=== PATIENT | female | born 1935 | race Caucasian/White ===

== ENCOUNTER → 2023-11-06 06:59 | Outpatient (REF) | payer MEDICARE, SELFPAY ==
[2023-11-06] MEDS: LEXISCAN 0.400000000000000022 MG IV (09:55)
[2023-11-06] MEDS: FLUSH (NSS) 1 FLUSH IV (09:56)
== END ==
LOC: RCS 06:59
PROVIDERS: ATTENDING PHYSICIAN Nuclear Medicine Nuclear Cardiology; FAMILY PHYSICIAN Family Medicine
DX: R07.9 Chest pain, unspecified (principal); R06.09 Other forms of dyspnea; I10 Essential (primary) hypertension; I51.7 Cardiomegaly
CPT/HCPCS: 78452; 93017; A9500; J2785

== ENCOUNTER → 2023-11-13 14:52 | Outpatient (REF) | payer MEDICARE, SELFPAY | LOC: RCS 14:52 | PROVIDERS: ATTENDING PHYSICIAN Nuclear Medicine Nuclear Cardiology; FAMILY PHYSICIAN Family Medicine | DX: R07.9 Chest pain, unspecified (principal); R06.09 Other forms of dyspnea; I10 Essential (primary) hypertension; I51.7 Cardiomegaly | CPT/HCPCS: 93306 ==

== ENCOUNTER → 2023-12-22 16:01 | Outpatient (REF) | payer MEDICARE, SELFPAY | LOC: RAD 16:01 | PROVIDERS: ATTENDING PHYSICIAN Family Medicine | DX: R31.9 Hematuria, unspecified (principal) | CPT/HCPCS: 76770 ==

== ENCOUNTER → 2024-01-03 15:57 | Outpatient (REF) | payer MEDICARE, SELFPAY | LOC: RAD 15:57 | PROVIDERS: ATTENDING PHYSICIAN Obstetrics & Gynecology; FAMILY PHYSICIAN Family Medicine | DX: N13.30 Unspecified hydronephrosis (principal) | CPT/HCPCS: 74176 ==

== ENCOUNTER → 2024-01-09 13:47 | Outpatient (REF) | payer MEDICARE, SELFPAY ==
[2024-01-09 14:57] LABS: Blood Urea Nitrogen 20 mg/dl (7-17); Calcium 10.2 mg/dl (8.4-10.2); Carbon Dioxide 26 mmol/L (22-30); Chloride 101 mmol/L (98-107); Glucose 111 mg/dl (70-99); Potassium 4.4 mmol/L (3.5-5.1); Sodium 137 mmol/L (135-145); eGFR > 60.00
== END ==
LOC: REG 13:47
PROVIDERS: ATTENDING PHYSICIAN Obstetrics & Gynecology; FAMILY PHYSICIAN Family Medicine
DX: N13.2 Hydronephrosis with renal and ureteral calculous obstruction (principal)
CPT/HCPCS: 36415; 80048

== ENCOUNTER → 2024-01-10 11:04 | Outpatient (REF) | payer MEDICARE, SELFPAY | LOC: RAD 11:04 | PROVIDERS: ATTENDING PHYSICIAN Obstetrics & Gynecology; FAMILY PHYSICIAN Family Medicine | DX: N13.2 Hydronephrosis with renal and ureteral calculous obstruction (principal) | CPT/HCPCS: 74178; Q9967 ==

== ENCOUNTER 2024-01-13 23:08 | Emergency (ER) | payer MEDICARE, SELFPAY ==
[2024-01-13 23:10] VITALS: BP 133/84
[2024-01-13 23:35] VITALS: BMI 26.3
--- NOTE | 2024-01-13 23:36 | EDRN ---
Pt says she has a kidney problem with an appt on for cystoscopy. Pt says she is in a lot of pain currently and has noted her urine has been dark 'the color of tea'. Son says pt called him and complained of pain and nausea which prompted him
to bring pt to ED. He was with pt on for surgery consult - pt had a CT with contrast on Monday. Son says a blockage on CT and cystoscopy hoping to be curative. Son says tonight is first time pt complained of nausea. Pt was told not
to take any ibuprofen 5 days prior to surgery. Pt adds she was very uncomfortable last night urinating multiple times and having discomfort with urination. Pt did not take any pain medications. Pt says nausea started last night, went away during
the day today and returned again tonight. No vomiting, fever/chills, cp, sob. Pt has pressure in her abdomen and pain in vaginal area. Normal appetite.
[2024-01-13 23:53] LABS: Urine Albumin Trace (Neg - Trace); Urine Bilirubin Negative (Negative); Urine Character Very Cloudy (Clear); Urine Color Yellow; Urine Glucose Negative (Negative); Urine Ketone Negative (Negative); Urine Leukocyte Trace (Negative); Urine Nitrite Negative (Negative); Urine Occult Blood 4+ (Negative); Urine Urobilinogen Negative (Neg - 1+)
--- NOTE | 2024-01-13 23:54 | ED.GENMED ---
History of Present Illness
<ANNAMARIA Puckett - Last Filed: 01/14/24 05:43>
General
Chief Complaint: Urinary Symptoms
Source: patient and family (pt's son)
Exam Limitations: none
Time Seen by Provider: 01/13/24 23:46
Nursing documentation reviewed up to this point in time: agreed with
History of Present Illness
History of Present Illness:
88 year old female presents for evaluation of UTI symptoms. Pt reports that she has a history of urological sx as well as stress incontinence, and is scheduled for a L ureteroscopy on 01/30/24. Her son reports that this procedure is due to a blockage
of the pt's L ureter. She currently endorses suprapubic pain with radiation to her left lower back, as well as dysuria, increased frequency of urination, and urgency. She notes that her sx have worsened over the last 24 hours, and tend to be worse
at night. She also endorses intermittent periods of nausea, but denies vomiting. She has not taken any medications for her sx. Pt denies fever, foul smelling discharge, chills, fatigue, flank pain, and rash.
Past History
<ANNAMARIA Puckett - Last Filed: 01/14/24 05:43>
Past History
ED Past Medical History: HTN, Psychiatric (Anxiety) and Other (GERD, frequent UTIs, history of dysphagia)
ED Past Surgical History: Gynecological and Orthopedic
Social History
Tobacco: Non-smoker
Alcohol: Occasional
Family History
Family History: Other (Diabetes, coronary disease, stroke, glaucoma)
Review of Systems
<ANNAMARIA Puckett - Last Filed: 01/14/24 05:43>
Review of Systems
Allergies reviewed?: Yes
Constitutional: Reports no symptoms
EENT: Reports no symptoms
Respiratory: Reports no symptoms
Cardiac: Reports no symptoms
: Reports dysuria, frequency and incontinence
Musculoskeletal: Reports back pain
Skin: Reports no symptoms
Neurological: Reports no symptoms
Endocrine: Reports no symptoms
Hematologic/Lymphatic: Reports no symptoms
Psychiatric: Reports no symptoms
Phy Exam
<ANNAMARIA Puckett - Last Filed: 01/14/24 05:43>
General Physical Exam
General Presentation: well appearing
General age: appears stated age
General Skin: warm
General Habitus: elderly
General Mental: alert
General Hydration: appears well hydrated
Cardiovascular Exam
Cardiovascular Exam: regular rate/rhythm and no murmur
Pulmonary Exam
Pulmonary Exam: lungs clear and no respiratory distress
Gastrointestinal Exam
Gastrointestinal Exam: normal bowel sounds, no cva tenderness and tender (suprapubic )
Palpation: left lower quadrant: Minimal tenderness and right lower quadrant: Minimal tenderness
Genitourinary Exam Female
Exam Female: no bleeding and no vaginal discharge
Neurological Exam
Neurological Exam: alert and oriented x3
Musculoskeletal Exam
Musculoskeletal Exam: back pain (Left lower back pain )
Skin Exam
Skin Exam: normal color and warm/dry
Course
<ANNAMARIA Puckett - Last Filed: 01/14/24 05:43>
Orders/Labs/Results
Orders:
Orders
01/13/24 23:43
Urinalysis Reflex To Culture Urgent
Date Specimen was Collected: 01/13/24
Time Specimen was Collected: 23:35
Urine Microscopic Reflex Cult Urgent
Urine Culture Urgent
VON Source: U
Specimen Description:
Date Specimen was Collected: 01/13/24
Time Specimen was Collected: 23:35
01/14/24 00:55
Acetaminophen [Tylenol] 1,000 mg PO NOW STA
Doxycycline [Vibramycin] 100 mg PO NOW STA
01/14/24 01:02
Acetaminophen [Tylenol] 500 mg .ROUTE .STK-MED ONE
Abnormal Lab Results
01/13/24
23:43
Ur Occult Blood Reflex 4+ A
(Negative)
Leukocyte Esterase Rfl Trace A
(Negative)
Urine RBC 90-100 A /HPF
(0-2)
Urine WBC (Reflex) 11-15 A /HPF
(0-5)
Urine Bacteria (Reflex) Many A
(Negative)
Vital Signs
Initial and Last Documented VS:
Initial Vital Signs
Temp Pulse Resp BP Pulse Ox
98.4 F 78 24 133/84 96
01/13/24 23:10 01/13/24 23:10 01/13/24 23:10 01/13/24 23:10 01/13/24 23:10
Last Documented Vital Signs
Temp Pulse Resp BP Pulse Ox
98.4 F 86 16 185/83 97
01/13/24 23:10 01/14/24 01:14 01/14/24 01:14 01/14/24 01:18 01/14/24 01:14
<Annabella Queen, DO - Last Filed: 01/14/24 01:03>
Orders/Labs/Results
Orders:
Orders
01/13/24 23:43
Urinalysis Reflex To Culture Urgent
Date Specimen was Collected: 01/13/24
Time Specimen was Collected: 23:35
Urine Microscopic Reflex Cult Urgent
Urine Culture Urgent
VON Source: U
Specimen Description:
Date Specimen was Collected: 01/13/24
Time Specimen was Collected: 23:35
01/14/24 00:55
Acetaminophen [Tylenol] 1,000 mg PO NOW STA
Doxycycline [Vibramycin] 100 mg PO NOW STA
01/14/24 01:02
Acetaminophen [Tylenol] 500 mg .ROUTE .STK-MED ONE
Abnormal Lab Results
01/13/24
23:43
Ur Occult Blood Reflex 4+ A
(Negative)
Leukocyte Esterase Rfl Trace A
(Negative)
Urine RBC 90-100 A /HPF
(0-2)
Urine WBC (Reflex) 11-15 A /HPF
(0-5)
Urine Bacteria (Reflex) Many A
(Negative)
Vital Signs
Initial and Last Documented VS:
Initial Vital Signs
Temp Pulse Resp BP Pulse Ox
98.4 F 78 24 133/84 96
01/13/24 23:10 01/13/24 23:10 01/13/24 23:10 01/13/24 23:10 01/13/24 23:10
Last Documented Vital Signs
Temp Pulse Resp BP Pulse Ox
98.4 F 86 16 185/83 97
01/13/24 23:10 01/14/24 01:14 01/14/24 01:14 01/14/24 01:18 01/14/24 01:14
<ANNAMARIA Puckett - Last Filed: 01/14/24 05:43>
MDM/Problems Addressed
Differential Diagnosis Includes:
cystitis, pyelonephritis
MDM/Problems Addressed:
Urinalysis Reflex To Culture
Urine Culture
Acetaminophen [Tylenol] 1,000 mg PO
Doxycycline [Vibramycin] 100 mg PO
Acetaminophen [Tylenol] 500 mg
<ANNAMARIA Puckett - Last Filed: 01/14/24 05:43>
*Critical Care Note
Total Time (30-74mins, 75-104mins- exclusive of procedures): Not Applicable
ED Attending Note
<ANNAMARIA Puckett - Last Filed: 01/14/24 05:43>
-
Portions of this chart may have been created with voice recognition software.� Occasional wrong word or��sound alike� substitutions may have occurred due to the inherent limitations of voice recognition software.
<Annabella Queen, DO - Last Filed: 01/14/24 01:03>
ED Attending Note
Patient seen and examined by attending physician: Yes
ED Attending Note:
This is an 88-year-old woman who has history of occasional UTIs last occurring at least 4 to 6 months ago. More recently she has had more persistent suprapubic discomfort, intermittent dysuria as well as left back pain/flank pain and has been
following with urology and underwent an outpatient CT abdomen pelvis which showed some hydronephrosis on the left. She is scheduled for left ureteroscopy and stent placement January [address] Rosario.
Urinalysis January 10 showed moderate microscopic hematuria but no evidence of UTI. Normal BMP January 08.
She continues with dysuria, urinary frequency, urinary urgency and occasional urinary incontinence that is worse over the past day or 2. She denies fever nor chills, no diarrhea or constipation.
She has had some intermittent left flank pain but currently comfortable.
She had been taking ibuprofen intermittently for pain but has discontinued this in preparation for her ureteroscopy procedure in over 2 weeks time.
Son is at bedside and does note that she was allowed to continue ibuprofen and recommended discontinuing this just 5 days prior to procedure.
GENERAL: 88-year-old woman appears her stated age, bright and alert, pleasant, appears in no acute distress.
EYE: anicteric
NECK: Supple, nontender, no meningismus, no significant adenopathy.
ENT: oral mucosa is moist. No rhinorrhea.
CARDIAC: Regular rate and rhythm. no murmur.
LUNGS: Clear breath sounds bilaterally, no acute respiratory distress, no wheezes/rales/rhonchi
ABDOMEN: Soft, nondistended, without focal tenderness, no r/g, no cvat. normoactive BS.
NEUROLOGICAL: Alert and oriented x3, no focal neuro deficits. Gait is blanca and steady.
SKIN: Warm and dry, normal color, skin intact. No rash.
MUSCULOSKELETAL: No C/C/E. peripheral pulses are full and equal b/l. No palpable tenderness.
PSYCH: Normal and appropriate interaction.
Patient presents with UTI symptoms, worsening over the past few days with history of somewhat chronic suprapubic discomfort, intermittent dysuria.
Overall appears comfortable, afebrile, no appreciable abdominal tenderness nor CVA tenderness on exam.
Urinalysis consistent with UTI showing many bacteria, 11-15 WBCs, 90-100 RBCs.
It is reassuring that she is afebrile and currently has no flank pain. Nothing to suggest pyelonephritis.
Will treat with a course of doxycycline. Will give Tylenol for discomfort.
Discussed importance of remaining well-hydrated on a daily basis.
Prompt follow-up with urology for recheck.
Urine culture is pending.
Return precautions discussed.
Discharge Plan
Departure
Patient Disposition: Home (Routine Discharge)
Date of Disposition: 01/14/24
Time of Disposition: 01:01
Patient with high blood pressure during this ER visit?: No
Condition: Good
Discharge Problem:
Acute cystitis
Instructions: Urinary tract infections in adults
Prescriptions:
New
doxycycline monohydrate 100 mg capsule
100 mg PO BID Qty: 14 1RF
No Action
valsartan-hydrochlorothiazide [Diovan HCT] 1 EACH tablet
1 ea PO DAILY
simvastatin 40 MG tablet
40 mg PO QPM
sertraline 25 MG tablet
25 mg PO DAILY
Referrals:
Valentín Burgos MD [Family Provider] - Call in 1-3 days for appt
Collins Rosario Jr., MD [Active] -
Interventions
Interventions:
*Risk Screen - Suicide Last Done: 01/13/24 23:10
*General Assessment Last Done: 01/13/24 23:35
*Neglect/Abuse Screening Last Done: 01/13/24 23:10
ED- Fall Risk Assessment Last Done: 01/13/24 23:44
*ED COVID-19 Vaccine History Last Done: 01/13/24 23:25
*Nursing Disposition Last Done: 01/14/24 01:21
[place]-Fhrygk-Vpzsxfpcbd Assessment Last Done: 01/13/24 23:50
ED-Female Genitourinary Assessment Last Done: 01/13/24 23:50
Discharge Date and Time
Discharge Date/Time: 01/14/24 01:21
Print Language: TURKMEN
[2024-01-14 00:01] LABS: Urine Red Blood Cell 90-100 /HPF (0-2)
[2024-01-14 00:02] LABS: Urine Bacteria Many (Negative)
[2024-01-14] MEDS: VIBRAMYCIN 100 MG PO (01:03)
[2024-01-14] MEDS: TYLENOL 1000 MG PO (01:03)
[2024-01-14 01:14] VITALS: BP 191/80
[2024-01-14 01:18] VITALS: BP 185/83
== END 2024-01-14 01:21 | disposition home or self-care (01) ==
LOC: EMR 23:08
PROVIDERS: Emergency Medicine; EMERGENCY PHYSICIAN Emergency Medicine; FAMILY PHYSICIAN Family Medicine
DX: N30.00 Acute cystitis without hematuria (principal); I10 Essential (primary) hypertension; F41.9 Anxiety disorder, unspecified; K21.9 Gastro-esophageal reflux disease without esophagitis; R13.10 Dysphagia, unspecified; Z82.3 Family history of stroke; Z82.49 Family history of ischemic heart disease and other diseases of the circulatory system; Z83.3 Family history of diabetes mellitus; Z87.440 Personal history of urinary (tract) infections
CPT/HCPCS: 99282; 81003; 81015; 87086

== ENCOUNTER 2024-01-27 22:39 | Emergency (ER) | payer MEDICARE, SELFPAY ==
[2024-01-27 22:43] VITALS: BP 169/85
--- NOTE | 2024-01-27 23:24 | ED.GENMED ---
History of Present Illness
General
Chief Complaint: Urinary Symptoms
Source: patient, records, family and previous radiology exam
Exam Limitations: none
Time Seen by Provider: 01/27/24 23:05
Nursing documentation reviewed up to this point in time: agreed with
History of Present Illness
History of Present Illness:
Patient very pleasant 88-year-old female patient of Dr. Schmidt presents with left flank pain hematuria, fairly severe pain blood pressure went up bleeding a fair amount like a menstrual cycle
She has had similar complaints not quite a severe previously seen by urology had a CT and a CT urogram has a stricture and obstruction with no stone scheduled for procedure this week from Dr. Rosario
Stent possible other procedure, daughter states concerned that this could be malignancy although it is not clear patient is had no fevers, has been on some antibiotics recently
Past History
Past History
ED Past Medical History: HTN, Psychiatric (Anxiety) and Other (GERD, frequent UTIs, history of dysphagia)
ED Past Surgical History: Gynecological and Orthopedic
Social History
Tobacco: Non-smoker
Alcohol: Occasional
Family History
Family History: Other (Diabetes, coronary disease, stroke, glaucoma)
Review of Systems
Review of Systems
All Other Systems: Not applicable
Constitutional: Denies fever or fatigue
EENT: Reports no symptoms
Respiratory: Reports no symptoms
Cardiac: Reports no symptoms
ABD/GI: Reports abdominal pain
: Reports flank pain, difficulty voiding and bleeding
Musculoskeletal: Reports no symptoms
Skin: Reports no symptoms
Neurological: Reports no symptoms
Phy Exam
Physical Exam
Physical Exam:
Physical Exam
General: Pleasant elderly female nontoxic
Neck: No jaundice
Heart: s1/s2 regular rate and rhythm, no murmur. equal radial pulses.
Lungs: no acute respiratory distress. clear bilaterally
Abdomen: Mild left lower abdominal left flank tenderness
Neuro: alert and oriented. no focal neurological deficits
Skin: no rash
Psychiatric: well kept. interactive and cooperative
Extremities: no edema.
Course
Orders/Labs/Results
Orders:
Orders
01/27/24 23:20
Electrocardiogram (*1) Stat
Reason for Study: Other
Other Reason for Exam: r/o kidney stone
EKG- Treatment ONCE
IV Insert/Care/Rem.- Treatment PRN
Morphine Sulfate 2 mg IV NOW STA
01/27/24 23:22
Bladder Scan- Treatment ONCE
01/27/24 23:49
Complete Blood Count/With Diff Urgent
Comprehensive Metabolic Panel Urgent
Lipase Urgent
01/27/24 23:58
Urinalysis Reflex To Culture Urgent
Date Specimen was Collected: 01/27/24
Time Specimen was Collected: 23:50
Urine Microscopic Reflex Cult Urgent
Urine Culture Urgent
VON Source: U
Specimen Description:
Date Specimen was Collected: 01/27/24
Time Specimen was Collected: 23:50
01/28/24 00:54
Oxycodone/Acetaminophen [Percocet 5/325] 1 tablet PO NOW STA
Abnormal Lab Results
01/27/24 01/27/24
23:49 23:58
RBC 3.82 L 10^6/uL
(4.20-5.40)
Hgb 11.8 L g/dL
(12.0-16.0)
Hct 33.9 L %
(37.0-47.0)
Absolute Monos (auto) 1.0 H 10^3/uL
(0.1-0.6)
Lymphocytes % 19.0 L %
(20.5-51.1)
Monocytes % 12.4 H %
(1.7-9.3)
BUN 31 H mg/dl
(7-17)
Glucose 108 H mg/dl
(70-99)
Ur Occult Blood Reflex 4+ A
(Negative)
Leukocyte Esterase Rfl Trace A
(Negative)
Urine RBC >100 A /HPF
(0-2)
Urine Bacteria (Reflex) Many A
(Negative)
Urine Albumin (Reflex) 2+ A
(Neg - Trace)
01/27/24 23:49
01/27/24 23:49
Vital Signs
Initial and Last Documented VS:
Initial Vital Signs
Temp Pulse Resp BP Pulse Ox
98 F 77 20 169/85 95
01/27/24 22:43 01/27/24 22:43 01/27/24 22:43 01/27/24 22:43 01/27/24 22:43
Last Documented Vital Signs
Temp Pulse Resp BP Pulse Ox
98 F 71 20 176/76 96
01/27/24 22:43 01/28/24 00:40 01/28/24 00:00 01/28/24 00:00 01/28/24 00:45
MDM/Problems Addressed
Differential Diagnosis Includes:
UTI malignancy less likely stone based on prior workup
MDM/Problems Addressed:
Flank pain hematuria
Chronic conditions affecting care:
Hypertensive chronic obstructive urinary tract
Acute Exacerbation and/or Progression of Chronic Illness:
Hypertension chronic obstruction
*EKG
Interpreted by ED Provider?: Yes
Interpretation: abnormal
Comparison EKG: no comparison EKG present
Heart Rate: 78
Rate: normal
Rhythm: sinus
Ischemia: non-specific ST changes
*Heavy Equipment Operator Apprentice Interpretation
Rate: normal
Interpretation: normal
Heart Rate: 70
Rhythm: sinus
*Critical Care Note
Total Time (30-74mins, 75-104mins- exclusive of procedures): Not Applicable
Data Reviewed
Review of Other/Old Records Reveals: Labs, Records and Radiology Studies
Source: records
Update Note
Update Note:
Prior imaging noted, looks like she has chronic obstruction and differential was reviewed in the CT report she is scheduled for cystoscopy and stent from Dr. Rosario on Monday now with hematuria pain regular comfortable check bladder scan, UA
Update labs are noted urinalysis pending patient feeling better after dose of morphine
Update urine noted
Afebrile no nausea vomiting we will hold on antibiotics pending culture if she was recently on antibiotics
Long conversation with patient and her daughter shared decision making I did offer them admission for monitoring of her symptoms patient is very adamant that she would like to go home she has a bit that she is anxious about her upcoming surgery,
request short courses manage anxiety meds have been prescribed Long conversation about not taking anxiety meds with no chronic pain meds, also not mixing alcohol they will come back to the ER if any worsening symptoms, I will update patient's
urologist
ED Attending Note
-
Portions of this chart may have been created with voice recognition software.� Occasional wrong word or��sound alike� substitutions may have occurred due to the inherent limitations of voice recognition software.
Discharge Plan
Departure
Patient Disposition: Home (Routine Discharge)
Date of Disposition: 01/28/24
Time of Disposition: 00:55
Patient with high blood pressure during this ER visit?: Yes
Condition: Good
Discharge Problem:
Hematuria
Instructions: Blood in the Urine (Hematuria), Adult (DC)
Prescriptions:
New
oxycodone-acetaminophen [Percocet] 5-325 mg tablet
1 tab PO Q6HPRN PRN (Reason: pain) Qty: 10 0RF
alprazolam [Xanax] 0.5 mg tablet
0.5 mg PO Q8HPRN PRN (Reason: anxiety) Qty: 11 0RF
No Action
sertraline 25 MG tablet
25 mg PO DAILY
losartan 100 mg Tablet
100 mg PO DAILY
acetaminophen 500 mg Capsule
500 mg PO BID
melatonin 1 mg Tablet
1 mg PO HS PRN (Reason: insomnia)
Referrals:
Valentín Burgos MD [Family Provider] -
Activity Restrictions/Additional Instructions:
Tylenol as needed for pain, Percocet as needed for severe pain--- do not take more than 8 Tylenol or Percocet in any 24-hour period as they both contain acetaminophen
You can use Xanax every 8 hours as needed for anxiety--- do not mix Xanax with alcohol and/or Percocet as it can have sedating effects
Return to the ER for worsening symptoms or any concerns, the ER will call you if your urine culture grows out any bacteria you need an antibiotic
Interventions
Interventions:
*Risk Screen - Suicide Last Done: 01/27/24 22:43
*General Assessment Last Done: 01/27/24 22:43
*Neglect/Abuse Screening Last Done: 01/27/24 22:43
ED- Fall Risk Assessment Last Done: 01/28/24 00:20
ED-Female Genitourinary Assessment Last Done: 01/28/24 00:20
Discharge Date and Time
Print Language: [place]
[2024-01-27] MEDS: MORPHINE SULFATE 2 MG IV (23:58)
[2024-01-28] VITALS: BP 176/76
[2024-01-28 00:01] LABS: % Basophils 0.3 % (0-2); % Eosinophils 2.3 % (0-6); % Immature Granulocytes 0.3 % (0-0.5); % Monocytes 12.4 % (1.7-9.3); % Neutrophils 65.7 % (42.2-75.2); Absolute Eosinophils 0.2 10^3/uL (0-0.7); Absolute Lymphocytes 1.5 10^3/uL (1.2-3.4); Absolute Neutrophils 5.1 10^3/uL (1.4-6.5); Hematocrit 33.9 % (37.0-47.0); Hemoglobin 11.8 g/dL (12.0-16.0); Mean Corp Hgb Conc. 34.8 g/dL (33.0-37.0); Mean Corpuscular Hgb 30.9 pg (27.0-31.0); Mean Corpuscular Volume 88.7 fL (81.0-99.0); Mean Platelet Volume 9.8 fL (7.4-10.4); Nucleated Red Blood Cells % 0 %; Platelet Count 281 10^3/uL (130-400); Red Blood Cell Count 3.82 10^6/uL (4.20-5.40); Red Cell Dist. Width 13.1 % (11.5-14.5); White Blood Cell Count 7.8 10^3/uL (4.8-10.8)
[2024-01-28 00:09] LABS: ALT (SGPT) 20 U/L (0-35); AST (SGOT) 26 U/L (14-36); Albumin 4.4 g/dl (3.5-5.0); Alkaline Phosphatase 44 U/L (38-126); Blood Urea Nitrogen 31 mg/dl (7-17); Calcium 9.3 mg/dl (8.4-10.2); Carbon Dioxide 28 mmol/L (22-30); Chloride 101 mmol/L (98-107); Glucose 108 mg/dl (70-99); Lipase 176 U/L (23-300); Potassium 3.8 mmol/L (3.5-5.1); Sodium 135 mmol/L (135-145); Total Bilirubin 0.3 mg/dl (0.2-1.3); eGFR > 60.00
[2024-01-28 00:18] LABS: Urine Albumin 2+ (Neg - Trace); Urine Bilirubin Negative (Negative); Urine Character Slightly Cloudy (Clear); Urine Color Yellow; Urine Glucose Negative (Negative); Urine Ketone Negative (Negative); Urine Leukocyte Trace (Negative); Urine Nitrite Negative (Negative); Urine Occult Blood 4+ (Negative); Urine Specific Gravity 1.025 (<1.030); Urine Urobilinogen Negative (Neg - 1+)
[2024-01-28 00:31] LABS: Urine Amorphous Seen; Urine Red Blood Cell >100 /HPF (0-2); Urine Squamous Cell >30 /LPF (Few)
[2024-01-28 00:32] LABS: Urine Bacteria Many (Negative)
[2024-01-28 01:00] VITALS: BP 165/73
[2024-01-28] MEDS: PERCOCET 5/325 1 TABLET PO (01:05)
== END 2024-01-28 01:24 | disposition home or self-care (01) ==
LOC: EMR 22:39
PROVIDERS: EMERGENCY PHYSICIAN Emergency Medicine; FAMILY PHYSICIAN Family Medicine
DX: R31.9 Hematuria, unspecified (principal); I10 Essential (primary) hypertension; F41.9 Anxiety disorder, unspecified; K21.9 Gastro-esophageal reflux disease without esophagitis; Z82.3 Family history of stroke; Z82.49 Family history of ischemic heart disease and other diseases of the circulatory system; Z83.3 Family history of diabetes mellitus; Z87.440 Personal history of urinary (tract) infections
CPT/HCPCS: 99283; 96374; 80053; 81003; 81015; 83690; 85025; 87086; 93005

== ENCOUNTER 2024-01-30 06:10 | Day surgery (SDC) | payer MEDICARE, SELFPAY ==
--- NOTE | 2024-01-25 13:05 | PTCARENOTE ---
Trisha in office made aware of UA with many bacteria, wbc's 11-15.
[2024-01-30] VITALS (12 sets, daily range): BP systolic 136–162; BP diastolic 70–125; BMI 25.3
[2024-01-30] MEDS: NORMOSOL-R 1000 IV (06:41)
[2024-01-30 07:06] LABS: Hematocrit 33.9 % (37.0-47.0); Hemoglobin 11.8 g/dL (12.0-16.0); Mean Corp Hgb Conc. 34.8 g/dL (33.0-37.0); Mean Corpuscular Hgb 31.6 pg (27.0-31.0); Mean Corpuscular Volume 90.9 fL (81.0-99.0); Mean Platelet Volume 10.1 fL (7.4-10.4); Platelet Count 264 10^3/uL (130-400); Red Blood Cell Count 3.73 10^6/uL (4.20-5.40); White Blood Cell Count 5.5 10^3/uL (4.8-10.8)
[2024-01-30 07:14] LABS: INR 0.98
[2024-01-30 07:15] LABS: APTT 28.3 Sec (23.4-35.0)
[2024-01-30] MEDS: DETROL LA 4 MG PO (10:00)
[2024-01-30] MEDS: TYLENOL 650 MG PO (11:16)
== END 2024-01-30 14:30 | disposition home or self-care (01) ==
LOC: SDS 06:10
PROVIDERS: ATTENDING PHYSICIAN Specialist
DX: D09.0 Carcinoma in situ of bladder (principal); N28.89 Other specified disorders of kidney and ureter; D49.4 Neoplasm of unspecified behavior of bladder; D41.22 Neoplasm of uncertain behavior of left ureter; N13.30 Unspecified hydronephrosis
CPT/HCPCS: 52354; 52332; 52235; 88305; 74018; 76000; 85027; 85610; 85730; 87086; 88112; 88341; 88342; C1758; C1894; C2617

== ENCOUNTER 2024-03-07 06:18 | Day surgery (SDC) | payer MEDICARE, SELFPAY ==
[2024-03-07] VITALS (7 sets, daily range): BP systolic 133–167; BP diastolic 60–82; BMI 25.9
[2024-03-07] MEDS: CYSVIEW KIT 100 MG INTRAVES (08:29)
[2024-03-07] MEDS: NORMOSOL-R/PLASMALYTE-A 1000 IV (08:29)
== END 2024-03-07 12:15 | disposition home or self-care (01) ==
LOC: SDS 06:18
PROVIDERS: ATTENDING PHYSICIAN Specialist
DX: N30.90 Cystitis, unspecified without hematuria (principal)
CPT/HCPCS: 52234; C9738; 88307; 74018; 76000; C2617

== ENCOUNTER 2024-03-14 19:57 | Inpatient (IN) | payer MEDICARE, SELFPAY ==
[2024-03-14] VITALS (9 sets, daily range): BP systolic 93–191; BP diastolic 59–125; BMI 26.0
[2024-03-14 15:21] LABS: % Basophils 0.2 % (0-2); % Eosinophils 1.1 % (0-6); % Lymphocytes 8.2 % (20.5-51.1); % Monocytes 12.8 % (1.7-9.3); % Neutrophils 76.7 % (42.2-75.2); Absolute Eosinophils 0.2 10^3/uL (0-0.7); Absolute Immature Granulocytes 0.2 10^3/uL (0-0.05); Absolute Lymphocytes 1.3 10^3/uL (1.2-3.4); Absolute Neutrophils 12.1 10^3/uL (1.4-6.5); Hematocrit 30.5 % (37.0-47.0); Hemoglobin 10.8 g/dL (12.0-16.0); Mean Corp Hgb Conc. 35.4 g/dL (33.0-37.0); Mean Corpuscular Hgb 31.3 pg (27.0-31.0); Mean Corpuscular Volume 88.4 fL (81.0-99.0); Mean Platelet Volume 9.4 fL (7.4-10.4); Nucleated Red Blood Cells % 0 %; Platelet Count 375 10^3/uL (130-400); Red Blood Cell Count 3.45 10^6/uL (4.20-5.40); Red Cell Dist. Width 12.2 % (11.5-14.5); White Blood Cell Count 15.7 10^3/uL (4.8-10.8)
--- NOTE | 2024-03-14 15:27 | ED.GENMED ---
History of Present Illness
General
Chief Complaint: Generalized Pain
Source: patient and family
Exam Limitations: none
Time Seen by Provider: 03/14/24 13:56
Nursing documentation reviewed up to this point in time: agreed with
History of Present Illness
History of Present Illness:
Patient is an 88-year-old female with past medical history of recent diagnosis of bladder cancer( on 03/07 had cystoscopy diagnostic left ureteroscopy with stent exchange transurethral resection of bladder tumor) , hypertension hyperlipidemia
presents to the ER for evaluation. Daughter reports patient fell Monday night 4 nights ago). Daughter believes she actually passed out. Patient reports she felt lightheaded dizzy like she was going to pass out and tried to open the door and then
had a syncopal episode. Reports patient has a black eye from this. She is not on blood thinners. She does have mild headache now.
Daughter reports patient is a chronic right upper abdominal/rib pain for years this is not new but she is concerned about this since there is no diagnosis. Daughter also reports the patient did have a fever 2 nights ago and had a mild cough.
Past History
Past History
ED Past Medical History: HTN, Psychiatric (Anxiety) and Other (GERD, frequent UTIs, history of dysphagia)
ED Past Surgical History: Gynecological and Orthopedic
Social History
Tobacco: Non-smoker
Alcohol: Occasional
Family History
Family History: Other (Diabetes, coronary disease, stroke, glaucoma)
Review of Systems
Review of Systems
Allergies reviewed?: Yes
Other source history: family
All Other Systems: ROS reviewed and negative except as documented in HPI and ROS
Constitutional: Reports no symptoms; Denies fever, fatigue or chills
Respiratory: Reports other (pain in right rib area (chronic ) )
Cardiac: Reports syncope
ABD/GI: Reports no symptoms
: Reports no symptoms
Musculoskeletal: Reports no symptoms
Skin: Reports no symptoms
Neurological: Reports no symptoms
Hematologic/Lymphatic: Reports no symptoms
Psychiatric: Reports no symptoms
Phy Exam
General Physical Exam
General Presentation: well appearing
General age: appears stated age
General Skin: warm and dry
General Habitus: elderly
General Mental: alert
General Hydration: appears well hydrated
Cardiovascular Exam
Cardiovascular Exam: regular rate/rhythm, no murmur and normal peripheral pulses
Pulmonary Exam
Pulmonary Exam: lungs clear and no respiratory distress
Neurological Exam
Neurological Exam: alert and oriented x3
[employer] Coma Scale
Eye Opening: Spontaneous
Verbal Response: Oriented
Motor Response: Obeys Commands
GCS Total Score: 15
Musculoskeletal Exam
Musculoskeletal Exam: other (+ Ecchymosis to left face)
Skin Exam
Skin Exam: normal color and warm/dry
Psychiatric Exam
Psychiatric Exam: normal mood/affect
Course
Orders/Labs/Results
Orders:
Orders
03/14/24
ECG [Electrocardiogram (*1)] Urgent
Reason for Study: Chest Pain
03/14/24 14:51
CT Chest Pe Study Urgent
Comment:
Reason For Exam: syncope right chest/rib pain /sob
03/14/24 Dinner
IDDSI 6 - Soft & Bite Sized
At Your Request: Limited Participation
Fluid Restriction: 1200 mL/day (40 oz)
03/14/24 15:12
COVID-19 Antigen Urgent
Source: Nasal Swab
Complete Blood Count/With Diff Urgent
Comprehensive Metabolic Panel Urgent
Troponin I Urgent
03/14/24 15:29
CT Head W/o Iv Contrast Urgent
Comment:
Reason For Exam: trauma/syncope
03/14/24 16:38
Osmolality, Random Urine Urgent
Date Specimen was Collected: 03/14/24
Time Specimen was Collected: 16:31
Comment: ADD ON
UA Reflex to Culture [Urinalysis Reflex To Culture] Urgent
Date Specimen was Collected: 03/14/24
Time Specimen was Collected: 16:31
Urine Microscopic Reflex Cult Urgent
Urine Sodium Urgent
Date Specimen was Collected: 03/14/24
Time Specimen was Collected: 16:31
Comment: ADD ON
Urine Culture Urgent
VON Source: U
Specimen Description:
Date Specimen was Collected: 03/14/24
Time Specimen was Collected: 16:31
03/14/24 17:39
CefTRIAXone [Rocephin] 1,000 mg IV NOW STA
03/14/24 17:49
Acetaminophen [Tylenol] 650 mg .ROUTE .STK-MED ONE
03/14/24 17:51
Acetaminophen [Tylenol] 650 mg PO NOW STA
03/14/24 17:52
Lactic Acid Urgent
Blood Culture Urgent
VON Source: Blood/Venous
Specimen Description:
03/14/24 18:13
Add On- LAB Urgent
Tests Added?: urine sodium, urine osmolality
03/14/24 18:42
Pantoprazole [Protonix IV] 40 mg IV NOW STA
03/14/24 18:[address] Non Medication Order As Directed
Physician Order: please text cross cover provider when urine studies back. If urine sodium is low then please
start NS @ 60cc/hr
Above order entered?: Yes
03/14/24 18:45
Admit/Transfer Patient As Directed
Co-Sign Provider:
Level of Care: Inpatient admission
Assign to:: Medical/Surgical
Physician / Group: Chantale Tinajero
Diagnosis: Hyponatremia, UTI
Reason for Hospitalization: Hyponatremia, UTI
Expected length of stay greater than two midnights?: Yes
ELOS- Estimated Length of Stay in days: 3
I certify the patient meets the requirements for IP care: Yes
PRN Pain Medication Management As Directed
May give lesser potent ordered pain med per pt: Yes
preference::
Protocol:: Medication orders for pain may be administered in a
manner that supports deferring to patient preference
when the pt is:
- Requesting an ordered lesser potent pain medication.
Least to most potent pain medications are defined
as: acetaminophen < NSAID < tramadol < opioids
(morphine, oxycodone, hydromorphone).
- Requesting a lesser dose of the same medication IF
ORDERED.
- Requesting a less intrusive route of administration
if both routes are prescribed by the provider (PO <
IV).
03/14/24 18:46
Code Status As Directed
Resuscitation Status: Full Code
03/14/24 18:47
0.9% Sodium Chloride [Nss (Preservative Free)] 10 ml IV NOW STA
03/14/24 20:48
Acetaminophen [Tylenol] 650 mg PO Q4HPRN PRN
Bisacodyl [Dulcolax] 10 mg RECTAL P23PHOL PRN
Docusate W/Senna [Senokot-S] 1 tablet PO BIDPRN PRN
Ondansetron Injectable [Zofran] 4 mg IV Q6HPRN PRN
Polyethylene Glycol Powder [Miralax] 17 grams PO DAILYPRN PRN
vibegron [Gemtesa] See Dose Instructions PO QPM
03/14/24 20:48
Activity As Directed
Activity Level: As Tolerated
Pneumatic Compression Sleeves As Directed
Type: Knee high
Vital Signs As Directed
Frequency: Per unit guidelines
Weight As Directed
Frequency: Daily
OT Consult [Ot Eval And Treat] Routine
Physical Therapy Consult [Pt Eval And Treat] Routine
Activity Level: As Tolerated
Speech Therapy Eval & Treat Routine
DX Deep Vein Thrombosis Video Routine
03/14/24 21:00
Alprazolam [Xanax] 0.25 mg PO DAILYPRN PRN
03/14/24 21:08
Melatonin 1.5 mg PO HSPRN PRN
03/14/24 21:15
Atorvastatin [Lipitor] 10 mg PO QPM
03/15/24 01:05
Sodium Routine
03/15/24 04:44
Basic Metabolic Panel IN AM
Complete Blood Count/No Diff IN AM
Magnesium IN AM
03/15/24 08:00
Losartan [Cozaar] 100 mg PO DAILY
Pantoprazole [Protonix IV] 40 mg IV DAILY
Sertraline HCl [Zoloft] 25 mg PO DAILY
03/15/24 18:00
CefTRIAXone [Rocephin] 1,000 mg IV Q24H
Abnormal Lab Results
03/14/24 03/14/24
15:12 16:38
WBC 15.7 H 10^3/uL
(4.8-10.8)
RBC 3.45 L 10^6/uL
(4.20-5.40)
Hgb 10.8 L g/dL
(12.0-16.0)
Hct 30.5 L %
(37.0-47.0)
MCH 31.3 H pg
(27.0-31.0)
Abs Immat Gran (auto) 0.2 H 10^3/uL
(0-0.05)
Absolute Neuts (auto) 12.1 H 10^3/uL
(1.4-6.5)
Absolute Monos (auto) 2.0 H 10^3/uL
(0.1-0.6)
Immature Gran % 1.0 H %
(0-0.5)
Neutrophils % 76.7 H %
(42.2-75.2)
Lymphocytes % 8.2 L %
(20.5-51.1)
Monocytes % 12.8 H %
(1.7-9.3)
Sodium 125 L mmol/L
(135-145)
Chloride 92 L mmol/L
(98-107)
Carbon Dioxide 20 L mmol/L
(22-30)
BUN 18 H mg/dl
(7-17)
Glucose 113 H mg/dl
(70-99)
Urine Ketones Trace A
(Negative)
Ur Occult Blood Reflex 4+ A
(Negative)
Leukocyte Esterase Rfl 2+ A
(Negative)
Urine RBC 30-40 A /HPF
(0-2)
Urine WBC (Reflex) 11-15 A /HPF
(0-5)
Urine Bacteria (Reflex) Many A
(Negative)
Urine Sodium 29 L mmol/L
(30-90)
Urine Albumin (Reflex) 1+ A
(Neg - Trace)
03/14/24 15:12
03/14/24 15:12
Vital Signs
Initial and Last Documented VS:
Initial Vital Signs
Temp Pulse Resp BP Pulse Ox
97.5 F 91 16 107/75 98
03/14/24 13:48 03/14/24 13:48 03/14/24 13:48 03/14/24 13:48 03/14/24 13:48
Last Documented Vital Signs
Temp Pulse Resp BP Pulse Ox
98.2 F 88 18 127/68 96
03/15/24 07:10 03/15/24 08:41 03/15/24 07:10 03/15/24 08:41 03/15/24 07:10
MDM/Problems Addressed
Differential Diagnosis Includes:
Not limited to syncope, head injury intracranial hemorrhage, infection, dehydration arrhythmia
MDM/Problems Addressed:
As documented patient is a 8-year-old female who presents to the ER for evaluation. Patient had a syncopal episode on Monday and fell landing on her left face. She is not on blood thinners. She recently has a diagnosis of bladder cancer and had
bladder tumor resection stent on March [address] Rosario.
Patient has per family has had intermittent fevers. Patient is afebrile here white count however elevated at 15.7 urine shows 30�40 RBCs and an 11�15 white blood cells many bacteria we will treat for infection especially with recent procedure.
Patient is negative COVID. Sodium low at 125
Family also described the patient has had upper pain to rib area for years with no diagnosis with recent syncope and pain along with new dx of bladder cancer. CAT scan chest ordered.
Patient will require admission for hyponatremia will treat for UTI awaiting CAT scan results
*Radiology
Radiology exam reviewed: radiology read reviewed
*Pulse Oximetry
Patient hypoxic: no
*EKG
Interpreted by ED Provider?: Yes
Interpretation: abnormal
Heart Rate: 94
Rate: normal
Rhythm: sinus and PVC's
*Critical Care Note
Total Time (30-74mins, 75-104mins- exclusive of procedures): Not Applicable
ED Attending Note
-
Portions of this chart may have been created with voice recognition software.� Occasional wrong word or��sound alike� substitutions may have occurred due to the inherent limitations of voice recognition software.
Discharge Plan
Departure
Patient Disposition: Admit
Date of Disposition: 03/14/24
Time of Disposition: 18:22
Admit to: Med/Surg
Admit to doctor: hospitalist
Presentation/result/management discussed w/ accepting MD/DO: Hospitalist
Patient with high blood pressure during this ER visit?: Yes
Condition: Fair
Covid-19: Negative COVID-19
Discharge Problem:
Syncope, Acute hyponatremia, Acute UTI
Interventions
Interventions:
*Risk Screen - Suicide Last Done: 03/14/24 21:08
*General Assessment Last Done: 03/14/24 15:15
*Neglect/Abuse Screening Last Done: 03/14/24 15:15
ED- Fall Risk Assessment Last Done: 03/14/24 20:49
*ED COVID-19 Vaccine History Last Done: 03/14/24 21:08
*Nursing Disposition Last Done: 03/14/24 20:49
Discharge Date and Time
Discharge Date/Time: 03/14/24 20:49
[2024-03-14 15:36] LABS: ALT (SGPT) 29 U/L (0-35); AST (SGOT) 36 U/L (14-36); Albumin 3.5 g/dl (3.5-5.0); Alkaline Phosphatase 76 U/L (38-126); Blood Urea Nitrogen 18 mg/dl (7-17); Calcium 8.9 mg/dl (8.4-10.2); Carbon Dioxide 20 mmol/L (22-30); Chloride 92 mmol/L (98-107); Glucose 113 mg/dl (70-99); Potassium 4.8 mmol/L (3.5-5.1); Sodium 125 mmol/L (135-145); Total Bilirubin 0.6 mg/dl (0.2-1.3); Total Protein 6.4 g/dl (6.3-8.2); eGFR > 60.00
[2024-03-14 15:39] LABS: COVID-19 Antigen Negative (Negative)
[2024-03-14 15:46] LABS: Troponin I < 0.012 ng/ml
[2024-03-14 16:44] LABS: Urine Albumin 1+ (Neg - Trace); Urine Bilirubin Negative (Negative); Urine Character Slightly Cloudy (Clear); Urine Glucose Negative (Negative); Urine Ketone Trace (Negative); Urine Leukocyte 2+ (Negative); Urine Nitrite Negative (Negative); Urine Occult Blood 4+ (Negative); Urine Urobilinogen Negative (Neg - 1+); Urine pH 6.5 (5.0-9.0)
[2024-03-14 17:01] LABS: Urine Mucus Moderate; Urine Red Blood Cell 30-40 /HPF (0-2)
[2024-03-14 17:02] LABS: Urine Bacteria Many (Negative)
[2024-03-14] MEDS: TYLENOL 650 MG PO ×2 (17:51→22:18)
[2024-03-14] MEDS: ROCEPHIN 1000 MG IV (17:52)
--- NOTE | 2024-03-14 18:08 | HPS.HSE ---
Family Physician
-
Family Physician: Valentín Burgos
Chief Complaint
-
passed out several days ago
History of Present Illness
. Heather Gallardo is a 88 yo woman with hx bladder cancer (s/p cystoscopy, diagnostic left ureteroscopy with stent exchange, transurethral resection bladder tumor on 03/07), HTN, HLD presents to the ER after syncopal episode 4 days ago, fever over
past two nights.
History obtained from patient and daughter at bedside. She was on the porch 4 days ago and felt overheated then lightheaded and passed out. She landed face forward, daughter came as life alert called her and helped her up. She had diffuse pains
afterwards and has been taking tylenol. Two nights ago she had a fever to over 102 and last night to 99. She has chronic epigastric abdominal pain worse with palpation and bending over to put on socks, not worse with exertion. Pain worsened post
fall. She denies dysuria or lower abdominal pain.
No shortness of breath. + nausea, no vomiting. Chronic diarrhea. No rash.
She states since surgery she has had difficulty eating solid foods because it hurts to open her jaw. She has been drinking water and staying hydrated.
She has been taking Bactrim post-op for UTI prophylaxis.
Medical History
Past Medical History
Past Medical History: Reports Other (bladder cancer (s/p cystoscopy, diagnostic left ureteroscopy with stent exchange, transurethral resection bladder tumor on 03/07))
Past Surgical History: Reports Other (see above)
Social History
Tobacco: Non-smoker
Alcohol: Occasional
Family History
Family History: Not pertinent
Allergies / Home Medications
Allergies reflects when Allergies were last updated in [facility].
Home Medications with original date entered in [facility]
Allergy/Medication List:
Allergies
Allergy/AdvReac Type Severity Reaction Status Date / Time
erythromycin base Allergy INTOLERANCE Verified 03/14/24 13:50
Home Medications
sertraline 25 mg tablet 25 mg PO DAILY 02/02/12
acetaminophen 500 mg capsule 500 mg PO Q6H 01/25/24
losartan 100 mg tablet 100 mg PO DAILY 01/25/24
melatonin 1 mg tablet 1 mg PO HSPRN PRN insomnia 01/25/24
methenam 118 mg-m.blue 10 mg-s.phos 40.8 mg-p.salic 36 mg-hyos capsule (Uribel) 1 tab PO BID 01/30/24
simvastatin 20 mg tablet 20 mg PO QPM 01/30/24
vibegron 75 mg tablet (Gemtesa) 75 mg PO QPM 03/04/24
alprazolam 0.5 mg tablet (Xanax) 0.25 mg PO DAILYPRN PRN anxiety 03/14/24
sulfamethoxazole 400 mg-trimethoprim 80 mg tablet (Bactrim) 1 tab PO QPM 03/14/24
Review of Systems
-
History Source: Patient
A 12 point ROS was completed and negative except as noted: Yes
Physical Exam
Vital Signs
Vital Signs
Temp Pulse Resp BP Pulse Ox
97.5 F 84 22 155/72 97
03/14/24 13:48 03/14/24 16:15 03/14/24 16:15 03/14/24 16:01 03/14/24 16:15
Physical Exam
General: No Apparent Distress
HEENT: PERRLA and Other (bruising around left eye and eyelid; non pain on eyemovement, EOMI)
Respiratory: Clear; No Wheezes
Cardiac: S1/S2 and Regular Rhythm
GI: Soft and Non Tender
Musculoskeletal: No Edema
Skin: Warm and Dry; No Rash
Neuro: Awake, Alert and Oriented
Psych: Anxious
Laboratory Results
-
03/14/24 15:12
03/14/24 15:12
Laboratory Results
Total Bilirubin 0.6 mg/dl (0.2-1.3) 03/14/24 15:12
AST 36 U/L (14-36) 03/14/24 15:12
ALT 29 U/L (0-35) 03/14/24 15:12
Alkaline Phosphatase 76 U/L (38-126) 03/14/24 15:12
Troponin I < 0.012 ng/ml 03/14/24 15:12
Data Reviewed
-
Diagnostic Radiology: Report Reviewed by me
Lab Data: Labs Reviewed by me
Impression/Plan
-
. Heather Gallardo is a 88 yo woman with hx bladder cancer (s/p cystoscopy, diagnostic left ureteroscopy with stent exchange, transurethral resection bladder tumor on 03/07), HTN, HLD presents to the ER after syncopal episode 4 days ago. Patient had
prodrome lightheadedness and dizziness. Fall resulted in a black eye.
Triage VS: T 97.4, P 91, RR 16, BP 107/75, SpO2 98%
LABS: WBC 15.7, Hg 10.8, PLT 375, Na 125, K+ 4.8, Cl 92, CO2 20, BUN 18, Cr 0.6, Glucose 113, Trop < 0.012, liver enzymes WNL
UA with 11-[address]
IMPRESSION:
No acute intracranial abnormality noted. Specifically no acute intracranial hemorrhage or extra-axial collection. No skull fracture. Stable chronic findings.
CTA
IMPRESSION:
No evidence of pulmonary embolism.
No acute cardiopulmonary process. No chest wall mass. No rib fracture.
MAR: tylenol, IV Ceftriaxone
Hyponatremia
-may be 2/2 low solute diet with free water versus SIADH versus hypovolemia. Suspect 2/2 low solute diet given history
-will start with fluid restriction
-hold Bactrim (can cause hyponatremia)
-urine studies ordered. Overnight provider to be texted when results. If urine sodium low then would start gentle fluids and monitor
-trend sodium q 6 hours overnight
Syncope
-4 days ago while outside, patient with prodrome of dizziness and no confusion following
-Troponin negative
-TTE 11/13/23 with EF 60-6%%, no significant valvular disease
Chronic Epigastric pain
-sounds MSK related as worse with certain movements and worse post fall
-will trial protonix, other differential includes gastritis
-PT/OT
UTI
Leukocytosis
-fevers reported at home and elevated WBC here --> sepsis 2/2 UTI
-F/U blood culture
-stop Bactrim
-continue IV Ceftriaxone
-F/U final urine culture
bladder cancer (s/p cystoscopy, diagnostic left ureteroscopy with stent exchange, transurethral resection bladder tumor on 03/07)
-will update Dr. Rosario on admission tomorrow
DVT PPx SCD
FULL CODE - long conversation had with patient and daughter in ER
Time spent on patient care 76 minutes
[2024-03-14 18:17] LABS: Lactic Acid 0.9 mmol/L (0.7-2.0)
[2024-03-14 19:00] LABS: Osmolality Urine 543 mOsm/kg (300-900)
[2024-03-14 19:06] LABS: Urine Sodium 29 mmol/L (30-90)
[2024-03-14] MEDS: PROTONIX IV 40 MG IV (19:07)
[2024-03-14] MEDS: NSS (PRESERVATIVE FREE) 10 ML IV (19:07)
--- NOTE | 2024-03-14 21:33 | W.PN.UPDATE ---
Update Note
Progress Note Update
sodium level is 29 will start the patient on gentle IVF NSS and will monitor Na level
[2024-03-14] MEDS: LIPITOR 10 MG PO (22:18)
[2024-03-14] MEDS: ZOFRAN 4 MG IV (22:19)
--- NOTE | 2024-03-14 22:53 | PTCARENOTE ---
Patient arrived from the ED via stretcher at approximately 2029. Patient ambulated from stretcher to bed x2 assist with rolling walker. VSS as documented. Assessment as documented. Patient oriented to room. Bed in lowest position. Bed alarm in place
for patient safety. Call whitehead within reach.
[2024-03-14] MEDS: NON-FORMULARY ITEM 75 MG PO (22:56)
[2024-03-14] MEDS: DESENEX/MITRAZOL/ZEASORB 1 APPLIC TOPICAL (23:41)
[2024-03-15] VITALS (7 sets, daily range): BP systolic 112–143; BP diastolic 50–68; PULSE 95; O2SAT 99; BMI 26.0
[2024-03-15 01:30] LABS: Sodium 125 mmol/L (135-145)
[2024-03-15] MEDS: TYLENOL 650 MG PO ×4 (03:47→21:47)
[2024-03-15 06:38] LABS: Hemoglobin 9.9 g/dL (12.0-16.0); Mean Corp Hgb Conc. 35.4 g/dL (33.0-37.0); Mean Corpuscular Hgb 30.5 pg (27.0-31.0); Mean Corpuscular Volume 86.2 fL (81.0-99.0); Mean Platelet Volume 9.8 fL (7.4-10.4); Platelet Count 389 10^3/uL (130-400); Red Blood Cell Count 3.25 10^6/uL (4.20-5.40); White Blood Cell Count 16.3 10^3/uL (4.8-10.8)
[2024-03-15 07:01] LABS: Blood Urea Nitrogen 15 mg/dl (7-17); Calcium 8.4 mg/dl (8.4-10.2); Carbon Dioxide 19 mmol/L (22-30); Chloride 91 mmol/L (98-107); Estimated Creatinine Clearance 57 ml/min; Glucose 107 mg/dl (70-99); Magnesium 1.8 mg/dl (1.6-2.3); Potassium 4.6 mmol/L (3.5-5.1); Sodium 123 mmol/L (135-145); eGFR > 60.00
[2024-03-15] MEDS: DESENEX/MITRAZOL/ZEASORB 1 APPLIC TOPICAL ×2 (08:41→20:05)
[2024-03-15] MEDS: PROTONIX IV 40 MG IV (08:41)
[2024-03-15] MEDS: COZAAR 100 MG PO (08:41)
[2024-03-15] MEDS: NSS (PRESERVATIVE FREE) 10 ML IV (08:41)
--- NOTE | 2024-03-15 09:14 | W.PN.HOSP.TC ---
Today's Communication/Plan
-
hypertonic saline
IV Zosyn
transfer to telemetry
Assessment / Plan
Assessment / Plan
. Heather Gallardo is a 88 yo woman with hx bladder cancer (s/p cystoscopy, diagnostic left ureteroscopy with stent exchange, transurethral resection bladder tumor on 03/07), HTN, HLD presents to the ER after syncopal episode 4 days ago. Patient had
prodrome lightheadedness and dizziness. Fall resulted in a black eye.
HEAD CT
IMPRESSION:
No acute intracranial abnormality noted. Specifically no acute intracranial hemorrhage or extra-axial collection. No skull fracture. Stable chronic findings.
CTA
IMPRESSION:
No evidence of pulmonary embolism.
No acute cardiopulmonary process. No chest wall mass. No rib fracture.
MAR: tylenol, IV Ceftriaxone
Hyponatremia
-may be 2/2 low solute diet with free water versus SIADH versus hypovolemia. 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
-hold Bactrim (can cause hyponatremia)
-Na drop to 123 this AM - discussed case briefly with renal and will order hypertonic saline
-trend sodium
-hold ELECTRONICS ASSEMBLER SSRI
Syncope
-4 days ago while outside, patient with prodrome of dizziness and no confusion following
-Troponin negative
-TTE 11/13/23 with EF 60-6%%, no significant valvular disease
-PT/OT
Chronic Epigastric pain
-sounds MSK related as worse with certain movements and worse post fall
-will trial protonix, other differential includes gastritis
UTI
Leukocytosis
-fevers reported at home and elevated WBC here --> sepsis 2/2 UTI
-F/U blood culture
-stop Bactrim
-elevated WBC this AM; given recent procedure will broaden antibiotics to IV Zosyn
bladder cancer (s/p cystoscopy, diagnostic left ureteroscopy with stent exchange, transurethral resection bladder tumor on 03/07)
-Dr. Bernal updated on admission
DVT PPx SCD
FULL CODE - long conversation had with patient and daughter in ER
Time spent on patient care 51 minutes
Anticipated Discharge: 24 - 48 hours
Subjective/Interval History
-
Date of Service: March 15, 2024
states she is feeling better this morning and denies shortness of breath
Objective Data
-
Labs:
Laboratory Results
03/15/24 03/15/24 03/15/24
01:05 04:44 12:00
WBC 16.3 H
Hgb 9.9 L
Hct 28.0 L
Plt Count 389
Sodium 125 L 123 L Pending
Potassium 4.6
Chloride 91 L
Carbon Dioxide 19 L
BUN 15
Creatinine 0.6
Glucose 107 H
Calcium 8.4
03/15/24
18:00
WBC
Hgb
Hct
Plt Count
Sodium Pending
Potassium
Chloride
Carbon Dioxide
BUN
Creatinine
Glucose
Calcium
Vital Signs:
Vital Signs
Temp Pulse Resp BP Pulse Ox
98.2 F 88 18 127/68 96
03/15/24 07:10 03/15/24 08:41 03/15/24 07:10 03/15/24 08:41 03/15/24 07:10
I&O
03/14/24 03/15/24 03/16/24
06:59 06:59 06:59
Intake Total 480 / 480
Balance 480 / 480
Review of Systems
-
History Source: Patient
All other systems: Reviewed and negative
Physical Exam
-
General: No Apparent Distress
HEENT: Other (bruising left eye; EOMI)
Respiratory: Clear to Auscultation; Negative Wheezes
Cardiac: Regular Rhythm and S1/S2
GI: Soft and Nontender
Musculoskeletal: No Edema
Skin: Warm and Dry; Negative Rash
Neuro: AO x 3
Psych: Calm
Data Reviewed
-
Diagnostic Radiology: Report Reviewed by me
Labs: Labs Reviewed by me
--- NOTE | 2024-03-15 09:25 | PTOTSP ---
Speech Language Pathology
Pt seen for clinical bedside swallow evaluation. Pt reported hx of food sticking in mid-chest with need to regurgitate at times. Suspect this complaint is esophageal in nature. She reported she saw Dr. Julien for EGD in the past. She reported
there were no findings. 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 She no longer follows with GI, but pt/family very concerned about esophageal issues. Discussed OP GI follow up.
P.O. trials of regular solids and thin liquids provided. Pt with difficulty opening mouth more than approximately 1 inch, but had no difficulty with mastication, bolus formation, or A-P transit. No oral residue noted with regular solids. No overt
signs of aspiration. Pt does not have a true oropharyngeal dysphagia. She is limited by decreased mouth opening. This has been since surgery, so suspect it is TMJ irritation from position for intubation. If this does not resolve over time, pt
can follow up with MD.
Recommend:
(1) Continue IDDSI Level 6 (soft/bite-sized) for comfort and ease of physically getting food into oral cavity with thin liquids
(2) General aspiration and reflux precautions
(3) Meds as tolerated
(4) FLIGHT DECK OFFICER to continue to follow, likely briefly
[2024-03-15] MEDS: MIRALAX 17 GRAMS PO (09:47)
[2024-03-15] MEDS: ZOSYN 50 IV ×3 (09:48→21:47)
--- NOTE | 2024-03-15 10:10 | CM ---
Addendum entered by Dana Bueno 03/15/24 10:29:
PCP: Valentín Burgos
Pharmacy, [facility]
Original Note:
Patient seen at bedside along with daughter Carmen.
Dx: hypnatremia, UTI
PMH: Bladder ca s/p 03/07 s/p bladder procedure, HTN, HDL
PLOF: Independent with walker
Patient lives in a 2 story home with 3 steps to enter and flight of steps to second floor.
Patient's son lives next door.
DME: Stair glide, cane, walker, grab bars, shower bench, has a life alert and hand rails in the home
Denies any food/housing/utilities/transportation insecurities.
Patient & daughter stated that she was going to outpatient PT with [facility] on [address] - last visit approx 2 wks. ago
Daughter also expressed interest in private pay patient relations manager to assist with preparing meals, etc.
CM gave daughter phone numbers of [facility], [facility], [employer], [employer].
Await PT/OT evals. for recommendations
PLAN: Discharge when medically stable, await therapy evaluations.
[2024-03-15] MEDS: SODIUM CHLORIDE 3% 250 IV (10:40)
[2024-03-15 13:16] LABS: Sodium 126 mmol/L (135-145)
[2024-03-15] MEDS: LIPITOR 10 MG PO (16:44)
[2024-03-15] MEDS: NON-FORMULARY ITEM 75 MG PO (16:45)
[2024-03-15 18:10] LABS: Sodium 130 mmol/L (135-145)
[2024-03-16] VITALS (7 sets, daily range): BP systolic 102–141; BP diastolic 42–66; BMI 25.9
[2024-03-16 00:45] LABS: Sodium 128 mmol/L (135-145)
[2024-03-16] MEDS: TYLENOL 650 MG PO ×4 (03:52→19:27)
[2024-03-16] MEDS: ZOSYN 50 IV ×2 (03:52→08:58)
[2024-03-16 07:21] LABS: Mean Corp Hgb Conc. 34.6 g/dL (33.0-37.0); Mean Corpuscular Hgb 29.7 pg (27.0-31.0); Mean Corpuscular Volume 85.8 fL (81.0-99.0); Mean Platelet Volume 9.3 fL (7.4-10.4); Platelet Count 374 10^3/uL (130-400); Red Blood Cell Count 3.03 10^6/uL (4.20-5.40); Red Cell Dist. Width 12.3 % (11.5-14.5); White Blood Cell Count 18.5 10^3/uL (4.8-10.8)
[2024-03-16 07:49] LABS: Blood Urea Nitrogen 16 mg/dl (7-17); Calcium 8.1 mg/dl (8.4-10.2); Carbon Dioxide 19 mmol/L (22-30); Chloride 97 mmol/L (98-107); Estimated Creatinine Clearance 49 ml/min; Glucose 118 mg/dl (70-99); Magnesium 1.9 mg/dl (1.6-2.3); Potassium 4.1 mmol/L (3.5-5.1); Sodium 129 mmol/L (135-145); eGFR > 60.00
[2024-03-16] MEDS: PROTONIX IV 40 MG IV ×2 (08:58→21:18)
[2024-03-16] MEDS: NSS (PRESERVATIVE FREE) 10 ML IV ×2 (08:58→21:18)
[2024-03-16] MEDS: COZAAR 100 MG PO (08:58)
[2024-03-16] MEDS: FLUSH (NSS) 2 FLUSH IV ×2 (09:00→14:59)
[2024-03-16] MEDS: DESENEX/MITRAZOL/ZEASORB 1 APPLIC TOPICAL ×2 (09:02→21:22)
--- NOTE | 2024-03-16 09:53 | W.PN.HOSP.TC ---
Today's Communication/Plan
-
CT A/P with and without contrast
obtain CXR
will likely give lasix post CT
Assessment / Plan
Assessment / Plan
Ms. Heather Gallardo is a 88 yo woman with hx bladder cancer (s/p cystoscopy, diagnostic left ureteroscopy with stent exchange, transurethral resection bladder tumor on 03/07), HTN, HLD presents to the ER after syncopal episode 4 days ago. Patient had
prodrome lightheadedness and dizziness. Fall resulted in a black eye.
HEAD CT
IMPRESSION:
No acute intracranial abnormality noted. Specifically no acute intracranial hemorrhage or extra-axial collection. No skull fracture. Stable chronic findings.
CTA
IMPRESSION:
No evidence of pulmonary embolism.
No acute cardiopulmonary process. No chest wall mass. No rib fracture.
MAR: tylenol, IV Ceftriaxone
Hyponatremia
-may be 2/2 low solute diet with free water versus SIADH. 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
-hold Bactrim (can cause hyponatremia)
-Na drop with fluid restriction s/p 3%
-patient appears more volume overloaded on exam today
-will likely give small dose lasix post CT (will hold off until post contrast)
-hold CLINICAL DATA COORDINATOR SSRI for now
Syncope
-4 days ago while outside, patient with prodrome of dizziness and no confusion following
-Troponin negative
-TTE 11/13/23 with EF 60-6%%, no significant valvular disease
-PT/OT
-no significant events on telemetry
Chronic Epigastric pain
-sounds MSK related as worse with certain movements and worse post fall
-will trial protonix, other differential includes gastritis
-CT (as below)
UTI
Leukocytosis
-fevers reported at home and elevated WBC here --> sepsis 2/2 UTI
-F/U blood culture
-stop Bactrim
-WBC rising despite IV Zosyn, culture growing enterococcus awaiting sensitivities
-with rising WBC and recent procedure, will obtain CT A/P
bladder cancer (s/p cystoscopy, diagnostic left ureteroscopy with stent exchange, transurethral resection bladder tumor on 03/07)
-Dr. Bernal updated on admission
-CT as above
DVT PPx SCD
FULL CODE - long conversation had with patient and daughter in ER
Time spent on patient care 51 minutes
Anticipated Discharge: 24 - 48 hours
Subjective/Interval History
-
Date of Service: March 16, 2024
she feels a little short of breath today
trying to urinate
Objective Data
-
Labs:
Laboratory Results
03/16/24 03/16/24
00:20 05:57
WBC 18.5 H
Hgb 9.0 L
Hct 26.0 L
Plt Count 374
Sodium 128 L 129 L
Potassium 4.1
Chloride 97 L
Carbon Dioxide 19 L
BUN 16
Creatinine 0.7
Glucose 118 H
Calcium 8.1 L
Vital Signs:
Vital Signs
Temp Pulse Resp BP Pulse Ox
97.2 F 81 18 124/54 96
03/16/24 07:03 03/16/24 07:03 03/16/24 07:03 03/16/24 07:03 03/16/24 07:03
I&O
03/15/24 03/16/24 03/17/24
06:59 06:59 06:59
Intake Total 480 / 480 1020 / 1020
Balance 480 / 480 1020 / 1020
Review of Systems
-
History Source: Patient
All other systems: Reviewed and negative
Physical Exam
-
General: No Apparent Distress
HEENT: Other (bruising left eye; EOMI)
Respiratory: Rales
Cardiac: Regular Rhythm, S1/S2 and JVD
GI: Soft and Nontender
Musculoskeletal: No Edema
Skin: Warm and Dry; Negative Rash
Neuro: AO x 3
Psych: Calm
Data Reviewed
-
Diagnostic Radiology: Report Reviewed by me
Labs: Labs Reviewed by me
[2024-03-16] MEDS: OMNIPAQUE 50 ML PO (10:58)
[2024-03-16 10:59] LABS: Osmolality Urine 628 mOsm/kg (300-900)
[2024-03-16 11:37] LABS: Urine Sodium 42 mmol/L (30-90)
[2024-03-16 12:11] LABS: NT-proBNP 305 pg/ml
[2024-03-16] MEDS: LASIX 20 MG IV (14:26)
[2024-03-16] MEDS: AMPICILLIN 52 MG IV ×2 (14:57→21:18)
[2024-03-16] MEDS: DUONEB 3 ML INH (15:47)
[2024-03-16] MEDS: NON-FORMULARY ITEM 75 MG PO (16:43)
[2024-03-16] MEDS: LIPITOR 10 MG PO (16:43)
[2024-03-16] MEDS: ZOFRAN 4 MG IV (19:27)
[2024-03-16 20:24] LABS: COVID-19 Antigen Negative (Negative)
[2024-03-16] MEDS: MELATONIN 1.5 MG PO ×2 (21:18)
[2024-03-16] MEDS: VISBIOME 2 CAP PO (22:39)
--- NOTE | 2024-03-16 23:01 | W.PN.UPDATE ---
Update Note
Progress Note Update
Reported by the nursing staff that patient had one episode of fever, nausea and vomiting x1. Patient reported dry cough but is chronic.
BP 113/52, hr 87, R 16, SPO2 98% on RA
On exam, patient is pleasant alert and oriented conversant with no apparent distress. Now patient is afebrile after Tylenol.
-Abdomen is soft, non tender, non distended, and + bowel sounds. Patient complained of episodes of loose stool.
-Will check stool for C-diff and probiotic started.
-Covid repeated and influenza------> Neg result.
-Will repeat blood culture as recommended by the attending physician.
Daughter at bedside and updated.
[2024-03-17] MEDS: AMPICILLIN 52 MG IV ×4 (02:39→20:53)
[2024-03-17 03:08] VITALS: BP 138/75
[2024-03-17 04:03] VITALS: BMI 26.1
[2024-03-17] MEDS: TYLENOL 650 MG PO ×5 (04:03→23:13)
[2024-03-17 06:38] LABS: % Basophils 0.2 % (0-2); % Eosinophils 1.7 % (0-6); % Immature Granulocytes 1.4 % (0-0.5); % Lymphocytes 3.3 % (20.5-51.1); % Neutrophils 84.4 % (42.2-75.2); Absolute Eosinophils 0.4 10^3/uL (0-0.7); Absolute Immature Granulocytes 0.3 10^3/uL (0-0.05); Absolute Lymphocytes 0.7 10^3/uL (1.2-3.4); Absolute Neutrophils 18.3 10^3/uL (1.4-6.5); Hematocrit 25.1 % (37.0-47.0); Hemoglobin 8.9 g/dL (12.0-16.0); Mean Corp Hgb Conc. 35.5 g/dL (33.0-37.0); Mean Corpuscular Hgb 30.7 pg (27.0-31.0); Mean Corpuscular Volume 86.6 fL (81.0-99.0); Mean Platelet Volume 9.7 fL (7.4-10.4); Nucleated Red Blood Cells % 0 %; Platelet Count 391 10^3/uL (130-400); White Blood Cell Count 21.7 10^3/uL (4.8-10.8)
[2024-03-17 07:00] LABS: Blood Urea Nitrogen 15 mg/dl (7-17); Calcium 8.3 mg/dl (8.4-10.2); Carbon Dioxide 20 mmol/L (22-30); Chloride 96 mmol/L (98-107); Estimated Creatinine Clearance 57 ml/min; Glucose 120 mg/dl (70-99); Magnesium 1.8 mg/dl (1.6-2.3); Potassium 3.9 mmol/L (3.5-5.1); Sodium 128 mmol/L (135-145); eGFR > 60.00
[2024-03-17 07:15] VITALS: BP 107/44
--- NOTE | 2024-03-17 08:04 | W.PN.HOSP.TC ---
Addendum entered and electronically signed by Chantale Tinajero MD 03/17/24 11:45:
per discussion with renal, will give one dose of samsca
Original Note:
Today's Communication/Plan
-
IV Ampicillin
fluid restriction, will consider Tolvaptan after discussion with renal
ID consult
Left message for daughter - will [place] back to room later to update
Assessment / Plan
Assessment / Plan
Ms. Heather Gallardo is a 88 yo woman with hx bladder cancer (s/p cystoscopy, diagnostic left ureteroscopy with stent exchange, transurethral resection bladder tumor on 03/07), HTN, HLD presents to the ER after syncopal episode 4 days ago. Patient had
prodrome lightheadedness and dizziness. Fall resulted in a black eye.
HEAD CT
IMPRESSION:
No acute intracranial abnormality noted. Specifically no acute intracranial hemorrhage or extra-axial collection. No skull fracture. Stable chronic findings.
CTA
IMPRESSION:
No evidence of pulmonary embolism.
No acute cardiopulmonary process. No chest wall mass. No rib fracture.
MAR: tylenol, IV Ceftriaxone
ABDOMEN/PELVIS CT
IMPRESSION: Left ureteral stent is present. On postcontrast delayed images, there is excretion of contrast into the left-sided calyces without significant dilation. Findings would suggest that there is no significant left ureteral obstruction with
the left ureteral stent present.
Thickening of the bladder wall, which could be postsurgical, but could also be from infection.
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
Subtle nodular external contour of the liver, suggestive of cirrhosis.
Subtle low-density region within the medial segment of the left lobe of the liver, not definitely present on previous examinations. When clinically feasible, further evaluation is advised with MRI of the abdomen without and with contrast, utilizing
Eovist contrast agent.
Sepsis 2/2 UTI
Leukocytosis
-fevers reported at home. She was given Ceftriaxone on admission then transitioned to IV Zosyn morning of 03/15. Urine culture growing enterococcus - transitioned to IV Ampicillin on 03/16
-despite appropriate coverage of UTI x 48 hours, she spiked a fever to 102.7 last night and has rising WBC
-awaiting C. Diff
-obtained CT A/P on 03/16 which shows stent in place, no hydro
-s/p CXR on 03/16 no acute disease
-will consult ID
Hyponatremia
-may be 2/2 low solute diet with free water versus SIADH. 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
-hold Bactrim (can cause hyponatremia)
-Na dropped with fluid restriction now s/p 3% on 03/15 with increased to 129-130. She appeared more volume overloaded on 03/16 s/p lasix 20mg IV x 1
-03/17: Na is 128; I do not want to push more lasix especially with fevers and less obvious JVP on exam today.
-continue fluid restriction
-will discuss with renal Tolvaptan (repeat urine studies confirm SIADH)
-hold SCOUTS SSRI for now
Syncope
-4 days ago while outside, patient with prodrome of dizziness and no confusion following
-Troponin negative
-TTE 11/13/23 with EF 60-6%%, no significant valvular disease
-PT/OT
-no significant events on telemetry
Chronic Epigastric pain
-sounds MSK related as worse with certain movements and worse post fall
-will trial protonix, other differential includes gastritis
-CT (as below)
Abnormal Liver CT imaging
-CT suggest cirrhosis (not e/o labs and no history) as well as subtle low-density region in medial segment left lobe of liver
-->will need dedicated MRI abdomen with and without contrast post discharge
bladder cancer (s/p cystoscopy, diagnostic left ureteroscopy with stent exchange, transurethral resection bladder tumor on 03/07)
-follows with Dr. Rosario
-Dr. Ruenes updated on admission
-CT results as above
DVT PPx SCD
FULL CODE - long conversation had with patient and daughter in ER
Time spent on patient care 51 minutes
Anticipated Discharge: > 48 hours
Subjective/Interval History
-
Date of Service: March 17, 2024
patient resting, easily woken up, denies pain
feeling tired this morning
Objective Data
-
Labs:
Laboratory Results
03/17/24
06:09
WBC 21.7 H
Hgb 8.9 L
Hct 25.1 L
Plt Count 391
PT 15.0 H
INR 1.20
Sodium 128 L
Potassium 3.9
Chloride 96 L
Carbon Dioxide 20 L
BUN 15
Creatinine 0.6
Glucose 120 H
Calcium 8.3 L
Vital Signs:
Vital Signs
Temp Pulse Resp BP Pulse Ox
99.1 F 82 20 107/44 94
03/17/24 07:15 03/17/24 07:15 03/17/24 07:15 03/17/24 07:15 03/17/24 07:15
I&O
03/16/24 03/17/24 03/18/24
06:59 06:59 06:59
Intake Total 1020 / 1020 1360 / 1360
Output Total 550 / 550
Balance 1020 / 1020 810 / 810
Review of Systems
-
History Source: Patient
All other systems: Reviewed and negative
Physical Exam
-
General: No Apparent Distress
HEENT: PERRLA
Respiratory: Clear to Auscultation and Wheezes (end expiratory - more referred upper airway noises )
Cardiac: Regular Rhythm and S1/S2
GI: Soft and Nontender
Musculoskeletal: No Edema
Neuro: Awake, Alert and Oriented
Psych: Calm
Data Reviewed
-
Diagnostic Radiology: Report Reviewed by me
Labs: Labs Reviewed by me
[2024-03-17 08:42] LABS: Iron 21 ug/dl (37-170)
[2024-03-17 08:52] LABS: Percent Saturation 12 % (20-50); Total Iron Binding Capacity 172 ug/dl (265-497)
[2024-03-17] MEDS: NSS (PRESERVATIVE FREE) 10 ML IV ×2 (09:03→20:53)
[2024-03-17] MEDS: VISBIOME 1 CAP PO (09:03)
[2024-03-17] MEDS: PROTONIX IV 40 MG IV ×2 (09:03→20:54)
[2024-03-17] MEDS: COZAAR 100 MG PO (09:04)
[2024-03-17] MEDS: DESENEX/MITRAZOL/ZEASORB 1 APPLIC TOPICAL ×2 (09:04→23:14)
[2024-03-17 11:34] VITALS: BP 117/48
--- NOTE | 2024-03-17 11:42 | CON.ID ---
Consultation
-
Date/Time Consultation Requested: 03/17/2024 0728
Date/Time Consultation Performed: 03/17/2024 1135
Requesting Provider: Dr. Tinajero
Performing Provider: Dr. Brower
Reason for Consultation: Leukocytosis
Chief Complaint / Past History
History of Present Illness
Heather Gallardo is an 88-year-old female with a recent diagnosis of bladder cancer who underwent a TURBT on 03/08/2024 being evaluated at the request of Dr. Tinajero in regards to leukocytosis. History is obtained from chart review, along with patient
interview.
The patient presented to [facility] [address] 03/14 following a fall reportedly several nights before hand. Additionally, the patient reported outpatient fevers to 102 degrees. Workup in the emergency room revealed a leukocytosis, and the patient was
placed on empiric Zosyn. Urine cultures at admission revealed the presence of E. faecalis, and yesterday the patient was transitioned to ampicillin. White count has trended up over the past several days, and Infectious Diseases is asked to comment
upon further antibiotic management and workup of noted leukocytosis.
At present, the patient admits to some generalized bodyaches and feels generally weak. Overall, she denies any pain. She denies any dysuria or hematuria. She noted some diarrhea yesterday, but it has not been ongoing.
Past History
Additional Past Medical History:
Bladder cancer
HTN
Anxiety
GERD
Hx dysphagia
Past Surgical History: Gynecological and Orthopedic
Additional Past Surgical History:
Cystoscopy / Ureteral stent placement / TURBT (03/08/2024)
x 4
Tonsillectomy
Left knee replacement
Allergy History:
erythromycin base Allergy (Verified 03/14/24 13:50)
INTOLERANCE
Medications Reviewed: Yes
Current Antibiotics:
Ampicillin 500 mg IV every 6 hours
Zosyn (03/15-03/16)
Social History
Tobacco: Non-Smoker
Alcohol: Occasional
Drug: None
Living: With Family
Employment: Retired
Family History
Family History: Not Pertinent
Review of Systems
Vital Signs
Temp Pulse Resp BP Pulse Ox
97.8 F 85 16 117/48 98
03/17/24 11:34 03/17/24 11:34 03/17/24 11:34 03/17/24 11:34 03/17/24 11:34
Physical Exam
Physical Exam
Constitutional: No Acute Distress, Comfortable, Chronically Ill and Non-toxic
Eyes: No Conjunctival Hemorrhage and Sclera Anicteric
Oral: No Thrush and No Ulcers
Cardiovascular: Regular Rate and S1/S2; Negative S3/S4
Pulmonary: Clear; Negative Wheezes, Rales or Rhonchi
Gastrointestinal: Soft, Non Tender, Non Distended and Normal Bowel Sounds
Genito-Urinary: Negative Castañeda or CVA Tenderness
Extremities: Negative Edema, Cyanosis or Erythema
Skin: Warm, Dry and Other (Ecchymosis noted around left eye.); Negative Rash or Jaundice
Neurological: Awake, Alert and Oriented
Psychological: Calm
.
Lab / Diagnostic Study Results
03/17/24 06:09
03/17/24 06:09
Abs Immat Gran (auto) 0.3 10^3/uL (0-0.05) H 03/17/24 06:09
Absolute Neuts (auto) 18.3 10^3/uL (1.4-6.5) H 03/17/24 06:09
Absolute Lymphs (auto) 0.7 10^3/uL (1.2-3.4) L 03/17/24 06:09
Absolute Monos (auto) 2.0 10^3/uL (0.1-0.6) H 03/17/24 06:09
Absolute Basos (auto) 0.0 10^3/uL (0-0.2) 03/17/24 06:09
Immature Gran % 1.4 % (0-0.5) H 03/17/24 06:09
Neutrophils % 84.4 % (42.2-75.2) H 03/17/24 06:09
Lymphocytes % 3.3 % (20.5-51.1) L 03/17/24 06:09
Monocytes % 9.0 % (1.7-9.3) 03/17/24 06:09
Eosinophils % 1.7 % (0-6) 03/17/24 06:09
Basophils % 0.2 % (0-2) 03/17/24 06:09
PT 15.0 Sec (11.4-14.6) H 03/17/24 06:09
INR 1.20 03/17/24 06:09
Lactic Acid 0.9 mmol/L (0.7-2.0) 03/14/24 17:52
Microbiology Results
Micro:
03/16/24 23:21 Blood Culture - Pending
Blood/Venous
03/16/24 20:04 Influenza Types A & B (GRICELDA) - Final
Nasal Swab Negative for Influenza A & B, NAAT
Negative results must be combined with clinical observations
and patient history.
Nucleic Acid Amplification test (NAAT)performed on the
[employer] platform.
03/14/24 17:52 Blood Culture - Preliminary
Blood/Venous No Growth in 48 hours- Final report to follow
03/14/24 16:38 Urine Culture - Final
Urine Enterococcus faecalis
Imaging:
03/16/2024 CT abdomen/pelvis without contrast: Left ureteral stent is present. On postcontrast delayed images, there is excretion of contrast into the left-sided calyces without significant dilation. Findings would suggest that there is no
significant left ureteral obstruction with the left ureteral stent present. Thickening of the bladder wall, which could be postsurgical, but could also be from infection. Large minimally complex cystic mass arising from the left kidney, compatible
with benign Bosniak class II cystic mass. Subtle nodular external contour of the liver, suggestive of cirrhosis. Subtle low-density region within the medial segment of the left lobe of the liver, not definitely present on previous examinations.
When clinically feasible, further evaluation is advised with MRI of the abdomen without and with contrast, utilizing Eovist contrast agent.
Assessment / Plan
Leukocytosis; rising
Bacteriuria (without pyuria/symptomatology)
Bladder cancer (urothelial carcinoma in situ)
HTN
Anxiety
GERD
Hx dysphagia
Recommendations:
Continue with ampicillin for the present.
C. difficile testing is ordered if patient should develop diarrhea.
Monitor white count and temperature curve.
Follow-up pending blood culture.
Further recommendations as additional data is returned.
Care Review
Plan reviewed with: Physician (Hospitalist)
[2024-03-17] MEDS: LOVENOX 40 MG SC (13:00)
[2024-03-17] MEDS: SAMSCA 7.5 MG PO (13:01)
[2024-03-17] MEDS: DUONEB 3 ML INH (13:18)
[2024-03-17] MEDS: FLUSH (NSS) 2 FLUSH IV (14:31)
[2024-03-17 15:15] VITALS: BP 125/71
[2024-03-17] MEDS: LIPITOR 10 MG PO (17:12)
[2024-03-17] MEDS: NON-FORMULARY ITEM PO (17:13)
[2024-03-17 20:06] VITALS: BP 122/41
[2024-03-17] MEDS: MELATONIN 1.5 MG PO (21:22)
[2024-03-17] MEDS: ZOFRAN 4 MG IV (23:51)
[2024-03-17 23:54] VITALS: BP 162/73
[2024-03-17] MEDS: XANAX 0.25 MG PO (23:57)
[2024-03-17] MEDS: CHLORASEPTIC/SORE THROAT SPRAY 1 SPRAY PO (23:58)
[2024-03-18] VITALS (8 sets, daily range): BP systolic 113–157; BP diastolic 44–90; BMI 26.8
[2024-03-18] MEDS: AMPICILLIN 52 MG IV ×3 (02:45→13:30)
[2024-03-18] MEDS: TYLENOL 650 MG PO ×4 (04:40→20:19)
[2024-03-18] MEDS: PROTONIX IV 40 MG IV ×2 (07:41→20:19)
[2024-03-18] MEDS: NSS (PRESERVATIVE FREE) 10 ML IV ×2 (07:42→20:19)
[2024-03-18] MEDS: COZAAR 100 MG PO (07:42)
[2024-03-18] MEDS: DESENEX/MITRAZOL/ZEASORB 1 APPLIC TOPICAL ×2 (07:46→20:23)
[2024-03-18 09:38] LABS: % Basophils 0.2 % (0-2); % Eosinophils 2.5 % (0-6); % Immature Granulocytes 1.9 % (0-0.5); % Lymphocytes 3.7 % (20.5-51.1); % Neutrophils 82.7 % (42.2-75.2); Absolute Basophils 0.1 10^3/uL (0-0.2); Absolute Eosinophils 0.6 10^3/uL (0-0.7); Absolute Immature Granulocytes 0.5 10^3/uL (0-0.05); Absolute Lymphocytes 0.9 10^3/uL (1.2-3.4); Absolute Monocytes 2.1 10^3/uL (0.1-0.6); Absolute Neutrophils 19.6 10^3/uL (1.4-6.5); Hematocrit 26.8 % (37.0-47.0); Hemoglobin 9.3 g/dL (12.0-16.0); Mean Corp Hgb Conc. 34.7 g/dL (33.0-37.0); Mean Corpuscular Hgb 30.9 pg (27.0-31.0); Mean Platelet Volume 9.9 fL (7.4-10.4); Nucleated Red Blood Cells % 0 %; Platelet Count 419 10^3/uL (130-400); Red Blood Cell Count 3.01 10^6/uL (4.20-5.40); Red Cell Dist. Width 12.6 % (11.5-14.5); White Blood Cell Count 23.8 10^3/uL (4.8-10.8)
[2024-03-18 10:00] LABS: Blood Urea Nitrogen 16 mg/dl (7-17); Calcium 8.3 mg/dl (8.4-10.2); Carbon Dioxide 19 mmol/L (22-30); Chloride 97 mmol/L (98-107); Estimated Creatinine Clearance 58 ml/min; Glucose 107 mg/dl (70-99); Potassium 4.2 mmol/L (3.5-5.1); Sodium 131 mmol/L (135-145); eGFR > 60.00
--- NOTE | 2024-03-18 12:12 | W.PN.HOSP.TC ---
Today's Communication/Plan
-
Monitor vital signs
see plan
Follow fever curve
continue antibiotics
Continue with PPI
PT/OT
Discussed with daughter at bedside
Assessment / Plan
Assessment / Plan
. Heather Gallardo is a 88 yo woman with hx bladder cancer (s/p cystoscopy, diagnostic left ureteroscopy with stent exchange, transurethral resection bladder tumor on 03/07), HTN, HLD presents to the ER after syncopal episode 4 days ago. Patient had
prodrome lightheadedness and dizziness. Fall resulted in a black eye.
HEAD CT
IMPRESSION:
No acute intracranial abnormality noted. Specifically no acute intracranial hemorrhage or extra-axial collection. No skull fracture. Stable chronic findings.
CTA
IMPRESSION:
No evidence of pulmonary embolism.
No acute cardiopulmonary process. No chest wall mass. No rib fracture.
MAR: tylenol, IV Ceftriaxone
ABDOMEN/PELVIS CT
IMPRESSION: Left ureteral stent is present. On postcontrast delayed images, there is excretion of contrast into the left-sided calyces without significant dilation. Findings would suggest that there is no significant left ureteral obstruction with
the left ureteral stent present.
Thickening of the bladder wall, which could be postsurgical, but could also be from infection.
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
Subtle nodular external contour of the liver, suggestive of cirrhosis.
Subtle low-density region within the medial segment of the left lobe of the liver, not definitely present on previous examinations. When clinically feasible, further evaluation is advised with MRI of the abdomen without and with contrast, utilizing
Eovist contrast agent.
Sepsis 2/2 UTI
Leukocytosis
-fevers reported at home. She was given Ceftriaxone on admission then transitioned to IV Zosyn morning of 03/15. Urine culture growing enterococcus - transitioned to IV Ampicillin on 03/16
-despite appropriate coverage of UTI x 48 hours, she spiked a fever to 102.7 last night and has rising WBC
-awaiting C. Diff
-obtained CT A/P on 03/16 which shows stent in place, no hydro
-s/p CXR on 03/16 no acute disease
-ID following
Follow fever curve
Hyponatremia
-may be 2/2 low solute diet with free water versus SIADH. 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
-hold Bactrim (can cause hyponatremia)
-Na dropped with fluid restriction now s/p 3% on 03/15 with increased to 129-130. She appeared more volume overloaded on 03/16 s/p lasix 20mg IV x 1
-s/p samsca 03/17; Na now 131; continue to monitor
-continue fluid restriction
repeat urine studies confirm SIADH
-hold HEALTH CARE ANALYST SSRI for now
Syncope
-4 days ago while outside, patient with prodrome of dizziness and no confusion following
-Troponin negative
-TTE 11/13/23 with EF 60-6%%, no significant valvular disease
-PT/OT
-no significant events on telemetry
Chronic Epigastric pain
-sounds MSK related as worse with certain movements and worse post fall
-will trial protonix, other differential includes gastritis
-CT (as below)
Patient has history of gastric ulcer. Recommended patient follow-up with gastroenterology outpatient.
Abnormal Liver CT imaging
-CT suggest cirrhosis (not e/o labs and no history) as well as subtle low-density region in medial segment left lobe of liver
-->will need dedicated MRI abdomen with and without contrast post discharge
bladder cancer (s/p cystoscopy, diagnostic left ureteroscopy with stent exchange, transurethral resection bladder tumor on 03/07)
-follows with Dr. Rosario
-Dr. Bernal updated on admission
-CT results as above
DVT PPx SCD
FULL CODE - long conversation had with patient and daughter in ER
General: No Apparent Distress
HEENT: PERRLA
Respiratory: Clear to Auscultation and mild Wheezes
Cardiac: Regular Rhythm and S1/S2
GI: Soft and Nontender
Musculoskeletal: No Edema
Neuro: Awake, Alert and Oriented
Psych: Calm
I spent a total of 52 minutes with the patient or on the floor. More than 50% of this time involved counseling and coordination of care.
Anticipated Discharge: 24 - 48 hours
Subjective/Interval History
-
Date of Service: March 18, 2024
denies nausea
Objective Data
-
Labs:
Laboratory Results
03/18/24
07:15
WBC 23.8 H
Hgb 9.3 L
Hct 26.8 L
Plt Count 419 H
Sodium 131 L
Potassium 4.2
Chloride 97 L
Carbon Dioxide 19 L
BUN 16
Creatinine 0.6
Glucose 107 H
Calcium 8.3 L
Vital Signs:
Vital Signs
Temp Pulse Resp BP Pulse Ox
98.6 F 84 18 119/56 96
03/18/24 07:10 03/18/24 07:10 03/18/24 07:10 03/18/24 07:10 03/18/24 10:55
I&O
03/17/24 03/18/24 03/19/24
06:59 06:59 06:59
Intake Total 1360 / 1360 810 / 810
Output Total 550 / 550
Balance 810 / 810 810 / 810
--- NOTE | 2024-03-18 13:51 | CM ---
Met with patient and daughter Carmen.
Spoke with PT today - recommending SNF
Discussed options of SNF's with patient & daughter.
Referrals sent to [facility].
PLANl: Discharge when stable to SNF, pending bed availability.
--- NOTE | 2024-03-18 14:47 | W.PN.ID1 ---
Date of Service
Date of Service: March 18, 2024
Today's Communication
Transition to daptomycin.
Assessment / Plan
Leukocytosis; rising
Bacteriuria (without pyuria/symptomatology)
Bladder cancer (urothelial carcinoma in situ)
HTN
Anxiety
GERD
Hx dysphagia
Recommendations:
Etiology of leukocytosis and fever not immediately evident. Detailed physical exam is unrevealing. Question as to whether drug fever may be playing a part.
C. difficile testing is negative.
Discontinue further ampicillin, and transition to daptomycin 500 mg IV every 24 hours
Monitor white count and temperature curve.
Daughter updated at the bedside.
����������������������������������������������������������
Chief Complaint
-: Fever, Leukocytosis and UTI
Subjective / Review of Systems
Patient seen and examined. Overall feels well. Describes some general body aches, but denies significant dysuria. Notes that stool is 'mushy', but not liquid
Vital Signs / Physical Exam
Vital Signs
Vital Signs
Temp Pulse Resp BP Pulse Ox
97.6 F 90 18 121/60 97
03/18/24 11:00 03/18/24 11:00 03/18/24 11:00 03/18/24 11:00 03/18/24 11:00
Physical Exam
Constitutional: No Acute Distress, Comfortable, Chronically Ill and Non-toxic
Eyes: Sclera Anicteric and Other (Periorbital ecchymosis on the left.)
Cardiovascular: S1/S2; Negative S3/S4
Pulmonary: Non Labored
Gastrointestinal: Soft, Non Tender and Non Distended
Genito-Urinary: Negative CVA Tenderness
Neurological: Awake and Alert
Psychological: Calm
Objective Data
Lab Data
Lab Results
03/18/24 07:15
03/18/24 07:15
PT 15.0 Sec (11.4-14.6) H 03/17/24 06:09
INR 1.20 03/17/24 06:09
Estimated Creat Clear 58 ml/min 03/18/24 07:15
Lactic Acid 0.9 mmol/L (0.7-2.0) 03/14/24 17:52
Total Bilirubin 0.6 mg/dl (0.2-1.3) 03/14/24 15:12
AST 36 U/L (14-36) 03/14/24 15:12
ALT 29 U/L (0-35) 03/14/24 15:12
Alkaline Phosphatase 76 U/L (38-126) 03/14/24 15:12
Most recent labs reviewed.
Micro Results:
03/18/24 12:10 C. difficile [facility] Antigen & Toxins - Final
Feces/Stool Negative for toxigenic C.difficile
03/16/24 23:21 Blood Culture - Preliminary
Blood/Venous No Growth in 24 hours- Final report to follow
03/14/24 17:52 Blood Culture - Preliminary
Blood/Venous No Growth in 72 hours- Final report to follow
03/16/24 20:04 Influenza Types A & B (GRICELDA) - Final
Nasal Swab Negative for Influenza A & B, NAAT
Negative results must be combined with clinical observations
and patient history.
Nucleic Acid Amplification test (NAAT)performed on the
[employer] platform.
03/14/24 16:38 Urine Culture - Final
Urine Enterococcus faecalis
Imaging:
03/16/2024 CT abdomen/pelvis without contrast: Left ureteral stent is present. On postcontrast delayed images, there is excretion of contrast into the left-sided calyces without significant dilation. Findings would suggest that there is no
significant left ureteral obstruction with the left ureteral stent present. Thickening of the bladder wall, which could be postsurgical, but could also be from infection. Large minimally complex cystic mass arising from the left kidney, compatible
with benign Bosniak class II cystic mass. Subtle nodular external contour of the liver, suggestive of cirrhosis. Subtle low-density region within the medial segment of the left lobe of the liver, not definitely present on previous examinations.
When clinically feasible, further evaluation is advised with MRI of the abdomen without and with contrast, utilizing Eovist contrast agent.
[2024-03-18] MEDS: CUBICIN 10 MG IV (15:53)
[2024-03-18] MEDS: LIPITOR 10 MG PO (17:07)
[2024-03-18] MEDS: LOVENOX 40 MG SC (17:08)
[2024-03-18] MEDS: NON-FORMULARY ITEM PO (17:08)
--- NOTE | 2024-03-18 18:18 | PTCARENOTE ---
Pts family approached this RN with concerns with their mom's care here stating that they felt they did not understand the plan. Pt and family made aware of reasons for current plan of care with vital signs, PT/OT, IV ABX. Pt 's family still
unsatisfied with results and asked this RN to reach out to MD. MD made aware of family's concerns, no new orders at this time.
[2024-03-18] MEDS: DUONEB 3 ML INH (19:18)
[2024-03-18] MEDS: ZOFRAN 4 MG IV (20:20)
[2024-03-18] MEDS: MELATONIN 1.5 MG PO (21:04)
--- NOTE | 2024-03-19 01:17 | PTCARENOTE ---
Patient's temp @ 2100 was 103 orally; patient appeared flushed; at this time, patient had multiple blankets on including an electric blanket; blankets removed except for 1 sheet and 1 blanket; patient had received Tylenol @ 2019 for pain; see vital
sign documentation for temp trend.
[2024-03-19 03:18] VITALS: BP 131/69
[2024-03-19 07:10] VITALS: BP 155/74
[2024-03-19 08:02] LABS: Blood Urea Nitrogen 15 mg/dl (7-17); Calcium 8.6 mg/dl (8.4-10.2); Carbon Dioxide 20 mmol/L (22-30); Chloride 94 mmol/L (98-107); Estimated Creatinine Clearance 50 ml/min; Glucose 148 mg/dl (70-99); Potassium 4.6 mmol/L (3.5-5.1); Sodium 131 mmol/L (135-145); eGFR > 60.00
[2024-03-19 08:06] LABS: % Basophils 0.2 % (0-2); % Eosinophils 2.2 % (0-6); % Immature Granulocytes 2.6 % (0-0.5); % Monocytes 7.4 % (1.7-9.3); % Neutrophils 82.6 % (42.2-75.2); Absolute Basophils 0.1 10^3/uL (0-0.2); Absolute Eosinophils 0.6 10^3/uL (0-0.7); Absolute Immature Granulocytes 0.7 10^3/uL (0-0.05); Absolute Lymphocytes 1.3 10^3/uL (1.2-3.4); Absolute Monocytes 1.9 10^3/uL (0.1-0.6); Absolute Neutrophils 21.6 10^3/uL (1.4-6.5); Hematocrit 26.4 % (37.0-47.0); Mean Corp Hgb Conc. 34.1 g/dL (33.0-37.0); Mean Corpuscular Hgb 29.9 pg (27.0-31.0); Mean Corpuscular Volume 87.7 fL (81.0-99.0); Mean Platelet Volume 9.9 fL (7.4-10.4); Nucleated Red Blood Cells % 0 %; Platelet Count 538 10^3/uL (130-400); Red Blood Cell Count 3.01 10^6/uL (4.20-5.40); Red Cell Dist. Width 12.8 % (11.5-14.5); White Blood Cell Count 26.1 10^3/uL (4.8-10.8)
[2024-03-19] MEDS: COZAAR 100 MG PO (08:59)
[2024-03-19] MEDS: TYLENOL 650 MG PO ×2 (09:00→17:52)
[2024-03-19] MEDS: PROTONIX IV 40 MG IV ×2 (09:01→20:24)
[2024-03-19] MEDS: NSS (PRESERVATIVE FREE) 10 ML IV ×2 (09:01→20:24)
[2024-03-19] MEDS: DESENEX/MITRAZOL/ZEASORB 1 APPLIC TOPICAL ×2 (09:06→20:25)
[2024-03-19 10:23] LABS: COVID-19 Antigen Negative (Negative)
--- NOTE | 2024-03-19 10:33 | CM ---
CM met with patient and daughter Carmen
Patient with fever
Discussed that [facility] accepted patient, pending bed availability
--- NOTE | 2024-03-19 10:35 | CM ---
Met with patient and daughter Carmen
Dr. Eng present with patient.
Fever 100.6, WBC 26.1
Discussed with patient & daughter that [facility] accepted patient, pending bed availability.
PLAN: Discharge when medically stable to SNF, pending bed availability.
--- NOTE | 2024-03-19 10:43 | CM ---
Covid negative today
--- NOTE | 2024-03-19 11:14 | W.PN.HOSP.TC ---
Today's Communication/Plan
-
Monitor vital signs
see plan
Continue to have fever along with worsening leukocytosis
CT mandible
Continue antibiotics per infectious disease
Follow fever curve
Check venous Doppler
Assessment / Plan
Assessment / Plan
. Heather Gallardo is a 88 yo woman with hx bladder cancer (s/p cystoscopy, diagnostic left ureteroscopy with stent exchange, transurethral resection bladder tumor on 03/07), HTN, HLD presents to the ER after syncopal episode 4 days ago. Patient had
prodrome lightheadedness and dizziness. Fall resulted in a black eye.
HEAD CT
IMPRESSION:
No acute intracranial abnormality noted. Specifically no acute intracranial hemorrhage or extra-axial collection. No skull fracture. Stable chronic findings.
CTA
IMPRESSION:
No evidence of pulmonary embolism.
No acute cardiopulmonary process. No chest wall mass. No rib fracture.
ABDOMEN/PELVIS CT
IMPRESSION: Left ureteral stent is present. On postcontrast delayed images, there is excretion of contrast into the left-sided calyces without significant dilation. Findings would suggest that there is no significant left ureteral obstruction with
the left ureteral stent present.
Thickening of the bladder wall, which could be postsurgical, but could also be from infection.
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
Subtle nodular external contour of the liver, suggestive of cirrhosis.
Subtle low-density region within the medial segment of the left lobe of the liver, not definitely present on previous examinations. When clinically feasible, further evaluation is advised with MRI of the abdomen without and with contrast, utilizing
Eovist contrast agent.
Sepsis 2/2 UTI
Leukocytosis
-fevers reported at home. She was given Ceftriaxone on admission then transitioned to IV Zosyn morning of 03/15. Urine culture growing enterococcus - transitioned to IV Ampicillin on 03/16. now changed to daptomycin 03/18
-despite appropriate coverage of UTI; spiking fever and has rising WBC; ID following. Could also have concern for drug fever
- C. Diff neg
-obtained CT A/P on 03/16 which shows stent in place, no hydro
-s/p CXR on 03/16 no acute disease
-ID following
COVID neg
she does have jaw pain so checking CT
Follow fever curve
Hyponatremia
-may be 2/2 low solute diet with free water versus SIADH. 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
-hold Bactrim (can cause hyponatremia)
-Na dropped with fluid restriction now s/p 3% on 03/15 with increased to 129-130. She appeared more volume overloaded on 03/16 s/p lasix 20mg IV x 1
-s/p samsca 03/17; Na now 131; continue to monitor
-continue fluid restriction
repeat urine studies confirm SIADH
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
Syncope
-4 days ago while outside, patient with prodrome of dizziness and no confusion following
-Troponin negative
-TTE 11/13/23 with EF 60-6%%, no significant valvular disease
-PT/OT
-no significant events on telemetry
Chronic Epigastric pain
-sounds MSK related as worse with certain movements and worse post fall
-will trial protonix, other differential includes gastritis
-CT (as below)
Patient has history of gastric ulcer. Recommended patient follow-up with gastroenterology outpatient.
Abnormal Liver CT imaging
-CT suggest cirrhosis (not e/o labs and no history) as well as subtle low-density region in medial segment left lobe of liver
-->will need dedicated MRI abdomen with and without contrast post discharge
bladder cancer (s/p cystoscopy, diagnostic left ureteroscopy with stent exchange, transurethral resection bladder tumor on 03/07)
-follows with Dr. Rosario
-Dr. Bernal updated on admission
-CT results as above
b/l LE pain
check venous doppler given fevers
DVT PPx lovenox
FULL CODE - long conversation had with patient and daughter in ER
General: No Apparent Distress
HEENT: PERRLA
Respiratory: Clear to Auscultation and mild Wheezes
Cardiac: Regular Rhythm and S1/S2
GI: Soft and Nontender
Musculoskeletal: No Edema
Neuro: Awake, Alert and Oriented
Psych: Calm
I spent a total of 53 minutes with the patient or on the floor. More than 50% of this time involved counseling and coordination of care.
Anticipated Discharge: > 48 hours
Subjective/Interval History
-
Date of Service: March 19, 2024
HAS SOME JAW PAIN
Objective Data
-
Labs:
Laboratory Results
03/19/24
05:43
WBC 26.1 H
Hgb 9.0 L
Hct 26.4 L
Plt Count 538 H D
Sodium 131 L
Potassium 4.6
Chloride 94 L
Carbon Dioxide 20 L
BUN 15
Creatinine 0.7
Glucose 148 H
Calcium 8.6
Vital Signs:
Vital Signs
Temp Pulse Resp BP Pulse Ox
100.6 F H 111 16 155/74 95
03/19/24 07:10 03/19/24 08:59 03/19/24 07:10 03/19/24 08:59 03/19/24 07:10
I&O
03/18/24 03/19/24 03/20/24
06:59 06:59 06:59
Intake Total 810 / 810 220 / 220
Balance 810 / 810 220 / 220
--- NOTE | 2024-03-19 12:43 | W.PN.ID1 ---
Date of Service
Date of Service: March 19, 2024
Today's Communication
Continue antibiotics. See below�
Assessment / Plan
Leukocytosis
- continues to rise
Bacteriuria (without pyuria/symptomatology)
Bladder cancer (urothelial carcinoma in situ)
HTN
Anxiety
GERD
Hx dysphagia
Recommendations:
Etiology of leukocytosis and fever remains cryptic. Detailed physical exam is unrevealing. Question as to whether drug fever may be playing a part.
C. difficile testing is negative.
Ampicillin discontinued yesterday, and patient transitioned to daptomycin in the coverage of prior recovered Enterococcus.
Monitor white count and temperature curve.
If white count continues to rise, and temperatures persist, will broaden antibiotic coverage to meropenem.
Agree with ongoing workup, including CT of the mandible and duplex ultrasound of the lower extremities.
Daughter updated at the bedside.
����������������������������������������������������������
Chief Complaint
-: Fever, Leukocytosis and UTI
Subjective / Review of Systems
Patient seen and examined. Overall feels well. Denies specific complaints. No cough or congestion. No abdominal pain. No diarrhea. No appreciable dysuria.
Vital Signs / Physical Exam
Vital Signs
Vital Signs
Temp Pulse Resp BP Pulse Ox
100.6 F H 111 16 155/74 95
03/19/24 07:10 03/19/24 08:59 03/19/24 07:10 03/19/24 08:59 03/19/24 08:00
Physical Exam
Constitutional: No Acute Distress, Comfortable, Chronically Ill and Non-toxic
Eyes: Sclera Anicteric and Other (Periorbital ecchymosis on the left.)
Cardiovascular: S1/S2; Negative S3/S4
Pulmonary: Non Labored
Gastrointestinal: Soft, Non Tender and Non Distended
Genito-Urinary: Negative CVA Tenderness
Neurological: Awake and Alert
Psychological: Calm
Objective Data
Lab Data
Lab Results
03/19/24 05:43
03/19/24 05:43
PT 15.0 Sec (11.4-14.6) H 03/17/24 06:09
INR 1.20 03/17/24 06:09
Estimated Creat Clear 50 ml/min 03/19/24 05:43
Lactic Acid 0.9 mmol/L (0.7-2.0) 03/14/24 17:52
Total Bilirubin 0.6 mg/dl (0.2-1.3) 03/14/24 15:12
AST 36 U/L (14-36) 03/14/24 15:12
ALT 29 U/L (0-35) 03/14/24 15:12
Alkaline Phosphatase 76 U/L (38-126) 03/14/24 15:12
Most recent labs reviewed.
Micro Results:
03/16/24 23:21 Blood Culture - Preliminary
Blood/Venous No Growth in 48 hours- Final report to follow
03/14/24 17:52 Blood Culture - Preliminary
Blood/Venous No Growth in 4 days- Final report to follow
03/14/24 16:38 Urine Culture - Final
Urine Enterococcus faecalis
03/18/24 12:10 C. difficile GDH Antigen & Toxins - Final
Feces/Stool Negative for toxigenic C.difficile
03/16/24 20:04 Influenza Types A & B (GRICELDA) - Final
Nasal Swab Negative for Influenza A & B, NAAT
Negative results must be combined with clinical observations
and patient history.
Nucleic Acid Amplification test (NAAT)performed on the
[employer] platform.
Imaging:
03/16/2024 CT abdomen/pelvis without contrast: Left ureteral stent is present. On postcontrast delayed images, there is excretion of contrast into the left-sided calyces without significant dilation. Findings would suggest that there is no
significant left ureteral obstruction with the left ureteral stent present. Thickening of the bladder wall, which could be postsurgical, but could also be from infection. Large minimally complex cystic mass arising from the left kidney, compatible
with benign Bosniak class II cystic mass. Subtle nodular external contour of the liver, suggestive of cirrhosis. Subtle low-density region within the medial segment of the left lobe of the liver, not definitely present on previous examinations.
When clinically feasible, further evaluation is advised with MRI of the abdomen without and with contrast, utilizing Eovist contrast agent.
[2024-03-19 14:08] VITALS: BP 118/49
[2024-03-19 15:10] VITALS: BP 107/48
[2024-03-19] MEDS: CUBICIN 10 MG IV (16:05)
[2024-03-19] MEDS: LIPITOR 10 MG PO (17:40)
[2024-03-19] MEDS: LOVENOX 40 MG SC (17:40)
[2024-03-19] MEDS: NON-FORMULARY ITEM 75 MG PO (17:45)
[2024-03-19] MEDS: DUONEB 3 ML INH (18:07)
[2024-03-19 19:40] VITALS: BP 101/61
[2024-03-19 23:05] VITALS: BP 138/74
[2024-03-19] MEDS: MELATONIN 1.5 MG PO (23:59)
[2024-03-20] VITALS (7 sets, daily range): BP systolic 118–138; BP diastolic 47–75; BMI 26.8
[2024-03-20] MEDS: TYLENOL 650 MG PO ×3 (05:39→20:50)
[2024-03-20 05:50] LABS: % Basophils 0.3 % (0-2); % Eosinophils 1.3 % (0-6); % Immature Granulocytes 3.3 % (0-0.5); % Monocytes 8.2 % (1.7-9.3); % Neutrophils 82.9 % (42.2-75.2); Absolute Basophils 0.1 10^3/uL (0-0.2); Absolute Eosinophils 0.3 10^3/uL (0-0.7); Absolute Immature Granulocytes 0.8 10^3/uL (0-0.05); Absolute Lymphocytes 0.9 10^3/uL (1.2-3.4); Absolute Monocytes 1.9 10^3/uL (0.1-0.6); Absolute Neutrophils 19.1 10^3/uL (1.4-6.5); Hematocrit 24.2 % (37.0-47.0); Hemoglobin 8.5 g/dL (12.0-16.0); Mean Corp Hgb Conc. 35.1 g/dL (33.0-37.0); Mean Corpuscular Hgb 29.9 pg (27.0-31.0); Mean Corpuscular Volume 85.2 fL (81.0-99.0); Nucleated Red Blood Cells % 0.1 %; Platelet Count 554 10^3/uL (130-400); Red Blood Cell Count 2.84 10^6/uL (4.20-5.40); Red Cell Dist. Width 12.6 % (11.5-14.5)
[2024-03-20 06:15] LABS: Blood Urea Nitrogen 16 mg/dl (7-17); Calcium 8.2 mg/dl (8.4-10.2); Carbon Dioxide 21 mmol/L (22-30); Chloride 95 mmol/L (98-107); Estimated Creatinine Clearance 50 ml/min; Glucose 150 mg/dl (70-99); Potassium 4.7 mmol/L (3.5-5.1); Sodium 127 mmol/L (135-145); eGFR > 60.00
[2024-03-20] MEDS: COZAAR 100 MG PO (09:48)
[2024-03-20] MEDS: NSS (PRESERVATIVE FREE) 10 ML IV ×2 (09:49→20:51)
[2024-03-20] MEDS: PROTONIX IV 40 MG IV ×2 (09:49→20:51)
[2024-03-20] MEDS: DESENEX/MITRAZOL/ZEASORB 1 APPLIC TOPICAL ×2 (09:53→20:50)
[2024-03-20] MEDS: OMNIPAQUE 50 ML PO (10:34)
--- NOTE | 2024-03-20 10:34 | CM ---
Patient seen at bedside with daughter Carmen.
T: 97.3 this am, Hgb 8.5, Na 127
US of b/e performed and negative.
CT scan performed mild degenerative change of the temporomandibular joints bilaterally
PT recommends SNF
Carmen states will tour [facility]-referrals in for [place], [facility] & [facility].
PLAN: SNF
[2024-03-20] MEDS: SAMSCA 15 MG PO (11:16)
--- NOTE | 2024-03-20 11:36 | W.PN.HOSP.TC ---
Today's Communication/Plan
-
Monitor vital signs see plan
Follow fever curve
Continue antibiotics
CT abdomen per urology
PT/OT
Discussed with daughter at bedside
Nephrology evaluation
Assessment / Plan
Assessment / Plan
. Heather Gallardo is a 88 yo woman with hx bladder cancer (s/p cystoscopy, diagnostic left ureteroscopy with stent exchange, transurethral resection bladder tumor on 03/07), HTN, HLD presents to the ER after syncopal episode 4 days ago. Patient had
prodrome lightheadedness and dizziness. Fall resulted in a black eye.
HEAD CT
IMPRESSION:
No acute intracranial abnormality noted. Specifically no acute intracranial hemorrhage or extra-axial collection. No skull fracture. Stable chronic findings.
CTA
IMPRESSION:
No evidence of pulmonary embolism.
No acute cardiopulmonary process. No chest wall mass. No rib fracture.
ABDOMEN/PELVIS CT
IMPRESSION: Left ureteral stent is present. On postcontrast delayed images, there is excretion of contrast into the left-sided calyces without significant dilation. Findings would suggest that there is no significant left ureteral obstruction with
the left ureteral stent present.
Thickening of the bladder wall, which could be postsurgical, but could also be from infection.
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
Subtle nodular external contour of the liver, suggestive of cirrhosis.
Subtle low-density region within the medial segment of the left lobe of the liver, not definitely present on previous examinations. When clinically feasible, further evaluation is advised with MRI of the abdomen without and with contrast, utilizing
Eovist contrast agent.
Sepsis 2/2 UTI
Leukocytosis
-fevers reported at home. She was given Ceftriaxone on admission then transitioned to IV Zosyn morning of 03/15. Urine culture growing enterococcus - transitioned to IV Ampicillin on 03/16. now changed to daptomycin 03/18
-despite appropriate coverage of UTI; spiking fever and has rising WBC; ID following. Could also have concern for drug fever
- C. Diff neg
-obtained CT A/P on 03/16 which shows stent in place, no hydro
-s/p CXR on 03/16 no acute disease
-ID following
COVID neg
she does have jaw painCT; does not appear to have any acute abnormality and changes in mandible likely secondary to recent fall. No fracture
Follow fever curve; repeat CT ordered by urology
Hyponatremia
-may be 2/2 low solute diet with free water versus SIADH. 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
-hold Bactrim (can cause hyponatremia)
-Na dropped with fluid restriction now s/p 3% on 03/15 with increased to 129-130. She appeared more volume overloaded on 03/16 s/p lasix 20mg IV x 1
-s/p samsca 03/17; Na now 127; continue to monitor. Consult nephrology
-continue fluid restriction
repeat urine studies confirm SIADH
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
Syncope
-4 days ago while outside, patient with prodrome of dizziness and no confusion following
-Troponin negative
-TTE 11/13/23 with EF 60-6%%, no significant valvular disease
-PT/OT
-no significant events on telemetry
Chronic Epigastric pain
-sounds MSK related as worse with certain movements and worse post fall
-will trial protonix, other differential includes gastritis
Now pain appears to be improving
-CT (as below)
Patient has history of gastric ulcer. Recommended patient follow-up with gastroenterology outpatient.
Abnormal Liver CT imaging
-CT suggest cirrhosis (not e/o labs and no history) as well as subtle low-density region in medial segment left lobe of liver
-->will need dedicated MRI abdomen with and without contrast post discharge
bladder cancer (s/p cystoscopy, diagnostic left ureteroscopy with stent exchange, transurethral resection bladder tumor on 03/07)
-follows with Dr. Rosario
-Dr. Bernal updated on admission
-CT results as above
b/l LE pain
Appears likely secondary to arthritis, venous Doppler negative
DVT PPx lovenox
FULL CODE - long conversation had with patient and daughter in ER
General: No Apparent Distress
HEENT: PERRLA
Respiratory: Clear to Auscultation and mild Wheezes
Cardiac: Regular Rhythm and S1/S2
GI: Soft and Nontender
Musculoskeletal: No Edema
Neuro: Awake, Alert and Oriented
Psych: Calm
I spent a total of 51 minutes with the patient or on the floor. More than 50% of this time involved counseling and coordination of care.
Anticipated Discharge: > 48 hours
Subjective/Interval History
-
Date of Service: March 20, 2024
denies pain
Objective Data
-
Labs:
Laboratory Results
03/20/24
04:57
WBC 23.0 H
Hgb 8.5 L
Hct 24.2 L
Plt Count 554 H
Sodium 127 L
Potassium 4.7
Chloride 95 L
Carbon Dioxide 21 L
BUN 16
Creatinine 0.7
Glucose 150 H
Calcium 8.2 L
Vital Signs:
Vital Signs
Temp Pulse Resp BP Pulse Ox
97.5 F 82 18 118/61 94
03/20/24 11:10 03/20/24 11:10 03/20/24 11:10 03/20/24 11:10 03/20/24 11:10
I&O
03/19/24 03/20/24 03/21/24
06:59 06:59 06:59
Intake Total 220 / 220 1200 / 1200
Balance 220 / 220 1200 / 1200
--- NOTE | 2024-03-20 12:47 | W.CON.NEPH ---
Consultation
-
Date/Time Consultation Requested: 03/20/24 9a
Date/Time Consultation Performed: 03/20/24 10a
Requesting Provider: Dr. Eng
Performing Provider: Dr Chatman
Reason for Consultation: Hyponatremia
Medical History
-
Chief Complaint: fall
History of Present Illness:
This is an 88-year-old female with bladder cancer who underwent recent TURBT on March 08, 2024. She also has hypertension on a monotherapy regimen as well as hyperlipidemia controlled with statin therapy. She developed a fall and came to the
emergency room. She was noted to have fevers as well as leukocytosis. Initial evaluation revealed E faecalis in the urine and she was started on antibiotics. Despite this her white count has remained persistently high. She was also noted to have
hyponatremia with a admission sodium of 125 which has failed to improve over time.
Past Medical History
Bladder cancer, hypertension, anxiety, GERD, cystoscopy, ureteral stent, TURBT, section, tonsillectomy, left knee replacement, hyperlipidemia
Social History
Tobacco: Non-Smoker
Alcohol: Occasional
Family History
Family History: Not Pertinent
Allergies / Home Medications
Allergy/AdvReac Type Severity Reaction Status Date / Time
erythromycin base Allergy INTOLERANCE Verified 03/14/24 13:50
�Medication �Instructions �Recorded �Confirmed �Type
sertraline 25 mg tablet 25 mg PO DAILY Mental 02/02/12 03/14/24 History
Health/Anxiety
acetaminophen 500 mg capsule 500 mg PO Q6H Pain 01/25/24 03/14/24 History
losartan 100 mg tablet 100 mg PO DAILY Blood Pressure 01/25/24 03/14/24 History
melatonin 1 mg tablet 1 mg PO HSPRN PRN insomnia 01/25/24 03/14/24 History
methenam 118 mg-m.blue 10 1 tab PO BID Supplement 01/30/24 03/14/24 History
mg-s.phos 40.8 mg-p.salic 36
mg-hyos capsule (Uribel)
simvastatin 20 mg tablet 20 mg PO QPM High Cholesterol 01/30/24 03/14/24 History
vibegron 75 mg tablet (Gemtesa) 75 mg PO QPM OVERACTIVE BLADDER 03/04/24 03/14/24 History
alprazolam 0.5 mg tablet (Xanax) 0.25 mg PO DAILYPRN PRN anxiety 03/14/24 03/14/24 History
sulfamethoxazole 400 1 tab PO QPM Infection 03/14/24 03/14/24 History
mg-trimethoprim 80 mg tablet
(Bactrim)
Review of Systems
-
No chest pain, no shortness of breath. No issues with urine output. Appetite is fair. Nausea, no vomiting, pain in the left periorbital area as well as jaw
All other systems: Negative unless noted
Physical Exam
Vital Signs
Vital Signs
Temp Pulse Resp BP Pulse Ox
97.5 F 82 18 118/61 94
03/20/24 11:10 03/20/24 11:10 03/20/24 11:10 03/20/24 11:10 03/20/24 11:10
Lab Results
WBC 23.0 10^3/uL (4.8-10.8) H 03/20/24 04:57
RBC 2.84 10^6/uL (4.20-5.40) L 03/20/24 04:57
Hgb 8.5 g/dL (12.0-16.0) L 03/20/24 04:57
Hct 24.2 % (37.0-47.0) L 03/20/24 04:57
Plt Count 554 10^3/uL (130-400) H 03/20/24 04:57
Sodium 127 mmol/L (135-145) L 03/20/24 04:57
Potassium 4.7 mmol/L (3.5-5.1) 03/20/24 04:57
Chloride 95 mmol/L (98-107) L 03/20/24 04:57
Carbon Dioxide 21 mmol/L (22-30) L 03/20/24 04:57
BUN 16 mg/dl (7-17) 03/20/24 04:57
Creatinine 0.7 mg/dL (0.6-1.0) 03/20/24 04:57
eGFR > 60.00 03/20/24 04:57
Glucose 150 mg/dl (70-99) H 03/20/24 04:57
Calcium 8.2 mg/dl (8.4-10.2) L 03/20/24 04:57
Fmc-E-Njohbzpijwn Pept 305 pg/ml 03/16/24 05:57
Albumin 3.5 g/dl (3.5-5.0) 03/14/24 15:12
Laboratory Tests
01/27/24 03/16/24
23:49 10:16
Sodium 135
Urine Osmolality 628
Urine Sodium 42
Physical Exam
Patient is awake alert oriented and in no distress. Mood and affect were pleasant, insight and judgment were good. Pupils are equal round and reactive to light, extraocular movements are intact, sclera were anicteric. Hearing was normal, ears and
nose are intact. Oropharynx was clear. Neck was supple with trachea midline and no thyromegaly. Heart was regular rate and rhythm without rubs. Lower extremities without edema. Lungs were clear to auscultation bilaterally and with normal
excursion. Abdomen was soft, nontender, with normal active bowel sounds, and no hepatosplenomegaly. Skin was without rash and with normal turgor.
Data Reviewed
-
CT Scan: Report Reviewed by me (CT of the abdomen and pelvis with and without contrast on March 16, 2024 shows nodular liver, symmetric kidneys, left ureteral stent)
Medical Tests (Nuc Med, Echo etc): Image Personally Visualized and interpreted (EKG on March 14, 2024 by my reading shows normal sinus rhythm PVCs left axis deviation)
Labs: Labs Reviewed by me
Old Records: Reviewed
Assessment/Plan
-
Assessment
Hyponatremia
Bladder cancer
Fall
Hypertension
Hyperlipidemia
Leukocytosis
Plan
Samsca 15 mg will be given today
Fluid restriction 48 ounces or less daily
Follow BMP
Hyponatremia and excess ADH state is likely potentiated by nausea, pain
Antibiotics will continue per infectious disease
--- NOTE | 2024-03-20 12:56 | W.PN.ID1 ---
Date of Service
Date of Service: March 20, 2024
Today's Communication
Continue antibiotics. Await CT of the abdomen.
Assessment / Plan
Leukocytosis
- continues to rise
Bacteriuria (without pyuria/symptomatology)
Bladder cancer (urothelial carcinoma in situ)
HTN
Anxiety
GERD
Hx dysphagia
Recommendations:
Etiology of leukocytosis and fever remains cryptic. Detailed physical exam continues to remain unrevealing. Question as to whether drug fever may be playing a part, although patient has been off beta-lactam's now for 48 hours
C. difficile testing is negative.
Ampicillin discontinued yesterday, and patient transitioned to daptomycin in the coverage of prior recovered Enterococcus.
Monitor white count and temperature curve.
CT of the mandible and lower extremity duplex ultrasound unrevealing.
Patient is for repeat CT of the abdomen today.
Depending on findings, may transition to meropenem.
Daughter updated at the bedside.
����������������������������������������������������������
Chief Complaint
-: Fever, Leukocytosis and UTI
Subjective / Review of Systems
Patient seen and examined. Chart reviewed. Overall patient continues to feel well. She denies any pain. Fevers noted overnight. Denies any dysuria. Denies any flank or back pain.
Vital Signs / Physical Exam
Vital Signs
Vital Signs
Temp Pulse Resp BP Pulse Ox
97.5 F 82 18 118/61 94
03/20/24 11:10 03/20/24 11:10 03/20/24 11:10 03/20/24 11:10 03/20/24 11:10
Physical Exam
Constitutional: No Acute Distress, Comfortable, Chronically Ill and Non-toxic
Eyes: Sclera Anicteric and Other (Periorbital ecchymosis on the left. Ecchymosis fading.)
Cardiovascular: Regular Rate and S1/S2; Negative S3/S4 or Murmur
Pulmonary: Non Labored
Gastrointestinal: Soft, Non Tender and Non Distended
Genito-Urinary: Negative CVA Tenderness
Neurological: Awake and Alert
Psychological: Calm
Objective Data
Lab Data
Lab Results
03/20/24 04:57
03/20/24 04:57
PT 15.0 Sec (11.4-14.6) H 03/17/24 06:09
INR 1.20 03/17/24 06:09
Estimated Creat Clear 50 ml/min 03/20/24 04:57
Lactic Acid 0.9 mmol/L (0.7-2.0) 03/14/24 17:52
Total Bilirubin 0.6 mg/dl (0.2-1.3) 03/14/24 15:12
AST 36 U/L (14-36) 03/14/24 15:12
ALT 29 U/L (0-35) 03/14/24 15:12
Alkaline Phosphatase 76 U/L (38-126) 03/14/24 15:12
Most recent labs reviewed.
Micro Results:
03/16/24 23:21 Blood Culture - Preliminary
Blood/Venous No Growth in 72 hours- Final report to follow
03/14/24 17:52 Blood Culture - Final
Blood/Venous No Growth - Final Report
03/14/24 16:38 Urine Culture - Final
Urine Enterococcus faecalis
03/18/24 12:10 C. difficile GDH Antigen & Toxins - Final
Feces/Stool Negative for toxigenic C.difficile
03/16/24 20:04 Influenza Types A & B (GRICELDA) - Final
Nasal Swab Negative for Influenza A & B, NAAT
Negative results must be combined with clinical observations
and patient history.
Nucleic Acid Amplification test (NAAT)performed on the
[employer] platform.
Imaging:
03/19/2024 Duplex ultrasound, lower extremities: No evidence of DVT
03/19/[address]: No evidence of lucency within the mandible and no findings to suggest peritonsillar abscess.
03/16/2024 CT abdomen/pelvis without contrast: Left ureteral stent is present. On postcontrast delayed images, there is excretion of contrast into the left-sided calyces without significant dilation. Findings would suggest that there is no
significant left ureteral obstruction with the left ureteral stent present. Thickening of the bladder wall, which could be postsurgical, but could also be from infection. Large minimally complex cystic mass arising from the left kidney, compatible
with benign Bosniak class II cystic mass. Subtle nodular external contour of the liver, suggestive of cirrhosis. Subtle low-density region within the medial segment of the left lobe of the liver, not definitely present on previous examinations.
When clinically feasible, further evaluation is advised with MRI of the abdomen without and with contrast, utilizing Eovist contrast agent.
--- NOTE | 2024-03-20 13:22 | PN.CDI ---
CDI
- -
CDI:
Physician Documentation Request
Admit Date: 03/14/24 19:57
Dear Doctor Velasquez
Patient is admitted with sepsis secondary to UTI. Progress notes patient had cystoscopy, diagnostic left ureteroscopy with stent exchange, transurethral resection bladder tumor on 03/07
Please clarify if a relationship exist between these conditions:
Yes, UTI/sepsis is related to/associated with/due to recent urological procedure (cystoscopy, diagnostic left ureteroscopy with stent exchange, transurethral resection bladder tumor)
No, UTI/sepsis is not related to/associated with/due to recent urological procedure (cystoscopy, diagnostic left ureteroscopy with stent exchange, transurethral resection bladder tumor)
Unable to determine
Use of terms such as suspected, likely, concern for, or probable (associated with a specific diagnosis that is being evaluated, monitored, or treated as if it exists) are acceptable and can be coded in the inpatient setting, when documented at the
time of discharge.
Thank you,
Tianna Valentine RN, BSN
CDI Specialist
tiger text
Please use your independent medical judgment in providing your response.
[2024-03-20] MEDS: STERILE WATER FOR INJECTION 10 ML IV ×2 (15:28→22:06)
[2024-03-20] MEDS: MERREM 500 MG IV ×2 (15:29→22:06)
[2024-03-20] MEDS: LOVENOX 40 MG SC (17:53)
[2024-03-20] MEDS: LIPITOR 10 MG PO (17:54)
[2024-03-20] MEDS: NON-FORMULARY ITEM 75 MG PO (17:57)
[2024-03-20] MEDS: MELATONIN 1.5 MG PO (20:51)
[2024-03-20] MEDS: DUONEB 3 ML INH (21:09)
[2024-03-21 03:05] VITALS: BP 134/57
[2024-03-21] MEDS: TYLENOL 650 MG PO ×4 (03:05→20:15)
[2024-03-21] MEDS: MERREM 500 MG IV ×4 (04:03→22:10)
[2024-03-21] MEDS: STERILE WATER FOR INJECTION 10 ML IV ×4 (04:03→22:10)
[2024-03-21 05:43] VITALS: BMI 26.4
[2024-03-21 06:25] LABS: % Basophils 0.2 % (0-2); % Immature Granulocytes 3.9 % (0-0.5); % Lymphocytes 3.9 % (20.5-51.1); Absolute Basophils 0.1 10^3/uL (0-0.2); Absolute Eosinophils 0.7 10^3/uL (0-0.7); Absolute Immature Granulocytes 0.9 10^3/uL (0-0.05); Absolute Lymphocytes 0.9 10^3/uL (1.2-3.4); Absolute Monocytes 1.6 10^3/uL (0.1-0.6); Absolute Neutrophils 18.8 10^3/uL (1.4-6.5); Hemoglobin 8.6 g/dL (12.0-16.0); Mean Corp Hgb Conc. 35.8 g/dL (33.0-37.0); Mean Corpuscular Hgb 31.4 pg (27.0-31.0); Mean Corpuscular Volume 87.6 fL (81.0-99.0); Mean Platelet Volume 10.2 fL (7.4-10.4); Nucleated Red Blood Cells % 0 %; Platelet Count 513 10^3/uL (130-400); Red Blood Cell Count 2.74 10^6/uL (4.20-5.40); Red Cell Dist. Width 12.7 % (11.5-14.5); White Blood Cell Count 22.9 10^3/uL (4.8-10.8)
[2024-03-21 06:50] LABS: Blood Urea Nitrogen 15 mg/dl (7-17); Calcium 8.2 mg/dl (8.4-10.2); Carbon Dioxide 21 mmol/L (22-30); Chloride 96 mmol/L (98-107); Estimated Creatinine Clearance 57 ml/min; Glucose 115 mg/dl (70-99); Potassium 4.5 mmol/L (3.5-5.1); Sodium 130 mmol/L (135-145); eGFR > 60.00
[2024-03-21 07:05] VITALS: BP 127/63
--- NOTE | 2024-03-21 08:17 | W.PN.URO.CBU ---
Today's Communication / Plan
-
continue antibx and hart
Assessment / Plan
-
hx of bladder ca with obstruction of left UO- s/p resection and stent
enterococcal UTI
persistent fevers and leukocytosis- source unclear
from gu standpoint- left stent is new and functional
no evid of abscess/pyelo/etc
will leave hart for now- recheck ucx
encouraging that fever cureve has improved- follow abc- antibx per ID
Diagnosis
-
Date of Service: March 21, 2024
-
Patient Diagnosis:
bladder cancer
fever
UTI
Subjective
-
pt with hx of TURBT including left UO with stent
path CIS
repeat cysto/bx demonstrated no residual ca- stent exchanged
plan was for outpt stent removal- then initiation of BCG
admitted with fall/fever/leukocystosis
ucx + for enterococcus- blood cx's and ct negative
had persistent fevers and elevated wbc
repeat ct yesterday no evid of gu pathology/fever source
bladder somewhat distended- hart placed- repeat ucx submitted
pt sleeping this am
urine clear
wbc stable- no fevers last 24hrs
Objective
-
Vital Signs
Temp Pulse Resp BP Pulse Ox
97.6 F 93 18 127/63 97
03/21/24 07:05 03/21/24 07:05 03/21/24 07:05 03/21/24 07:05 03/21/24 07:05
Intake and Output
03/20/24 03/21/24 03/22/24
06:59 06:59 06:59
Intake Total 1200 / 1200 1440 / 1440
Output Total 1300 / 1300
Balance 1200 / 1200 140 / 140
Intake:
Oral fluids 1200 / 1200 1440 / 1440
Output:
Urine, Hart 1300 / 1300
Other:
Number of approximated MODERATE 2
amounts of urine
How many times incontinent 1
SMALL amount urine
How many times incontinent 2
SATURATED amount urine
Number of unmeasured liquid
stools
Rectum 1
Laboratory Results
03/21/24 04:45
03/21/24 04:45
Physical Exam
-
General - no acute distress
Abdomen - soft, non-tender
Genitalia - hart
[2024-03-21] MEDS: COZAAR 100 MG PO (09:27)
[2024-03-21] MEDS: PROTONIX IV 40 MG IV ×2 (09:29→20:14)
[2024-03-21] MEDS: NSS (PRESERVATIVE FREE) 10 ML IV ×2 (09:30→20:14)
[2024-03-21] MEDS: DESENEX/MITRAZOL/ZEASORB 1 APPLIC TOPICAL ×2 (09:31→20:13)
--- NOTE | 2024-03-21 10:13 | CHAP ---
Heather Machado received [facility] on 03/20/24 from [facility].
--- NOTE | 2024-03-21 11:06 | W.PN.NEPH.PH ---
Today's Communication / Plan
-
samsca
Assessment/Plan
-
Assessment
Hyponatremia
Bladder cancer
Fall
Hypertension
Hyperlipidemia
Leukocytosis
Plan
Samsca 15 mg will be given today again
Fluid restriction 40 ounces or less daily
Follow BMP
Hyponatremia and excess ADH state is likely potentiated by nausea, pain
continue antibiotics
-
-
Date of Service: March 21, 2024
CC / HPI / ROS
-
Chief Complaint:
hyponatremia
History of Present Illness:
Na up to 130 with samsca
BP stable
Hgb stable low 8.[address] stent Left in place for obstructive uropathy
on abx for Enterococcus UTI
Review of Systems:
no CP/SOB
minimal nausea
diffuse joint pains
Labs
-
Labs:
WBC 22.9 10^3/uL (4.8-10.8) H 03/21/24 04:45
RBC 2.74 10^6/uL (4.20-5.40) L 03/21/24 04:45
Hgb 8.6 g/dL (12.0-16.0) L 03/21/24 04:45
Hct 24.0 % (37.0-47.0) L 03/21/24 04:45
Plt Count 513 10^3/uL (130-400) H 03/21/24 04:45
Sodium 130 mmol/L (135-145) L 03/21/24 04:45
Potassium 4.5 mmol/L (3.5-5.1) 03/21/24 04:45
Chloride 96 mmol/L (98-107) L 03/21/24 04:45
Carbon Dioxide 21 mmol/L (22-30) L 03/21/24 04:45
BUN 15 mg/dl (7-17) 03/21/24 04:45
Creatinine 0.6 mg/dL (0.6-1.0) 03/21/24 04:45
eGFR > 60.00 03/21/24 04:45
Glucose 115 mg/dl (70-99) H 03/21/24 04:45
Calcium 8.2 mg/dl (8.4-10.2) L 03/21/24 04:45
Ijd-R-Fdltmbsigzr Pept 305 pg/ml 03/16/24 05:57
Albumin 3.5 g/dl (3.5-5.0) 03/14/24 15:12
Physical Exam
-
Vital Signs:
Vital Signs
Temp Pulse Resp BP Pulse Ox
97.6 F 93 18 127/63 93
03/21/24 07:05 03/21/24 09:27 03/21/24 07:05 03/21/24 09:27 03/21/24 08:00
Cardiovascular:: Regular rate and rhythm
Respiratory:: Bilateral: Coarse
Lung Excursion:: Normal
Abdomen:: Nontender and Soft
Bowel Sounds:: Normal
Extremity Edema:: None: Bilateral:
--- NOTE | 2024-03-21 11:37 | W.PN.ID1 ---
Date of Service
Date of Service: March 21, 2024
Today's Communication
Continue meropenem for today.
Assessment / Plan
Leukocytosis
-Stable today.
Thrombocytosis
Bacteriuria (without pyuria/symptomatology)
Bladder cancer (urothelial carcinoma in situ)
HTN
Anxiety
GERD
Hx dysphagia
Recommendations:
Etiology of leukocytosis and fever remains cryptic. Detailed physical exam continues to remain unrevealing.
C. difficile testing is negative.
CT of the mandible and lower extremity duplex ultrasound unrevealing.
Repeat CT of the abdomen unrevealing.
Ampicillin d/c'ed, transitioned to daptomycin, which has also been d/c'ed, and now on meropenam.
Will continue to monitor white count and temperature curve.
Daughters updated at the bedside.
����������������������������������������������������������
Chief Complaint
-: Fever, Leukocytosis and UTI
Subjective / Review of Systems
Patient seen and examined. Denies specific complaints at present. Temperatures seem to have improved overnight, with no fevers noted.
Vital Signs / Physical Exam
Vital Signs
Vital Signs
Temp Pulse Resp BP Pulse Ox
97.6 F 93 18 127/63 93
03/21/24 07:05 03/21/24 09:27 03/21/24 07:05 03/21/24 09:27 03/21/24 08:00
Physical Exam
Constitutional: No Acute Distress, Comfortable and Non-toxic
Eyes: No Conjunctival Hemorrhage and Sclera Anicteric
Cardiovascular: Regular Rate and S1/S2; Negative S3/S4 or Murmur
Pulmonary: Non Labored
Gastrointestinal: Soft, Non Tender and Non Distended
Genito-Urinary: Castañeda and Clear Urine; Negative CVA Tenderness
Neurological: Awake and Alert
Psychological: Calm
Objective Data
Lab Data
Lab Results
03/21/24 04:45
03/21/24 04:45
PT 15.0 Sec (11.4-14.6) H 03/17/24 06:09
INR 1.20 03/17/24 06:09
Estimated Creat Clear 57 ml/min 03/21/24 04:45
Lactic Acid 0.9 mmol/L (0.7-2.0) 03/14/24 17:52
Total Bilirubin 0.6 mg/dl (0.2-1.3) 03/14/24 15:12
AST 36 U/L (14-36) 03/14/24 15:12
ALT 29 U/L (0-35) 03/14/24 15:12
Alkaline Phosphatase 76 U/L (38-126) 03/14/24 15:12
Most recent labs reviewed.
Micro Results:
03/16/24 23:21 Blood Culture - Preliminary
Blood/Venous No Growth in 4 days- Final report to follow
03/20/24 18:02 Urine Culture - Pending
Urine
03/14/24 17:52 Blood Culture - Final
Blood/Venous No Growth - Final Report
03/14/24 16:38 Urine Culture - Final
Urine Enterococcus faecalis
03/18/24 12:10 C. difficile GDH Antigen & Toxins - Final
Feces/Stool Negative for toxigenic C.difficile
03/16/24 20:04 Influenza Types A & B (GRICELDA) - Final
Nasal Swab Negative for Influenza A & B, NAAT
Negative results must be combined with clinical observations
and patient history.
Nucleic Acid Amplification test (NAAT)performed on the
[employer] platform.
Imaging:
03/19/2024 Duplex ultrasound, lower extremities: No evidence of DVT
03/19/[address]: No evidence of lucency within the mandible and no findings to suggest peritonsillar abscess.
03/16/2024 CT abdomen/pelvis without contrast: Left ureteral stent is present. On postcontrast delayed images, there is excretion of contrast into the left-sided calyces without significant dilation. Findings would suggest that there is no
significant left ureteral obstruction with the left ureteral stent present. Thickening of the bladder wall, which could be postsurgical, but could also be from infection. Large minimally complex cystic mass arising from the left kidney, compatible
with benign Bosniak class II cystic mass. Subtle nodular external contour of the liver, suggestive of cirrhosis. Subtle low-density region within the medial segment of the left lobe of the liver, not definitely present on previous examinations.
When clinically feasible, further evaluation is advised with MRI of the abdomen without and with contrast, utilizing Eovist contrast agent.
Care Review
Plan reviewed with: Physician (Hospitalist)
--- NOTE | 2024-03-21 11:39 | CM ---
Patient seen at bedside with keisha Morales & James.
Cont with IV, afebrile this am
They will be going today to tour [facility].
Private room preferred.
Updated clinicals sent in care port.
PLAN: Discharge when medically stable to SNF, pending bed availability.
--- NOTE | 2024-03-21 11:41 | W.PN.HOSP.TC ---
Today's Communication/Plan
-
Monitor vital signs see plan
Follow fever curve
Monitor leukocytosis
Continue with antibiotics
Continue hart catheter
pt/ot
Samsca
Monitor sodium
Discussed with family at bedside
Assessment / Plan
Assessment / Plan
. Heather Gallardo is a 88 yo woman with hx bladder cancer (s/p cystoscopy, diagnostic left ureteroscopy with stent exchange, transurethral resection bladder tumor on 03/07), HTN, HLD presents to the ER after syncopal episode 4 days ago. Patient had
prodrome lightheadedness and dizziness. Fall resulted in a black eye.
HEAD CT
IMPRESSION:
No acute intracranial abnormality noted. Specifically no acute intracranial hemorrhage or extra-axial collection. No skull fracture. Stable chronic findings.
CTA
IMPRESSION:
No evidence of pulmonary embolism.
No acute cardiopulmonary process. No chest wall mass. No rib fracture.
ABDOMEN/PELVIS CT
IMPRESSION: Left ureteral stent is present. On postcontrast delayed images, there is excretion of contrast into the left-sided calyces without significant dilation. Findings would suggest that there is no significant left ureteral obstruction with
the left ureteral stent present.
Thickening of the bladder wall, which could be postsurgical, but could also be from infection.
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
Subtle nodular external contour of the liver, suggestive of cirrhosis.
Subtle low-density region within the medial segment of the left lobe of the liver, not definitely present on previous examinations. When clinically feasible, further evaluation is advised with MRI of the abdomen without and with contrast, utilizing
Eovist contrast agent.
Sepsis 2/2 UTI
Cannot determine if associated with recent urological procedure
Leukocytosis
-fevers reported at home. She was given Ceftriaxone on admission then transitioned to IV Zosyn morning of 03/15. Urine culture growing enterococcus - transitioned to IV Ampicillin on 03/16. Then was on daptomycin, now on meropenem
-despite appropriate coverage of UTI; spiking fever and has rising WBC; ID following. Could also have concern for drug fever
- C. Diff neg
-obtained CT A/P on 03/16 which shows stent in place, no hydro
-s/p CXR on 03/16 no acute disease
-ID following
COVID neg
she does have jaw pain CT; does not appear to have any acute abnormality and changes in mandible likely secondary to recent fall. No fracture
Follow fever curve; repeat CT ordered by urology 03/20 without acute abnormality that would explain her fevers. Urology wanted to decompress her bladder with a Hart catheter which we will continue
Hyponatremia
-may be 2/2 low solute diet with free water versus SIADH. 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
-hold Bactrim (can cause hyponatremia)
-Na dropped with fluid restriction; s/p samsca
nephrology following
-continue fluid restriction
repeat urine studies confirm SIADH
-hold [employer] SSRI for now
Syncope
-4 days ago while outside, patient with prodrome of dizziness and no confusion following
-Troponin negative
-TTE 11/13/23 with EF 60-6%%, no significant valvular disease
-PT/OT
-no significant events on telemetry
Chronic Epigastric pain
-sounds MSK related as worse with certain movements and worse post fall
-will trial protonix, other differential includes gastritis
Now pain appears to be improving
-CT (as below)
Patient has history of gastric ulcer. Recommended patient follow-up with gastroenterology outpatient.
Abnormal Liver CT imaging
-CT suggest cirrhosis (not e/o labs and no history) as well as subtle low-density region in medial segment left lobe of liver
-->will need dedicated MRI abdomen with and without contrast post discharge
bladder cancer (s/p cystoscopy, diagnostic left ureteroscopy with stent exchange, transurethral resection bladder tumor on 03/07)
-follows with Dr. Rosario
-Dr. Bernal updated on admission
-CT results as above
b/l LE pain
Appears likely secondary to arthritis, venous Doppler negative
DVT PPx lovenox
FULL CODE - long conversation had with patient and daughter in ER
General: No Apparent Distress
HEENT: PERRLA
Respiratory: Clear to Auscultation and mild Wheezes
Cardiac: Regular Rhythm and S1/S2
GI: Soft and Nontender
Musculoskeletal: No Edema
Neuro: Awake, Alert and Oriented
Psych: Calm
I spent a total of 52 minutes with the patient or on the floor. More than 50% of this time involved counseling and coordination of care.
Anticipated Discharge: 24 - 48 hours
Subjective/Interval History
-
Date of Service: March 21, 2024
denies pain
Objective Data
-
Labs:
Laboratory Results
03/21/24
04:45
WBC 22.9 H
Hgb 8.6 L
Hct 24.0 L
Plt Count 513 H
Sodium 130 L
Potassium 4.5
Chloride 96 L
Carbon Dioxide 21 L
BUN 15
Creatinine 0.6
Glucose 115 H
Calcium 8.2 L
Vital Signs:
Vital Signs
Temp Pulse Resp BP Pulse Ox
97.6 F 93 18 127/63 93
03/21/24 07:05 03/21/24 09:27 03/21/24 07:05 03/21/24 09:27 03/21/24 08:00
I&O
03/20/24 03/21/24 03/22/24
06:59 06:59 06:59
Intake Total 1200 / 1200 1440 / 1440
Output Total 1300 / 1300
Balance 1200 / 1200 140 / 140
[2024-03-21] MEDS: SAMSCA 15 MG PO (11:56)
[2024-03-21 15:04] VITALS: BP 118/55
[2024-03-21 16:20] VITALS: BP 117/52; PULSE 89; O2SAT 97
[2024-03-21] MEDS: LIPITOR 10 MG PO (17:48)
[2024-03-21] MEDS: LOVENOX 40 MG SC (17:48)
[2024-03-21] MEDS: NON-FORMULARY ITEM 75 MG PO (17:51)
[2024-03-21] MEDS: MELATONIN 1.5 MG PO (20:17)
[2024-03-21 23:30] VITALS: BP 110/52
[2024-03-22] MEDS: STERILE WATER FOR INJECTION 10 ML IV ×4 (04:16→21:10)
[2024-03-22] MEDS: MERREM 500 MG IV ×4 (04:16→21:11)
[2024-03-22 06:00] VITALS: BMI 26.0
[2024-03-22] MEDS: TYLENOL 650 MG PO ×3 (06:34→21:15)
[2024-03-22 06:57] LABS: Hematocrit 23.9 % (37.0-47.0); Hemoglobin 8.4 g/dL (12.0-16.0); Mean Corp Hgb Conc. 35.1 g/dL (33.0-37.0); Mean Corpuscular Hgb 31.2 pg (27.0-31.0); Mean Corpuscular Volume 88.8 fL (81.0-99.0); Mean Platelet Volume 10.5 fL (7.4-10.4); Platelet Count 595 10^3/uL (130-400); Red Blood Cell Count 2.69 10^6/uL (4.20-5.40); Red Cell Dist. Width 12.9 % (11.5-14.5); White Blood Cell Count 26.5 10^3/uL (4.8-10.8)
[2024-03-22 07:10] VITALS: BP 106/76
[2024-03-22 07:10] LABS: Blood Urea Nitrogen 27 mg/dl (7-17); Calcium 8.1 mg/dl (8.4-10.2); Carbon Dioxide 22 mmol/L (22-30); Chloride 94 mmol/L (98-107); Estimated Creatinine Clearance 34 ml/min; Glucose 108 mg/dl (70-99); Potassium 4.4 mmol/L (3.5-5.1); Sodium 130 mmol/L (135-145); eGFR 54.87
[2024-03-22] MEDS: COZAAR 100 MG PO (08:20)
[2024-03-22] MEDS: DESENEX/MITRAZOL/ZEASORB 1 APPLIC TOPICAL ×2 (08:21→20:55)
[2024-03-22] MEDS: PROTONIX IV IV (08:21)
[2024-03-22] MEDS: NSS (PRESERVATIVE FREE) IV (08:21)
[2024-03-22 08:23] LABS: % Basophils 0.3 % (0-2); % Immature Granulocytes 4.6 % (0-0.5); % Lymphocytes 4.8 % (20.5-51.1); % Monocytes 6.5 % (1.7-9.3); % Neutrophils 78.8 % (42.2-75.2); Absolute Basophils 0.1 10^3/uL (0-0.2); Absolute Eosinophils 1.3 10^3/uL (0-0.7); Absolute Immature Granulocytes 1.2 10^3/uL (0-0.05); Absolute Lymphocytes 1.3 10^3/uL (1.2-3.4); Absolute Monocytes 1.7 10^3/uL (0.1-0.6); Absolute Neutrophils 20.9 10^3/uL (1.4-6.5); Nucleated Red Blood Cells % 0 %
--- NOTE | 2024-03-22 10:26 | W.PN.NEPH.PH ---
Addendum entered and electronically signed by Gia Longo MD 03/22/24 10:32:
maintain off SSRI
noted starting IVF-sodium night worsen -will need repeat labs later today
Original Note:
Today's Communication / Plan
-
follow labs , prn samsca
Assessment/Plan
-
Assessment
Hyponatremia
Bladder cancer
Fall
Hypertension
Hyperlipidemia
Leukocytosis
Plan:
Hyponatremia-stable sodium s/p Samsca x2
cont Fluid restriction 40 ounces or less daily
encourage solute intake
Hyponatremia and excess ADH state is likely potentiated by nausea, pain
continue antibiotics
d/w pt and daughter at bedside
-
-
Date of Service: March 22, 2024
CC / HPI / ROS
-
Chief Complaint:
hyponatremia
History of Present Illness:
Na unchanged 130 with samsca
BP stable
Hgb stable low 8.[address] stent Left in place for obstructive uropathy
on abx for Enterococcus UTI
Review of Systems:
no CP/SOB
pain fair control
no n/v
Labs
-
Labs:
WBC 26.5 10^3/uL (4.8-10.8) H 03/22/24 04:50
RBC 2.69 10^6/uL (4.20-5.40) L 03/22/24 04:50
Hgb 8.4 g/dL (12.0-16.0) L 03/22/24 04:50
Hct 23.9 % (37.0-47.0) L 03/22/24 04:50
Plt Count 595 10^3/uL (130-400) H 03/22/24 04:50
Sodium 130 mmol/L (135-145) L 03/22/24 04:50
Potassium 4.4 mmol/L (3.5-5.1) 03/22/24 04:50
Chloride 94 mmol/L (98-107) L 03/22/24 04:50
Carbon Dioxide 22 mmol/L (22-30) 03/22/24 04:50
BUN 27 mg/dl (7-17) H 03/22/24 04:50
Creatinine 1.0 mg/dL (0.6-1.0) 03/22/24 04:50
eGFR 54.87 03/22/24 04:50
Glucose 108 mg/dl (70-99) H 03/22/24 04:50
Calcium 8.1 mg/dl (8.4-10.2) L 03/22/24 04:50
Iwi-S-Ztcyykhmqsv Pept 305 pg/ml 03/16/24 05:57
Albumin 3.5 g/dl (3.5-5.0) 03/14/24 15:12
Physical Exam
-
Vital Signs:
Vital Signs
Temp Pulse Resp BP Pulse Ox
98.5 F 87 16 106/86 97
03/22/24 07:10 03/22/24 08:20 03/22/24 07:10 03/22/24 08:20 03/22/24 07:10
Cardiovascular:: Regular rate and rhythm
Respiratory:: Bilateral: CTA
Lung Excursion:: Normal
Abdomen:: Nontender and Soft
Extremity Edema:: None: Bilateral:
Hart Catheter: Yes
--- NOTE | 2024-03-22 10:35 | W.PN.URO.CBU ---
Today's Communication / Plan
-
continue antibx
recheck blood cx's
cyst aspiration for cx today
Assessment / Plan
-
hx of bladder ca with obstruction of left UO- s/p resection and stent
enterococcal UTI
persistent fevers and leukocytosis- source unclear
from gu standpoint- left stent is new and functional
no evid of abscess/pyelo/etc- f/u ucx is negative
have discussed with ID and pt/daughter
with negative ucx and ct- do not see any acute need for stent change
? if renal cyst could be harboring bacteria- unlikely but possible
there is no other clear source
plan is for cyst aspiration with IR- discussed and consulted
ID to repeat blood cx's and continue antibx
Diagnosis
-
Date of Service: March 22, 2024
-
Post Op Day:
Patient Diagnosis:
bladder cancer
fever
UTI
Subjective
-
pt looks well- but wbc up again and although no fevers recorded- did have soaking sweat last night
f/u uc is negative
Objective
-
Vital Signs
Temp Pulse Resp BP Pulse Ox
98.5 F 87 16 106/86 97
03/22/24 07:10 03/22/24 08:20 03/22/24 07:10 03/22/24 08:20 03/22/24 07:10
Intake and Output
03/21/24 03/22/24 03/23/24
06:59 06:59 06:59
Intake Total 1440 / 1440 240 / 240
Output Total 1300 / 1300 675 / 675
Balance 140 / 140 -435 / -435
Intake:
Oral fluids 1440 / 1440 240 / 240
Output:
Urine, Hart 1300 / 1300 675 / 675
Laboratory Results
03/22/24 04:50
Review of Systems
-
Constitutional: Fatigue and Night Sweats
Respiratory: No Symptoms
Cardiac: No Symptoms
Abdomen/GI: No Symptoms
: Other (hart- clear urine)
Physical Exam
-
General - well developed, well nourished, no acute distress
Abdomen - soft, non-tender
Genitalia - normal- hart in place- no drainage/discharge or tenderness
Rectal - no alpa-rectal abscess
Skin - warm & dry with no rash
Neuro - AOx3, no motor deficits
Extremities - no clubbing, no cyanosis, no edema
[2024-03-22] MEDS: PROTONIX 40 MG PO ×2 (10:48→20:55)
[2024-03-22] MEDS: NSS 1000 IV (10:51)
[2024-03-22 11:14] LABS: Erythrocyte Sed Rate 108 mm/hour (0-20)
--- NOTE | 2024-03-22 11:17 | CM ---
Addendum entered by Dana Bueno 03/22/24 11:29:
IMM explained & signed. In chart
Original Note:
Patient seen at bedside.
Patient & family would like [facility] SNF (private room if possible) - updated on referral.
Patient for cyst aspiration cx today, continue abx, recheck cx
PLAN: Discharge when medically stable to SNF, [facility] pending bed availability.
[2024-03-22 11:43] LABS: Urine Albumin Trace (Neg - Trace); Urine Bilirubin Negative (Negative); Urine Character Clear (Clear); Urine Color Straw; Urine Glucose Negative (Negative); Urine Ketone Negative (Negative); Urine Leukocyte 1+ (Negative); Urine Nitrite Negative (Negative); Urine Occult Blood 3+ (Negative); Urine Specific Gravity 1.005 (<1.030); Urine Urobilinogen Negative (Neg - 1+); Urine pH 6.5 (5.0-9.0)
--- NOTE | 2024-03-22 11:50 | W.PN.HOSP.TC ---
Today's Communication/Plan
-
Monitor vital signs
see plan
Check new blood culture
ESR elevated
Continue with meropenem
Fever appears to be slowing down however persistent leukocytosis. If persistent then will get hematology evaluation
Monitor sodium
IR for cyst aspiration
Daughter updated at bedside
Assessment / Plan
Assessment / Plan
. Heather Gallardo is a 88 yo woman with hx bladder cancer (s/p cystoscopy, diagnostic left ureteroscopy with stent exchange, transurethral resection bladder tumor on 03/07), HTN, HLD presents to the ER after syncopal episode 4 days ago. Patient had
prodrome lightheadedness and dizziness. Fall resulted in a black eye.
HEAD CT
IMPRESSION:
No acute intracranial abnormality noted. Specifically no acute intracranial hemorrhage or extra-axial collection. No skull fracture. Stable chronic findings.
CTA
IMPRESSION:
No evidence of pulmonary embolism.
No acute cardiopulmonary process. No chest wall mass. No rib fracture.
ABDOMEN/PELVIS CT
IMPRESSION: Left ureteral stent is present. On postcontrast delayed images, there is excretion of contrast into the left-sided calyces without significant dilation. Findings would suggest that there is no significant left ureteral obstruction with
the left ureteral stent present.
Thickening of the bladder wall, which could be postsurgical, but could also be from infection.
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
Subtle nodular external contour of the liver, suggestive of cirrhosis.
Subtle low-density region within the medial segment of the left lobe of the liver, not definitely present on previous examinations. When clinically feasible, further evaluation is advised with MRI of the abdomen without and with contrast, utilizing
Eovist contrast agent.
Sepsis 2/2 UTI
Cannot determine if associated with recent urological procedure
Leukocytosis
-fevers reported at home. She was given Ceftriaxone on admission then transitioned to IV Zosyn morning of 03/15. Urine culture growing enterococcus - transitioned to IV Ampicillin on 03/16. Then was on daptomycin, now on meropenem
-despite appropriate coverage of UTI; has rising WBC; ID following. Initially had fever as well which is now improving
- C. Diff neg
-obtained CT A/P on 03/16 which shows stent in place, no hydro
-s/p CXR on 03/16 no acute disease
-ID following
COVID neg
she does have jaw pain; CT does not appear to have any acute abnormality and changes in mandible likely secondary to recent fall. No fracture. now jaw pain is improving
Follow fever curve; repeat CT ordered by urology 03/20 without acute abnormality that would explain her fevers. Urology wanted to decompress her bladder with a Castañeda catheter which we will continue. Questionable renal cyst which urology asked IR
for aspiration. Repeat blood culture.
ESR elevated
Fevers appear to slow down however still has leukocytosis. If this does not improve then will likely get hematology evaluation.
Hyponatremia
-may be 2/2 low solute diet with free water versus SIADH. 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
-hold Bactrim (can cause hyponatremia)
-Na dropped with fluid restriction; s/p samsca
nephrology following
-continue fluid restriction
repeat urine studies confirm SIADH
-hold [employer] SSRI for now
Syncope
-4 days ago while outside, patient with prodrome of dizziness and no confusion following
-Troponin negative
-TTE 11/13/23 with EF 60-6%%, no significant valvular disease
-PT/OT
-no significant events on telemetry
Chronic Epigastric pain
-sounds MSK related as worse with certain movements and worse post fall
-trial protonix, other differential includes gastritis
Now pain appears to be improving
-CT (as below)
Patient has history of gastric ulcer. Recommended patient follow-up with gastroenterology outpatient.
Abnormal Liver CT imaging
-CT suggest cirrhosis (not e/o labs and no history) as well as subtle low-density region in medial segment left lobe of liver
-->will need dedicated MRI abdomen with and without contrast post discharge
Persistent and reproducible soft tissue attenuation at the inferior margin of the cecum. Given the persistent, reproducible appearance, this is more suspicious for asymmetric wall thickening rather than underfilling of the lumen. Advise further
evaluation with colonoscopy.
bladder cancer (s/p cystoscopy, diagnostic left ureteroscopy with stent exchange, transurethral resection bladder tumor on 03/07)
-follows with Dr. Rosario
-Dr. Bernal updated on admission
-CT results as above
b/l LE pain
improving
Appears likely secondary to arthritis, venous Doppler negative
DVT PPx lovenox
FULL CODE - long conversation had with patient and daughter in ER
General: No Apparent Distress
HEENT: PERRLA
Respiratory: Clear to Auscultation
Cardiac: Regular Rhythm and S1/S2
GI: Soft and Nontender
Musculoskeletal: No Edema
Neuro: Awake, Alert and Oriented
Psych: Calm
I spent a total of 51 minutes with the patient or on the floor. More than 50% of this time involved counseling and coordination of care.
Anticipated Discharge: > 48 hours
Subjective/Interval History
-
Date of Service: March 22, 2024
had night sweats overnight
Objective Data
-
Labs:
Laboratory Results
03/22/24 03/22/24
04:50 17:00
WBC 26.5 H
Hgb 8.4 L
Hct 23.9 L
Plt Count 595 H
Sodium 130 L Pending
Potassium 4.4
Chloride 94 L
Carbon Dioxide 22
BUN 27 H
Creatinine 1.0
Glucose 108 H
Calcium 8.1 L
Vital Signs:
Vital Signs
Temp Pulse Resp BP Pulse Ox
98.5 F 87 16 106/86 97
09/13/24 07:10 03/22/24 08:20 03/22/24 07:10 03/22/24 08:20 03/22/24 07:10
I&O
03/21/24 03/22/24 03/23/24
06:59 06:59 06:59
Intake Total 1440 / 1440 240 / 240
Output Total 1300 / 1300 675 / 675
Balance 140 / 140 -435 / -435
[2024-03-22 12:04] LABS: Urine Bacteria Few (Negative); Urine Squamous Cell 0-2 /LPF (Few)
[2024-03-22 14:25] VITALS: BP 151/55; BP_SYST 120
--- NOTE | 2024-03-22 14:47 | W.PN.ID1 ---
Date of Service
Date of Service: March 22, 2024
Today's Communication
repeat CXR 2 view; note history of dysphagia seen with swallow evaluation, diet has been modified
covid ag neg x2; minimal influenza transmission at this time
send second blood culture - note single blood culture with about 70% sensitivity for bacteremia, two sets with about 90%
03/22 UA minimal pyuria, 03/20 urine culture no growth. 9/ urine culture 50K e faecalis (sensitive to vanc and dapto
CT abd: no visible obstruction of stent
recheck LFTs
spoke with Dr Zhou - cyst fluid appeared simple - will be sent for culture, follow up cyst aspiration report
no DVT on US
check babesia smear though presentation not classic
Etiology of leukocytosis and fever remains cryptic; tumor fever a possibility. Agree that detailed physical exam continues to remain unrevealing.
c/w meropenem - follow clinically
Will continue to monitor white count and temperature curve.
chart reviewed, patient not in the room on 3 visits to the room
non-billable note
Assessment / Plan
Leukocytosis - persistent
Thrombocytosis
Bacteriuria (without pyuria/symptomatology)
Bladder cancer (urothelial carcinoma in situ)
HTN
Anxiety
GERD
Hx dysphagia
Recommendations:
repeat CXR 2 view; note history of dysphagia seen with swallow evaluation, diet has been modified
covid ag neg x2; minimal influenza transmission at this time
send second blood culture - note single blood culture with about 70% sensitivity for bacteremia, two sets with about 90%
03/22 UA minimal pyuria, 03/20 urine culture no growth. 9/5 urine culture 50K e faecalis (sensitive to vanc and dapto
CT abd: no visible obstruction of stent
recheck LFTs
spoke with Dr Zhou - cyst fluid appeared simple - will be sent for culture, follow up cyst aspiration report
no DVT on US
check babesia smear though presentation not classic
Etiology of leukocytosis and fever remains cryptic; tumor fever a possibility. Agree that detailed physical exam continues to remain unrevealing.
c/w meropenem - follow clinically
Will continue to monitor white count and temperature curve.
chart reviewed, patient not in the room on 3 visits to the room
non-billable note
����������������������������������������������������������
Chief Complaint
-: Fever, Leukocytosis and UTI
Subjective / Review of Systems
overall fever curve improved, tmax 100.7 this afternoon
bp stable
increased leukocytosis, L shift improved, eos present borderline eosinophilia first day today
loose BMs, no liquid stool
chart reviewed, patient not in the room on 3 visits to the room
non-billable note
Vital Signs / Physical Exam
Vital Signs
Vital Signs
Temp Pulse Resp BP Pulse Ox
100.7 F H 120 30 151/55 90
03/22/24 14:25 03/22/24 14:25 03/22/24 14:25 03/22/24 14:25 03/22/24 14:25
Objective Data
Lab Data
Lab Results
03/22/24 04:50
ESR 108 mm/hour (0-20) H 03/22/24 09:33
PT 15.0 Sec (11.4-14.6) H 03/17/24 06:09
INR 1.20 03/17/24 06:09
Estimated Creat Clear 34 ml/min 03/22/24 04:50
Lactic Acid 0.9 mmol/L (0.7-2.0) 03/14/24 17:52
Total Bilirubin 0.6 mg/dl (0.2-1.3) 03/14/24 15:12
AST 36 U/L (14-36) 03/14/24 15:12
ALT 29 U/L (0-35) 03/14/24 15:12
Alkaline Phosphatase 76 U/L (38-126) 03/14/24 15:12
C-Reactive Protein 267.00 mg/L (0.0-10.00) H 03/22/24 09:33
Most recent labs reviewed.
covid ag negative 03/16 and 03/19
ct a/p 03/20 no obstruction of stent, diverticulosis without diverticulitis
03/19 US of LE no dvt
Micro Results:
03/22/24 14:01 Blood Culture - Pending
Blood/Venous
03/22/24 11:30 Urine Culture - Pending
Urine
03/20/24 18:02 Urine Culture - Final
Urine NO GROWTH
03/16/24 23:21 Blood Culture - Final
Blood/Venous No Growth - Final Report
03/14/24 17:52 Blood Culture - Final
Blood/Venous No Growth - Final Report
03/14/24 16:38 Urine Culture - Final
Urine Enterococcus faecalis
03/18/24 12:10 C. difficile GDH Antigen & Toxins - Final
Feces/Stool Negative for toxigenic C.difficile
03/16/24 20:04 Influenza Types A & B (GRICELDA) - Final
Nasal Swab Negative for Influenza A & B, NAAT
Negative results must be combined with clinical observations
and patient history.
Nucleic Acid Amplification test (NAAT)performed on the
[employer] platform.
Imaging:
03/19/2024 Duplex ultrasound, lower extremities: No evidence of DVT
03/19/[address]: No evidence of lucency within the mandible and no findings to suggest peritonsillar abscess.
03/16/2024 CT abdomen/pelvis without contrast: Left ureteral stent is present. On postcontrast delayed images, there is excretion of contrast into the left-sided calyces without significant dilation. Findings would suggest that there is no
significant left ureteral obstruction with the left ureteral stent present. Thickening of the bladder wall, which could be postsurgical, but could also be from infection. Large minimally complex cystic mass arising from the left kidney, compatible
with benign Bosniak class II cystic mass. Subtle nodular external contour of the liver, suggestive of cirrhosis. Subtle low-density region within the medial segment of the left lobe of the liver, not definitely present on previous examinations.
When clinically feasible, further evaluation is advised with MRI of the abdomen without and with contrast, utilizing Eovist contrast agent.
[2024-03-22 15:15] VITALS: BP 133/65; BP_SYST 121
[2024-03-22 15:31] VITALS: BP 136/69
--- NOTE | 2024-03-22 15:45 | PTCARENOTE ---
Pt with temperature of 100.7 axillary for afternoon vitals. PRN tylenol provided in IRAD for procedure, temperature brought down to 97.9 orally.
--- NOTE | 2024-03-22 16:03 | PTCARENOTE ---
Received pt back from IR, VSS, left sided GEETA drain in place draining clear fluid, pt resting comfortably with family at bedside at this time.
[2024-03-22 16:05] VITALS: BP 133/58
[2024-03-22] MEDS: LIPITOR 10 MG PO (17:24)
[2024-03-22] MEDS: NON-FORMULARY ITEM 75 MG PO (17:45)
[2024-03-22 20:46] LABS: Sodium 130 mmol/L (135-145)
[2024-03-22 23:55] VITALS: BP 122/59
[2024-03-23] VITALS (13 sets, daily range): BP systolic 94–147; BP diastolic 46–81; BMI 26.2
[2024-03-23] MEDS: NSS 1000 IV (00:30)
[2024-03-23] MEDS: STERILE WATER FOR INJECTION 10 ML IV ×4 (04:19→21:42)
[2024-03-23] MEDS: MERREM 500 MG IV ×4 (04:19→21:42)
[2024-03-23 07:31] LABS: Hematocrit 24.3 % (37.0-47.0); Hemoglobin 8.3 g/dL (12.0-16.0); Mean Corp Hgb Conc. 34.2 g/dL (33.0-37.0); Mean Corpuscular Hgb 29.6 pg (27.0-31.0); Mean Corpuscular Volume 86.8 fL (81.0-99.0); Mean Platelet Volume 10.3 fL (7.4-10.4); Platelet Count 671 10^3/uL (130-400); White Blood Cell Count 26.1 10^3/uL (4.8-10.8)
[2024-03-23 07:42] LABS: ALT (SGPT) 69 U/L (0-35); AST (SGOT) 69 U/L (14-36); Albumin 2.6 g/dl (3.5-5.0); Alkaline Phosphatase 335 U/L (38-126); Blood Urea Nitrogen 17 mg/dl (7-17); Calcium 8.2 mg/dl (8.4-10.2); Carbon Dioxide 22 mmol/L (22-30); Chloride 100 mmol/L (98-107); Direct Bilirubin 0.3 mg/dl (0.0-0.4); Estimated Creatinine Clearance 57 ml/min; Glucose 127 mg/dl (70-99); Potassium 4.7 mmol/L (3.5-5.1); Sodium 134 mmol/L (135-145); Total Bilirubin 0.6 mg/dl (0.2-1.3); Total Protein 5.5 g/dl (6.3-8.2); eGFR > 60.00
[2024-03-23 08:23] LABS: % Basophils 0.3 % (0-2); % Eosinophils 1.7 % (0-6); % Immature Granulocytes 4.9 % (0-0.5); % Lymphocytes 3.1 % (20.5-51.1); % Monocytes 7.1 % (1.7-9.3); % Neutrophils 82.9 % (42.2-75.2); Absolute Basophils 0.1 10^3/uL (0-0.2); Absolute Eosinophils 0.5 10^3/uL (0-0.7); Absolute Immature Granulocytes 1.3 10^3/uL (0-0.05); Absolute Lymphocytes 0.8 10^3/uL (1.2-3.4); Absolute Monocytes 1.9 10^3/uL (0.1-0.6); Absolute Neutrophils 21.6 10^3/uL (1.4-6.5); Nucleated Red Blood Cells % 0 %
--- NOTE | 2024-03-23 08:35 | W.PN.URO.CBU ---
Today's Communication / Plan
-
stent excahnged
await cx's
Assessment / Plan
-
hx of bladder ca with obstruction of left UO- s/p resection and stent
enterococcal UTI
persistent fevers and leukocytosis- source unclear
pt now has had f/u negative ucx/negative cyst aspiration/left ureteral stent exchange- without evid of infx today
at this juncture- no evid of ongoing gu infx
paraneoplastic syndrome is a possibility- but from bladder ca perspective- i see no tumor burden that would account for this
continue antibx- await final cx-s- if ucx and drain cx are negative- would remove both hart and flank drain
hold lovenox until flank drain removed (i suspect tomorrow or monday)
also awaiting heme input
will update family
Diagnosis
-
Date of Service: March 23, 2024
-
P
Patient Diagnosis:
bladder cancer
fever
UTI
s/p left renal cyst drainage 03/22
s/p left ureteral stent exchange 03/23
Subjective
-
pt seen in preop holding- no specific complaints
1 low grade temp yesterday
had left renal cyst aspirated- clear fluid- gram stain neg with no wbc's- minimal output
stent exchanged today- there was no residual tumor in bladder- no evid of stent encrustation or infx
Objective
-
Vital Signs
Temp Pulse Resp BP Pulse Ox
98.3 F 107 28 147/71 93
03/23/24 07:00 03/23/24 07:00 03/23/24 07:00 03/23/24 07:00 03/23/24 07:00
Intake and Output
03/22/24 03/23/24 03/24/24
06:59 06:59 06:59
Intake Total 240 / 240 1650 / 1650
Output Total 675 / 675 1758 / 1758
Balance -435 / -435 -108 / -108
Intake:
Oral fluids 240 / 240 760 / 760
IV fluids (Total) 870 / 870
NSS 0.9% 50 / 50
IV piggybacks
Output:
Drain Output (Total)
Left Back Placed in IR
Urine, Hart 675 / 675 1750 / 1750
Laboratory Results
03/23/24 06:39
03/23/24 06:39
Review of Systems
-
Constitutional: Fatigue and Night Sweats
Respiratory: No Symptoms
Cardiac: No Symptoms
Abdomen/GI: No Symptoms
Physical Exam
-
General - no acute distress
Abdomen - soft, non-tender, left flank amy in place
Genitalia - normal- exam performed in OR- no mass- discharge- etc
Rectal - normal- performed in OR- no evid of mass or abscess
Skin - warm & dry with no rash
Neuro - AOx3, no motor deficits
Extremities - no clubbing, no cyanosis, no edema
--- NOTE | 2024-03-23 11:11 | W.PN.ID1 ---
Date of Service
Date of Service: March 23, 2024
Today's Communication
follow LFTs
continue meropenem
follow fever curve
Assessment / Plan
Leukocytosis - persistent
Thrombocytosis - increasing
Bladder cancer (urothelial carcinoma in situ)
Also:
HTN
Anxiety
GERD
Hx dysphagia
Recommendations:
Increasing alk phos and mild transaminitis; gallbladder was unremarkable on CT scan
- trend lfts, if further progression may consider HIDA
repeat CXR 2 view 03/22: clear lungs
covid ag neg x2; minimal influenza transmission at this time
03/22 body fluid (cyst) : no growth to date, gram stain negative
03/22 blood cultures x2 in progress
03/22 UA minimal pyuria, 03/20 urine culture no growth. 03/14 urine culture 50K e faecalis (sensitive to vanc and dapto, completed a course of rx without improvement in fevers)
CT abd: no visible obstruction of stent and none seen today in the OR
no DVT on US
check babesia smear though presentation not classic
Tumor fever a possibility
c/w meropenem - follow clinically
Will continue to monitor white count and temperature curve.
����������������������������������������������������������
Chief Complaint
-: Fever, Leukocytosis and UTI
Subjective / Review of Systems
febrile to 101.8 temporal
bp stable
had IR aspiration yesterday
Vital Signs / Physical Exam
Vital Signs
Vital Signs
Temp Pulse Resp BP Pulse Ox
97.9 F 87 16 120/59 93
03/23/24 10:00 03/23/24 10:00 03/23/24 10:00 03/23/24 10:03/23/24 10:00
Physical Exam
Constitutional: No Acute Distress
Head: Other (bruise under the L eye - present several weeks per patient)
Cardiovascular: Regular Rate and S1/S2; Negative Murmur or Rub
Pulmonary: Clear and Symmetric; Negative Wheezes or Rales
Gastrointestinal: Soft, Non Tender, Non Distended and Normal Bowel Sounds
Skin: Warm and Dry; Negative Rash or Jaundice
Neurological: Awake
Lines: PIV
Objective Data
Lab Data
Lab Results
03/23/24 06:39
03/23/24 06:39
ESR 108 mm/hour (0-20) H 03/22/24 09:33
PT 15.0 Sec (11.4-14.6) H 03/17/24 06:09
INR 1.20 03/17/24 06:09
Estimated Creat Clear 57 ml/min 03/23/24 06:39
Lactic Acid 0.9 mmol/L (0.7-2.0) 03/14/24 17:52
Total Bilirubin 0.6 mg/dl (0.2-1.3) 03/23/24 06:39
AST 69 U/L (14-36) H 03/23/24 06:39
ALT 69 U/L (0-35) H 03/23/24 06:39
Alkaline Phosphatase 335 U/L (38-126) H 03/23/24 06:39
C-Reactive Protein 267.00 mg/L (0.0-10.00) H 03/22/24 09:33
Most recent labs reviewed.
Micro Results:
03/22/24 11:30 Urine Culture - Final
Urine NO GROWTH
03/22/24 20:21 Blood Culture - Pending
Blood/Venous
03/22/24 15:01 Body Fluid Culture - Pending
Cyst Gram Stain - Preliminary
03/22/24 14:01 Blood Culture - Pending
Blood/Venous
03/20/24 18:02 Urine Culture - Final
Urine NO GROWTH
03/16/24 23:21 Blood Culture - Final
Blood/Venous No Growth - Final Report
03/14/24 17:52 Blood Culture - Final
Blood/Venous No Growth - Final Report
03/14/24 16:38 Urine Culture - Final
Urine Enterococcus faecalis
03/18/24 12:10 C. difficile GDH Antigen & Toxins - Final
Feces/Stool Negative for toxigenic C.difficile
03/16/24 20:04 Influenza Types A & B (GRICELDA) - Final
Nasal Swab Negative for Influenza A & B, NAAT
Negative results must be combined with clinical observations
and patient history.
Nucleic Acid Amplification test (NAAT)performed on the
[employer] platform.
Imaging:
03/19/2024 Duplex ultrasound, lower extremities: No evidence of DVT
03/19/[address]: No evidence of lucency within the mandible and no findings to suggest peritonsillar abscess.
03/16/2024 CT abdomen/pelvis without contrast: Left ureteral stent is present. On postcontrast delayed images, there is excretion of contrast into the left-sided calyces without significant dilation. Findings would suggest that there is no
significant left ureteral obstruction with the left ureteral stent present. Thickening of the bladder wall, which could be postsurgical, but could also be from infection. Large minimally complex cystic mass arising from the left kidney, compatible
with benign Bosniak class II cystic mass. Subtle nodular external contour of the liver, suggestive of cirrhosis. Subtle low-density region within the medial segment of the left lobe of the liver, not definitely present on previous examinations.
When clinically feasible, further evaluation is advised with MRI of the abdomen without and with contrast, utilizing Eovist contrast agent.
Care Review
Plan reviewed with: Physician (Dr Eng - [facility])
--- NOTE | 2024-03-23 11:37 | W.PN.HOSP.TC ---
Today's Communication/Plan
-
Monitor vital signs see plan
Monitor LFTs, no abdominal pain on exam
Follow fever curve
Continue antibiotics
Follow culture
Discussed with daughter at bedside
Assessment / Plan
Assessment / Plan
Ms. Heather Gallardo is a 88 yo woman with hx bladder cancer (s/p cystoscopy, diagnostic left ureteroscopy with stent exchange, transurethral resection bladder tumor on 03/07), HTN, HLD presents to the ER after syncopal episode 4 days ago. Patient had
prodrome lightheadedness and dizziness. Fall resulted in a black eye.
HEAD CT
IMPRESSION:
No acute intracranial abnormality noted. Specifically no acute intracranial hemorrhage or extra-axial collection. No skull fracture. Stable chronic findings.
CTA
IMPRESSION:
No evidence of pulmonary embolism.
No acute cardiopulmonary process. No chest wall mass. No rib fracture.
ABDOMEN/PELVIS CT
IMPRESSION: Left ureteral stent is present. On postcontrast delayed images, there is excretion of contrast into the left-sided calyces without significant dilation. Findings would suggest that there is no significant left ureteral obstruction with
the left ureteral stent present.
Thickening of the bladder wall, which could be postsurgical, but could also be from infection.
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
Subtle nodular external contour of the liver, suggestive of cirrhosis.
Subtle low-density region within the medial segment of the left lobe of the liver, not definitely present on previous examinations. When clinically feasible, further evaluation is advised with MRI of the abdomen without and with contrast, utilizing
Eovist contrast agent.
Sepsis 2/2 UTI
Cannot determine if associated with recent urological procedure
Leukocytosis
-fevers reported at home. She was given Ceftriaxone on admission then transitioned to IV Zosyn morning of 03/15. Urine culture growing enterococcus - transitioned to IV Ampicillin on 03/16. Then was on daptomycin, now on meropenem
-despite appropriate coverage of UTI; has rising WBC; ID following. Initially had fever as well which is now improving
- C. Diff neg
-obtained CT A/P on 03/16 which shows stent in place, no hydro
-s/p CXR on 03/16 no acute disease
-ID following
COVID neg
she does have jaw pain; CT does not appear to have any acute abnormality and changes in mandible likely secondary to recent fall. No fracture. now jaw pain is improving
Follow fever curve; repeat CT ordered by urology 03/20 without acute abnormality that would explain her fevers. Urology wanted to decompress her bladder with a Castañeda catheter which we will continue. Questionable renal cyst which urology asked IR
for aspiration. s/p IR aspiration 03/22; bcx pending
ESR elevated
Fevers appear to slow down however still has leukocytosis. Hematology evaluation requested
Elevated LFTs
Continue to monitor, normal bili
If does not improve then will need HIDA scan
Hyponatremia
-may be 2/2 low solute diet with free water versus SIADH. 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
-hold Bactrim (can cause hyponatremia)
-Na dropped with fluid restriction; s/p samsca
nephrology following
-continue fluid restriction
repeat urine studies confirm SIADH
-hold [employer] SSRI for now
Syncope
-4 days ago while outside, patient with prodrome of dizziness and no confusion following
-Troponin negative
-TTE 11/13/23 with EF 60-6%%, no significant valvular disease
-PT/OT
-no significant events on telemetry
Chronic Epigastric pain
-sounds MSK related as worse with certain movements and worse post fall
-trial protonix, other differential includes gastritis
Now pain appears to be improving
-CT (as below)
Patient has history of gastric ulcer. Recommended patient follow-up with gastroenterology outpatient.
Abnormal Liver CT imaging
-CT suggest cirrhosis (not e/o labs and no history) as well as subtle low-density region in medial segment left lobe of liver
-->will need dedicated MRI abdomen with and without contrast post discharge
Persistent and reproducible soft tissue attenuation at the inferior margin of the cecum. Given the persistent, reproducible appearance, this is more suspicious for asymmetric wall thickening rather than underfilling of the lumen. Advise further
evaluation with colonoscopy.
bladder cancer (s/p cystoscopy, diagnostic left ureteroscopy with stent exchange, transurethral resection bladder tumor on 03/07)
-follows with Dr. Rosario
Status post stent exchange again 03/23. Urology does not think there is any ongoing infection. Urology holding Lovenox until flank drain is removed.
-Dr. Bernal updated on admission
-CT results as above
b/l LE pain
improving
Appears likely secondary to arthritis, venous Doppler negative
DVT PPx lovenox on hold per urology. cw SCD's
FULL CODE - long conversation had with patient and daughter in ER
General: No Apparent Distress
HEENT: PERRLA
Respiratory: Clear to Auscultation
Cardiac: Regular Rhythm and S1/S2
GI: Soft and Nontender
Musculoskeletal: No Edema
Neuro: Awake, Alert and Oriented
Psych: Calm
I spent a total of 52 minutes with the patient or on the floor. More than 50% of this time involved counseling and coordination of care.
Anticipated Discharge: 24 - 48 hours
Subjective/Interval History
-
Date of Service: March 23, 2024
denies pain
Objective Data
-
Labs:
Laboratory Results
03/23/24
06:39
WBC 26.1 H
Hgb 8.3 L
Hct 24.3 L
Plt Count 671 H
Sodium 134 L
Potassium 4.7
Chloride 100
Carbon Dioxide 22
BUN 17
Creatinine 0.6
Glucose 127 H
Calcium 8.2 L
Total Bilirubin 0.6
AST 69 H
ALT 69 H
Alkaline Phosphatase 335 H
Vital Signs:
Vital Signs
Temp Pulse Resp BP Pulse Ox
98.4 F 85 16 119/55 92
03/23/24 11:00 03/23/24 11:00 03/23/24 11:00 03/23/24 11:00 03/23/24 11:00
I&O
03/22/24 03/23/24 03/24/24
06:59 06:59 06:59
Intake Total 240 / 240 1650 / 1650 300 / 300
Output Total 675 / 675 1758 / 1758 100 / 100
Balance -435 / -435 -108 / -108 200 / 200
[2024-03-23] MEDS: COZAAR 100 MG PO (11:46)
[2024-03-23] MEDS: PROTONIX 40 MG PO ×2 (11:46→20:27)
[2024-03-23] MEDS: FLUSH (NSS) 2 FLUSH IV (11:48)
[2024-03-23] MEDS: DESENEX/MITRAZOL/ZEASORB 1 APPLIC TOPICAL ×2 (11:50→20:27)
--- NOTE | 2024-03-23 12:24 | W.PN.NEPH.PH ---
Today's Communication / Plan
-
wean off IVF as po intake is adequate
Assessment/Plan
-
Assessment
Hyponatremia
Bladder cancer
Fall
Hypertension
Hyperlipidemia
Leukocytosis
Plan:
Hyponatremia improving 134 on IVF
cont Fluid restriction 48 ounces daily
encourage solute intake
Hyponatremia and excess ADH state is likely potentiated by nausea, pain, off SSRI too
continue antibiotics per ID,s/p k cyst aspiration and stent exchange today
d/w pt
-
-
Date of Service: March 23, 2024
CC / HPI / ROS
-
Chief Complaint:
hyponatremia
History of Present Illness:
Na better at 134 with samsca
BP stable
Hgb stable low 8.[address] stent Left in place for obstructive uropathy
on abx for Enterococcus UTI
s/p adp of K cyst on 03/23-felt no infection and stent exchanged per
Review of Systems:
no CP/SOB
no pain
no n/v
Labs
-
Labs:
WBC 26.1 10^3/uL (4.8-10.8) H 03/23/24 06:39
RBC 2.80 10^6/uL (4.20-5.40) L 03/23/24 06:39
Hgb 8.3 g/dL (12.0-16.0) L 03/23/24 06:39
Hct 24.3 % (37.0-47.0) L 03/23/24 06:39
Plt Count 671 10^3/uL (130-400) H 03/23/24 06:39
Sodium 134 mmol/L (135-145) L 03/23/24 06:39
Potassium 4.7 mmol/L (3.5-5.1) 03/23/24 06:39
Chloride 100 mmol/L (98-107) 03/23/24 06:39
Carbon Dioxide 22 mmol/L (22-30) 03/23/24 06:39
BUN 17 mg/dl (7-17) 03/23/24 06:39
Creatinine 0.6 mg/dL (0.6-1.0) 03/23/24 06:39
eGFR > 60.00 03/23/24 06:39
Glucose 127 mg/dl (70-99) H 03/23/24 06:39
Calcium 8.2 mg/dl (8.4-10.2) L 03/23/24 06:39
Rkb-Q-Mojnlasrfad Pept 305 pg/ml 03/16/24 05:57
Albumin 2.6 g/dl (3.5-5.0) L 03/23/24 06:39
Physical Exam
-
Vital Signs:
Vital Signs
Temp Pulse Resp BP Pulse Ox
98.4 F 85 16 119/55 92
03/23/24 11:00 03/23/24 11:00 03/23/24 11:00 03/23/24 11:00 03/23/24 11:00
Cardiovascular:: Regular rate and rhythm
Respiratory:: Bilateral: CTA
Lung Excursion:: Normal
Abdomen:: Nontender and Soft
Extremity Edema:: None: Bilateral:
Hart Catheter: Yes
--- NOTE | 2024-03-23 12:58 | CON.ONC ---
Impression
Impression
Fever with expected neutrophilia/ monocytosis
Plan
Plan
no indication on CT imaging NCAP this month of HSM or intrabdominal adenopathy suggestive of malignancy--- if current cyst aspiration does not change fever pattern and all cultures are negative would send peripherl blood flow cytometry for
evaluation of CMML
Patient History
History of Present Illness
88yo WF with newly diagnosed admitted for syncope /fever with persistent fever foudn with neutrophilia/ monocytosis (latter present for several month antedating cancer diagnosis) w/ presistent fever ; imaging noted no obvious source for fever
though she underwent aspiration renal cyst 03/22; sh is ildly confused regarding her particular med hx though he only receall for blood transfusions includes 3 units pRBC for bleeding ulcer in her 30's but none associated with childbirth. There yamile
FH of blood dyscraisias
Past-Medical/Surgical History
HTN/GERD/anxiety/ C sections
Patient Medication
�Medication �Instructions �Recorded �Confirmed �Last Taken �Type
sertraline 25 mg tablet 25 mg PO DAILY Mental 02/02/12 03/14/24 03/07/24 07:30 History
Health/Anxiety
acetaminophen 500 mg capsule 500 mg PO Q6H Pain 01/25/24 03/14/24 03/06/24 19:30 History
losartan 100 mg tablet 100 mg PO DAILY Blood Pressure 01/25/24 03/14/24 03/06/24 08:00 History
melatonin 1 mg tablet 1 mg PO HSPRN PRN insomnia 01/25/24 03/14/24 Unknown History
methenam 118 mg-m.blue 10 1 tab PO BID Supplement 01/30/24 03/14/24 03/06/24 19:30 History
mg-s.phos 40.8 mg-p.salic 36
mg-hyos capsule (Uribel)
simvastatin 20 mg tablet 20 mg PO QPM High Cholesterol 01/30/24 03/14/24 03/05/24 History
vibegron 75 mg tablet (Gemtesa) 75 mg PO QPM OVERACTIVE BLADDER 03/04/24 03/14/24 03/06/24 19:30 History
alprazolam 0.5 mg tablet (Xanax) 0.25 mg PO DAILYPRN PRN anxiety 03/14/24 03/14/24 Unknown History
sulfamethoxazole 400 1 tab PO QPM Infection 03/14/24 03/14/24 Unknown History
mg-trimethoprim 80 mg tablet
(Bactrim)
Active Medications
Generic Name Dose Route Start Last Admin
Trade Name Freq PRN Reason Stop Dose Admin
Acetaminophen 650 mg 03/14/24 20:48 03/22/24 21:15
Acetaminophen 325 Mg Tablet PO 04/11/24 20:47 650 mg
Q4HPRN PRN Administration
mild pain/MCNAMARA/temp> 100.4F
Albuterol/Ipratropium 3 ml 03/16/24 14:33 03/20/24 21:09
Ipratropium 0.5/Albuterol 3 Mg (3 Ml Ampul) INH 3 ml
R Q4HPRN PRN Administration
wheezing
Protocol
Alprazolam 0.25 mg 03/14/24 21:00 03/17/24 23:57
Alprazolam 0.25 Mg Tablet PO 04/11/24 20:59 0.25 mg
DAILYPRN PRN Administration
anxiety
Atorvastatin Calcium 10 mg 03/14/24 21:15 03/22/24 17:24
Atorvastatin (Lipitor) 10 Mg Tablet PO 04/11/24 21:14 10 mg
QPM SHARLA Administration
Bisacodyl 10 mg 03/14/24 20:48
Bisacodyl 10 Mg Rectal Suppository RECTAL 04/11/24 20:47
[id number] PRN
constipation
Enoxaparin Sodium 40 mg 03/18/24 18:00 03/21/24 17:48
Enoxaparin Sodium 40 Mg/0.4 Ml Syringe SC 04/15/24 17:59 40 mg
QPM SHARLA Administration
Hydromorphone HCl 0.25 mg 03/23/24 07:42
Hydromorphone 0.25 Mg/0.5 Ml Syringe IV 03/24/24 07:42
PACU-Q5MPRN PRN
severe pain
Parenteral Electrolytes 1,000 mls @ 100 mls/hr 03/23/24 07:45
Normosol-R/Plasmalyte-A IV 03/24/24 07:42
PER PROTOCOL SHARLA
Losartan Potassium 100 mg 03/15/24 08:00 03/23/24 11:46
Losartan 100 Mg Tablet PO 04/12/24 07:59 100 mg
DAILY SHARLA Administration
Melatonin 1.5 mg 03/14/24 21:08 03/21/24 20:17
Melatonin 3 Mg Tablet PO 04/11/24 21:07 1.5 mg
HSPRN PRN Administration
insomnia
Meperidine HCl 12.5 mg 03/23/24 07:42
Meperidine 25 Mg/Ml Injection IV 03/24/24 07:42
PACU-Q5MPRN PRN
shivers
Meropenem 500 mg 03/20/24 16:00 03/23/24 11:46
Meropenem 500 Mg/10 Ml Vial IV 500 mg
Q6H SHARLA Administration
Miconazole Nitrate 0 applic 03/14/24 23:00 03/23/24 11:50
Miconazole Powder Bottle TOPICAL 04/11/24 22:59 1 applic
BID SHARLA Administration
Morphine Sulfate 1 mg 03/23/24 07:42
Morphine 2 Mg/Ml Syringe IV 03/24/24 07:42
PACU-Q5MPRN PRN
moderate pain
Vibegron [Gemtesa] 0 mg 03/14/24 20:48 03/22/24 17:45
75 Mg Tablet Po Qpm PO 04/11/24 20:47 75 mg
QPM SHARLA Administration
Ondansetron HCl 4 mg 03/14/24 20:48 03/18/24 20:20
Ondansetron 4 Mg/2 Ml Vial IV 04/11/24 20:47 4 mg
Q6HPRN PRN Administration
nausea and vomiting
Ondansetron HCl 4 mg 03/23/24 07:42
Ondansetron 4 Mg/2 Ml Vial IV 03/24/24 07:42
PACU-ONCEPRN PRN
nausea/vomiting
Pantoprazole Sodium 40 mg 03/22/24 08:20 03/23/24 11:46
Pantoprazole 40 Mg Delayed Release Tablet PO 04/19/24 08:19 40 mg
BID SHARLA Administration
Phenol 0 spray 03/16/24 23:31 03/17/24 23:58
Chloraseptic (1.4% Phenol) Throat [place] PO 04/13/24 23:30 1 spray
Q2HPRN PRN Administration
sorethroat
Polyethylene Glycol 17 grams 03/14/24 20:48 03/15/24 09:47
Polyethylene Glycol Powder 17 Grams Packet PO 04/11/24 20:47 17 grams
DAILYPRN PRN Administration
constipation
Prochlorperazine Edisylate 5 mg 03/23/24 07:42
Prochlorperazine 10 Mg/2 Ml Vial IV 03/24/24 07:42
PACU-ONCEPRN PRN
nausea/vomiting
Senna/Docusate Sodium 1 tablet 03/14/24 20:48
Docusate W/Senna (Ml-Colace) Tablet PO 04/11/24 20:47
BIDPRN PRN
constipation
Sodium Chloride 0 flush 03/14/24 21:00 03/23/24 11:48
Sodium Chloride 0.9% (Flush) Syringe IV 04/11/24 20:59 2 flush
PER PROTOCOL SHARLA Administration
Sterile Water 10 ml 03/20/24 16:00 03/23/24 11:46
Sterile Water For Injection 10 Ml Vial IV 04/17/24 15:59 10 ml
Q6H SHARLA Administration
Review of Systems
-
History Source: Patient
All Other Systems: Reviewed and Negative
Physical Exam
-
General: Well Developed
HEENT: Other (left periorbital ecchymosis)
Cardiology: Normal Sinus Rhythm
Pulmonary: Clear
GI: Soft and Normal Bowel Sounds
Musculoskeletal: No Clubbing, No Cyanosis and No Edema
Neurology: Non Focal
Skin: Warm
Psych: Calm
Labs
Lab Results
WBC 26.1 10^3/uL (4.8-10.8) H 03/23/24 06:39
RBC 2.80 10^6/uL (4.20-5.40) L 03/23/24 06:39
Hgb 8.3 g/dL (12.0-16.0) L 03/23/24 06:39
Hct 24.3 % (37.0-47.0) L 03/23/24 06:39
MCV 86.8 fL (81.0-99.0) 03/23/24 06:39
MCH 29.6 pg (27.0-31.0) 03/23/24 06:39
MCHC 34.2 g/dL (33.0-37.0) 03/23/24 06:39
RDW 13.0 % (11.5-14.5) 03/23/24 06:39
Plt Count 671 10^3/uL (130-400) H 03/23/24 06:39
MPV 10.3 fL (7.4-10.4) 03/23/24 06:39
Abs Immat Gran (auto) 1.3 10^3/uL (0-0.05) H 03/23/24 06:39
Absolute Neuts (auto) 21.6 10^3/uL (1.4-6.5) H 03/23/24 06:39
Absolute Lymphs (auto) 0.8 10^3/uL (1.2-3.4) L 03/23/24 06:39
Absolute Monos (auto) 1.9 10^3/uL (0.1-0.6) H 03/23/24 06:39
Absolute Eos (auto) 0.5 10^3/uL (0-0.7) 03/23/24 06:39
Absolute Basos (auto) 0.1 10^3/uL (0-0.2) 03/23/24 06:39
Immature Gran % 4.9 % (0-0.5) H 03/23/24 06:39
Neutrophils % 82.9 % (42.2-75.2) H 03/23/24 06:39
Lymphocytes % 3.1 % (20.5-51.1) L 03/23/24 06:39
Monocytes % 7.1 % (1.7-9.3) 03/23/24 06:39
Eosinophils % 1.7 % (0-6) 03/23/24 06:39
Basophils % 0.3 % (0-2) 03/23/24 06:39
Creatinine 0.6 mg/dL (0.6-1.0) 03/23/24 06:39
Vital Signs
Vital Signs
Temp Pulse Resp BP Pulse Ox
98.4 F 85 16 119/55 92
03/23/24 11:00 03/23/24 11:00 03/23/24 11:00 03/23/24 11:00 03/23/24 11:00
--- NOTE | 2024-03-23 16:55 | PTCARENOTE ---
2122 Just noted can pt have a new diet like regular? She wants to have a sandwich which is not on diet [id number]. The daughter was annoyed. Please reeval tomorrow.
[2024-03-23] MEDS: NON-FORMULARY ITEM PO (17:25)
[2024-03-23] MEDS: TYLENOL 650 MG PO (21:42)
[2024-03-24 03:06] VITALS: BP 122/64
[2024-03-24] MEDS: STERILE WATER FOR INJECTION 10 ML IV ×4 (04:03→22:02)
[2024-03-24] MEDS: MERREM 500 MG IV ×4 (04:04→22:02)
[2024-03-24 05:52] VITALS: BMI 26.6
[2024-03-24 07:32] VITALS: BP 128/58
[2024-03-24 07:42] LABS: Hematocrit 23.1 % (37.0-47.0); Mean Corp Hgb Conc. 34.6 g/dL (33.0-37.0); Mean Corpuscular Hgb 30.8 pg (27.0-31.0); Mean Corpuscular Volume 88.8 fL (81.0-99.0); Mean Platelet Volume 10.3 fL (7.4-10.4); Platelet Count 603 10^3/uL (130-400); Red Cell Dist. Width 12.8 % (11.5-14.5); White Blood Cell Count 25.4 10^3/uL (4.8-10.8)
[2024-03-24 07:59] LABS: ALT (SGPT) 68 U/L (0-35); AST (SGOT) 72 U/L (14-36); Albumin 2.5 g/dl (3.5-5.0); Alkaline Phosphatase 266 U/L (38-126); Blood Urea Nitrogen 24 mg/dl (7-17); Calcium 8.1 mg/dl (8.4-10.2); Carbon Dioxide 21 mmol/L (22-30); Chloride 100 mmol/L (98-107); Estimated Creatinine Clearance 58 ml/min; Glucose 133 mg/dl (70-99); Potassium 4.9 mmol/L (3.5-5.1); Sodium 135 mmol/L (135-145); Total Bilirubin 0.3 mg/dl (0.2-1.3); Total Protein 5.4 g/dl (6.3-8.2); eGFR > 60.00
[2024-03-24 08:46] LABS: % Basophils 0.2 % (0-2); % Immature Granulocytes 4.5 % (0-0.5); % Lymphocytes 4.1 % (20.5-51.1); % Monocytes 3.2 % (1.7-9.3); Absolute Basophils 0.1 10^3/uL (0-0.2); Absolute Immature Granulocytes 1.2 10^3/uL (0-0.05); Absolute Monocytes 0.8 10^3/uL (0.1-0.6); Absolute Neutrophils 22.4 10^3/uL (1.4-6.5); Nucleated Red Blood Cells % 0 %
[2024-03-24] MEDS: COZAAR 100 MG PO (09:31)
[2024-03-24] MEDS: PROTONIX 40 MG PO ×2 (09:31→19:22)
[2024-03-24] MEDS: FLUSH (NSS) 2 FLUSH IV ×2 (09:31→16:38)
--- NOTE | 2024-03-24 09:34 | W.PN.URO.CBU ---
Today's Communication / Plan
-
kep foly and drains but if remains stable will remove mon am
Assessment / Plan
-
hx of bladder ca with obstruction of left UO- s/p resection and stent
enterococcal UTI
persistent fevers and leukocytosis- source unclear
pt now has had f/u negative ucx/negative cyst aspiration/left ureteral stent exchange- without evid of infx today
at this juncture- no evid of ongoing gu infx
paraneoplastic syndrome is a possibility- but from bladder ca perspective- i see no tumor burden that would account for this
continue antibx- await final cx-s- if ucx and drain cx are negative- would remove both hart and flank drain
hold lovenox until flank drain removed (i suspect tomorrow or monday)
also awaiting heme input
will update family
Diagnosis
-
Date of Service: March 24, 2024
-
Patient Diagnosis:
Post Op Day:
P
Patient Diagnosis:
bladder cancer
fever
UTI
s/p left renal cyst drainage 03/22
s/p left ureteral stent exchange 03/23
Subjective
-
much improvd today afebrile overall feel well
Objective
-
Vital Signs
Temp Pulse Resp BP Pulse Ox
97.1 F 69 18 128/58 99
03/24/24 07:32 03/24/24 07:32 03/24/24 07:32 03/24/24 07:32 03/24/24 07:32
Intake and Output
03/23/24 03/24/24 03/25/24
06:59 06:59 06:59
Intake Total 1650 / 1650 1800 / 1800
Output Total 1758 / 1758 1060 / 1060
Balance -108 / -108 740 / 740
Intake:
Oral fluids 760 / 760 1300 / 1300
IV fluids (Total) 870 / 870 500 / 500
NSS 0.9% 50 / 50
Normosol 300 / 300
IV piggybacks
Output:
Drain Output (Total)
Left Back Placed in IR
Urine, Hart 1750 / 1750 1050 / 1050
Laboratory Results
03/24/24 06:14
03/24/24 06:14
Review of Systems
-
: Difficulty Voiding
Physical Exam
-
General - well developed, well nourished, no acute distress
Chest - clear bilaterally
Abdomen - soft, non-tender, positive bowel sounds, no CVAT, no incisional pain or distention
Genitalia - normal
Rectal - normal
Skin - warm & dry with no rash
Neuro - AOx3, no motor deficits
Extremities - no clubbing, no cyanosis, no edema
Incision - clean, dry
Dressing - clean, dry, intact
Care Review
Data Reviewed
Discussed with: Nursing and Family
[2024-03-24] MEDS: DESENEX/MITRAZOL/ZEASORB 1 APPLIC TOPICAL ×2 (09:39→19:24)
--- NOTE | 2024-03-24 10:54 | W.PN.ID1 ---
Date of Service
Date of Service: March 24, 2024
Today's Communication
c/w meropenem
Assessment / Plan
Leukocytosis - persistent
Thrombocytosis - increasing
Bladder cancer (urothelial carcinoma in situ)
Also:
HTN
Anxiety
GERD
Hx dysphagia
Recommendations:
Increasing alk phos and mild transaminitis; gallbladder was unremarkable on CT scan
- trend lfts, if further progression may consider HIDA
repeat CXR 2 view 03/22: clear lungs
covid ag neg x2; minimal influenza transmission at this time
03/22 body fluid (cyst) : no growth to date, gram stain negative
03/22 blood cultures x2 in progress
03/22 UA minimal pyuria, 03/20 urine culture no growth. 03/14 urine culture 50K e faecalis (sensitive to vanc and dapto, completed a course of rx without improvement in fevers)
CT abd: no visible obstruction of stent and none seen today in the OR
no DVT on US
check babesia smear though presentation not classic
Tumor fever a possibility
c/w meropenem - follow clinically
Will continue to monitor white count and temperature curve.
����������������������������������������������������������
Chief Complaint
-: Fever, Leukocytosis and UTI
Subjective / Review of Systems
afebrile almost 24 hours
bp stable
leukocytosis unchanged, L shift increased
cr stable, lfts increased
in good spirits, no complaints
Vital Signs / Physical Exam
Vital Signs
Vital Signs
Temp Pulse Resp BP Pulse Ox
97.1 F 69 18 128/58 99
03/24/24 07:32 03/24/24 07:32 03/24/24 07:32 03/24/24 07:32 03/24/24 07:32
Physical Exam
Constitutional: No Acute Distress
Cardiovascular: Regular Rate and S1/S2; Negative Murmur or Rub
Pulmonary: Clear and Symmetric; Negative Wheezes or Rales
Gastrointestinal: Soft, Non Tender, Non Distended and Normal Bowel Sounds
Skin: Warm and Dry; Negative Rash or Jaundice
Objective Data
Lab Data
Lab Results
03/24/24 06:14
03/24/24 06:14
ESR 108 mm/hour (0-20) H 03/22/24 09:33
PT 15.0 Sec (11.4-14.6) H 03/17/24 06:09
INR 1.20 03/17/24 06:09
Estimated Creat Clear 58 ml/min 03/24/24 06:14
Lactic Acid 0.9 mmol/L (0.7-2.0) 03/14/24 17:52
Total Bilirubin 0.3 mg/dl (0.2-1.3) 03/24/24 06:14
AST 72 U/L (14-36) H 03/24/24 06:14
ALT 68 U/L (0-35) H 03/24/24 06:14
Alkaline Phosphatase 266 U/L (38-126) H 03/24/24 06:14
C-Reactive Protein 267.00 mg/L (0.0-10.00) H 03/22/24 09:33
Most recent labs reviewed.
Micro Results:
03/22/24 15:01 Body Fluid Culture - Preliminary
Cyst No Growth After 48 Hours
Gram Stain - Preliminary
03/24/24 06:14 Blood Parasites Smear - Pending
Blood/Venous
03/22/24 20:21 Blood Culture - Preliminary
Blood/Venous No Growth in 24 hours- Final report to follow
03/22/24 14:01 Blood Culture - Preliminary
Blood/Venous No Growth in 24 hours- Final report to follow
03/22/24 11:30 Urine Culture - Final
Urine NO GROWTH
03/20/24 18:02 Urine Culture - Final
Urine NO GROWTH
03/16/24 23:21 Blood Culture - Final
Blood/Venous No Growth - Final Report
03/14/24 17:52 Blood Culture - Final
Blood/Venous No Growth - Final Report
03/14/24 16:38 Urine Culture - Final
Urine Enterococcus faecalis
03/18/24 12:10 C. difficile GDH Antigen & Toxins - Final
Feces/Stool Negative for toxigenic C.difficile
03/16/24 20:04 Influenza Types A & B (GRICELDA) - Final
Nasal Swab Negative for Influenza A & B, NAAT
Negative results must be combined with clinical observations
and patient history.
Nucleic Acid Amplification test (NAAT)performed on the
[employer] platform.
Imaging:
03/19/2024 Duplex ultrasound, lower extremities: No evidence of DVT
03/19/[address]: No evidence of lucency within the mandible and no findings to suggest peritonsillar abscess.
03/16/2024 CT abdomen/pelvis without contrast: Left ureteral stent is present. On postcontrast delayed images, there is excretion of contrast into the left-sided calyces without significant dilation. Findings would suggest that there is no
significant left ureteral obstruction with the left ureteral stent present. Thickening of the bladder wall, which could be postsurgical, but could also be from infection. Large minimally complex cystic mass arising from the left kidney, compatible
with benign Bosniak class II cystic mass. Subtle nodular external contour of the liver, suggestive of cirrhosis. Subtle low-density region within the medial segment of the left lobe of the liver, not definitely present on previous examinations.
When clinically feasible, further evaluation is advised with MRI of the abdomen without and with contrast, utilizing Eovist contrast agent.
[2024-03-24 11:05] VITALS: BP 135/68
--- NOTE | 2024-03-24 11:32 | W.PN.HOSP.TC ---
Today's Communication/Plan
-
Monitor vital signs see plan
Continue to monitor leukocytosis
Follow fever curve
Continue antibiotics
Monitor LFTs
Diet advanced to regular per speech recommendation
Daughter updated at bedside
Maintain Hart and flank drain per urology
PT/OT
Assessment / Plan
Assessment / Plan
. Heather Gallardo is a 88 yo woman with hx bladder cancer (s/p cystoscopy, diagnostic left ureteroscopy with stent exchange, transurethral resection bladder tumor on 03/07), HTN, HLD presents to the ER after syncopal episode 4 days ago. Patient had
prodrome lightheadedness and dizziness. Fall resulted in a black eye.
HEAD CT
IMPRESSION:
No acute intracranial abnormality noted. Specifically no acute intracranial hemorrhage or extra-axial collection. No skull fracture. Stable chronic findings.
CTA
IMPRESSION:
No evidence of pulmonary embolism.
No acute cardiopulmonary process. No chest wall mass. No rib fracture.
ABDOMEN/PELVIS CT
IMPRESSION: Left ureteral stent is present. On postcontrast delayed images, there is excretion of contrast into the left-sided calyces without significant dilation. Findings would suggest that there is no significant left ureteral obstruction with
the left ureteral stent present.
Thickening of the bladder wall, which could be postsurgical, but could also be from infection.
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
Subtle nodular external contour of the liver, suggestive of cirrhosis.
Subtle low-density region within the medial segment of the left lobe of the liver, not definitely present on previous examinations. When clinically feasible, further evaluation is advised with MRI of the abdomen without and with contrast, utilizing
Eovist contrast agent.
Sepsis 2/2 UTI
Cannot determine if associated with recent urological procedure
Leukocytosis
-fevers reported at home. She was given Ceftriaxone on admission then transitioned to IV Zosyn morning of 03/15. Urine culture growing enterococcus - transitioned to IV Ampicillin on 03/16. Then was on daptomycin, now on meropenem
-despite appropriate coverage of UTI; has rising WBC; ID following. Initially had fever as well which is now improving
- C. Diff neg
-obtained CT A/P on 03/16 which shows stent in place, no hydro
-s/p CXR on 03/16 no acute disease
-ID following
COVID neg
she does have jaw pain; CT does not appear to have any acute abnormality and changes in mandible likely secondary to recent fall. No fracture. now jaw pain is improving. Seen by speech again 03/24 and diet advanced to regular
Follow fever curve; repeat CT ordered by urology 03/20 without acute abnormality that would explain her fevers. Urology wanted to decompress her bladder with a Hart catheter which we will continue. Questionable renal cyst which urology asked IR
for aspiration. s/p IR aspiration 03/22; bcx pending
ESR elevated
Fevers appear to slow down however still has leukocytosis. Hematology following; eventual flow cytometry if doesnt improve
Elevated LFTs
Continue to monitor, normal bili
If does not improve then will need HIDA scan
Hyponatremia
-may be 2/2 low solute diet with free water versus SIADH. 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
-hold Bactrim (can cause hyponatremia)
-Na dropped with fluid restriction; s/p samsca multiple times
nephrology following
-continue fluid restriction
repeat urine studies confirm SIADH
-hold [employer] SSRI for now
Syncope
-4 days ago while outside, patient with prodrome of dizziness and no confusion following
-Troponin negative
-TTE 11/13/23 with EF 60-6%%, no significant valvular disease
-PT/OT
-no significant events on telemetry
Chronic Epigastric pain
-sounds MSK related as worse with certain movements and worse post fall
-trial protonix, other differential includes gastritis
Now pain appears to be improving
-CT (as below)
Patient has history of gastric ulcer. Recommended patient follow-up with gastroenterology outpatient.
Abnormal Liver CT imaging
-CT suggest cirrhosis (not e/o labs and no history) as well as subtle low-density region in medial segment left lobe of liver
-->will need dedicated MRI abdomen with and without contrast post discharge
Persistent and reproducible soft tissue attenuation at the inferior margin of the cecum. Given the persistent, reproducible appearance, this is more suspicious for asymmetric wall thickening rather than underfilling of the lumen. Advise further
evaluation with colonoscopy.
bladder cancer (s/p cystoscopy, diagnostic left ureteroscopy with stent exchange, transurethral resection bladder tumor on 03/07)
-follows with Dr. Rosario
Status post stent exchange again 03/23. Urology does not think there is any ongoing infection. Urology holding Lovenox until flank drain is removed.
maintain hart and flank drain per urology
urology following
-CT results as above
b/l LE pain
improving
Appears likely secondary to arthritis, venous Doppler negative
DVT PPx lovenox on hold per urology. cw SCD's
FULL CODE - long conversation had with patient and daughter in ER
General: No Apparent Distress
HEENT: PERRLA
Respiratory: Clear to Auscultation
Cardiac: Regular Rhythm and S1/S2
GI: Soft and Nontender
Musculoskeletal: No Edema
Neuro: Awake, Alert and Oriented
Psych: Calm
I spent a total of 51 minutes with the patient or on the floor. More than 50% of this time involved counseling and coordination of care.
Anticipated Discharge: 24 - 48 hours
Subjective/Interval History
-
Date of Service: March 24, 2024
denies pain
Objective Data
-
Labs:
Laboratory Results
03/24/24
06:14
WBC 25.4 H
Hgb 8.0 L
Hct 23.1 L
Plt Count 603 H
Sodium 135
Potassium 4.9
Chloride 100
Carbon Dioxide 21 L
BUN 24 H
Creatinine 0.6
Glucose 133 H
Calcium 8.1 L
Total Bilirubin 0.3
AST 72 H
ALT 68 H
Alkaline Phosphatase 266 H
Vital Signs:
Vital Signs
Temp Pulse Resp BP Pulse Ox
97.5 F 84 18 135/68 96
03/24/24 11:05 03/24/24 11:05 03/24/24 11:05 03/24/24 11:05 03/24/24 11:05
I&O
03/23/24 03/24/24 03/25/24
06:59 06:59 06:59
Intake Total 1650 / 1650 1800 / 1800
Output Total 1758 / 1758 1060 / 1060
Balance -108 / -108 740 / 740
--- NOTE | 2024-03-24 12:47 | W.PN.NEPH.PH ---
Today's Communication / Plan
-
follow labs
Assessment/Plan
-
Assessment
Hyponatremia
Bladder cancer
Fall
Hypertension
Hyperlipidemia
Leukocytosis
Plan:
Hyponatremia improving 135 off IVF
liberate Fluid restriction 48 ounces daily
encourage solute intake-improving
Hyponatremia and excess ADH state is likely potentiated by nausea, pain, off SSRI too
continue antibiotics per ID,s/p k cyst aspiration and stent exchange 03/23
d/w pt
-
-
Date of Service: March 24, 2024
CC / HPI / ROS
-
Chief Complaint:
hyponatremia
History of Present Illness:
Na better at 135
BP stable
Hgb stable low 8.
hart in place. stent Left in place for obstructive uropathy
on abx for Enterococcus UTI
s/p adp of K cyst on 03/23-felt no infection and stent exchanged per
leucocytosis slow to improve
Review of Systems:
no CP/SOB
no pain
no n/v
Labs
-
Labs:
WBC 25.4 10^3/uL (4.8-10.8) H 03/24/24 06:14
RBC 2.60 10^6/uL (4.20-5.40) L 03/24/24 06:14
Hgb 8.0 g/dL (12.0-16.0) L 03/24/24 06:14
Hct 23.1 % (37.0-47.0) L 03/24/24 06:14
Plt Count 603 10^3/uL (130-400) H 03/24/24 06:14
Sodium 135 mmol/L (135-145) 03/24/24 06:14
Potassium 4.9 mmol/L (3.5-5.1) 03/24/24 06:14
Chloride 100 mmol/L (98-107) 03/24/24 06:14
Carbon Dioxide 21 mmol/L (22-30) L 03/24/24 06:14
BUN 24 mg/dl (7-17) H 03/24/24 06:14
Creatinine 0.6 mg/dL (0.6-1.0) 03/24/24 06:14
eGFR > 60.00 03/24/24 06:14
Glucose 133 mg/dl (70-99) H 03/24/24 06:14
Calcium 8.1 mg/dl (8.4-10.2) L 03/24/24 06:14
Uyh-T-Agkvfmntmjr Pept 305 pg/ml 03/16/24 05:57
Albumin 2.5 g/dl (3.5-5.0) L 03/24/24 06:14
Physical Exam
-
Vital Signs:
Vital Signs
Temp Pulse Resp BP Pulse Ox
97.5 F 84 18 135/68 96
03/24/24 11:05 03/24/24 11:05 03/24/24 11:05 03/24/24 11:05 03/24/24 11:05
Cardiovascular:: Regular rate and rhythm
Respiratory:: Bilateral: CTA
Lung Excursion:: Normal
Abdomen:: Nontender and Soft
Extremity Edema:: None: Bilateral:
Hart Catheter: Yes
[2024-03-24] MEDS: NON-FORMULARY ITEM PO (14:24)
[2024-03-24 14:55] VITALS: BP 121/51
[2024-03-24 19:17] VITALS: BP 124/59
[2024-03-24 23:06] VITALS: BP 133/72
[2024-03-24] MEDS: TYLENOL 650 MG PO (23:54)
[2024-03-25] MEDS: MELATONIN 1.5 MG PO
[2024-03-25] MEDS: MERREM 500 MG IV ×4 (04:00→21:06)
[2024-03-25] MEDS: STERILE WATER FOR INJECTION 10 ML IV ×4 (04:00→21:06)
[2024-03-25 06:00] VITALS: BMI 26.7
[2024-03-25 06:59] LABS: % Basophils 0.3 % (0-2); % Eosinophils 0.3 % (0-6); % Immature Granulocytes 3.9 % (0-0.5); % Lymphocytes 7.2 % (20.5-51.1); % Monocytes 7.4 % (1.7-9.3); % Neutrophils 80.9 % (42.2-75.2); Absolute Basophils 0.1 10^3/uL (0-0.2); Absolute Eosinophils 0.1 10^3/uL (0-0.7); Absolute Immature Granulocytes 0.9 10^3/uL (0-0.05); Absolute Lymphocytes 1.6 10^3/uL (1.2-3.4); Absolute Monocytes 1.7 10^3/uL (0.1-0.6); Absolute Neutrophils 18.1 10^3/uL (1.4-6.5); Hematocrit 24.8 % (37.0-47.0); Hemoglobin 8.4 g/dL (12.0-16.0); Mean Corp Hgb Conc. 33.9 g/dL (33.0-37.0); Mean Corpuscular Hgb 30.4 pg (27.0-31.0); Mean Corpuscular Volume 89.9 fL (81.0-99.0); Mean Platelet Volume 10.3 fL (7.4-10.4); Nucleated Red Blood Cells % 0 %; Platelet Count 603 10^3/uL (130-400); Red Blood Cell Count 2.76 10^6/uL (4.20-5.40); Red Cell Dist. Width 13.1 % (11.5-14.5); White Blood Cell Count 22.4 10^3/uL (4.8-10.8)
[2024-03-25 07:10] VITALS: BP 164/85
[2024-03-25 07:30] LABS: ALT (SGPT) 100 U/L (0-35); AST (SGOT) 100 U/L (14-36); Albumin 2.6 g/dl (3.5-5.0); Alkaline Phosphatase 214 U/L (38-126); Blood Urea Nitrogen 26 mg/dl (7-17); Calcium 8.3 mg/dl (8.4-10.2); Carbon Dioxide 25 mmol/L (22-30); Chloride 101 mmol/L (98-107); Estimated Creatinine Clearance 58 ml/min; Glucose 97 mg/dl (70-99); Potassium 5.1 mmol/L (3.5-5.1); Sodium 136 mmol/L (135-145); Total Bilirubin 0.3 mg/dl (0.2-1.3); Total Protein 5.4 g/dl (6.3-8.2); eGFR > 60.00
[2024-03-25] MEDS: PROTONIX 40 MG PO ×2 (07:52→19:58)
[2024-03-25] MEDS: TYLENOL 650 MG PO (07:52)
[2024-03-25] MEDS: COZAAR 100 MG PO (07:52)
--- NOTE | 2024-03-25 08:27 | W.PN.HOSP.TC ---
Today's Communication/Plan
-
COnt merrem
LUQ US
labs in AM
LE elevtaion
Assessment / Plan
Assessment / Plan
88 yo woman with hx bladder cancer (s/p cystoscopy, diagnostic left ureteroscopy with stent exchange, transurethral resection bladder tumor on 03/07), HTN, HLD presents to the ER after syncopal episode 4 days before admission, fever, managed for UTI,
s/p L stent exchange on 03/23/24 and L complex cyst drain with persistent leukocytosis. Also developed worsening transaminitis
A/P:
#Sepsis on admission 2/2 UTI, complicated with L uretal stent
#Hx of bladder CA s/p TURBT
CT abd showed no significant ureteral obstruction
Stent exchanged by Urology on 03/23/24
COmplex L remal cyst drained on 03/22/24, pathology pending
Bcx NTD
Ucx - E.Faecalis
ID follows: s/p Ceftriaxone, Zosyn, daptomycin, now on Merrem
Castañeda for decompression
#Leukocytosis
#Thrombocytosis
Hematology consult: might need flow cytometry
COVID-19 neg
C.diff neg
ID follows
Parasite screen neg
US LE neg for DVT
CTA chest without signs of PE
#Transaminitis
#Alk.phos elevation
Acute
Hold statin, Acetaminophen
Check GGT, CPK, RUQ US
follow LFT
Cannot exclude DILI
ESR/CRP significantly elevated
#Anemia of chronic disease
follow CBC, transfuse as needed to keep Hgb>7
#b/l ankle swelling
proBNP 305
Echo with preserved EF and no change since September 2023
LE elevation
#Syncope
Patient described Hx of falls and her PCP was concerned for episodes of hypoglycemia. Patient felt cold sweat before her fall this time too, similar to the previous episodes, however patient is not diabetic and not on insulin or oral hypoglycemics
No arrhythmia
Most likely 2/2 fevers and acute disease causing malaise vs hyponatremia
#Hyponatremia on admission - now resolved
Nephro follows: 2/2 ADH
Hold SSRI
follow BMP
#Liver lesion
MRI liver as outpatient vs MRCP if worsening LFT
#GERD
PPI
DVT ppx on SCDs as per Urology
Full code
I have spent at least 57min reviewing chart, test results, communication with consultants and direct patient care
Anticipated Discharge: > 48 hours
Subjective/Interval History
-
Date of Service: March 25, 2024
Objective Data
-
Labs:
Laboratory Results
03/25/24
05:01
WBC 22.4 H
Hgb 8.4 L
Hct 24.8 L
Plt Count 603 H
Sodium 136
Potassium 5.1
Chloride 101
Carbon Dioxide 25
BUN 26 H
Creatinine 0.6
Glucose 97
Calcium 8.3 L
Total Bilirubin 0.3
AST 100 H
ALT 100 H
Alkaline Phosphatase 214 H
Vital Signs:
Vital Signs
Temp Pulse Resp BP Pulse Ox
98.1 F 71 19 133/72 98
03/24/24 23:06 03/24/24 23:06 03/24/24 23:06 03/24/24 23:06 03/24/24 23:06
I&O
03/24/24 03/25/24 03/26/24
06:59 06:59 06:59
Intake Total 1800 / 1800 1240 / 1240
Output Total 1060 / 1060 1650 / 1650
Balance 740 / 740 -410 / -410
Review of Systems
-
History Source: Patient
Constitutional: Reports Fatigue
Musculoskeletal: Reports Muscle Pain
Physical Exam
-
General: No Apparent Distress
HEENT: Normocephalic and Atraumatic
Respiratory: Clear to Auscultation
Cardiac: Regular Rhythm
GI: Soft, Nontender and Nondistended
Genito-urinary: No Costovertebral Tender
Musculoskeletal: No Clubbing, No Cyanosis, Edema, Right Lower Extrem and Edema, Left Lower Extrem
Skin: Warm
Neuro: Awake, Alert, Oriented and AO x 3
Psych: Calm
[2024-03-25 09:04] LABS: Creatine Phosphokinase 25 U/L (30-135); GGTP 219 U/L (12-43)
--- NOTE | 2024-03-25 09:43 | W.PN.ONC2 ---
Today's Communication / Plan
-
daily CBC with differential
upon discharge, continue CBC monitoring with PCP, refer to hematology if leukocytosis/thrombocytosis/anemia persists
Impression
Impression
Fever, last 03/23
bladder cancer in situ
bladder wall thickening non-specific -management per urology
Anemia. Iron studies c/w AOCD/inflammation. Elevated ESR/CRP also suggest component of inflammation. Check B12, folate, retic. Monitor for bleeding
Leukocytosis primarily neutrophils and monocytes -continue infectious w/u and if does not resolve then would consider CMML evaluation
thrombocytosis may be reactive, if persist then would pursue outpatient evaluation with MPN panel
nodular liver, elevated LFTs c/f cirrhosis-consider GI evaluation for OP MRI
left renal cyst s/p drainage 03/22
Plan
Plan
Fever -resolved. Abx per ID
Fall -PT/OT
s/p left ureteral stent replacement
bladder wall thickening non-specific -management per urology
Anemia. Iron studies c/w AOCD/inflammation. Elevated ESR/CRP also suggest component of inflammation. Check B12, folate, retic. Monitor for bleeding
Leukocytosis primarily neutrophils and monocytes -continue infectious w/u and if does not resolve then would consider CMML evaluation
thrombocytosis may be reactive, if persist then would pursue outpatient evaluation with MPN panel
nodular liver, elevated LFTs c/f cirrhosis-consider GI evaluation for OP MRI
left renal cyst s/p drainage 03/22
Subjective/Objective
Chief Complaint
constipation
Subjective
afebrile, no hypoxia or hypotension
Vital Signs:
Vital Signs
Temp Pulse Resp BP Pulse Ox
97.2 F 89 16 164/85 95
03/25/24 07:10 03/25/24 07:52 03/25/24 07:10 03/25/24 07:52 03/25/24 09:38
Lab Results:
Laboratory Data
WBC 22.4 10^3/uL (4.8-10.8) H 03/25/24 05:01
Hgb 8.4 g/dL (12.0-16.0) L 03/25/24 05:01
Plt Count 603 10^3/uL (130-400) H 03/25/24 05:01
PT 15.0 Sec (11.4-14.6) H 03/17/24 06:09
INR 1.20 03/17/24 06:09
eGFR > 60.00 03/25/24 05:01
Physical Exam
HEENT: Moist Mucous Membranes and Other (left eye ecchymosis); No Jaundice
Cardiology: S1 and S2
Pulmonary: Clear
GI: Soft and Other (Castañeda clear yellow urine)
Extremities: No Edema
Neuro: Non Focal
Review of Systems
Review of Systems
ROS notable for subjective, otherwise negative
[2024-03-25 09:51] LABS: Erythrocyte Sed Rate 93 mm/hour (0-20)
--- NOTE | 2024-03-25 10:06 | W.PN.NEPH.PH ---
Today's Communication / Plan
-
lasix
Assessment/Plan
-
Assessment
Hyponatremia
Bladder cancer
Fall
Hypertension
Hyperlipidemia
Leukocytosis
Plan:
maintain FR 48oz
add lasix
follow BMP
-
-
Date of Service: March 25, 2024
CC / HPI / ROS
-
Chief Complaint:
hyponatremia
History of Present Illness:
Na better at 136
BP stable
Hgb stable
hart in place. stent Left in place for obstructive uropathy
on abx for Enterococcus UTI
s/p adp of K cyst on 03/23-felt no infection and stent exchanged per
Review of Systems:
no CP/SOB
no pain
no n/v
reports edema
Labs
-
Labs:
WBC 22.4 10^3/uL (4.8-10.8) H 03/25/24 05:01
RBC 2.76 10^6/uL (4.20-5.40) L 03/25/24 05:01
Hgb 8.4 g/dL (12.0-16.0) L 03/25/24 05:01
Hct 24.8 % (37.0-47.0) L 03/25/24 05:01
Plt Count 603 10^3/uL (130-400) H 03/25/24 05:01
Sodium 136 mmol/L (135-145) 03/25/24 05:01
Potassium 5.1 mmol/L (3.5-5.1) 03/25/24 05:01
Chloride 101 mmol/L (98-107) 03/25/24 05:01
Carbon Dioxide 25 mmol/L (22-30) 03/25/24 05:01
BUN 26 mg/dl (7-17) H 03/25/24 05:01
Creatinine 0.6 mg/dL (0.6-1.0) 03/25/24 05:01
eGFR > 60.00 03/25/24 05:01
Glucose 97 mg/dl (70-99) 03/25/24 05:01
Calcium 8.3 mg/dl (8.4-10.2) L 03/25/24 05:01
Nyh-D-Ficxtepbckz Pept 305 pg/ml 03/16/24 05:57
Albumin 2.6 g/dl (3.5-5.0) L 03/25/24 05:01
Physical Exam
-
Vital Signs:
Vital Signs
Temp Pulse Resp BP Pulse Ox
97.2 F 89 16 164/85 95
03/25/24 07:10 03/25/24 07:52 03/25/24 07:10 03/25/24 07:52 03/25/24 09:38
Cardiovascular:: Regular rate and rhythm
Respiratory:: Bilateral: Coarse
Lung Excursion:: Normal
Abdomen:: Nontender and Soft
Bowel Sounds:: Normal
Extremity Edema:: +1: Bilateral:
--- NOTE | 2024-03-25 10:12 | W.PN.URO.CBU ---
Today's Communication / Plan
-
IR to remove cyst drain today
Assessment / Plan
-
hx of bladder ca with obstruction of left UO- s/p resection and stent
enterococcal UTI
persistent fevers and leukocytosis- source unclear
no recent fevers- wbc still elevated
all gu cx's negative and interventions including stent change and cyst aspiration have not resulted any sig change in wbc
bladder cancer burden i do not think is enough (in fact at this juncture no evid of any residual cancer) to account for a paraneoplastic syndrome-leukocystosis
plan to remove cyst drain today- hart tomorrow- then ok to restart lovenox if needed
will follow
Diagnosis
-
Date of Service: March 25, 2024
-
Patient Diagnosis:
bladder cancer
fever
UTI
s/p left renal cyst drainage 03/22
s/p left ureteral stent exchange 03/23
Subjective
-
pt without any specific complaints
afebrile
wbc still elevated despite cyst drainage (cx negative) and stent change
all other cx's negative
Objective
-
Vital Signs
Temp Pulse Resp BP Pulse Ox
97.2 F 89 16 164/85 95
03/25/24 07:10 03/25/24 07:52 03/25/24 07:10 03/25/24 07:52 03/25/24 09:38
Intake and Output
03/24/24 03/25/24 03/26/24
06:59 06:59 06:59
Intake Total 1800 / 1800 1240 / 1240
Output Total 1060 / 1060 1650 / 1650
Balance 740 / 740 -410 / -410
Intake:
Oral fluids 1300 / 1300 1240 / 1240
IV fluids (Total) 500 / 500
Normosol 300 / 300
Output:
Drain Output (Total)
Left Back Placed in IR
Urine, Hart 1050 / 1050 1650 / 1650
Laboratory Results
03/25/24 05:01
03/25/24 05:01
Review of Systems
-
Constitutional: Fatigue
Respiratory: No Symptoms
Cardiac: No Symptoms
Abdomen/GI: No Symptoms
Physical Exam
-
General - no acute distress
Abdomen - soft, non-tender, flank drain in place
[2024-03-25] MEDS: DESENEX/MITRAZOL/ZEASORB 1 APPLIC TOPICAL ×2 (10:45→20:05)
--- NOTE | 2024-03-25 11:08 | PN.IRAD.UPD ---
Update Note - IRAD
- -
PATIENT CAME DOWN TO DEPARTMENT FOR LEFT CYST DRAIN REMOVAL. CLEANED, PREPPED, AND SRAPED THE PATIENT, REMOVED DRAIN AND DRESSED WITH PRIMAPORE, NO COMPLAINTS AND SENT PATIENT BACK UPSTAIRS.
--- NOTE | 2024-03-25 11:40 | PTCARENOTE ---
Received pt back from IR post removal of left GEETA drain. VSS, pt ambulated from stretcher to bed with minimal assistance of one with a rolling walker, family updated by this RN via telephone, pt resting comfortably in bed at this time.
[2024-03-25 11:45] VITALS: BP 141/62
--- NOTE | 2024-03-25 11:59 | W.PN.ID1 ---
Date of Service
Date of Service: March 25, 2024
Today's Communication
Continue meropenem for today.
Assessment / Plan
Leukocytosis - persistent
Thrombocytosis
Bladder cancer (urothelial carcinoma in situ)
Also:
HTN
Anxiety
GERD
Hx dysphagia
Recommendations:
Increasing alk phos and mild transaminitis; gallbladder was unremarkable on CT scan
- trend lfts, if further progression may consider HIDA
repeat CXR 2 view 03/22: clear lungs
03/22 body fluid (cyst) : no growth to date, gram stain negative
03/22 blood cultures x2 : NGTD
03/22 UA minimal pyuria, 03/20 urine culture no growth. 03/14 urine culture 50K e faecalis (sensitive to vanc and dapto, completed a course of rx without improvement in fevers)
CT abd: no visible obstruction of stent and none seen today in the OR
no DVT on US
Blood parasite smear negative.
Tumor fever a possibility
Patient currently day #6 of meropenem, and day #11 of antibiotics in general.
Leukocytosis noted to be somewhat improved today.
Will likely only need an additional day or so of antibiotics.
Will continue to monitor white count and temperature curve.
����������������������������������������������������������
Chief Complaint
-: Fever, Leukocytosis and UTI
Subjective / Review of Systems
Patient seen and examined. Reports feeling well overall. Denies significant fevers or chills. Denies abdominal pain. Left-sided renal cyst drain removed earlier this a.m.
Vital Signs / Physical Exam
Vital Signs
Vital Signs
Temp Pulse Resp BP Pulse Ox
97.2 F 89 16 164/85 95
03/25/24 07:10 03/25/24 07:52 03/25/24 07:10 03/25/24 07:52 03/25/24 09:38
Physical Exam
Constitutional: No Acute Distress, Comfortable and Non-toxic
Eyes: No Conjunctival Hemorrhage and Sclera Anicteric
Cardiovascular: Regular Rate and S1/S2; Negative Murmur or Rub
Pulmonary: Clear and Symmetric; Negative Wheezes or Rales
Gastrointestinal: Soft, Non Tender, Non Distended and Normal Bowel Sounds
Genito-Urinary: Castañeda and Clear Urine
Skin: Warm and Dry; Negative Rash or Jaundice
Neurological: Awake and Alert
Objective Data
Lab Data
Lab Results
03/25/24 05:01
03/25/24 05:01
ESR 93 mm/hour (0-20) H 03/25/24 05:01
PT 15.0 Sec (11.4-14.6) H 03/17/24 06:09
INR 1.20 03/17/24 06:09
Estimated Creat Clear 58 ml/min 03/25/24 05:01
Lactic Acid 0.9 mmol/L (0.7-2.0) 03/14/24 17:52
Total Bilirubin 0.3 mg/dl (0.2-1.3) 03/25/24 05:01
GGT 219 U/L (12-43) H 03/25/24 05:01
AST 100 U/L (14-36) H 03/25/24 05:01
ALT 100 U/L (0-35) H 03/25/24 05:01
Alkaline Phosphatase 214 U/L (38-126) H 03/25/24 05:01
C-Reactive Protein 122.10 mg/L (0.0-10.00) H 03/25/24 05:01
Most recent labs reviewed.
Micro Results:
03/22/24 15:01 Body Fluid Culture - Final
Cyst No Growth After 72 Hours
Gram Stain - Final
03/22/24 20:21 Blood Culture - Preliminary
Blood/Venous No Growth in 48 hours- Final report to follow
03/24/24 06:14 Blood Parasites Smear - Final
Blood/Venous
03/22/24 14:01 Blood Culture - Preliminary
Blood/Venous No Growth in 48 hours- Final report to follow
03/22/24 11:30 Urine Culture - Final
Urine NO GROWTH
03/20/24 18:02 Urine Culture - Final
Urine NO GROWTH
03/16/24 23:21 Blood Culture - Final
Blood/Venous No Growth - Final Report
03/14/24 17:52 Blood Culture - Final
Blood/Venous No Growth - Final Report
03/14/24 16:38 Urine Culture - Final
Urine Enterococcus faecalis
03/18/24 12:10 C. difficile GDH Antigen & Toxins - Final
Feces/Stool Negative for toxigenic C.difficile
03/16/24 20:04 Influenza Types A & B (GRICELDA) - Final
Nasal Swab Negative for Influenza A & B, NAAT
Negative results must be combined with clinical observations
and patient history.
Nucleic Acid Amplification test (NAAT)performed on the
[employer] platform.
Imaging:
03/19/2024 Duplex ultrasound, lower extremities: No evidence of DVT
03/19/[address]: No evidence of lucency within the mandible and no findings to suggest peritonsillar abscess.
03/16/2024 CT abdomen/pelvis without contrast: Left ureteral stent is present. On postcontrast delayed images, there is excretion of contrast into the left-sided calyces without significant dilation. Findings would suggest that there is no
significant left ureteral obstruction with the left ureteral stent present. Thickening of the bladder wall, which could be postsurgical, but could also be from infection. Large minimally complex cystic mass arising from the left kidney, compatible
with benign Bosniak class II cystic mass. Subtle nodular external contour of the liver, suggestive of cirrhosis. Subtle low-density region within the medial segment of the left lobe of the liver, not definitely present on previous examinations.
When clinically feasible, further evaluation is advised with MRI of the abdomen without and with contrast, utilizing Eovist contrast agent.
[2024-03-25] MEDS: LASIX 20 MG PO (12:06)
--- NOTE | 2024-03-25 12:18 | CM ---
Patient seen at bedside.
Patient working with PT earlier today.
Spoke with liaison from [facility] to keep her updated.
PLAN: [facility], pending bed available.
[2024-03-25 13:22] LABS: Glycohemoglobin (HgbA1c) 6.3 % (4.0-5.6)
[2024-03-25 14:00] VITALS: BP 163/67
[2024-03-25] MEDS: NON-FORMULARY ITEM PO (15:34)
--- NOTE | 2024-03-25 17:21 | PTCARENOTE ---
Pts BP this afternoon was 163/67, made aware, no new orders at this time.
[2024-03-25 23:02] VITALS: BP 110/45
[2024-03-26] MEDS: MERREM 500 MG IV ×4 (03:20→21:18)
[2024-03-26] MEDS: STERILE WATER FOR INJECTION 10 ML IV ×4 (03:20→21:18)
[2024-03-26 07:01] LABS: ALT (SGPT) 72 U/L (0-35); AST (SGOT) 41 U/L (14-36); Albumin 2.5 g/dl (3.5-5.0); Alkaline Phosphatase 176 U/L (38-126); Blood Urea Nitrogen 20 mg/dl (7-17); Calcium 8.2 mg/dl (8.4-10.2); Carbon Dioxide 26 mmol/L (22-30); Chloride 97 mmol/L (98-107); Estimated Creatinine Clearance 58 ml/min; Glucose 117 mg/dl (70-99); Sodium 136 mmol/L (135-145); Total Bilirubin 0.5 mg/dl (0.2-1.3); Total Protein 5.4 g/dl (6.3-8.2); eGFR > 60.00
[2024-03-26 07:02] LABS: % Basophils 0.2 % (0-2); % Eosinophils 0.5 % (0-6); % Immature Granulocytes 4.3 % (0-0.5); % Lymphocytes 8.7 % (20.5-51.1); % Monocytes 10.3 % (1.7-9.3); Absolute Basophils 0.1 10^3/uL (0-0.2); Absolute Eosinophils 0.1 10^3/uL (0-0.7); Absolute Immature Granulocytes 0.9 10^3/uL (0-0.05); Absolute Lymphocytes 1.8 10^3/uL (1.2-3.4); Absolute Monocytes 2.1 10^3/uL (0.1-0.6); Absolute Neutrophils 15.2 10^3/uL (1.4-6.5); Hematocrit 24.5 % (37.0-47.0); Hemoglobin 8.2 g/dL (12.0-16.0); Mean Corp Hgb Conc. 33.5 g/dL (33.0-37.0); Mean Corpuscular Hgb 29.9 pg (27.0-31.0); Mean Corpuscular Volume 89.4 fL (81.0-99.0); Mean Platelet Volume 10.4 fL (7.4-10.4); Nucleated Red Blood Cells % 0 %; Platelet Count 686 10^3/uL (130-400); Red Blood Cell Count 2.74 10^6/uL (4.20-5.40); Red Cell Dist. Width 13.1 % (11.5-14.5)
[2024-03-26 07:05] VITALS: BP 138/58
[2024-03-26 07:10] LABS: Hepatitis B Surface Antigen Negative (Negative)
[2024-03-26 07:28] LABS: Hepatitis B Core Ab, Total Negative (Negative); Hepatitis B Surface Antibody Negative; Hepatitis C Antibody Negative (Negative)
[2024-03-26] MEDS: PROTONIX 40 MG PO ×2 (08:13→20:08)
[2024-03-26] MEDS: COZAAR 100 MG PO (08:13)
[2024-03-26] MEDS: LASIX 20 MG PO (08:14)
[2024-03-26] MEDS: DESENEX/MITRAZOL/ZEASORB 1 APPLIC TOPICAL ×2 (08:35→20:10)
[2024-03-26 08:45] LABS: COVID-19 Antigen Negative (Negative)
--- NOTE | 2024-03-26 09:37 | W.PN.NEPH.PH ---
Today's Communication / Plan
-
dc lasix
Assessment/Plan
-
Assessment
Hyponatremia
Bladder cancer
Fall
Hypertension
Hyperlipidemia
Leukocytosis
Plan:
maintain FR 48oz
dc lasix, use prn
follow BMP
dc planning
-
-
Date of Service: March 26, 2024
CC / HPI / ROS
-
Chief Complaint:
hyponatremia
History of Present Illness:
Na normal
BP stable
Hgb stable low 8.[address] stent Left in place for obstructive uropathy
on abx for Enterococcus UTI
s/p adp of K cyst on 03/23-felt no infection and stent exchanged per
Review of Systems:
no CP/SOB
no pain
no n/v
edema better
Labs
-
Labs:
WBC 20.0 10^3/uL (4.8-10.8) H 03/26/24 05:20
RBC 2.74 10^6/uL (4.20-5.40) L 03/26/24 05:20
Hgb 8.2 g/dL (12.0-16.0) L 03/26/24 05:20
Hct 24.5 % (37.0-47.0) L 03/26/24 05:20
Plt Count 686 10^3/uL (130-400) H 03/26/24 05:20
Sodium 136 mmol/L (135-145) 03/26/24 05:20
Potassium 5.0 mmol/L (3.5-5.1) 03/26/24 05:20
Chloride 97 mmol/L (98-107) L 03/26/24 05:20
Carbon Dioxide 26 mmol/L (22-30) 03/26/24 05:20
BUN 20 mg/dl (7-17) H 03/26/24 05:20
Creatinine 0.6 mg/dL (0.6-1.0) 03/26/24 05:20
eGFR > 60.00 03/26/24 05:20
Glucose 117 mg/dl (70-99) H 03/26/24 05:20
Calcium 8.2 mg/dl (8.4-10.2) L 03/26/24 05:20
Pue-F-Xpsfgdzgidk Pept 305 pg/ml 03/16/24 05:57
Albumin 2.5 g/dl (3.5-5.0) L 03/26/24 05:20
Physical Exam
-
Vital Signs:
Vital Signs
Temp Pulse Resp BP Pulse Ox
97.3 F 67 16 138/58 96
03/26/24 07:05 03/26/24 08:14 03/26/24 07:05 03/26/24 08:14 03/26/24 07:05
Cardiovascular:: Regular rate and rhythm
Respiratory:: Bilateral: CTA
Lung Excursion:: Normal
Abdomen:: Nontender and Soft
Bowel Sounds:: Normal
Extremity Edema:: None: Bilateral:
--- NOTE | 2024-03-26 10:37 | W.PN.URO.CBU ---
Today's Communication / Plan
-
hart out today
Assessment / Plan
-
hx of bladder ca with obstruction of left UO- s/p resection and stent
enterococcal UTI
persistent fevers and leukocytosis- source unclear
no recent fevers- wbc still elevated- downtrending a little
all gu cx's negative and interventions including stent change and cyst aspiration have not resulted any sig change in wbc
bladder cancer burden i do not think is enough (in fact at this juncture no evid of any residual cancer) to account for a paraneoplastic syndrome-leukocystosis
cyst drain out- hart out today
will follow- med eval ongoing
eventual plan is for ureteral stent removal in 10-14 days and if stable begin intra-vesicle med for bladder ca
Diagnosis
-
Date of Service: March 26, 2024
-
Patient Diagnosis:
bladder cancer
fever
UTI
s/p left renal cyst drainage 03/22
s/p left ureteral stent exchange 03/23
Subjective
-
pt c/o of weakness and being hot then cold
no documented fevers
wbc down somewhat- but still elevated at 20k
flank drain removed yesterday
all cx's negative
Objective
-
Vital Signs
Temp Pulse Resp BP Pulse Ox
97.3 F 67 16 138/58 96
03/26/24 07:05 03/26/24 08:14 03/26/24 07:05 03/26/24 08:14 03/26/24 07:05
Intake and Output
03/25/24 03/26/24 03/27/24
06:59 06:59 06:59
Intake Total 1240 / 1240 240 / 240
Output Total 1650 / 1650 3425 / 3425
Balance -410 / -410 -3185 / -3185
Intake:
Oral fluids 1240 / 1240 240 / 240
Output:
Urine, Hart 1650 / 1650 3425 / 3425
Laboratory Results
03/26/24 05:20
03/26/24 05:20
Review of Systems
-
Constitutional: Fatigue and Night Sweats
Respiratory: No Symptoms
Cardiac: No Symptoms
Abdomen/GI: No Symptoms
Physical Exam
-
General - no acute distress
Abdomen - soft, non-tender
Genitalia - hart in place
--- NOTE | 2024-03-26 11:35 | W.PN.HOSP.TC ---
Addendum entered and electronically signed by Fer Coffey MD 03/26/24 13:25:
No temporal tenderness, no headache and no vision disturbances such as diplopia or blurry vision. No suspicion for GCA/PMR. ESR improving
Original Note:
Today's Communication/Plan
-
Afebrile for >72h
TOV today
COnt Abx as per ID
Repeated COVID-19, influenza neg
Assessment / Plan
Assessment / Plan
88 yo woman with hx bladder cancer (s/p cystoscopy, diagnostic left ureteroscopy with stent exchange, transurethral resection bladder tumor on 03/07), HTN, HLD presents to the ER after syncopal episode 4 days before admission, fever, managed for UTI,
s/p L stent exchange on 03/23/24 and L complex cyst drain with persistent leukocytosis. Also developed transient transaminitis
A/P:
#Sepsis on admission 2/2 UTI, complicated with L uretal stent
#Hx of bladder CA s/p TURBT
CT abd showed no significant ureteral obstruction
Stent exchanged by Urology on 03/23/24
Complex L remal cyst drained on 03/22/24, drain removed on 03/25/24, neg culture
Bcx NTD
Ucx - E.Faecalis
ID follows: s/p Ceftriaxone, Zosyn, daptomycin, now on Merrem
Castañeda for decompression, removed on 03/26/24 - TOV
#Leukocytosis
#Thrombocytosis
Hematology consult: might need flow cytometry, apparently plan is for monitoring and if persistent for weeks - do additional w/u as outpatient
COVID-19 neg x2, influenza neg
C.diff neg
ID follows
Parasite screen neg
US LE neg for DVT
CTA chest without signs of PE
#Transaminitis
#Alk.phos elevation
#5mm gall blafdder polyp
Acute
Hold statin
follow LFT
Cannot exclude DILI
ESR/CRP elevated, but improving
Repeat US in 6month for polyp monitoring - son verbalized understanding of the instructions
#Anemia of chronic disease
follow CBC, transfuse as needed to keep Hgb>7
#b/l ankle swelling
proBNP 305
Echo with preserved EF and no change since September 2023
LE elevation
#Syncope
Patient described Hx of falls and her PCP was concerned for episodes of hypoglycemia. Patient felt cold sweat before her fall this time too, similar to the previous episodes, however patient is not diabetic and not on insulin or oral hypoglycemics
No arrhythmia
Most likely 2/2 fevers and acute disease causing malaise vs hyponatremia
#Hyponatremia on admission - now resolved
Nephro follows: 2/2 ADH
Hold SSRI
follow BMP
#Liver lesion
MRI liver as outpatient vs MRCP if worsening LFT
#GERD
PPI
DVT ppx on SCDs as per Urology
Full code
I have spent at least 57min reviewing chart, test results, communication with consultants and direct patient care
Anticipated Discharge: > 48 hours
Subjective/Interval History
-
Date of Service: March 26, 2024
Objective Data
-
Labs:
Laboratory Results
03/26/24
05:20
WBC 20.0 H
Hgb 8.2 L
Hct 24.5 L
Plt Count 686 H
Sodium 136
Potassium 5.0
Chloride 97 L
Carbon Dioxide 26
BUN 20 H
Creatinine 0.6
Glucose 117 H
Calcium 8.2 L
Total Bilirubin 0.5
AST 41 H
ALT 72 H
Alkaline Phosphatase 176 H
Vital Signs:
Vital Signs
Temp Pulse Resp BP Pulse Ox
97.3 F 67 16 138/58 96
03/26/24 07:05 03/26/24 08:14 03/26/24 07:05 03/26/24 08:14 03/26/24 07:05
I&O
03/25/24 03/26/24 03/27/24
06:59 06:59 06:59
Intake Total 1240 / 1240 240 / 240
Output Total 1650 / 1650 3425 / 3425 700 / 700
Balance -410 / -410 -3185 / -3185 -700 / -700
Review of Systems
-
History Source: Patient
All other systems: Reviewed and negative
Musculoskeletal: Reports Joint Pain
Physical Exam
-
General: No Apparent Distress
HEENT: Normocephalic
Cardiac: Regular Rhythm
GI: Soft, Nontender and Nondistended
Skin: Warm
Neuro: Awake, Alert, Oriented and AO x 3
Psych: Calm
[2024-03-26] MEDS: TYLENOL 650 MG PO ×2 (12:02→18:10)
--- NOTE | 2024-03-26 12:08 | CM ---
Patient seen at bedside.
Hgb 8.2, Platlets 686, Cont abx
[facility], pending bed availability
Left message for Kay at [facility] ?Thurs
PLAN: Discharge when medically stable, [facility] pending bed availability
--- NOTE | 2024-03-26 13:20 | W.PN.ID1 ---
Date of Service
Date of Service: March 26, 2024
Today's Communication
Complete course of Primaxin today then observe off antibiotics.
Assessment / Plan
Leukocytosis - persistent
Thrombocytosis
Bladder cancer (urothelial carcinoma in situ)
Also:
HTN
Anxiety
GERD
Hx dysphagia
Recommendations:
Increasing alk phos and mild transaminitis; gallbladder was unremarkable on CT scan
- trend lfts, if further progression may consider HIDA
repeat CXR 2 view 03/22: clear lungs
03/22 body fluid (cyst) : no growth to date, gram stain negative
03/22 blood cultures x2 : NGTD
03/22 UA minimal pyuria, 03/20 urine culture no growth. 03/14 urine culture 50K e faecalis (sensitive to vanc and dapto, completed a course of rx without improvement in fevers)
CT abd: no visible obstruction of stent and none seen today in the OR
no DVT on US
Blood parasite smear negative.
Tumor fever a possibility
Patient currently day #7 of meropenem, and day #12 of antibiotics in general.
Leukocytosis improved today.
Discontinue meropenem after last dose today, then observe off antibiotics.
Will continue to monitor white count and temperature curve.
����������������������������������������������������������
Chief Complaint
-: Fever, Leukocytosis and UTI
Subjective / Review of Systems
Patient seen and examined. Overall feels well. No fevers or chills. Castañeda has been removed.
Vital Signs / Physical Exam
Vital Signs
Vital Signs
Temp Pulse Resp BP Pulse Ox
97.3 F 67 16 138/58 96
03/26/24 07:05 03/26/24 08:14 03/26/24 07:05 03/26/24 08:14 03/26/24 07:05
Physical Exam
Constitutional: No Acute Distress and Comfortable
Eyes: No Conjunctival Hemorrhage and Sclera Anicteric
Cardiovascular: Regular Rate and S1/S2; Negative Murmur or Rub
Pulmonary: Clear and Symmetric; Negative Wheezes or Rales
Gastrointestinal: Soft, Non Tender, Non Distended and Normal Bowel Sounds
Skin: Warm and Dry; Negative Rash or Jaundice
Neurological: Awake and Alert
Objective Data
Lab Data
Lab Results
03/26/24 05:20
03/26/24 05:20
ESR 93 mm/hour (0-20) H 03/25/24 05:01
PT 15.0 Sec (11.4-14.6) H 03/17/24 06:09
INR 1.20 03/17/24 06:09
Estimated Creat Clear 58 ml/min 03/26/24 05:20
Lactic Acid 0.9 mmol/L (0.7-2.0) 03/14/24 17:52
Total Bilirubin 0.5 mg/dl (0.2-1.3) 03/26/24 05:20
GGT 219 U/L (12-43) H 03/25/24 05:01
AST 41 U/L (14-36) H 03/26/24 05:20
ALT 72 U/L (0-35) H 03/26/24 05:20
Alkaline Phosphatase 176 U/L (38-126) H 03/26/24 05:20
C-Reactive Protein 122.10 mg/L (0.0-10.00) H 03/25/24 05:01
Most recent labs reviewed.
Micro Results:
03/26/24 08:16 Influenza Types A & B (GRICELDA) - Final
Nasal Swab Negative for Influenza A & B, NAAT
Negative results must be combined with clinical observations
and patient history.
Nucleic Acid Amplification test (NAAT)performed on the
[employer] platform.
03/22/24 20:21 Blood Culture - Preliminary
Blood/Venous No Growth in 72 hours- Final report to follow
03/22/24 14:01 Blood Culture - Preliminary
Blood/Venous No Growth in 72 hours- Final report to follow
03/22/24 15:01 Body Fluid Culture - Final
Cyst No Growth After 72 Hours
Gram Stain - Final
03/24/24 06:14 Blood Parasites Smear - Final
Blood/Venous
03/22/24 11:30 Urine Culture - Final
Urine NO GROWTH
03/20/24 18:02 Urine Culture - Final
Urine NO GROWTH
03/16/24 23:21 Blood Culture - Final
Blood/Venous No Growth - Final Report
03/14/24 17:52 Blood Culture - Final
Blood/Venous No Growth - Final Report
03/14/24 16:38 Urine Culture - Final
Urine Enterococcus faecalis
03/18/24 12:10 C. difficile GDH Antigen & Toxins - Final
Feces/Stool Negative for toxigenic C.difficile
03/16/24 20:04 Influenza Types A & B (GRICELDA) - Final
Nasal Swab Negative for Influenza A & B, NAAT
Negative results must be combined with clinical observations
and patient history.
Nucleic Acid Amplification test (NAAT)performed on the
[employer] platform.
Imaging:
03/19/2024 Duplex ultrasound, lower extremities: No evidence of DVT
03/19/[address]: No evidence of lucency within the mandible and no findings to suggest peritonsillar abscess.
03/16/2024 CT abdomen/pelvis without contrast: Left ureteral stent is present. On postcontrast delayed images, there is excretion of contrast into the left-sided calyces without significant dilation. Findings would suggest that there is no
significant left ureteral obstruction with the left ureteral stent present. Thickening of the bladder wall, which could be postsurgical, but could also be from infection. Large minimally complex cystic mass arising from the left kidney, compatible
with benign Bosniak class II cystic mass. Subtle nodular external contour of the liver, suggestive of cirrhosis. Subtle low-density region within the medial segment of the left lobe of the liver, not definitely present on previous examinations.
When clinically feasible, further evaluation is advised with MRI of the abdomen without and with contrast, utilizing Eovist contrast agent.
[2024-03-26 15:10] VITALS: BP 111/44
[2024-03-26] MEDS: MIRALAX 17 GRAMS PO (18:10)
[2024-03-26] MEDS: NON-FORMULARY ITEM PO (18:11)
[2024-03-26] MEDS: MELATONIN 1.5 MG PO (21:17)
[2024-03-26 23:42] VITALS: BP 138/78
[2024-03-27] MEDS: TYLENOL 650 MG PO ×2 (03:14→16:38)
[2024-03-27] MEDS: STERILE WATER FOR INJECTION IV ×4 (03:27→21:32)
[2024-03-27 04:59] VITALS: BMI 26.6
[2024-03-27 06:34] LABS: % Basophils 0.3 % (0-2); % Eosinophils 0.9 % (0-6); % Lymphocytes 5.2 % (20.5-51.1); % Monocytes 8.3 % (1.7-9.3); % Neutrophils 81.3 % (42.2-75.2); ALT (SGPT) 53 U/L (0-35); AST (SGOT) 29 U/L (14-36); Absolute Basophils 0.1 10^3/uL (0-0.2); Absolute Eosinophils 0.2 10^3/uL (0-0.7); Absolute Immature Granulocytes 0.9 10^3/uL (0-0.05); Absolute Lymphocytes 1.2 10^3/uL (1.2-3.4); Absolute Monocytes 1.9 10^3/uL (0.1-0.6); Absolute Neutrophils 18.7 10^3/uL (1.4-6.5); Albumin 2.6 g/dl (3.5-5.0); Alkaline Phosphatase 167 U/L (38-126); Blood Urea Nitrogen 15 mg/dl (7-17); Calcium 8.1 mg/dl (8.4-10.2); Carbon Dioxide 25 mmol/L (22-30); Chloride 96 mmol/L (98-107); Estimated Creatinine Clearance 58 ml/min; Glucose 126 mg/dl (70-99); Hematocrit 24.5 % (37.0-47.0); Hemoglobin 8.4 g/dL (12.0-16.0); Mean Corp Hgb Conc. 34.3 g/dL (33.0-37.0); Mean Corpuscular Hgb 29.5 pg (27.0-31.0); Mean Platelet Volume 10.4 fL (7.4-10.4); Nucleated Red Blood Cells % 0 %; Platelet Count 691 10^3/uL (130-400); Red Blood Cell Count 2.85 10^6/uL (4.20-5.40); Red Cell Dist. Width 12.9 % (11.5-14.5); Sodium 133 mmol/L (135-145); Total Bilirubin 0.5 mg/dl (0.2-1.3); Total Protein 5.5 g/dl (6.3-8.2); eGFR > 60.00
[2024-03-27 06:39] LABS: Potassium 4.6 mmol/L (3.5-5.1)
[2024-03-27 07:15] VITALS: BP 126/55
[2024-03-27] MEDS: PROTONIX 40 MG PO ×2 (08:40→19:38)
[2024-03-27] MEDS: COZAAR 100 MG PO (08:40)
[2024-03-27] MEDS: DESENEX/MITRAZOL/ZEASORB 1 APPLIC TOPICAL ×2 (08:44→20:56)
--- NOTE | 2024-03-27 09:32 | W.PN.ONC2 ---
Today's Communication / Plan
-
follow CBC and fever curve
follow up peripheral flow
OP follow up with medical oncology will be arranged upon discharge
Impression
Impression
Fever
UTI
bladder cancer s/p resection & stent
bladder wall thickening non-specific
Anemia. Iron studies c/w AOCD/inflammation. Elevated ESR/CRP also suggest component of inflammation. Check B12, folate, retic. Monitor for bleeding
Leukocytosis primarily neutrophils and monocytes -follow up flow
thrombocytosis may be reactive, if persist then would pursue outpatient evaluation with MPN panel
nodular liver, elevated LFTs c/f cirrhosis-consider GI evaluation for OP MRI
left renal cyst s/p drainage 03/22
Plan
Plan
Fever
Enterococcal UTI abx per ID
Fall -PT/OT
bladder ca s/p resection and left ureteral stent
bladder wall thickening non-specific -management per urology
Anemia. Iron studies c/w AOCD/inflammation. Elevated ESR/CRP also suggest component of inflammation. Check B12, folate, retic. Monitor for bleeding
Leukocytosis primarily neutrophils and monocytes -f/u peripheral flow
thrombocytosis may be reactive, if persist then would pursue outpatient evaluation with MPN panel
nodular liver, elevated LFTs c/f cirrhosis-consider GI evaluation for MRI
left renal cyst s/p drainage 03/22
Subjective/Objective
Chief Complaint
Fever, 100.8F this morning
Subjective
denies any new pain or sxs infection
s/p 4 doses Tylenol/24hours
Vital Signs:
Vital Signs
Temp Pulse Resp BP Pulse Ox
98.1 F 76 17 126/55 95
03/27/24 07:15 03/27/24 08:40 03/27/24 07:15 03/27/24 08:40 03/27/24 07:15
Lab Results:
Laboratory Data
WBC 23.0 10^3/uL (4.8-10.8) H 03/27/24 05:38
Hgb 8.4 g/dL (12.0-16.0) L 03/27/24 05:38
Plt Count 691 10^3/uL (130-400) H 03/27/24 05:38
PT 15.0 Sec (11.4-14.6) H 03/17/24 06:09
INR 1.20 03/17/24 06:09
eGFR > 60.00 03/27/24 05:38
[2024-03-27 10:49] LABS: Procalcitonin 0.15 ng/ml (0.0-0.25)
--- NOTE | 2024-03-27 11:12 | W.PN.ID1 ---
Date of Service
Date of Service: March 27, 2024
Today's Communication
Monitor off of antibiotics.
Assessment / Plan
Leukocytosis - persistent
Thrombocytosis
Bladder cancer (urothelial carcinoma in situ)
Also:
HTN
Anxiety
GERD
Hx dysphagia
Recommendations:
Increasing alk phos and mild transaminitis; gallbladder was unremarkable on CT scan
- trend lfts, if further progression may consider HIDA
repeat CXR 2 view 03/22: clear lungs
03/22 body fluid (cyst) : no growth to date, gram stain negative
03/22 blood cultures x2 : NGTD
03/22 UA minimal pyuria, 03/20 urine culture no growth. 03/14 urine culture 50K e faecalis (sensitive to vanc and dapto, completed a course of rx without improvement in fevers)
CT abd: no visible obstruction of stent and none seen today in the OR
no DVT on US
Blood parasite smear negative.
Patient completed course of meropenem last evening (although continued to have a drug level at the time of noted low-grade temperature).
Leukocytosis not appreciably changed.
Etiology of ongoing leukocytosis, thrombocytosis remains cryptic.
Would continue to monitor closely off of antibiotics. If there is an infection, it will likely need to declare itself.
Will continue to monitor white count and temperature curve.
����������������������������������������������������������
Chief Complaint
-: Fever, Leukocytosis and UTI
Subjective / Review of Systems
Patient seen and examined. Low-grade temperature noted overnight.
Vital Signs / Physical Exam
Vital Signs
Vital Signs
Temp Pulse Resp BP Pulse Ox
98.1 F 76 17 126/55 95
03/27/24 07:15 03/27/24 08:40 03/27/24 07:15 03/27/24 08:40 03/27/24 08:00
Physical Exam
Constitutional: No Acute Distress and Comfortable
Eyes: No Conjunctival Hemorrhage and Sclera Anicteric
Cardiovascular: Regular Rate and S1/S2; Negative Murmur or Rub
Pulmonary: Clear and Symmetric; Negative Wheezes or Rales
Gastrointestinal: Soft, Non Tender, Non Distended and Normal Bowel Sounds
Skin: Warm and Dry; Negative Rash or Jaundice
Neurological: Awake and Alert
Objective Data
Lab Data
Lab Results
03/27/24 05:38
03/27/24 05:38
ESR 93 mm/hour (0-20) H 03/25/24 05:01
PT 15.0 Sec (11.4-14.6) H 03/17/24 06:09
INR 1.20 03/17/24 06:09
Estimated Creat Clear 58 ml/min 03/27/24 05:38
Lactic Acid 0.9 mmol/L (0.7-2.0) 03/14/24 17:52
Total Bilirubin 0.5 mg/dl (0.2-1.3) 03/27/24 05:38
GGT 219 U/L (12-43) H 03/25/24 05:01
AST 29 U/L (14-36) 03/27/24 05:38
ALT 53 U/L (0-35) H 03/27/24 05:38
Alkaline Phosphatase 167 U/L (38-126) H 03/27/24 05:38
C-Reactive Protein 122.10 mg/L (0.0-10.00) H 03/25/24 05:01
Most recent labs reviewed.
Micro Results:
03/22/24 20:21 Blood Culture - Preliminary
Blood/Venous No Growth in 4 days- Final report to follow
03/22/24 14:01 Blood Culture - Preliminary
Blood/Venous No Growth in 4 days- Final report to follow
03/26/24 08:16 Influenza Types A & B (GRICELDA) - Final
Nasal Swab Negative for Influenza A & B, NAAT
Negative results must be combined with clinical observations
and patient history.
Nucleic Acid Amplification test (NAAT)performed on the
[employer] platform.
03/22/24 15:01 Body Fluid Culture - Final
Cyst No Growth After 72 Hours
Gram Stain - Final
03/24/24 06:14 Blood Parasites Smear - Final
Blood/Venous
03/22/24 11:30 Urine Culture - Final
Urine NO GROWTH
03/20/24 18:02 Urine Culture - Final
Urine NO GROWTH
03/16/24 23:21 Blood Culture - Final
Blood/Venous No Growth - Final Report
03/14/24 17:52 Blood Culture - Final
Blood/Venous No Growth - Final Report
03/14/24 16:38 Urine Culture - Final
Urine Enterococcus faecalis
03/18/24 12:10 C. difficile GDH Antigen & Toxins - Final
Feces/Stool Negative for toxigenic C.difficile
03/16/24 20:04 Influenza Types A & B (GRICELDA) - Final
Nasal Swab Negative for Influenza A & B, NAAT
Negative results must be combined with clinical observations
and patient history.
Nucleic Acid Amplification test (NAAT)performed on the
[employer] platform.
Imaging:
03/19/2024 Duplex ultrasound, lower extremities: No evidence of DVT
03/19/[address]: No evidence of lucency within the mandible and no findings to suggest peritonsillar abscess.
03/16/2024 CT abdomen/pelvis without contrast: Left ureteral stent is present. On postcontrast delayed images, there is excretion of contrast into the left-sided calyces without significant dilation. Findings would suggest that there is no
significant left ureteral obstruction with the left ureteral stent present. Thickening of the bladder wall, which could be postsurgical, but could also be from infection. Large minimally complex cystic mass arising from the left kidney, compatible
with benign Bosniak class II cystic mass. Subtle nodular external contour of the liver, suggestive of cirrhosis. Subtle low-density region within the medial segment of the left lobe of the liver, not definitely present on previous examinations.
When clinically feasible, further evaluation is advised with MRI of the abdomen without and with contrast, utilizing Eovist contrast agent.
--- NOTE | 2024-03-27 11:28 | W.PN.URO.CBU ---
Today's Communication / Plan
-
observe off antibx
Assessment / Plan
-
hx of bladder ca with obstruction of left UO- s/p resection and stent
enterococcal UTI
persistent fevers and leukocytosis- source unclear
no recent fevers- wbc still elevated- downtrending a little
all gu cx's negative and interventions including stent change and cyst aspiration have not resulted any sig change in wbc
bladder cancer burden i do not think is enough (in fact at this juncture no evid of any residual cancer) to account for a paraneoplastic syndrome-leukocystosis
cyst drain out- hart out today
will follow- med eval ongoing
eventual plan is for ureteral stent removal in 10-14 days and if stable begin intra-vesicle med for bladder ca
antibx stopping today
Diagnosis
-
Date of Service: March 27, 2024
-
Patient Diagnosis:
bladder cancer
fever
UTI
s/p left renal cyst drainage 03/22
s/p left ureteral stent exchange 03/23
Subjective
-
pt feels ok
have tempt of 100.8 last pm
wbc at 23
hart out- no urinary complaints
Objective
-
Vital Signs
Temp Pulse Resp BP Pulse Ox
98.1 F 76 17 126/55 95
03/27/24 07:15 03/27/24 08:40 03/27/24 07:15 03/27/24 08:40 03/27/24 08:00
Intake and Output
03/26/24 03/27/24 03/28/24
06:59 06:59 06:59
Intake Total 240 / 240 2280 / 2280
Output Total 3425 / 3425 700 / 700
Balance -3185 / -3185 1580 / 1580
Intake:
Oral fluids 240 / 240 2280 / 2280
Output:
Urine, Hart 3425 / 3425 700 / 700
Other:
Number of approximated MODERATE 2
amounts of urine
How many times incontinent 1
SMALL amount urine
How many times incontinent 3
SATURATED amount urine
Number of unmeasured liquid
stools
Rectum 1
Laboratory Results
03/27/24 05:38
03/27/24 05:38
Review of Systems
-
Constitutional: Fatigue
Respiratory: No Symptoms
Cardiac: No Symptoms
Abdomen/GI: No Symptoms
: Frequency
Physical Exam
-
General - no acute distress
Abdomen - soft, non-tender
Genitalia - normal
[2024-03-27 11:29] LABS: Erythrocyte Sed Rate 98 mm/hour (0-20)
--- NOTE | 2024-03-27 13:40 | W.PN.HOSP.TC ---
Today's Communication/Plan
-
continue to monitor off Abx
Labs sent
ID for additional input
will consider repeated mercado-CT - discussed with son benefit/risk in details
Assessment / Plan
Assessment / Plan
88 yo woman with hx bladder cancer (s/p cystoscopy, diagnostic left ureteroscopy with stent exchange, transurethral resection bladder tumor on 03/07), HTN, HLD presents to the ER after syncopal episode 4 days before admission, fever, managed for UTI,
s/p L stent exchange on 03/23/24 and L complex cyst drain with persistent leukocytosis. Also developed transient transaminitis
A/P:
#Sepsis on admission 2 UTI, complicated with L uretal stent
#Hx of bladder CA s/p TURBT
CT abd showed no significant ureteral obstruction
Stent exchanged by Urology on 03/23/24
Complex L remal cyst drained on 03/22/24, drain removed on 03/25/24, neg culture
Bcx NTD
Ucx - E.Faecalis
ID follows: s/p Ceftriaxone, Zosyn, daptomycin, now on Merrem
Castañeda for decompression, removed on 03/26/24 - TOV
#Leukocytosis
#Thrombocytosis
#Elevated ferritin
#Elevated ESR
Hematology consult: flow cytometry sent on 03/27/24
COVID-19 neg x2, influenza neg
C.diff neg
ID follows
Parasite screen neg
US LE neg for DVT
CTA chest without signs of PE
Procalcitonin on 03/27/24 low
Might target repeated CT c/a/p, but with current low suspicion for additional infection - benefit questionable with risk of exposure to the additional radiation and contrast. Discussed same with family and will make sghared decision on that if labs
will be worsening
#Transaminitis
#Alk.phos elevation
#5mm gallbladder polyp
Acute - resolving
Holding statin
Repeat US in 6month for polyp monitoring - son verbalized understanding of the instructions
#Anemia of chronic disease
follow CBC, transfuse as needed to keep Hgb>7
#b/l TMJ pain s/p fall
without temporal tenderness
no vision disturbances
improving
Low concern for GCA/PMR
In view of recent infection and persistent fever with leukocytosis - will avoid steroids
Discussed with rheumatology to schedule outpatient follow up - patient to call
#b/l ankle swelling
proBNP 305
Echo with preserved EF and no change since September 2023
LE elevation
US neg for DVT
#Syncope
Patient described Hx of falls and her PCP was concerned for episodes of hypoglycemia. Patient felt cold sweat before her fall this time too, similar to the previous episodes, however patient is not diabetic and not on insulin or oral hypoglycemics
No arrhythmia
Most likely 2/2 fevers and acute disease causing malaise vs hyponatremia
#Hyponatremia on admission - now resolved
Nephro follows: 2/2 ADH
Hold SSRI
follow BMP
#Liver lesion
#Nodular liver, not confirmed on US
MRI liver as outpatient vs MRCP
#GERD
PPI
DVT ppx on SCDs as per Urology
Full code
I have spent at least 57min reviewing chart, test results, communication with consultants and direct patient care
Anticipated Discharge: > 48 hours
Subjective/Interval History
-
Date of Service: March 27, 2024
Objective Data
-
Labs:
Laboratory Results
03/27/24
05:38
WBC 23.0 H
Hgb 8.4 L
Hct 24.5 L
Plt Count 691 H
Sodium 133 L
Potassium 4.6
Chloride 96 L
Carbon Dioxide 25
BUN 15
Creatinine 0.5 L
Glucose 126 H
Calcium 8.1 L
Total Bilirubin 0.5
AST 29
ALT 53 H
Alkaline Phosphatase 167 H
Vital Signs:
Vital Signs
Temp Pulse Resp BP Pulse Ox
98.1 F 76 17 126/55 95
03/27/24 07:15 03/27/24 08:40 03/27/24 07:15 03/27/24 08:40 03/27/24 08:00
I&O
03/26/24 03/27/24 03/28/24
06:59 06:59 06:59
Intake Total 240 / 240 2280 / 2280
Output Total 3425 / 3425 700 / 700
Balance -3185 / -3185 1580 / 1580
Review of Systems
-
History Source: Patient
All other systems: Reviewed and negative
Physical Exam
-
General: No Apparent Distress
HEENT: Normocephalic
Respiratory: Clear to Auscultation
GI: Soft, Nontender and Nondistended
Skin: Warm
Neuro: Awake, Alert, Oriented and AO x 3
Psych: Calm
--- NOTE | 2024-03-27 14:55 | W.PN.NEPH.PH ---
Today's Communication / Plan
-
lasix
Assessment/Plan
-
Assessment
Hyponatremia
Bladder cancer
Fall
Hypertension
Hyperlipidemia
Leukocytosis
Plan:
Hyponatremia-sodium decreasing likely from not following FR
strictly maintain FR 48oz
dose lasix today
follow BMP
d/w pt and nursing
-
-
Date of Service: March 27, 2024
CC / HPI / ROS
-
Chief Complaint:
hyponatremia
History of Present Illness:
Na normal
BP stable
Hgb stable low 8.4
off hart. stent Left in place for obstructive uropathy
off abx now
s/p adp of K cyst on 03/23-felt no infection and stent exchanged per
intake 2.2lit
Review of Systems:
no CP/SOB
no pain
no n/v
edema better
Labs
-
Labs:
WBC 23.0 10^3/uL (4.8-10.8) H 03/27/24 05:38
RBC 2.85 10^6/uL (4.20-5.40) L 03/27/24 05:38
Hgb 8.4 g/dL (12.0-16.0) L 03/27/24 05:38
Hct 24.5 % (37.0-47.0) L 03/27/24 05:38
Plt Count 691 10^3/uL (130-400) H 03/27/24 05:38
Sodium 133 mmol/L (135-145) L 03/27/24 05:38
Potassium 4.6 mmol/L (3.5-5.1) 03/27/24 05:38
Chloride 96 mmol/L (98-107) L 03/27/24 05:38
Carbon Dioxide 25 mmol/L (22-30) 03/27/24 05:38
BUN 15 mg/dl (7-17) 03/27/24 05:38
Creatinine 0.5 mg/dL (0.6-1.0) L 03/27/24 05:38
eGFR > 60.00 03/27/24 05:38
Glucose 126 mg/dl (70-99) H 03/27/24 05:38
Calcium 8.1 mg/dl (8.4-10.2) L 03/27/24 05:38
Jfa-P-Vxthrrrbvjz Pept 305 pg/ml 03/16/24 05:57
Albumin 2.6 g/dl (3.5-5.0) L 03/27/24 05:38
Physical Exam
-
Vital Signs:
Vital Signs
Temp Pulse Resp BP Pulse Ox
98.1 F 76 17 126/55 95
03/27/24 07:15 03/27/24 08:40 03/27/24 07:15 03/27/24 08:40 03/27/24 08:00
Cardiovascular:: Regular rate and rhythm
Respiratory:: Bilateral: Rales (likely atelectasis)
Lung Excursion:: Normal
Abdomen:: Nontender and Soft
Extremity Edema:: None: Bilateral:
Hart Catheter: No
[2024-03-27 15:10] VITALS: BP 135/54
[2024-03-27 16:07] VITALS: BP 135/54
--- NOTE | 2024-03-27 16:21 | CM ---
Chart reviewed.
afebrile, Hgb 8.4, PLT 691
monitoring off abx
[facility] referral in [facility].
Updated Kay liaison
PLAN: [facility], pending bed availability
[2024-03-27] MEDS: LASIX 20 MG PO (16:34)
[2024-03-27] MEDS: NON-FORMULARY ITEM PO (16:38)
[2024-03-27 23:10] VITALS: BP 131/53
[2024-03-28] MEDS: STERILE WATER FOR INJECTION IV (02:53)
[2024-03-28 05:54] VITALS: BMI 25.6
[2024-03-28 07:17] LABS: Mean Corp Hgb Conc. 33.3 g/dL (33.0-37.0); Mean Corpuscular Hgb 29.2 pg (27.0-31.0); Mean Corpuscular Volume 87.7 fL (81.0-99.0); Mean Platelet Volume 10.5 fL (7.4-10.4); Platelet Count 745 10^3/uL (130-400); Red Blood Cell Count 3.08 10^6/uL (4.20-5.40); Red Cell Dist. Width 13.2 % (11.5-14.5); White Blood Cell Count 29.1 10^3/uL (4.8-10.8)
[2024-03-28 07:43] LABS: ALT (SGPT) 43 U/L (0-35); AST (SGOT) 27 U/L (14-36); Albumin 2.9 g/dl (3.5-5.0); Alkaline Phosphatase 175 U/L (38-126); Blood Urea Nitrogen 18 mg/dl (7-17); Calcium 8.4 mg/dl (8.4-10.2); Carbon Dioxide 24 mmol/L (22-30); Chloride 96 mmol/L (98-107); Estimated Creatinine Clearance 51 ml/min; Glucose 120 mg/dl (70-99); Magnesium 1.9 mg/dl (1.6-2.3); Phosphorus 3.3 mg/dl (2.5-4.5); Sodium 135 mmol/L (135-145); Total Bilirubin 0.6 mg/dl (0.2-1.3); eGFR > 60.00
--- NOTE | 2024-03-28 08:05 | W.PN.ONC2 ---
Today's Communication / Plan
-
follow CBC and fever curve
follow up peripheral flow
OP follow up with medical oncology will be arranged upon discharge
Impression
Impression
Fever
UTI
bladder cancer s/p resection & stent
bladder wall thickening non-specific
Anemia. Iron studies c/w AOCD/inflammation. Elevated ESR/CRP also suggest component of inflammation. Check B12, folate, retic. Monitor for bleeding
Leukocytosis primarily neutrophils and monocytes -follow up flow
thrombocytosis may be reactive, if persist then would pursue outpatient evaluation with MPN panel
nodular liver, elevated LFTs c/f cirrhosis-consider GI evaluation for OP MRI
left renal cyst s/p drainage 03/22
hyponatremia
Plan
Plan
Fever, recurrent 03/27 -monitor off abx
Enterococcal UTI completed course of abx
Fall -PT/OT
bladder ca s/p resection and left ureteral stent
bladder wall thickening non-specific -management per urology
Anemia. Iron studies c/w AOCD/inflammation. Elevated ESR/CRP also suggest component of inflammation. f/u B12, folate, retic. Monitor for bleeding
Leukocytosis primarily neutrophils and monocytes -f/u peripheral flow
thrombocytosis may be reactive, if persist then would pursue outpatient evaluation with MPN panel
nodular liver, elevated LFTs c/f cirrhosis-consider GI evaluation for MRI
left renal cyst s/p drainage 03/22
hyponatremia -nephrology following, on FR, diuresis -f/u cortisol
Subjective/Objective
Chief Complaint
no new complaints
Subjective
afebrile, no hypoxia or hypotension
WBC rising, platelet count rising
denies sxs infection
denies bleeding
Vital Signs:
Vital Signs
Temp Pulse Resp BP Pulse Ox
97.6 F 77 18 131/53 95
03/27/24 23:10 03/27/24 23:10 03/27/24 23:10 03/27/24 23:10 03/27/24 23:10
Lab Results:
Laboratory Data
WBC 29.1 10^3/uL (4.8-10.8) H 03/28/24 06:04
Hgb 9.0 g/dL (12.0-16.0) L 03/28/24 06:04
Plt Count 745 10^3/uL (130-400) H 03/28/24 06:04
PT 15.0 Sec (11.4-14.6) H 03/17/24 06:09
INR 1.20 03/17/24 06:09
eGFR > 60.00 03/28/24 06:04
Physical Exam
HEENT: Moist Mucous Membranes; No Jaundice
Cardiology: S1 and S2
Pulmonary: Clear
GI: Soft
Extremities: Pulses Present; No Edema
Neuro: Non Focal
Review of Systems
Review of Systems
ROS notable for subjective, otherwise negative
Orders
Orders
Orders From Last 24 Hours
03/28/24 06:04
B12 [Vitamin B12] IN AM
Folate IN AM
Reticulocyte Count IN AM
[2024-03-28 08:10] VITALS: BP 134/53
[2024-03-28 08:10] LABS: Cortisol, Random 48.8 ug/dl
[2024-03-28] MEDS: COZAAR 100 MG PO (08:35)
[2024-03-28] MEDS: DESENEX/MITRAZOL/ZEASORB 1 APPLIC TOPICAL ×2 (08:35→19:40)
[2024-03-28] MEDS: PROTONIX 40 MG PO ×2 (08:35→19:40)
[2024-03-28 08:44] LABS: Vitamin B12 830 pg/ml (239-931)
[2024-03-28 08:56] LABS: % Basophils 0.2 % (0-2); % Eosinophils 2.2 % (0-6); % Immature Granulocytes 2.9 % (0-0.5); % Monocytes 5.8 % (1.7-9.3); % Neutrophils 84.9 % (42.2-75.2); Absolute Basophils 0.1 10^3/uL (0-0.2); Absolute Eosinophils 0.6 10^3/uL (0-0.7); Absolute Immature Granulocytes 0.8 10^3/uL (0-0.05); Absolute Lymphocytes 1.2 10^3/uL (1.2-3.4); Absolute Monocytes 1.7 10^3/uL (0.1-0.6); Absolute Neutrophils 24.7 10^3/uL (1.4-6.5); Nucleated Red Blood Cells % 0 %; Reticulocyte Count 1.7 % (0.4-2.8)
[2024-03-28] MEDS: TYLENOL 650 MG PO ×2 (09:44→19:43)
[2024-03-28 11:14] LABS: Folate 5.2 ng/ml (2.76-20)
--- NOTE | 2024-03-28 11:33 | W.PN.HOSP.TC ---
Today's Communication/Plan
-
WBC scan pending
GI consult
repeat labs in AM
Assessment / Plan
Assessment / Plan
88 yo woman with hx bladder cancer (s/p cystoscopy, diagnostic left ureteroscopy with stent exchange, transurethral resection bladder tumor on 03/07), HTN, HLD presents to the ER after syncopal episode 4 days before admission, fever, managed for UTI,
s/p L stent exchange on 03/23/24 and L complex cyst drain with persistent leukocytosis in spite of adequate Abx. Also developed transient transaminitis with Alk.phos elevation
A/P:
#Leukocytosis
#Thrombocytosis
#Elevated ferritin
#Elevated ESR
Hematology consult: flow cytometry sent on 03/27/24
COVID-19 neg x2, influenza neg
C.diff neg
ID follows
Parasite screen neg
US LE neg for DVT
CTA chest without signs of PE
Procalcitonin on 03/27/24 low
Might target repeated CT c/a/p, but with current low suspicion for additional infection - benefit questionable with risk of exposure to the additional radiation and contrast. Discussed same with family and will make sghared decision on that if labs
will be worsening
follow inflammatory markers
NM WBC scan on 03/28/24
No lymphadenopathy noted on previous imaging and on daily physical exam
#Transaminitis
#Alk.phos elevation
#5mm gallbladder polyp
#Liver lesion
#Nodular liver, not confirmed on US
MRI liver
GI consult
Repeat US in 6month for polyp monitoring - son verbalized understanding of the instructions
follow LFT
check bone specific Alk.phos, however elevation since 04/02/24
#Sepsis on admission 2/2 UTI, complicated with L uretal stent
#Hx of bladder CA s/p TURBT
CT abd showed no significant ureteral obstruction
Stent exchanged by Urology on 03/23/24
Complex L remal cyst drained on 03/22/24, drain removed on 03/25/24, neg culture
Bcx NTD
Ucx - E.Faecalis
ID follows: s/p Ceftriaxone, Zosyn, daptomycin, now on Merrem
Castañeda for decompression, removed on 03/26/24 - TOV
#Anemia of chronic disease
follow CBC, transfuse as needed to keep Hgb>7
#b/l TMJ pain s/p fall
without temporal tenderness
no vision disturbances
improving
Low concern for GCA/PMR
In view of recent infection and persistent fever with leukocytosis - will avoid steroids
Discussed with rheumatology to schedule outpatient follow up - patient to call
CT on admission showed tissue concussion
#b/l ankle swelling
proBNP 305
Echo with preserved EF and no change since September 2023
LE elevation
US neg for DVT
#Syncope
Patient described Hx of falls and her PCP was concerned for episodes of hypoglycemia. Patient felt cold sweat before her fall this time too, similar to the previous episodes, however patient is not diabetic and not on insulin or oral hypoglycemics
No arrhythmia
Most likely 2/2 fevers and acute disease causing malaise vs hyponatremia
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
ASA, statin and BP control
#Hyponatremia on admission
Nephro follows: 2/2 ADH
Hold SSRI
follow BMP
Fluid restriction
Furosemide PRN
#GERD
PPI
DVT ppx on SCDs as per Urology
Full code
I have spent at least 57min reviewing chart, test results, communication with consultants and direct patient care
Anticipated Discharge: > 48 hours
Subjective/Interval History
-
Date of Service: March 28, 2024
Objective Data
-
Labs:
Laboratory Results
03/28/24
06:04
WBC 29.1 H
Hgb 9.0 L
Hct 27.0 L
Plt Count 745 H
Sodium 135
Potassium 5.0
Chloride 96 L
Carbon Dioxide 24
BUN 18 H
Creatinine 0.5 L
Glucose 120 H
Calcium 8.4
Total Bilirubin 0.6
AST 27
ALT 43 H
Alkaline Phosphatase 175 H
Vital Signs:
Vital Signs
Temp Pulse Resp BP Pulse Ox
100.4 F H 96 16 131/53 95
03/28/24 09:43 03/28/24 08:10 03/28/24 08:10 03/28/24 08:35 03/28/24 09:16
I&O
03/27/24 03/28/24 03/29/24
06:59 06:59 06:59
Intake Total 2280 / 2280 1440 / 1440
Output Total 700 / 700
Balance 1580 / 1580 1440 / 1440
Review of Systems
-
History Source: Patient
All other systems: Reviewed and negative
Physical Exam
-
General: No Apparent Distress
HEENT: Normocephalic, Atraumatic and Moist Mucous Membranes
Respiratory: Clear to Auscultation
Cardiac: Regular Rhythm
GI: Soft, Nontender and Nondistended
Musculoskeletal: No Clubbing, No Cyanosis and No Edema
Skin: Other (bruise surrounding L eye)
Neuro: Awake, Alert, Oriented and AO x 3
Psych: Calm
--- NOTE | 2024-03-28 12:18 | W.PN.URO.CBU ---
Today's Communication / Plan
-
wbc scan today
spoke with daughter today
Assessment / Plan
-
hx of bladder ca with obstruction of left UO- s/p resection and stent
enterococcal UTI
persistent fevers and leukocytosis- source unclear
no recent fevers- wbc still elevated- downtrending a little
all gu cx's negative and interventions including stent change and cyst aspiration have not resulted any sig change in wbc
bladder cancer burden i do not think is enough (in fact at this juncture no evid of any residual cancer) to account for a paraneoplastic syndrome-leukocystosis
cyst drain out- hart out today
will follow- med eval ongoing
eventual plan is for ureteral stent removal in 10-14 days and if stable begin intra-vesicle med for bladder ca
antibx off- for tagged wbc scan today
Diagnosis
-
Date of Service: March 28, 2024
-
Patient Diagnosis:
bladder cancer
fever
UTI
s/p left renal cyst drainage 03/22
s/p left ureteral stent exchange 03/23
Subjective
-
pt feels fine
low grade temp and wbc up again
Objective
-
Vital Signs
Temp Pulse Resp BP Pulse Ox
100.4 F H 96 16 131/53 95
03/28/24 09:43 03/28/24 08:10 03/28/24 08:10 03/28/24 08:35 03/28/24 09:16
Intake and Output
03/27/24 03/28/24 03/29/24
06:59 06:59 06:59
Intake Total 2280 / 2280 1440 / 1440
Output Total 700 / 700
Balance 1580 / 1580 1440 / 1440
Intake:
Oral fluids 2280 / 2280 1440 / 1440
Output:
Urine, Hart 700 / 700
Other:
Number of approximated SMALL 1
amounts of urine
Number of approximated MODERATE 2 1
amounts of urine
How many times incontinent 1
SMALL amount urine
How many times incontinent 3 3
SATURATED amount urine
Number of unmeasured liquid
stools
Rectum 1
Laboratory Results
03/28/24 06:04
03/28/24 06:04
Review of Systems
-
Constitutional: Fatigue
Respiratory: No Symptoms
Cardiac: No Symptoms
Abdomen/GI: No Symptoms
: Frequency
Physical Exam
-
General - no acute distress
Abdomen - soft, non-tender
Genitalia - normal- hart out
[2024-03-28 12:45] LABS: GGTP 174 U/L (12-43)
[2024-03-28 15:45] VITALS: BP 128/63
--- NOTE | 2024-03-28 16:20 | CM ---
Patient seen at bedside.
Patient out of the room earlier for testing
WBC Scan, MRI
PT seen patient today, recommends SNF
Spoke with daughter Jason.
PLAN: [facility] when medically stable.
[2024-03-28] MEDS: HEPARIN 5000 UNITS SC (16:50)
--- NOTE | 2024-03-28 16:54 | W.PN.NEPH.PH ---
Today's Communication / Plan
-
FR, follow labs
Assessment/Plan
-
Assessment
Hyponatremia
Bladder cancer
Fall
Hypertension
Hyperlipidemia
Leukocytosis
Plan:
Hyponatremia improving now
strictly maintain FR 48oz/day, prn lasix
encourage solute intake
BP stable
follow BMP
d/w daughter at bedside
s/p WBC scan and MRI abd with no acute findings
-
-
Date of Service: March 28, 2024
CC / HPI / ROS
-
Chief Complaint:
hyponatremia
History of Present Illness:
Na normal
BP stable
Hgb stable 9
off hart. stent Left in place for obstructive uropathy
off abx now
s/p adp of K cyst on 03/23-felt no infection and stent exchanged per
Review of Systems:
Pt is [place]
low grade fever this am
no n/v
Labs
-
Labs:
WBC 29.1 10^3/uL (4.8-10.8) H 03/28/24 06:04
RBC 3.08 10^6/uL (4.20-5.40) L 03/28/24 06:04
Hgb 9.0 g/dL (12.0-16.0) L 03/28/24 06:04
Hct 27.0 % (37.0-47.0) L 03/28/24 06:04
Plt Count 745 10^3/uL (130-400) H 03/28/24 06:04
Sodium 135 mmol/L (135-145) 03/28/24 06:04
Potassium 5.0 mmol/L (3.5-5.1) 03/28/24 06:04
Chloride 96 mmol/L (98-107) L 03/28/24 06:04
Carbon Dioxide 24 mmol/L (22-30) 03/28/24 06:04
BUN 18 mg/dl (7-17) H 03/28/24 06:04
Creatinine 0.5 mg/dL (0.6-1.0) L 03/28/24 06:04
eGFR > 60.00 03/28/24 06:04
Glucose 120 mg/dl (70-99) H 03/28/24 06:04
Calcium 8.4 mg/dl (8.4-10.2) 03/28/24 06:04
Phosphorus 3.3 mg/dl (2.5-4.5) 03/28/24 06:04
Lzf-O-Xdvezmtugkt Pept 305 pg/ml 03/16/24 05:57
Albumin 2.9 g/dl (3.5-5.0) L 03/28/24 06:04
Physical Exam
-
Vital Signs:
Vital Signs
Temp Pulse Resp BP Pulse Ox
98.1 F 80 17 128/63 95
03/28/24 15:45 03/28/24 15:45 03/28/24 15:45 03/28/24 15:45 03/28/24 15:45
Cardiovascular:: Regular rate and rhythm
Respiratory:: Bilateral: CTA
Lung Excursion:: Normal
Abdomen:: Nontender and Soft
Extremity Edema:: None: Bilateral:
Hart Catheter: No
[2024-03-28] MEDS: LIPITOR 40 MG PO (17:58)
[2024-03-28] MEDS: NON-FORMULARY ITEM 75 MG PO (17:58)
--- NOTE | 2024-03-28 18:23 | PTCARENOTE ---
Addendum entered by Kaylee Vasquez RN 03/28/24 19:19:
new bottle brought in and put in patient specific drawer.
Original Note:
last gemtesa from home given to patient this evening. pt bottle put in room and pt made aware will need to bring in more.
[2024-03-28 22:37] VITALS: BP 107/63
[2024-03-29] MEDS: HEPARIN 5000 UNITS SC (01:00)
[2024-03-29 04:42] LABS: % Basophils 0.2 % (0-2); % Eosinophils 2.9 % (0-6); % Immature Granulocytes 2.9 % (0-0.5); % Lymphocytes 5.7 % (20.5-51.1); % Monocytes 7.4 % (1.7-9.3); % Neutrophils 80.9 % (42.2-75.2); Absolute Basophils 0.1 10^3/uL (0-0.2); Absolute Eosinophils 0.7 10^3/uL (0-0.7); Absolute Immature Granulocytes 0.7 10^3/uL (0-0.05); Absolute Lymphocytes 1.4 10^3/uL (1.2-3.4); Absolute Monocytes 1.9 10^3/uL (0.1-0.6); Absolute Neutrophils 20.4 10^3/uL (1.4-6.5); Hematocrit 22.1 % (37.0-47.0); Hemoglobin 7.4 g/dL (12.0-16.0); Mean Corp Hgb Conc. 33.5 g/dL (33.0-37.0); Mean Corpuscular Hgb 30.2 pg (27.0-31.0); Mean Corpuscular Volume 90.2 fL (81.0-99.0); Mean Platelet Volume 10.4 fL (7.4-10.4); Nucleated Red Blood Cells % 0 %; Platelet Count 593 10^3/uL (130-400); Red Blood Cell Count 2.45 10^6/uL (4.20-5.40); Red Cell Dist. Width 13.1 % (11.5-14.5); White Blood Cell Count 25.2 10^3/uL (4.8-10.8)
[2024-03-29 05:03] LABS: ALT (SGPT) 40 U/L (0-35); AST (SGOT) 33 U/L (14-36); Albumin 2.4 g/dl (3.5-5.0); Alkaline Phosphatase 136 U/L (38-126); Blood Urea Nitrogen 20 mg/dl (7-17); Calcium 8.3 mg/dl (8.4-10.2); Carbon Dioxide 24 mmol/L (22-30); Chloride 98 mmol/L (98-107); Estimated Creatinine Clearance 51 ml/min; Glucose 124 mg/dl (70-99); LDH 157 U/L (120-246); Potassium 4.2 mmol/L (3.5-5.1); Sodium 132 mmol/L (135-145); Total Bilirubin 0.5 mg/dl (0.2-1.3); Total Protein 5.2 g/dl (6.3-8.2); eGFR > 60.00
[2024-03-29 05:04] VITALS: BMI 25.5
[2024-03-29 05:07] LABS: Procalcitonin 0.19 ng/ml (0.0-0.25)
[2024-03-29 05:30] LABS: Hypersegmented Neutrophil 2+; Hypochromasia 1+; Normal RBC Morphology No
[2024-03-29 05:31] LABS: Basophilic Stippling Occasional; Polychromasia Occasional; Target Cells Occasional
[2024-03-29 05:34] LABS: Ovalocytes Occasional
[2024-03-29 05:35] LABS: Tear Drop Red Blood Cells Occasional
[2024-03-29 06:11] LABS: Number Of Markers 26 markers; Source Blood
[2024-03-29 07:10] VITALS: BP 123/54
[2024-03-29 07:28] LABS: % Basophils 0.2 % (0-2); % Eosinophils 4.1 % (0-6); % Immature Granulocytes 2.6 % (0-0.5); % Lymphocytes 6.1 % (20.5-51.1); % Monocytes 7.8 % (1.7-9.3); % Neutrophils 79.2 % (42.2-75.2); Absolute Basophils 0.1 10^3/uL (0-0.2); Absolute Immature Granulocytes 0.6 10^3/uL (0-0.05); Absolute Lymphocytes 1.4 10^3/uL (1.2-3.4); Absolute Monocytes 1.8 10^3/uL (0.1-0.6); Absolute Neutrophils 18.3 10^3/uL (1.4-6.5); Hematocrit 21.9 % (37.0-47.0); Hemoglobin 7.4 g/dL (12.0-16.0); Mean Corp Hgb Conc. 33.8 g/dL (33.0-37.0); Mean Corpuscular Hgb 29.5 pg (27.0-31.0); Mean Corpuscular Volume 87.3 fL (81.0-99.0); Mean Platelet Volume 10.4 fL (7.4-10.4); Nucleated Red Blood Cells % 0 %; Platelet Count 548 10^3/uL (130-400); Red Blood Cell Count 2.51 10^6/uL (4.20-5.40); Red Cell Dist. Width 13.2 % (11.5-14.5); White Blood Cell Count 23.1 10^3/uL (4.8-10.8)
[2024-03-29 07:53] LABS: ANA, IgG Reflex to HEp-2 None Detected (None Detected)
[2024-03-29 08:08] LABS: Erythrocyte Sed Rate 99 mm/hour (0-20)
--- NOTE | 2024-03-29 09:01 | W.PN.URO.CBU ---
Today's Communication / Plan
-
observe
Assessment / Plan
-
hx of bladder ca with obstruction of left UO- s/p resection and stent
enterococcal UTI
persistent fevers and leukocytosis- source unclear
no recent fevers- wbc still elevated- downtrending a little
all gu cx's negative and interventions including stent change and cyst aspiration have not resulted any sig change in wbc
bladder cancer burden i do not think is enough (in fact at this juncture no evid of any residual cancer) to account for a paraneoplastic syndrome-leukocystosis
cyst drain out- hart out today
all studies remain negative
nothing to add from gu standpoint- tentative plan is still for stent removal next week
if clinically stable- am ok from my standpoint with outpatient observation off antibx
will follow
Diagnosis
-
Date of Service: March 29, 2024
-
Patient Diagnosis:
bladder cancer
fever
UTI
s/p left renal cyst drainage 03/22
s/p left ureteral stent exchange 03/23
Subjective
-
pt asleep
no fevers/ wbc down
all studies noted- from gu standpoint- abc scan negative/abd MRI negative
Objective
-
Vital Signs
Temp Pulse Resp BP Pulse Ox
97.7 F 67 14 123/54 95
03/29/24 07:10 03/29/24 07:10 03/29/24 07:10 03/29/24 07:10 03/29/24 07:10
Intake and Output
03/28/24 03/29/24 03/30/24
06:59 06:59 06:59
Intake Total 1440 / 1440 1200 / 1200
Balance 1440 / 1440 1200 / 1200
Intake:
Oral fluids 1440 / 1440 1200 / 1200
Other:
Number of approximated SMALL 1
amounts of urine
Number of approximated MODERATE 1 1
amounts of urine
How many times incontinent 2
MODERATE amount urine
How many times incontinent 3
SATURATED amount urine
Laboratory Results
03/29/24 07:16
03/29/24 04:23
Physical Exam
-
General - asleep
[2024-03-29] MEDS: COZAAR 100 MG PO (09:13)
[2024-03-29] MEDS: PROTONIX 40 MG PO ×2 (09:13→19:46)
[2024-03-29] MEDS: DESENEX/MITRAZOL/ZEASORB 1 APPLIC TOPICAL ×2 (09:14→19:46)
[2024-03-29] MEDS: HEPARIN SC (09:56)
--- NOTE | 2024-03-29 10:15 | W.PN.NEPH.PH ---
Today's Communication / Plan
-
lasix
Assessment/Plan
-
Assessment
Hyponatremia
Bladder cancer
Fall
Hypertension
Hyperlipidemia
Leukocytosis
Plan:
FR
lasix 10mg daily
follow WBC
-
-
Date of Service: March 29, 2024
CC / HPI / ROS
-
Chief Complaint:
hyponatremia
History of Present Illness:
Na lower 132
BP stable
WBC remains elevated
off hart. stent Left in place for obstructive uropathy
off abx now
s/p adp of K cyst on 03/23-felt no infection and stent exchanged per
Review of Systems:
Pt is [place]
no n/v
Labs
-
Labs:
WBC 23.1 10^3/uL (4.8-10.8) H 03/29/24 07:16
RBC 2.51 10^6/uL (4.20-5.40) L 03/29/24 07:16
Hgb 7.4 g/dL (12.0-16.0) L 03/29/24 07:16
Hct 21.9 % (37.0-47.0) L 03/29/24 07:16
Plt Count 548 10^3/uL (130-400) H 03/29/24 07:16
Sodium 132 mmol/L (135-145) L 03/29/24 04:23
Potassium 4.2 mmol/L (3.5-5.1) 03/29/24 04:23
Chloride 98 mmol/L (98-107) 03/29/24 04:23
Carbon Dioxide 24 mmol/L (22-30) 03/29/24 04:23
BUN 20 mg/dl (7-17) H 03/29/24 04:23
Creatinine 0.6 mg/dL (0.6-1.0) 03/29/24 04:23
eGFR > 60.00 03/29/24 04:23
Glucose 124 mg/dl (70-99) H 03/29/24 04:23
Calcium 8.3 mg/dl (8.4-10.2) L 03/29/24 04:23
Phosphorus 3.3 mg/dl (2.5-4.5) 03/28/24 06:04
Zxd-X-Gntuvbfbuhm Pept 305 pg/ml 03/16/24 05:57
Albumin 2.4 g/dl (3.5-5.0) L 03/29/24 04:23
Physical Exam
-
Vital Signs:
Vital Signs
Temp Pulse Resp BP Pulse Ox
97.7 F 67 14 123/54 95
03/29/24 07:10 03/29/24 09:13 03/29/24 07:10 03/29/24 09:13 03/29/24 07:10
Cardiovascular:: Regular rate and rhythm
Respiratory:: Bilateral: Coarse
Lung Excursion:: Normal
Abdomen:: Nontender and Soft
Bowel Sounds:: Normal
Extremity Edema:: +1: Bilateral:
[2024-03-29] MEDS: LASIX 10 MG PO (10:31)
[2024-03-29] MEDS: TYLENOL 650 MG PO ×2 (10:31→18:00)
--- NOTE | 2024-03-29 11:37 | W.PN.HOSP.TC ---
Today's Communication/Plan
-
observe off Abx - inflammatory markers stable, WBC and PLT improving
Worsened hgb on hep and ASA - hold meds, check stool for FOBT
Assessment / Plan
Assessment / Plan
88 yo woman with hx bladder cancer (s/p cystoscopy, diagnostic left ureteroscopy with stent exchange, transurethral resection bladder tumor on 03/07), HTN, HLD presents to the ER after syncopal episode 4 days before admission, fever, managed for UTI,
s/p L stent exchange on 03/23/24 and L complex cyst drain with persistent leukocytosis in spite of adequate Abx. Also developed transient transaminitis with Alk.phos elevation
A/P:
#Leukocytosis
#Thrombocytosis
#Elevated ferritin
#Elevated ESR
Hematology consult: flow cytometry sent on 03/27/24
COVID-19 neg x2, influenza neg
C.diff neg
ID follows
Parasite screen neg
US LE neg for DVT
CTA chest without signs of PE
Procalcitonin on 03/27/24 low
Might target repeated CT c/a/p, but with current low suspicion for additional infection - benefit questionable with risk of exposure to the additional radiation and contrast. Discussed same with family and will make sghared decision on that if labs
will be worsening
follow inflammatory markers - stable
NM WBC scan on 03/28/24 neg
No lymphadenopathy noted on previous imaging and on daily physical exam
#Anemia
most likely acute disease
Hold heparin
check FOBT
#Transaminitis
#Alk.phos elevation
#5mm gallbladder polyp
#Liver lesion ruled out
#Nodular liver, not confirmed on US
MRI liver: no concern for cirrhosis, no biliary pathology, no lesion
GI consult
Repeat US in 6month for polyp monitoring - son verbalized understanding of the instructions
follow LFT
check bone specific Alk.phos, however elevation since 04/02/24
#Sepsis on admission 2/2 UTI, complicated with L uretal stent
#Hx of bladder CA s/p TURBT
CT abd showed no significant ureteral obstruction
Stent exchanged by Urology on 03/23/24
Complex L remal cyst drained on 03/22/24, drain removed on 03/25/24, neg culture
Bcx NTD
Ucx - E.Faecalis
ID follows: s/p Ceftriaxone, Zosyn, daptomycin, completed Merrem
Castañeda for decompression, removed on 03/26/24 - TOV passed
#Anemia of chronic disease
follow CBC, transfuse as needed to keep Hgb>7
#b/l TMJ pain s/p fall
without temporal tenderness
no vision disturbances
improving
Low concern for GCA/PMR
In view of recent infection and persistent fever with leukocytosis - will avoid steroids
Discussed with rheumatology to schedule outpatient follow up - patient to call
CT on admission showed tissue concussion
NELLA screen neg
#b/l ankle swelling
proBNP 305
Echo with preserved EF and no change since September 2023
LE elevation
US neg for DVT
#Syncope
Patient described Hx of falls and her PCP was concerned for episodes of hypoglycemia. Patient felt cold sweat before her fall this time too, similar to the previous episodes, however patient is not diabetic and not on insulin or oral hypoglycemics
No arrhythmia
Most likely 2/2 fevers and acute disease causing malaise vs hyponatremia
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
hold ASA with anemia, statin and BP control
#Hyponatremia on admission
Nephro follows: 2/2 ADH
Hold SSRI
follow BMP
Fluid restriction
Furosemide 10mg daily
#GERD
PPI
DVT ppx on SCDs
Full code
I have spent at least 57min reviewing chart, test results, communication with consultants and direct patient care
Anticipated Discharge: 24 - 48 hours
Subjective/Interval History
-
Date of Service: March 29, 2024
Objective Data
-
Labs:
Laboratory Results
03/29/24 03/29/24
04:23 07:16
WBC 25.2 H 23.1 H
Hgb 7.4 L 7.4 L
Hct 22.1 L 21.9 L
Plt Count 593 H D 548 H
Sodium 132 L
Potassium 4.2
Chloride 98
Carbon Dioxide 24
BUN 20 H
Creatinine 0.6
Glucose 124 H
Calcium 8.3 L
Total Bilirubin 0.5
AST 33
ALT 40 H
Alkaline Phosphatase 136 H
Vital Signs:
Vital Signs
Temp Pulse Resp BP Pulse Ox
97.7 F 83 14 121/49 95
03/29/24 07:10 03/29/24 10:31 03/29/24 07:10 03/29/24 10:31 03/29/24 08:00
I&O
03/28/24 03/29/24 03/30/24
06:59 06:59 06:59
Intake Total 1440 / 1440 1200 / 1200
Balance 1440 / 1440 1200 / 1200
Review of Systems
-
History Source: Patient
All other systems: Reviewed and negative
Physical Exam
-
General: No Apparent Distress
HEENT: Normocephalic
Respiratory: Clear to Auscultation; Negative Wheezes or Rales
Cardiac: Regular Rhythm and S1/S2
GI: Soft, Nontender and Nondistended
Genito-urinary: No Costovertebral Tender
Musculoskeletal: No Clubbing, No Cyanosis and No Edema
Skin: Warm and Other (bmp on L eyebrow, mild bruise around L eye); Negative Lesions
Neuro: Awake, Alert, Oriented, AO x 3 and No Motor Deficits
Psych: Calm
--- NOTE | 2024-03-29 14:28 | W.PN.ID1 ---
Date of Service
Date of Service: March 29, 2024
Today's Communication
Observe off antibiotics.
Assessment / Plan
Leukocytosis - persistent
Thrombocytosis
Bladder cancer (urothelial carcinoma in situ)
Also:
HTN
Anxiety
GERD
Hx dysphagia
Recommendations:
Etiology of ongoing leukocytosis, thrombocytosis remains cryptic. Labeled white cell scan not indicative of focal infection.
Would continue to monitor closely off of antibiotics. If there is an infection, it will likely need to declare itself.
Will continue to monitor white count and temperature curve.
����������������������������������������������������������
Chief Complaint
-: Fever, Leukocytosis and UTI
Subjective / Review of Systems
Patient seen and examined. Overall feels well.
Vital Signs / Physical Exam
Vital Signs
Vital Signs
Temp Pulse Resp BP Pulse Ox
97.7 F 83 14 121/49 95
03/29/24 07:10 03/29/24 10:31 03/29/24 07:10 03/29/24 10:31 03/29/24 08:00
Physical Exam
Constitutional: No Acute Distress and Comfortable
Eyes: No Conjunctival Hemorrhage and Sclera Anicteric
Cardiovascular: Regular Rate and S1/S2; Negative Murmur or Rub
Pulmonary: Clear and Symmetric; Negative Wheezes or Rales
Gastrointestinal: Soft, Non Tender, Non Distended and Normal Bowel Sounds
Skin: Warm and Dry; Negative Rash or Jaundice
Neurological: Awake and Alert
Objective Data
Lab Data
Lab Results
03/29/24 07:16
03/29/24 04:23
ESR 99 mm/hour (0-20) H 03/29/24 04:23
PT 15.0 Sec (11.4-14.6) H 03/17/24 06:09
INR 1.20 03/17/24 06:09
Estimated Creat Clear 51 ml/min 03/29/24 04:23
Lactic Acid 0.9 mmol/L (0.7-2.0) 03/14/24 17:52
Total Bilirubin 0.5 mg/dl (0.2-1.3) 03/29/24 04:23
GGT 174 U/L (12-43) H 03/28/24 06:04
AST 33 U/L (14-36) 03/29/24 04:23
ALT 40 U/L (0-35) H 03/29/24 04:23
Alkaline Phosphatase 136 U/L (38-126) H 03/29/24 04:23
C-Reactive Protein 215.20 mg/L (0.0-10.00) H 03/29/24 04:23
Most recent labs reviewed.
Micro Results:
03/22/24 20:21 Blood Culture - Final
Blood/Venous No Growth - Final Report
03/22/24 14:01 Blood Culture - Final
Blood/Venous No Growth - Final Report
03/26/24 08:16 Influenza Types A & B (GRICELDA) - Final
Nasal Swab Negative for Influenza A & B, NAAT
Negative results must be combined with clinical observations
and patient history.
Nucleic Acid Amplification test (NAAT)performed on the
[employer] platform.
03/22/24 15:01 Body Fluid Culture - Final
Cyst No Growth After 72 Hours
Gram Stain - Final
03/24/24 06:14 Blood Parasites Smear - Final
Blood/Venous
03/22/24 11:30 Urine Culture - Final
Urine NO GROWTH
03/20/24 18:02 Urine Culture - Final
Urine NO GROWTH
03/16/24 23:21 Blood Culture - Final
Blood/Venous No Growth - Final Report
03/14/24 17:52 Blood Culture - Final
Blood/Venous No Growth - Final Report
03/14/24 16:38 Urine Culture - Final
Urine Enterococcus faecalis
03/18/24 12:10 C. difficile GDH Antigen & Toxins - Final
Feces/Stool Negative for toxigenic C.difficile
03/16/24 20:04 Influenza Types A & B (GRICELDA) - Final
Nasal Swab Negative for Influenza A & B, NAAT
Negative results must be combined with clinical observations
and patient history.
Nucleic Acid Amplification test (NAAT)performed on the
[employer] platform.
Imaging:
03/28/2024 Labeled white cell scan: No abnormal focus of accumulation of the labeled white blood cells is identified.
03/19/2024 Duplex ultrasound, lower extremities: No evidence of DVT
03/19/[address]: No evidence of lucency within the mandible and no findings to suggest peritonsillar abscess.
03/16/2024 CT abdomen/pelvis without contrast: Left ureteral stent is present. On postcontrast delayed images, there is excretion of contrast into the left-sided calyces without significant dilation. Findings would suggest that there is no
significant left ureteral obstruction with the left ureteral stent present. Thickening of the bladder wall, which could be postsurgical, but could also be from infection. Large minimally complex cystic mass arising from the left kidney, compatible
with benign Bosniak class II cystic mass. Subtle nodular external contour of the liver, suggestive of cirrhosis. Subtle low-density region within the medial segment of the left lobe of the liver, not definitely present on previous examinations.
When clinically feasible, further evaluation is advised with MRI of the abdomen without and with contrast, utilizing Eovist contrast agent.
--- NOTE | 2024-03-29 15:08 | CM ---
Patient seen at bedside. Patient accepted for transfer to [facility] possibly tomorrow,bed available. Please call report to [phone]/fax [phone]. Please call to nursing passenger car cleaning supervisor on weekend at [phone]. CM left for patient daughter, to
review IMM and update her about the possible transfer. CM called patient son and he will communicate with sister, and is in agreement with plan for transfer tomorrow pending physician assessment. CM will review IMM with patient and completed form to
be placed on chart. Patient for transfer via family car. CM will continue to for discharge planning needs.
Plan; transfer to SNF tomorrow pending physician assessment
[2024-03-29 15:10] VITALS: BP 124/57
[2024-03-29] MEDS: LIPITOR 40 MG PO (17:59)
[2024-03-29] MEDS: NON-FORMULARY ITEM 75 MG PO (17:59)
[2024-03-29] MEDS: MELATONIN 1.5 MG PO (21:37)
[2024-03-29 23:44] VITALS: BP 130/56
[2024-03-30] MEDS: TYLENOL 650 MG PO ×2 (03:32→18:28)
[2024-03-30 06:00] VITALS: BMI 25.4
[2024-03-30 07:20] VITALS: BP 116/45
--- NOTE | 2024-03-30 07:57 | W.PN.ONC ---
Today's Communication / Plan
-
Progressive Anemia suspect superimposed iron deficiency with anemia of chronic disease
Caution with parenteral iron given unclear cause of fever
Would transfuse if there is progressive anemia today
Monitor for GI bleeding
Impression
Impression
Fever
UTI
bladder cancer s/p resection & stent
bladder wall thickening non-specific
Anemia
Leukocytosis primarily neutrophils and monocytes -follow up flow
thrombocytosis may be reactive, if persist then would pursue outpatient evaluation with MPN panel
nodular liver, elevated LFTs c/f cirrhosis-consider GI evaluation for OP MRI
left renal cyst s/p drainage 03/22
hyponatremia
Subjective/Objective
Subjective/Objective
Patient feeling well today. She reports a febrile event last night.
Vital Signs:
Vital Signs
Temp Pulse Resp BP Pulse Ox
97.6 F 86 18 116/45 95
03/30/24 07:20 03/30/24 07:20 03/30/24 07:20 03/30/24 07:20 03/30/24 07:20
Physical exam unchanged
Lab Results:
Laboratory Data
WBC 23.1 10^3/uL (4.8-10.8) H 03/29/24 07:16
Hgb 7.4 g/dL (12.0-16.0) L 03/29/24 07:16
Plt Count 548 10^3/uL (130-400) H 03/29/24 07:16
PT 15.0 Sec (11.4-14.6) H 03/17/24 06:09
INR 1.20 03/17/24 06:09
eGFR > 60.00 03/29/24 04:23
[2024-03-30 08:02] LABS: Blood Urea Nitrogen 15 mg/dl (7-17); Calcium 8.1 mg/dl (8.4-10.2); Carbon Dioxide 25 mmol/L (22-30); Chloride 98 mmol/L (98-107); Estimated Creatinine Clearance 51 ml/min; Glucose 110 mg/dl (70-99); Potassium 4.4 mmol/L (3.5-5.1); Sodium 134 mmol/L (135-145); eGFR > 60.00
[2024-03-30] MEDS: LASIX 10 MG PO (08:55)
[2024-03-30] MEDS: COZAAR 100 MG PO (08:55)
[2024-03-30] MEDS: PROTONIX 40 MG PO ×2 (08:55→19:59)
[2024-03-30] MEDS: DESENEX/MITRAZOL/ZEASORB 1 APPLIC TOPICAL ×2 (08:59→19:59)
[2024-03-30 09:23] LABS: % Basophils 0.2 % (0-2); % Eosinophils 2.8 % (0-6); % Immature Granulocytes 2.3 % (0-0.5); % Lymphocytes 6.7 % (20.5-51.1); % Monocytes 9.5 % (1.7-9.3); % Neutrophils 78.5 % (42.2-75.2); Absolute Eosinophils 0.5 10^3/uL (0-0.7); Absolute Immature Granulocytes 0.4 10^3/uL (0-0.05); Absolute Lymphocytes 1.3 10^3/uL (1.2-3.4); Absolute Monocytes 1.8 10^3/uL (0.1-0.6); Absolute Neutrophils 14.9 10^3/uL (1.4-6.5); Hematocrit 22.2 % (37.0-47.0); Hemoglobin 7.5 g/dL (12.0-16.0); Mean Corp Hgb Conc. 33.8 g/dL (33.0-37.0); Mean Corpuscular Hgb 29.6 pg (27.0-31.0); Mean Corpuscular Volume 87.7 fL (81.0-99.0); Mean Platelet Volume 10.8 fL (7.4-10.4); Nucleated Red Blood Cells % 0 %; Platelet Count 460 10^3/uL (130-400); Red Blood Cell Count 2.53 10^6/uL (4.20-5.40); Red Cell Dist. Width 13.4 % (11.5-14.5)
--- NOTE | 2024-03-30 10:01 | W.PN.NEPH.PH ---
Today's Communication / Plan
-
follow BMP
Assessment/Plan
-
Assessment
Hyponatremia
Bladder cancer
Fall
Hypertension
Hyperlipidemia
Leukocytosis
Plan:
FR
lasix 10mg daily
follow WBC
follow fever curve
-
-
Date of Service: March 30, 2024
CC / HPI / ROS
-
Chief Complaint:
hyponatremia
History of Present Illness:
Na up to 134
BP stable
WBC remains elevated
fever overnight
off hart. stent Left in place for obstructive uropathy
off abx now
s/p adp of K cyst on 03/23-felt no infection and stent exchanged per
Review of Systems:
Pt is [place]
no n/v
Labs
-
Labs:
WBC 19.0 10^3/uL (4.8-10.8) H 03/30/24 06:39
RBC 2.53 10^6/uL (4.20-5.40) L 03/30/24 06:39
Hgb 7.5 g/dL (12.0-16.0) L 03/30/24 06:39
Hct 22.2 % (37.0-47.0) L 03/30/24 06:39
Plt Count 460 10^3/uL (130-400) H 03/30/24 06:39
Sodium 134 mmol/L (135-145) L 03/30/24 06:39
Potassium 4.4 mmol/L (3.5-5.1) 03/30/24 06:39
Chloride 98 mmol/L (98-107) 03/30/24 06:39
Carbon Dioxide 25 mmol/L (22-30) 03/30/24 06:39
BUN 15 mg/dl (7-17) 03/30/24 06:39
Creatinine 0.5 mg/dL (0.6-1.0) L 03/30/24 06:39
eGFR > 60.00 03/30/24 06:39
Glucose 110 mg/dl (70-99) H 03/30/24 06:39
Calcium 8.1 mg/dl (8.4-10.2) L 03/30/24 06:39
Phosphorus 3.3 mg/dl (2.5-4.5) 03/28/24 06:04
Dnz-I-Xbsktpkvzco Pept 305 pg/ml 03/16/24 05:57
Albumin 2.4 g/dl (3.5-5.0) L 03/29/24 04:23
Physical Exam
-
Vital Signs:
Vital Signs
Temp Pulse Resp BP Pulse Ox
97.6 F 86 18 116/45 95
03/30/24 07:20 03/30/24 07:20 03/30/24 07:20 03/30/24 07:20 03/30/24 07:20
Cardiovascular:: Regular rate and rhythm
Respiratory:: Bilateral: Coarse
Lung Excursion:: Normal
Abdomen:: Nontender and Soft
Bowel Sounds:: Normal
Extremity Edema:: None: Bilateral:
--- NOTE | 2024-03-30 11:47 | W.PN.URO.CBU ---
Today's Communication / Plan
-
nothing to add from gu standpoint- tentative plan is still for stent removal next week
ok from standpoint fir outpatient observation off antibx
Assessment / Plan
-
hx of bladder ca with obstruction of left UO- s/p resection and stent
enterococcal UTI
persistent fevers and leukocytosis- source unclear
no recent fevers- wbc downtrending
all gu cx's negative and interventions including stent change and cyst aspiration have not resulted any sig change in wbc
bladder cancer unlikely to account for a paraneoplastic syndrome-leukocytosis given she is currently [place]
hart removed 03/29
nothing to add from gu standpoint- tentative plan is still for stent removal next week
ok from standpoint fir outpatient observation off antibx
Diagnosis
-
Date of Service: March 30, 2024
-
Patient Diagnosis:
bladder cancer
fever
UTI
s/p left renal cyst drainage 03/22
s/p left ureteral stent exchange 03/23
Subjective
-
No issues overnight
Frustrated with being in the hospital
Objective
-
Vital Signs
Temp Pulse Resp BP Pulse Ox
97.6 F 86 18 116/45 95
03/30/24 07:20 03/30/24 07:20 03/30/24 07:20 03/30/24 07:20 03/30/24 07:20
Intake and Output
03/29/24 03/30/24 03/31/24
06:59 06:59 06:59
Intake Total 1200 / 1200 990 / 990
Balance 1200 / 1200 990 / 990
Intake:
Oral fluids 1200 / 1200 990 / 990
Other:
Number of approximated MODERATE 1 2
amounts of urine
How many times incontinent 2 1
MODERATE amount urine
How many times incontinent 1
SATURATED amount urine
Number of unmeasured liquid
stools
Rectum 1
Laboratory Results
03/30/24 06:39
03/30/24 06:39
Physical Exam
-
General - well developed, well nourished, no acute distress
Neuro - AOx3
Extremities - no edema
--- NOTE | 2024-03-30 12:15 | W.PN.HOSP.TC ---
Addendum entered and electronically signed by Fer Coffey MD 03/30/24 12:23:
Jaw pain completely resolved as per patient
Original Note:
Today's Communication/Plan
-
FOBT
labs in AM
continue monitor, if WBC and plt will continue trending toward normal and no new symptoms developed - will plan for d/c on 03/30/24
Assessment / Plan
Assessment / Plan
88 yo woman with hx bladder cancer (s/p cystoscopy, diagnostic left ureteroscopy with stent exchange, transurethral resection bladder tumor on 03/07), HTN, HLD presents to the ER after syncopal episode 4 days before admission, fever, managed for UTI,
s/p L stent exchange on 03/23/24 and L complex cyst drain with persistent leukocytosis in spite of adequate Abx. Also developed transient transaminitis with Alk.phos elevation, that later improved. Continued to have fever off Abx without clear
source, however noted improvement in thrombocytes and WBC count. As per joint discussion with specialists and family - will be reasonable to monitor. If there is an infection - it will declare itself. Family agreeable for close monitoring in rehab
A/P:
#Leukocytosis
#Thrombocytosis
#Elevated ferritin
#Elevated ESR
Hematology consult: flow cytometry sent on 03/27/24, result showing no imunnoaberrancy and no atypical cells
COVID-19 neg x2, influenza neg
C.diff neg
ID follows
Parasite screen neg
US LE neg for DVT
CTA chest without signs of PE
Procalcitonin on 03/27/24 low
Might target repeated CT c/a/p, but with current low suspicion for additional infection - benefit questionable with risk of exposure to the additional radiation and contrast. Discussed same with family and will make sghared decision on that if labs
will be worsening
follow inflammatory markers - stable
NM WBC scan on 03/28/24 neg
No lymphadenopathy noted on previous imaging and on daily physical exam
#Anemia
most likely acute disease, DEEPTI and iatrogenic 2/2 multiple blood tests
Hold heparin
check FOBT
#Transaminitis
#Alk.phos elevation
#5mm gallbladder polyp
#Liver lesion ruled out
#Nodular liver, not confirmed on US
MRI liver: no concern for cirrhosis, no biliary pathology, no lesion
GI consult
Repeat US in 6month for polyp monitoring - son verbalized understanding of the instructions
follow LFT
check bone specific Alk.phos, however elevation since 04/02/24
#Sepsis on admission 2/2 UTI, complicated with L uretal stent
#Hx of bladder CA s/p TURBT
CT abd showed no significant ureteral obstruction
Stent exchanged by Urology on 03/23/24
Complex L renal cyst drained on 03/22/24, drain removed on 03/25/24, neg culture
Bcx NTD
Ucx - E.Faecalis
ID follows: s/p Ceftriaxone, Zosyn, daptomycin, completed Merrem
Castañeda for decompression, removed on 03/26/24 - TOV passed
#Anemia of chronic disease
follow CBC, transfuse as needed to keep Hgb>7
#b/l TMJ pain s/p fall
without temporal tenderness
no vision disturbances
improving
Low concern for GCA/PMR
In view of recent infection and persistent fever with leukocytosis - will avoid steroids
Discussed with rheumatology to schedule outpatient follow up - patient to call
CT on admission showed tissue concussion
NELLA screen neg
#b/l ankle swelling
proBNP 305
Echo with preserved EF and no change since September 2023
LE elevation
US neg for DVT
#Syncope
Patient described Hx of falls and her PCP was concerned for episodes of hypoglycemia. Patient felt cold sweat before her fall this time too, similar to the previous episodes, however patient is not diabetic and not on insulin or oral hypoglycemics
No arrhythmia
Most likely 2/2 fevers and acute disease causing malaise vs hyponatremia
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
hold ASA with anemia,
Statin and BP control, start ASA when Hgb improves - discussed with family in details
#Hyponatremia on admission
Nephro follows: 2/2 ADH
Hold SSRI
follow BMP
Fluid restriction
Furosemide 10mg daily
#GERD
PPI
DVT ppx on SCDs
Full code
I have spent at least 57min reviewing chart, test results, communication with consultants and direct patient care
Anticipated Discharge: Within 24 hours
Subjective/Interval History
-
Date of Service: March 30, 2024
Objective Data
-
Labs:
Laboratory Results
03/30/24
06:39
WBC 19.0 H
Hgb 7.5 L
Hct 22.2 L
Plt Count 460 H
Sodium 134 L
Potassium 4.4
Chloride 98
Carbon Dioxide 25
BUN 15
Creatinine 0.5 L
Glucose 110 H
Calcium 8.1 L
Vital Signs:
Vital Signs
Temp Pulse Resp BP Pulse Ox
97.6 F 86 18 116/45 95
03/30/24 07:20 03/30/24 07:20 03/30/24 07:20 03/30/24 07:20 03/30/24 07:20
I&O
03/29/24 03/30/24 03/31/24
06:59 06:59 06:59
Intake Total 1200 / 1200 990 / 990
Balance 1200 / 1200 990 / 990
Review of Systems
-
History Source: Patient
All other systems: Reviewed and negative
Physical Exam
-
General: No Apparent Distress
HEENT: Normocephalic
Skin: Warm
Neuro: Awake, Alert, Oriented, AO x 3 and No Motor Deficits
Psych: Calm
[2024-03-30 15:05] VITALS: BP 134/54
[2024-03-30 16:09] LABS: Alk Phos Bone Specific Results 9.7 ug/L
[2024-03-30] MEDS: LIPITOR 40 MG PO (17:02)
[2024-03-30] MEDS: NON-FORMULARY ITEM 75 MG PO (17:02)
[2024-03-30] MEDS: MELATONIN 1.5 MG PO (21:39)
[2024-03-30 22:44] VITALS: BP 124/51
[2024-03-31 01:32] LABS: Haptoglobin 450 mg/dL (30-200)
[2024-03-31 06:00] VITALS: BMI 25.4
[2024-03-31 07:10] VITALS: BP 131/59
[2024-03-31 07:21] LABS: % Basophils 0.3 % (0-2); % Eosinophils 1.7 % (0-6); % Immature Granulocytes 2.5 % (0-0.5); % Lymphocytes 5.3 % (20.5-51.1); % Monocytes 8.2 % (1.7-9.3); Absolute Basophils 0.1 10^3/uL (0-0.2); Absolute Eosinophils 0.3 10^3/uL (0-0.7); Absolute Immature Granulocytes 0.4 10^3/uL (0-0.05); Absolute Lymphocytes 0.9 10^3/uL (1.2-3.4); Absolute Monocytes 1.5 10^3/uL (0.1-0.6); Absolute Neutrophils 14.5 10^3/uL (1.4-6.5); Hematocrit 21.5 % (37.0-47.0); Hemoglobin 7.5 g/dL (12.0-16.0); Mean Corp Hgb Conc. 34.9 g/dL (33.0-37.0); Mean Corpuscular Hgb 30.6 pg (27.0-31.0); Mean Corpuscular Volume 87.8 fL (81.0-99.0); Mean Platelet Volume 10.5 fL (7.4-10.4); Nucleated Red Blood Cells % 0 %; Platelet Count 516 10^3/uL (130-400); Red Blood Cell Count 2.45 10^6/uL (4.20-5.40); Red Cell Dist. Width 13.2 % (11.5-14.5); White Blood Cell Count 17.7 10^3/uL (4.8-10.8)
[2024-03-31 08:11] LABS: Erythrocyte Sed Rate 137 mm/hour (0-20)
[2024-03-31 08:43] LABS: Blood Urea Nitrogen 12 mg/dl (7-17); Calcium 8.1 mg/dl (8.4-10.2); Carbon Dioxide 25 mmol/L (22-30); Chloride 97 mmol/L (98-107); Estimated Creatinine Clearance 51 ml/min; Glucose 104 mg/dl (70-99); Potassium 4.8 mmol/L (3.5-5.1); Sodium 131 mmol/L (135-145); eGFR > 60.00
--- NOTE | 2024-03-31 09:02 | W.PN.NEPH.PH ---
Today's Communication / Plan
-
smsca
Assessment/Plan
-
Assessment
Hyponatremia
Bladder cancer
Fall
Hypertension
Hyperlipidemia
Leukocytosis
Plan:
FR
lasix 10mg daily
follow WBC
follow fever curve
samsca today
-
-
Date of Service: March 31, 2024
CC / HPI / ROS
-
Chief Complaint:
hyponatremia
History of Present Illness:
Na down to 131
BP stable
WBC remains elevated 17.7
fever this morning
off hart. stent Left in place for obstructive uropathy
off abx now
s/p adp of K cyst on 03/23-felt no infection and stent exchanged per
Review of Systems:
Pt is [place]
no n/v
Labs
-
Labs:
WBC 17.7 10^3/uL (4.8-10.8) H 03/31/24 06:40
RBC 2.45 10^6/uL (4.20-5.40) L 03/31/24 06:40
Hgb 7.5 g/dL (12.0-16.0) L 03/31/24 06:40
Hct 21.5 % (37.0-47.0) L 03/31/24 06:40
Plt Count 516 10^3/uL (130-400) H 03/31/24 06:40
Sodium 131 mmol/L (135-145) L 03/31/24 06:40
Potassium 4.8 mmol/L (3.5-5.1) 03/31/24 06:40
Chloride 97 mmol/L (98-107) L 03/31/24 06:40
Carbon Dioxide 25 mmol/L (22-30) 03/31/24 06:40
BUN 12 mg/dl (7-17) 03/31/24 06:40
Creatinine 0.5 mg/dL (0.6-1.0) L 03/31/24 06:40
eGFR > 60.00 03/31/24 06:40
Glucose 104 mg/dl (70-99) H 03/31/24 06:40
Calcium 8.1 mg/dl (8.4-10.2) L 03/31/24 06:40
Phosphorus 3.3 mg/dl (2.5-4.5) 03/28/24 06:04
Wkl-K-Wyfytcegiki Pept 305 pg/ml 03/16/24 05:57
Albumin 2.4 g/dl (3.5-5.0) L 03/29/24 04:23
Physical Exam
-
Vital Signs:
Vital Signs
Temp Pulse Resp BP Pulse Ox
101.8 F H 102 16 131/59 96
03/31/24 07:10 03/31/24 07:10 03/31/24 07:10 03/31/24 07:10 03/31/24 07:10
Cardiovascular:: Regular rate and rhythm
Respiratory:: Bilateral: Coarse
Lung Excursion:: Normal
Abdomen:: Nontender and Soft
Bowel Sounds:: Normal
Extremity Edema:: None: Bilateral:
[2024-03-31] MEDS: COZAAR 100 MG PO (09:34)
[2024-03-31] MEDS: PROTONIX 40 MG PO ×2 (09:34→20:08)
[2024-03-31] MEDS: LASIX 10 MG PO (09:35)
[2024-03-31] MEDS: SAMSCA 7.5 MG PO (09:36)
[2024-03-31] MEDS: TYLENOL 650 MG PO ×2 (09:36→20:07)
[2024-03-31] MEDS: DESENEX/MITRAZOL/ZEASORB 1 APPLIC TOPICAL ×2 (09:38→21:43)
[2024-03-31 09:39] LABS: TSH Reflex To Free T4 2.33 uIU/ml (0.47-4.68)
[2024-03-31 10:33] LABS: Procalcitonin 0.17 ng/ml (0.0-0.25)
--- NOTE | 2024-03-31 10:43 | W.PN.ONC ---
Today's Communication / Plan
-
Persistence of fever perplexing
SIADH with Erika today
We discussed bone marrow biopsy which she refuses
Continue to suspect a reactive inflammatory process
Could this be rheumatologic with sedimentation rate of 137?
Consider empiric course of steroids if ID satisfied there is no infectious etiology
Impression
Impression
Fever
UTI
bladder cancer s/p resection & stent
bladder wall thickening non-specific
Anemia
Leukocytosis primarily neutrophils and monocytes -follow up flow
thrombocytosis may be reactive, if persist then would pursue outpatient evaluation with MPN panel
nodular liver, elevated LFTs c/f cirrhosis-consider GI evaluation for OP MRI
left renal cyst s/p drainage 03/22
hyponatremia
Subjective/Objective
Subjective/Objective
She continues to be without new complaints to indicate source of infection.
Vital Signs:
Vital Signs
Temp Pulse Resp BP Pulse Ox
101.8 F H 102 16 131/59 96
03/31/24 07:10 03/31/24 09:35 03/31/24 07:10 03/31/24 09:35 03/31/24 07:10
Physical exam essentially unchanged.
Lab Results:
Laboratory Data
WBC 17.7 10^3/uL (4.8-10.8) H 03/31/24 06:40
Hgb 7.5 g/dL (12.0-16.0) L 03/31/24 06:40
Plt Count 516 10^3/uL (130-400) H 03/31/24 06:40
PT 15.0 Sec (11.4-14.6) H 03/17/24 06:09
INR 1.20 03/17/24 06:09
eGFR > 60.00 03/31/24 06:40
--- NOTE | 2024-03-31 13:52 | W.PN.HOSP.TC ---
Today's Communication/Plan
-
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
Samca and follow sodium
Assessment / Plan
Assessment / Plan
88 yo woman with hx bladder cancer (s/p cystoscopy, diagnostic left ureteroscopy with stent exchange, transurethral resection bladder tumor on 03/07), HTN, HLD presents to the ER after syncopal episode 4 days before admission, fever, managed for UTI,
s/p L stent exchange on 03/23/24 and L complex cyst drain with persistent leukocytosis in spite of adequate Abx. Also developed transient transaminitis with Alk.phos elevation, that later improved. Continued to have fever off Abx without clear
source, however noted improvement in thrombocytes and WBC count. As per joint discussion with specialists and family - will be reasonable to monitor. If there is an infection - it will declare itself. DIscussed with rheumatology and patient will be
able to have close follow up upon the discharge with office of
A/P:
#Leukocytosis
#Thrombocytosis
#Elevated ferritin
#Elevated ESR
#Possible FUO
Hematology consult: flow cytometry sent on 03/27/24, result showing no imunnoaberrancy and no atypical cells
COVID-19 neg x2, influenza neg
C.diff neg
ID follows
Parasite screen neg
US LE neg for DVT
CTA chest without signs of PE
Procalcitonin serially negative
With absence of localizing symptoms - no significant concern for rheumatologic disease
Might target repeated CT c/a/p, but with current low suspicion for additional infection - benefit questionable with risk of exposure to the additional radiation and contrast. Discussed same with family and will make sghared decision on that if labs
will be worsening
follow inflammatory markers - stable
NM WBC scan on 03/28/24 neg
No lymphadenopathy noted on previous imaging and on daily physical exam
#Anemia
most likely acute disease, DEEPTI and iatrogenic 2/2 multiple blood tests
Hold heparin
check FOBT
#Transaminitis
#Alk.phos elevation
#5mm gallbladder polyp
#Liver lesion ruled out
#Nodular liver, not confirmed on US
MRI liver: no concern for cirrhosis, no biliary pathology, no lesion
GI consult
Repeat US in 6month for polyp monitoring - son verbalized understanding of the instructions
follow LFT
bone specific Alk.phos WNL, can be 2/2 CA
#Sepsis on admission 2/2 UTI, complicated with L uretal stent
#Hx of bladder CA s/p TURBT
CT abd showed no significant ureteral obstruction
Stent exchanged by Urology on 03/23/24
Complex L renal cyst drained on 03/22/24, drain removed on 03/25/24, neg culture
Bcx NTD
Ucx - E.Faecalis
ID follows: s/p Ceftriaxone, Zosyn, daptomycin, completed Merrem
Castañeda for decompression, removed on 03/26/24 - TOV passed
#Anemia of chronic disease
follow CBC, transfuse as needed to keep Hgb>7
#b/l TMJ pain s/p fall
without temporal tenderness
no vision disturbances
improving
Low concern for GCA/PMR
In view of recent infection and persistent fever with leukocytosis - will avoid steroids
Discussed with rheumatology to schedule outpatient follow up - patient to call
CT on admission showed tissue concussion
NELLA screen neg
#b/l ankle swelling
proBNP 305
Echo with preserved EF and no change since September 2023
LE elevation
US neg for DVT
#Syncope
Patient described Hx of falls and her PCP was concerned for episodes of hypoglycemia. Patient felt cold sweat before her fall this time too, similar to the previous episodes, however patient is not diabetic and not on insulin or oral hypoglycemics
No arrhythmia
Most likely 2/2 fevers and acute disease causing malaise vs hyponatremia
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
hold ASA with anemia,
Statin and BP control, start ASA when Hgb improves - discussed with family in details
#Hyponatremia
Nephro follows: 2/ ADH
Hold SSRI
follow BMP
Fluid restriction
Furosemide 10mg daily
S/P Samca on 03/31/24
#GERD
PPI
DVT ppx on SCDs
Full code
I have spent at least 57min reviewing chart, test results, communication with consultants and direct patient care
Anticipated Discharge: > 48 hours
Subjective/Interval History
-
Date of Service: March 31, 2024
Objective Data
-
Labs:
Laboratory Results
03/31/24
06:40
WBC 17.7 H
Hgb 7.5 L
Hct 21.5 L
Plt Count 516 H
Sodium 131 L
Potassium 4.8
Chloride 97 L
Carbon Dioxide 25
BUN 12
Creatinine 0.5 L
Glucose 104 H
Calcium 8.1 L
Vital Signs:
Vital Signs
Temp Pulse Resp BP Pulse Ox
101.8 F H 102 16 131/59 96
03/31/24 07:10 03/31/24 09:35 03/31/24 07:10 03/31/24 09:35 03/31/24 08:00
I&O
03/30/24 03/31/24 04/01/24
06:59 06:59 06:59
Intake Total 990 / 990 1200 / 1200
Balance 990 / 990 1200 / 1200
Review of Systems
-
History Source: Patient
All other systems: Reviewed and negative
Physical Exam
-
General: No Apparent Distress
HEENT: Normocephalic, Atraumatic and Moist Mucous Membranes
Respiratory: Clear to Auscultation
Cardiac: Regular Rhythm
GI: Soft
Genito-urinary: No Costovertebral Tender
Musculoskeletal: No Clubbing, No Cyanosis and No Edema
Skin: Warm
Neuro: Awake, Alert, Oriented and AO x 3
Psych: Calm
[2024-03-31 15:10] VITALS: BP 113/49
[2024-03-31] MEDS: LIPITOR 40 MG PO (17:45)
[2024-03-31] MEDS: NON-FORMULARY ITEM 75 MG PO (17:45)
[2024-03-31] MEDS: MELATONIN 1.5 MG PO (21:43)
[2024-03-31 23:31] VITALS: BP 128/57
[2024-04-01 05:59] VITALS: BMI 24.8
[2024-04-01 07:10] VITALS: BP 156/78
[2024-04-01] MEDS: COZAAR 100 MG PO (07:59)
[2024-04-01] MEDS: PROTONIX 40 MG PO (07:59)
[2024-04-01] MEDS: LASIX 10 MG PO (08:01)
[2024-04-01] MEDS: DESENEX/MITRAZOL/ZEASORB 1 APPLIC TOPICAL (08:03)
[2024-04-01 08:10] LABS: % Basophils 0.3 % (0-2); % Eosinophils 2.8 % (0-6); % Immature Granulocytes 1.8 % (0-0.5); % Lymphocytes 7.2 % (20.5-51.1); % Monocytes 8.5 % (1.7-9.3); % Neutrophils 79.4 % (42.2-75.2); Absolute Basophils 0.1 10^3/uL (0-0.2); Absolute Eosinophils 0.5 10^3/uL (0-0.7); Absolute Immature Granulocytes 0.3 10^3/uL (0-0.05); Absolute Lymphocytes 1.4 10^3/uL (1.2-3.4); Absolute Monocytes 1.6 10^3/uL (0.1-0.6); Hematocrit 23.4 % (37.0-47.0); Hemoglobin 7.6 g/dL (12.0-16.0); Mean Corp Hgb Conc. 32.5 g/dL (33.0-37.0); Mean Corpuscular Hgb 29.1 pg (27.0-31.0); Mean Corpuscular Volume 89.7 fL (81.0-99.0); Mean Platelet Volume 10.7 fL (7.4-10.4); Nucleated Red Blood Cells % 0 %; Platelet Count 583 10^3/uL (130-400); Red Blood Cell Count 2.61 10^6/uL (4.20-5.40); Red Cell Dist. Width 13.4 % (11.5-14.5); White Blood Cell Count 18.8 10^3/uL (4.8-10.8)
--- NOTE | 2024-04-01 08:16 | W.PN.ONC2 ---
Today's Communication / Plan
-
follow CBC
OP rheum follow up
declines bone marrow biopsy
Impression
Impression
Fever
UTI
bladder cancer s/p resection & stent
bladder wall thickening non-specific
Anemia
Leukocytosis primarily neutrophils and monocytes
thrombocytosis may be reactive
nodular liver, elevated LFTs c/f cirrhosis-consider GI evaluation for OP MRI
left renal cyst s/p drainage 03/22
hyponatremia
Plan
Plan
Fever, recurrent - off abx
Enterococcal UTI completed course of abx
Fall -PT/OT
bladder ca s/p resection and left ureteral stent
bladder wall thickening non-specific -management per urology
Anemia. Iron studies c/w AOCD/inflammation. Elevated ESR/CRP also suggest component of inflammation. no B12 or folate deficiency. Monitor for bleeding
Leukocytosis primarily neutrophils and monocytes -flow negative for immunophenotypic aberrancey, no abnormal B cell, T cell, or NK cell population identified - declined BMBx
thrombocytosis may be reactive, if persist then would pursue outpatient evaluation with MPN panel
nodular liver, elevated LFTs c/f cirrhosis-consider GI evaluation for MRI
left renal cyst s/p drainage 03/22
hyponatremia -nephrology following. on lasix, s/p samsca
Subjective/Objective
Chief Complaint
no new complaints
Subjective
Tmax 101.8F, no hypotension or hypoxia
Vital Signs:
Vital Signs
Temp Pulse Resp BP Pulse Ox
98.7 F 89 18 128/57 97
03/31/24 23:31 03/31/24 23:31 03/31/24 23:31 03/31/24 23:31 04/01/24 00:09
Lab Results:
Laboratory Data
WBC 18.8 10^3/uL (4.8-10.8) H 04/01/24 05:57
Hgb 7.6 g/dL (12.0-16.0) L 04/01/24 05:57
Plt Count 583 10^3/uL (130-400) H 04/01/24 05:57
PT 15.0 Sec (11.4-14.6) H 03/17/24 06:09
INR 1.20 03/17/24 06:09
eGFR > 60.00 03/31/24 06:40
Physical Exam
HEENT: Moist Mucous Membranes; No Jaundice
Cardiology: S1 and S2
Pulmonary: Clear
GI: Soft
Extremities: Pulses Present; No Edema
Neuro: Non Focal
Review of Systems
Review of Systems
Review of system notable for subjective, otherwise negative
[2024-04-01 09:00] LABS: ALT (SGPT) 49 U/L (0-35); AST (SGOT) 56 U/L (14-36); Albumin 2.8 g/dl (3.5-5.0); Alkaline Phosphatase 176 U/L (38-126); Blood Urea Nitrogen 13 mg/dl (7-17); Calcium 8.5 mg/dl (8.4-10.2); Carbon Dioxide 23 mmol/L (22-30); Chloride 99 mmol/L (98-107); Estimated Creatinine Clearance 51 ml/min; Glucose 101 mg/dl (70-99); Potassium 4.9 mmol/L (3.5-5.1); Sodium 136 mmol/L (135-145); Total Bilirubin 0.6 mg/dl (0.2-1.3); Total Protein 5.9 g/dl (6.3-8.2); eGFR > 60.00
--- NOTE | 2024-04-01 10:00 | PTCARENOTE ---
BP this AM was 156/78. AM BP meds given, MD aware. No new orders at this time.
--- NOTE | 2024-04-01 12:46 | W.DS.TRANS ---
Addendum entered and electronically signed by Mannie Haskins MD 04/01/24 13:20:
Zoloft stopped due to hyponatremia
Lasix added to balance volume status with hyponatremia
Original Note:
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
-
Discharge Instructions:
Discharge Diagnosis/Procedures UTI
Persistent leukocytosis with FUO
Diet Regular
Instructions:
Stand-Alone Forms:
Changes to Home Medications: No
Discharge Medications:
DC Medications w/original date entered in [facility]
sertraline 25 mg tablet 25 mg PO DAILY Mental Health/Anxiety 02/02/12
acetaminophen 500 mg capsule 500 mg PO Q6H Pain 01/25/24
losartan 100 mg tablet 100 mg PO DAILY Blood Pressure 01/25/24
melatonin 1 mg tablet 1 mg PO HSPRN PRN insomnia 01/25/24
methenam 118 mg-m.blue 10 mg-s.phos 40.8 mg-p.salic 36 mg-hyos capsule (Uribel) 1 tab PO BID Supplement 01/30/24
simvastatin 20 mg tablet 20 mg PO QPM High Cholesterol 01/30/24
vibegron 75 mg tablet (Gemtesa) 75 mg PO QPM OVERACTIVE BLADDER 03/04/24
alprazolam 0.5 mg tablet (Xanax) 0.25 mg (1/2 x 0.5 mg) PO DAILYPRN PRN anxiety #15 tabs 04/01/24
pantoprazole 40 mg tablet,delayed release 40 mg PO DAILY #30 tabs 04/01/24
polyethylene glycol 3350 17 gram oral powder packet (HealthyLax) 17 g PO DAILYPRN PRN constipation #30 ea 04/01/24
sennosides 8.6 mg-docusate sodium 50 mg tablet 1 tab PO BIDPRN PRN constipation #30 tabs 04/01/24
Home Medication Changes
Pending Results: No
--- NOTE | 2024-04-01 12:59 | CM ---
Patient seen at bedside with daughter Kay Munoz and son in law.
Discharge today to [facility]. IMM explained & signed. In chart.
Notified Kay at [facility]-patient will be in room 406
Family will transport.
PLAN: [facility]
REPORT #: [phone]
FAX #: [phone]
Family to transport.
--- NOTE | 2024-04-01 13:07 | W.PN.ID1 ---
Date of Service
Date of Service: April 01, 2024
Today's Communication
Observe off antibiotics.
Assessment / Plan
Leukocytosis - persistent
Thrombocytosis
Bladder cancer (urothelial carcinoma in situ)
Also:
HTN
Anxiety
GERD
Hx dysphagia
Recommendations:
Etiology of ongoing leukocytosis, thrombocytosis remains cryptic. Labeled white cell scan not indicative of focal infection.
Would continue to monitor closely off of antibiotics. If there is an infection, it will likely need to declare itself.
Patient will need close follow-up by Hematology following discharge. Follow-up with Rheumatology on an expedited basis.
����������������������������������������������������������
Chief Complaint
-: Fever, Leukocytosis and UTI
Subjective / Review of Systems
Patient seen and examined. Overall feels well, but notes ongoing fever in the late afternoon. No other specific complaints.
Vital Signs / Physical Exam
Vital Signs
Vital Signs
Temp Pulse Resp BP Pulse Ox
98.4 F 102 18 156/78 96
04/01/24 07:10 04/01/24 07:10 04/01/24 07:10 04/01/24 07:10 04/01/24 12:22
Physical Exam
Constitutional: No Acute Distress, Comfortable, Chronically Ill, Non-toxic and Cachetic (Mild)
Eyes: No Conjunctival Hemorrhage and Sclera Anicteric
Pulmonary: Clear and Non Labored
Gastrointestinal: Non Distended
Skin: Warm and Dry; Negative Rash or Jaundice
Neurological: Awake and Alert
Objective Data
Lab Data
Lab Results
04/01/24 05:57
04/01/24 05:57
ESR 137 mm/hour (0-20) H 03/31/24 06:40
PT 15.0 Sec (11.4-14.6) H 03/17/24 06:09
INR 1.20 03/17/24 06:09
Estimated Creat Clear 51 ml/min 04/01/24 05:57
Lactic Acid 0.9 mmol/L (0.7-2.0) 03/14/24 17:52
Total Bilirubin 0.6 mg/dl (0.2-1.3) 04/01/24 05:57
GGT 174 U/L (12-43) H 03/28/24 06:04
AST 56 U/L (14-36) H 04/01/24 05:57
ALT 49 U/L (0-35) H 04/01/24 05:57
Alkaline Phosphatase 176 U/L (38-126) H 04/01/24 05:57
C-Reactive Protein 224.70 mg/L (0.0-10.00) H 03/31/24 06:40
Most recent labs reviewed.
Micro Results:
03/22/24 20:21 Blood Culture - Final
Blood/Venous No Growth - Final Report
03/22/24 14:01 Blood Culture - Final
Blood/Venous No Growth - Final Report
03/26/24 08:16 Influenza Types A & B (GRICELDA) - Final
Nasal Swab Negative for Influenza A & B, NAAT
Negative results must be combined with clinical observations
and patient history.
Nucleic Acid Amplification test (NAAT)performed on the
Sokoos platform.
03/22/24 15:01 Body Fluid Culture - Final
Cyst No Growth After 72 Hours
Gram Stain - Final
03/24/24 06:14 Blood Parasites Smear - Final
Blood/Venous
03/22/24 11:30 Urine Culture - Final
Urine NO GROWTH
03/20/24 18:02 Urine Culture - Final
Urine NO GROWTH
03/16/24 23:21 Blood Culture - Final
Blood/Venous No Growth - Final Report
03/14/24 17:52 Blood Culture - Final
Blood/Venous No Growth - Final Report
03/14/24 16:38 Urine Culture - Final
Urine Enterococcus faecalis
03/18/24 12:10 C. difficile GDH Antigen & Toxins - Final
Feces/Stool Negative for toxigenic C.difficile
03/16/24 20:04 Influenza Types A & B (GRICELDA) - Final
Nasal Swab Negative for Influenza A & B, NAAT
Negative results must be combined with clinical observations
and patient history.
Nucleic Acid Amplification test (NAAT)performed on the
[employer]okoos platform.
Imaging:
03/28/2024 Labeled white cell scan: No abnormal focus of accumulation of the labeled white blood cells is identified.
03/19/2024 Duplex ultrasound, lower extremities: No evidence of DVT
03/19/[address]: No evidence of lucency within the mandible and no findings to suggest peritonsillar abscess.
03/16/2024 CT abdomen/pelvis without contrast: Left ureteral stent is present. On postcontrast delayed images, there is excretion of contrast into the left-sided calyces without significant dilation. Findings would suggest that there is no
significant left ureteral obstruction with the left ureteral stent present. Thickening of the bladder wall, which could be postsurgical, but could also be from infection. Large minimally complex cystic mass arising from the left kidney, compatible
with benign Bosniak class II cystic mass. Subtle nodular external contour of the liver, suggestive of cirrhosis. Subtle low-density region within the medial segment of the left lobe of the liver, not definitely present on previous examinations.
When clinically feasible, further evaluation is advised with MRI of the abdomen without and with contrast, utilizing Eovist contrast agent.
Care Review
Plan reviewed with: Physician (Hospitalist)
--- NOTE | 2024-04-01 13:26 | PTCARENOTE ---
[facility] called to K[facility] Mart[facility] at [facility], family to transport patient. Family and pt updated on POC, belongings packed up for transfer. No new orders or questions from family at this time.
--- NOTE | 2024-04-01 13:38 | W.PN.NEPH.PH ---
Today's Communication / Plan
-
ok for d/c
Assessment/Plan
-
Assessment
Hyponatremia
Bladder cancer
Fall
Hypertension
Hyperlipidemia
Leukocytosis
Plan:
Hyponatremia-improving sodium s/p samsca
would cont FR
lasix 10mg daily
hold SSRI
BMP Monday
f/u PCP
d/w pt and family
-
-
Date of Service: April 01, 2024
CC / HPI / ROS
-
Chief Complaint:
hyponatremia
History of Present Illness:
Na up at 136 s/p samsca
BP stable
WBC remains elevated 18.8
[address] Left in place for obstructive uropathy
off abx now
s/p adp of K cyst on 03/23-felt no infection and stent exchanged per
Review of Systems:
Pt is FLANDREAU
no n/v
Labs
-
Labs:
WBC 18.8 10^3/uL (4.8-10.8) H 04/01/24 05:57
RBC 2.61 10^6/uL (4.20-5.40) L 04/01/24 05:57
Hgb 7.6 g/dL (12.0-16.0) L 04/01/24 05:57
Hct 23.4 % (37.0-47.0) L 04/01/24 05:57
Plt Count 583 10^3/uL (130-400) H 04/01/24 05:57
Sodium 136 mmol/L (135-145) 04/01/24 05:57
Potassium 4.9 mmol/L (3.5-5.1) 04/01/24 05:57
Chloride 99 mmol/L (98-107) 04/01/24 05:57
Carbon Dioxide 23 mmol/L (22-30) 04/01/24 05:57
BUN 13 mg/dl (7-17) 04/01/24 05:57
Creatinine 0.6 mg/dL (0.6-1.0) 04/01/24 05:57
eGFR > 60.00 04/01/24 05:57
Glucose 101 mg/dl (70-99) H 04/01/24 05:57
Calcium 8.5 mg/dl (8.4-10.2) 04/01/24 05:57
Phosphorus 3.3 mg/dl (2.5-4.5) 03/28/24 06:04
Pao-L-Llusqscequc Pept 305 pg/ml 03/16/24 05:57
Albumin 2.8 g/dl (3.5-5.0) L 04/01/24 05:57
Physical Exam
-
Vital Signs:
Vital Signs
Temp Pulse Resp BP Pulse Ox
98.4 F 102 18 156/78 96
04/01/24 07:10 04/01/24 07:10 04/01/24 07:10 04/01/24 07:10 04/01/24 12:22
Cardiovascular:: Regular rate and rhythm
Respiratory:: Bilateral: CTA
Lung Excursion:: Normal
Abdomen:: Nontender and Soft
Extremity Edema:: None: Bilateral:
Acstañeda Catheter: No
[2024-04-01 13:40] VITALS: BP 139/87
[2024-04-01 16:33] LABS: Complement C3 127 mg/dl (88-165)
== END 2024-04-01 15:08 | DRG 854 ==
LOC: 2 NORTH 19:57
PROVIDERS: Internal Medicine; Nurse Practitioner; Nurse Practitioner Acute Care; Nurse Practitioner Family; Specialist; ADMITTING PHYSICIAN Student in an Organized Health Care Education/Training Program; ATTENDING PHYSICIAN Internal Medicine; CONSULT PHYSICIAN Internal Medicine Infectious Disease; CONSULT PHYSICIAN Specialist; EMERGENCY PHYSICIAN Emergency Medicine; FAMILY PHYSICIAN Family Medicine; OTHER PHYSICIAN Internal Medicine Hematology & Oncology
PROC: 0T778DZ Dilation of Left Ureter with Intraluminal Device, Via Natural or Artificial Opening Endoscopic (ICD-10-PCS; 2024-03-23)
PROC: 0TP98DZ Removal of Intraluminal Device from Ureter, Via Natural or Artificial Opening Endoscopic (ICD-10-PCS; 2024-03-23)
DX: A41.81 Sepsis due to Enterococcus (principal); E22.2 Syndrome of inappropriate secretion of antidiuretic hormone; N39.0 Urinary tract infection, site not specified; K52.9 Noninfective gastroenteritis and colitis, unspecified; G89.29 Other chronic pain; Z85.51 Personal history of malignant neoplasm of bladder; Z86.73 Personal history of transient ischemic attack (TIA), and cerebral infarction without residual deficits
CPT/HCPCS: 50390; 70450; 70491; 71046; 71275; 74018; 74177; 74178; 74183; 76000; 76700; 76942; 78803; 80048; 80053; 80076; 81003; 81015; 82533; 82550; 82607; 82728; 82746; 82977; 83010; 83036; 83540; 83550; 83605; 83615; 83735; 83880; 83935; 84075; 84100; 84145; 84295; 84300; 84443; 84484; 85025; 85027; 85045; 85610; 85652; 86038; 86140; 86160; 86704; 86706; 86803; 86850; 86900; 86901; 87015; 87040; 87070; 87077; 87086; 87186; 87205; 87207; 87324; 87340; 87449; 87502; 87811; 92526; 92610; 93005; 93970; 94640; 96374; 97116; 97163; 97166; 97530; 97535; 99152; 99285; A9569; A9581; C1729; C1769; C2617; J0878; Q9967

== ENCOUNTER → 2024-04-03 10:23 | Outpatient (REF) | payer OTHER, MEDICARE, SELFPAY ==
[2024-04-03 12:35] LABS: White Blood Cell Count 16.9 10^3/uL (4.8-10.8)
[2024-04-03 12:36] LABS: % Basophils 0.2 % (0-2); % Eosinophils 2.7 % (0-6); % Immature Granulocytes 1.8 % (0-0.5); % Lymphocytes 8.1 % (20.5-51.1); % Monocytes 8.1 % (1.7-9.3); % Neutrophils 79.1 % (42.2-75.2); Absolute Eosinophils 0.5 10^3/uL (0-0.7); Absolute Immature Granulocytes 0.3 10^3/uL (0-0.05); Absolute Lymphocytes 1.4 10^3/uL (1.2-3.4); Absolute Monocytes 1.4 10^3/uL (0.1-0.6); Absolute Neutrophils 13.4 10^3/uL (1.4-6.5); Hematocrit 20.1 % (37.0-47.0); Hemoglobin 6.7 g/dL (12.0-16.0); Mean Corp Hgb Conc. 33.3 g/dL (33.0-37.0); Mean Corpuscular Hgb 29.9 pg (27.0-31.0); Mean Corpuscular Volume 89.7 fL (81.0-99.0); Mean Platelet Volume 11.3 fL (7.4-10.4); Nucleated Red Blood Cells % 0 %; Platelet Count 425 10^3/uL (130-400); Red Blood Cell Count 2.24 10^6/uL (4.20-5.40); Red Cell Dist. Width 13.8 % (11.5-14.5)
[2024-04-03 12:40] LABS: Blood Urea Nitrogen 14 mg/dl (7-17); Calcium 7.8 mg/dl (8.4-10.2); Carbon Dioxide 21 mmol/L (22-30); Chloride 98 mmol/L (98-107); Glucose 114 mg/dl (70-99); Potassium 4.5 mmol/L (3.5-5.1); Sodium 132 mmol/L (135-145); eGFR > 60.00
[2024-04-03 19:07] LABS: % Basophils 0.3 % (0-2); % Eosinophils 3.3 % (0-6); % Immature Granulocytes 1.8 % (0-0.5); % Lymphocytes 6.3 % (20.5-51.1); % Monocytes 7.8 % (1.7-9.3); % Neutrophils 80.5 % (42.2-75.2); Absolute Basophils 0.1 10^3/uL (0-0.2); Absolute Eosinophils 0.6 10^3/uL (0-0.7); Absolute Immature Granulocytes 0.3 10^3/uL (0-0.05); Absolute Lymphocytes 1.1 10^3/uL (1.2-3.4); Absolute Monocytes 1.4 10^3/uL (0.1-0.6); Absolute Neutrophils 14.6 10^3/uL (1.4-6.5); Hematocrit 22.3 % (37.0-47.0); Hemoglobin 7.2 g/dL (12.0-16.0); Mean Corp Hgb Conc. 32.3 g/dL (33.0-37.0); Mean Corpuscular Hgb 29.1 pg (27.0-31.0); Mean Corpuscular Volume 90.3 fL (81.0-99.0); Mean Platelet Volume 10.9 fL (7.4-10.4); Nucleated Red Blood Cells % 0 %; Platelet Count 627 10^3/uL (130-400); Red Blood Cell Count 2.47 10^6/uL (4.20-5.40); Red Cell Dist. Width 13.6 % (11.5-14.5); White Blood Cell Count 18.1 10^3/uL (4.8-10.8)
== END ==
LOC: OLABP 10:23
PROVIDERS: ATTENDING PHYSICIAN Family Medicine
DX: A41.9 Sepsis, unspecified organism (principal); I10 Essential (primary) hypertension; D72.829 Elevated white blood cell count, unspecified; K21.9 Gastro-esophageal reflux disease without esophagitis; Z85.51 Personal history of malignant neoplasm of bladder; M62.81 Muscle weakness (generalized); E87.1 Hypo-osmolality and hyponatremia
CPT/HCPCS: 36415; 80048; 85025

== ENCOUNTER 2024-04-05 09:00 | Inpatient (IN) | payer MEDICARE, SELFPAY ==
[2024-04-05] VITALS (12 sets, daily range): BP systolic 103–127; BP diastolic 47–62; BMI 26.3
[2024-04-05 05:36] LABS: Hematocrit 21.4 % (37.0-47.0); Hemoglobin 7.3 g/dL (12.0-16.0); Mean Corp Hgb Conc. 34.1 g/dL (33.0-37.0); Mean Corpuscular Hgb 30.3 pg (27.0-31.0); Mean Corpuscular Volume 88.8 fL (81.0-99.0); Mean Platelet Volume 10.7 fL (7.4-10.4); Platelet Count 481 10^3/uL (130-400); Red Blood Cell Count 2.41 10^6/uL (4.20-5.40); Red Cell Dist. Width 13.7 % (11.5-14.5); White Blood Cell Count 24.5 10^3/uL (4.8-10.8)
[2024-04-05 05:45] LABS: ALT (SGPT) 91 U/L (0-35); AST (SGOT) 65 U/L (14-36); Albumin 2.7 g/dl (3.5-5.0); Alkaline Phosphatase 234 U/L (38-126); Blood Urea Nitrogen 22 mg/dl (7-17); Calcium 8.2 mg/dl (8.4-10.2); Carbon Dioxide 19 mmol/L (22-30); Chloride 97 mmol/L (98-107); Glucose 129 mg/dl (70-99); Lipase 85 U/L (23-300); Potassium 3.9 mmol/L (3.5-5.1); Sodium 129 mmol/L (135-145); Total Bilirubin 0.7 mg/dl (0.2-1.3); Total Protein 5.8 g/dl (6.3-8.2); eGFR > 60.00
[2024-04-05 05:58] LABS: Troponin I 0.014 ng/ml
--- NOTE | 2024-04-05 06:02 | ED.GENMED ---
History of Present Illness
General
Chief Complaint: Abdominal Symptoms
Time Seen by Provider: 04/05/24 06:02
History of Present Illness
History of Present Illness:
HPI: Patient came in by ambulance from [place]. She had nausea and vomiting. This is associated with chest pain and shortness of breath. The patient currently appears lethargic but denies any abdominal pain. She fell without injury yesterday.
The bruising that she has in the left side of her face is from the fall from about 3 weeks ago.
EXAM:
GENERAL: The patient is ill-appearing and lethargic, she seems to have pain when she coughs
HEENT: Dry oral mucosa
CARDIOVASCULAR: No murmurs, normal heart rate, regular rhythm, mild chest wall tenderness
PULMONARY: No respiratory distress, breath sounds are clear and equal
ABDOMEN: Soft with no peritoneal signs, no tenderness
NEUROLOGIC: Very weak strength all extremities, no coordination deficits
PSYCHIATRIC: Is lethargic, frequently keeps her eyes closed, limited insight and judgement
EXTREMITIES: Nontender, 2+ bilateral edema, moves all extremities equally weakly
SKIN: No rash, no lesions
TIME OF INITIAL ENCOUNTER: 6:10 AM
NUMBER AND COMPLEXITY OF PROBLEMS ADDRESSED AT THE ENCOUNTER
� Chronic conditions affecting care: Bladder cancer
� Acute Exacerbation and/or Progression of Chronic Illness: This is an acute problem
� Differential Diagnosis includes: UTI, sepsis, pneumonia, hyponatremia
AMOUNT AND/OR COMPLEXITY OF DATA TO BE REVIEWED AND ANALYZED
� I performed an independent evaluation of and my interpretation is:
EKG: Sinus 82, left axis deviation, nonspecific ST abnormality
CT:
X-rays: Chest x-ray shows no definite change
Laboratory Studies: White count 24.5, hemoglobin 7.3, mild alk phos elevation, mild transaminase elevation, normal lipase, bicarb 19 which is lower than prior, sodium 129, urinalysis shows 2+ leukocyte esterase
Other:
� Review of other/old records: I reviewed records, the patient's white count has frequently been elevated since earlier this month. The hemoglobin is similar to what it was a week ago. The patient was admitted here a couple of
weeks ago and had sepsis, persistent leukocytosis with intermittent spiking fevers. She has a history of bladder carcinoma status post transurethral resection of the bladder tumor was sent. She had normal flow cytometry last admission.
� Clinical information was obtained by an independent historian: Spoke to son at bedside
� Prescriptions/Medications Considered but not given:
� Further testing considered but not performed:
RISK OF COMPLICATIONS AND/OR MORBIDITY OR MORTALITY OF PATIENT MANAGEMENT
� Social determinants of health affecting care: Currently staying at [facility] for rehab
� Discussion with other providers: Dr. Cao for admission at 7:37 AM
� Escalation of care including admission/observation vs risk of discharge considered: Patient had nausea and vomiting earlier along with abdominal discomfort. Currently she denies any abdominal discomfort however she is very
ill-appearing. Leukocytosis persists, hemoglobin also low. She had some vague discomfort in the chest however it seems to worsen when she coughs. Cath urine obtained�blue in color as she is on Uribel. I updated son at 7:30 AM and he does
indicate that she is 'DNR'. She remains to appear rather lethargic/obtunded.
Past History
Past History
ED Past Medical History: HTN, Psychiatric (Anxiety) and Other (GERD, frequent UTIs, history of dysphagia)
ED Past Surgical History: Gynecological and Orthopedic
Social History
Tobacco: Non-smoker
Alcohol: Occasional
Family History
Family History: Other (Diabetes, coronary disease, stroke, glaucoma)
Phy Exam
Physical Exam
Physical Exam:
See HPI
Course
Orders/Labs/Results
Orders:
Orders
04/05/24 04:38
Electrocardiogram (*1) Urgent
Reason for Study: Abdominal Pain
Cardiac Monitoring- Treatment ONCE
EKG- Treatment ONCE
IV Insert/Care/Rem.- Treatment PRN
04/05/24 05:01
Complete Blood Count/With Diff Urgent
Comprehensive Metabolic Panel Urgent
Lipase Urgent
Troponin I Urgent
04/05/24 06:13
Straight cath- Treatment ONCE
04/05/24 06:15
0.9% Sodium Chloride 500 ml [Nss] 500 ml IV BOLUS
04/05/24 06:20
CR Chest Portable - 1 View Urgent
Comment:
Reason For Exam: cough ill appearing
Reason Study Needs to be Portable: Unable to Transport
04/05/24 06:42
Urinalysis Reflex To Culture Urgent
Date Specimen was Collected: 04/05/24
Time Specimen was Collected: 06:29
Urine Microscopic Reflex Cult Urgent
Urine Culture Urgent
VON Source: U
Specimen Description:
Date Specimen was Collected: 04/05/24
Time Specimen was Collected: 06:29
04/05/24 07:29
CefTRIAXone [Rocephin] 1,000 mg IV NOW STA
Abnormal Lab Results
04/05/24 04/05/24
05:01 06:42
WBC 24.5 H 10^3/uL
(4.8-10.8)
RBC 2.41 L 10^6/uL
(4.20-5.40)
Hgb 7.3 L g/dL
(12.0-16.0)
Hct 21.4 L %
(37.0-47.0)
Plt Count 481 H D 10^3/uL
(130-400)
MPV 10.7 H fL
(7.4-10.4)
Abs Immat Gran (auto) 0.3 H 10^3/uL
(0-0.05)
Absolute Neuts (auto) 22.0 H 10^3/uL
(1.4-6.5)
Absolute Lymphs (auto) 0.7 L 10^3/uL
(1.2-3.4)
Absolute Monos (auto) 1.3 H 10^3/uL
(0.1-0.6)
Immature Gran % 1.1 H %
(0-0.5)
Neutrophils % 90.0 H %
(42.2-75.2)
Lymphocytes % 2.9 L %
(20.5-51.1)
Sodium 129 L mmol/L
(135-145)
Chloride 97 L mmol/L
(98-107)
Carbon Dioxide 19 L mmol/L
(22-30)
BUN 22 H mg/dl
(7-17)
Glucose 129 H mg/dl
(70-99)
Calcium 8.2 L mg/dl
(8.4-10.2)
AST 65 H U/L
(14-36)
ALT 91 H U/L
(0-35)
Alkaline Phosphatase 234 H U/L
(38-126)
Total Protein 5.8 L g/dl
(6.3-8.2)
Albumin 2.7 L g/dl
(3.5-5.0)
Ur Occult Blood Reflex 1+ A
(Negative)
Leukocyte Esterase Rfl 2+ A
(Negative)
Urine Yeast Few A
(Negative)
Urine Albumin (Reflex) 1+ A
(Neg - Trace)
04/05/24 05:01
04/05/24 05:01
Vital Signs
Initial and Last Documented VS:
Initial Vital Signs
Temp Pulse Resp BP Pulse Ox
97.4 F 86 21 110/55 94
04/05/24 04:32 04/05/24 04:32 04/05/24 04:32 04/05/24 04:32 04/05/24 04:32
Last Documented Vital Signs
Temp Pulse Resp BP Pulse Ox
97.4 F 82 24 108/52 95
04/05/24 04:32 04/05/24 06:00 04/05/24 06:00 04/05/24 06:00 04/05/24 05:45
*Critical Care Note
Total Time (30-74mins, 75-104mins- exclusive of procedures): Not Applicable
ED Attending Note
-
Portions of this chart may have been created with voice recognition software.� Occasional wrong word or��sound alike� substitutions may have occurred due to the inherent limitations of voice recognition software.
Discharge Plan
Departure
Patient Disposition: Admit
Date of Disposition: 04/05/24
Time of Disposition: 07:35
Presentation/result/management discussed w/ accepting MD/DO: Hospitalist
Discharge Problem:
Weakness
Prescriptions:
No Action
losartan 100 mg Tablet
100 mg PO DAILY
acetaminophen 500 mg Capsule
500 mg PO Q6H
melatonin 1 mg Tablet
1 mg PO HSPRN PRN (Reason: insomnia)
simvastatin 20 mg Tablet
20 mg PO QPM
Uribel 118-10-40.8-36 mg Capsule
1 tab PO BID
Gemtesa 75 mg Tablet
75 mg PO QPM
polyethylene glycol 3350 [HealthyLax] 17 gram Powder In Packet
17 g PO DAILYPRN PRN (Reason: constipation) Qty: 30 0RF
sennosides-docusate sodium 8.6-50 mg Tablet
1 tab PO BIDPRN PRN (Reason: constipation) Qty: 30 0RF
pantoprazole 40 mg Tablet,Delayed Release (Dr/Ec)
40 mg PO DAILY Qty: 30 0RF
alprazolam [Xanax] 0.5 mg tablet
0.25 mg PO DAILYPRN PRN (Reason: anxiety) Qty: 15 0RF
Patient Comments:
03/14/24: last filled 01/28/24 for 11 tablets
furosemide [Lasix] 20 mg tablet
10 mg PO DAILY Qty: 30 0RF
Referrals:
Juan Manuel Navarro MD [Family Provider] -
Interventions
Interventions:
*Risk Screen - Suicide Last Done: 04/05/24 04:32
*General Assessment Last Done: 04/05/24 04:32
*Neglect/Abuse Screening Last Done: 04/05/24 04:32
*ED COVID-19 Vaccine History Last Done: 04/05/24 06:54
BP-Lnbatt-Kskawdkpnr Assessment Last Done: 04/05/24 05:19
ED- Cardiac Assessment Last Done: 04/05/24 05:19
ED- Pulmonary Assessment Last Done: 04/05/24 05:19
Discharge Date and Time
Print Language: LAO
[2024-04-05 06:17] LABS: % Basophils 0.2 % (0-2); % Eosinophils 0.7 % (0-6); % Immature Granulocytes 1.1 % (0-0.5); % Lymphocytes 2.9 % (20.5-51.1); % Monocytes 5.1 % (1.7-9.3); Absolute Eosinophils 0.2 10^3/uL (0-0.7); Absolute Immature Granulocytes 0.3 10^3/uL (0-0.05); Absolute Lymphocytes 0.7 10^3/uL (1.2-3.4); Absolute Monocytes 1.3 10^3/uL (0.1-0.6); Nucleated Red Blood Cells % 0 %
[2024-04-05] MEDS: NSS 500 IV (06:26)
[2024-04-05 07:02] LABS: Urine Albumin 1+ (Neg - Trace); Urine Bilirubin Negative (Negative); Urine Character Clear (Clear); Urine Glucose Negative (Negative); Urine Ketone Negative (Negative); Urine Leukocyte 2+ (Negative); Urine Nitrite Negative (Negative); Urine Occult Blood 1+ (Negative); Urine Urobilinogen Negative (Neg - 1+); Urine pH 6.5 (5.0-9.0)
[2024-04-05 07:06] LABS: Urine Color Straw
[2024-04-05 07:15] LABS: Urine Squamous Cell 0-2 /LPF (Few)
[2024-04-05 07:16] LABS: Urine Red Blood Cell 0-2 /HPF (0-2); Urine White Cell 0-2 /HPF (0-5); Urine Yeast Few (Negative)
[2024-04-05] MEDS: ROCEPHIN 1000 MG IV (07:35)
--- NOTE | 2024-04-05 08:12 | HPS.HSE ---
Family Physician
-
Family Physician: Juan Manuel Navarro MD
Chief Complaint
-
Nausea and vomiting and weakness
History of Present Illness
Patient 88-year-old female past medical history of bladder cancer, hypertension, anxiety, GERD, dysphagia, presented to the hospital with generalized weakness, nausea, and vomiting. Patient described chest pain and shortness of breath on and off
today. She had episodes of vomiting and nausea prompted patient to presented to the hospital. Reports dry cough. No fevers or chills. There is presence of lower extremity edema that has been noticed over the last couple of days. She had a
recent hospitalization which was prolonged and complicated and there were multiple issues going on at the time. In the ER, she was noted to have a white count of close to 25,000, and she was given broad-spectrum antibiotics and referred to
hospitalist for further evaluation.
Medical History
Past Medical History
Past Medical History: Reports Other (bladder cancer (s/p cystoscopy, diagnostic left ureteroscopy with stent exchange, transurethral resection bladder tumor on 03/07))
Past Surgical History: Reports Other (see above)
Social History
Tobacco: Non-smoker
Alcohol: Occasional
Family History
Family History: Not pertinent
Allergies / Home Medications
Allergies reflects when Allergies were last updated in [facility].
Home Medications with original date entered in [facility]
Allergy/Medication List:
Allergies
Allergy/AdvReac Type Severity Reaction Status Date / Time
erythromycin base Allergy INTOLERANCE Verified 04/05/24 04:31
Home Medications
acetaminophen 500 mg capsule 500 mg PO Q6H Pain 01/25/24
losartan 100 mg tablet 100 mg PO DAILY Blood Pressure 01/25/24
melatonin 1 mg tablet 1 mg PO HSPRN PRN insomnia 01/25/24
methenam 118 mg-m.blue 10 mg-s.phos 40.8 mg-p.salic 36 mg-hyos capsule (Uribel) 1 tab PO BID Supplement 01/30/24
simvastatin 20 mg tablet 20 mg PO QPM High Cholesterol 01/30/24
vibegron 75 mg tablet (Gemtesa) 75 mg PO QPM OVERACTIVE BLADDER 03/04/24
alprazolam 0.5 mg tablet (Xanax) 0.25 mg (1/2 x 0.5 mg) PO DAILYPRN PRN anxiety #15 tabs 04/01/24
furosemide 20 mg tablet (Lasix) 10 mg (1/2 x 20 mg) PO DAILY #30 tabs 04/01/24
pantoprazole 40 mg tablet,delayed release 40 mg PO DAILY #30 tabs 04/01/24
polyethylene glycol 3350 17 gram oral powder packet (HealthyLax) 17 g PO DAILYPRN PRN constipation #30 ea 04/01/24
sennosides 8.6 mg-docusate sodium 50 mg tablet 1 tab PO BIDPRN PRN constipation #30 tabs 04/01/24
Review of Systems
-
A 12 point ROS was completed and negative except as noted: Yes
Physical Exam
Vital Signs
Vital Signs
Temp Pulse Resp BP Pulse Ox
97.4 F 82 24 108/52 95
04/05/24 04:32 04/05/24 06:00 04/05/24 06:00 04/05/24 06:00 04/05/24 05:45
Physical exam:
General: Acutely ill
HEENT: Normocephalic, Atraumatic and Dry Mucous Membranes
Respiratory: Clear to Auscultation; Negative Wheezes, Rales or Rhonchi
Cardiac: Regular Rhythm and S1/S2
GI: Soft, Nontender and Nondistended
Musculoskeletal: No Clubbing, No Cyanosis. Bilateral lower extremity edema
Neuro: Awake, Alert and Oriented, generalized weakness
Psych: Calm
Physical Exam
General: Other
Laboratory Results
-
04/05/24 05:01
09/27/24 05:01
Laboratory Results
Total Bilirubin 0.7 mg/dl (0.2-1.3) 04/05/24 05:01
AST 65 U/L (14-36) H 04/05/24 05:01
ALT 91 U/L (0-35) H 04/05/24 05:01
Alkaline Phosphatase 234 U/L (38-126) H 04/05/24 05:01
Troponin I 0.014 ng/ml 04/05/24 05:01
Lipase 85 U/L (23-300) 04/05/24 05:01
Data Reviewed
-
Diagnostic Radiology: Image Personally Visualized and interpreted
Lab Data: Labs Reviewed by me
Impression/Plan
-
IMPRESSION:
Patient 88-year-old female with history of bladder cancer, hypertension, hyperlipidemia, GERD, dysphagia, presented to the hospital with chest pain, shortness of breath, nausea vomiting generalized weakness and found significant leukocytosis.
Unifying diagnosis is not clear but concerns for sepsis. Also concerns for VTE and cardiac etiology although EKG with nonspecific findings and normal one set of troponin.
PLAN:
Concerns for sepsis:
Obtain blood cultures although already given antibiotics
Checks x-ray unremarkable
UA is not very impressive but abnormal
Obtain CT scan of the abdomen and pelvis
Continue IV antibiotics empirically
Continue IV fluid
Trend WBC and temperature curve
Chest pain and shortness of breath:
Trend cardiac enzymes
Cardiac monitoring
Obtain ultrasound Doppler lower extremities
Cardiology consult
Obtain D-dimer stat and plan for CTA of the chest that if D-dimer elevated.
Dysphagia:
Keep n.p.o.
Speech therapy eval
GI consult-discussed with GI about consult via [facility] text today
Elevated LFTs:
Monitor trend
Obtain CT of the abdomen and pelvis
Normal lipase
Hold statin
Hyponatremia:
Obtain serum osmolarity, urine osmolarity, urine sodium, TSH, cortisol level.
IV fluid for now
Monitor trend of sodium
Hypertension:
Hold off on antihypertensives
Monitor blood pressure closely
Hyperlipidemia:
Hold off on statins and follow-up trend LFTs
Left double-J stent:
CT scan of abdomen to assess for patency
Bladder cancer:
Continue to monitor as outpatient
DVT prophylaxis:
Lovenox
CODE STATUS:
DNR-confirmed with patient and son at bedside.
Time spent 75 minutes
[2024-04-05 11:07] LABS: Lactic Acid 0.9 mmol/L (0.7-2.0); Osmolality Serum 273 mOsm/kg (275-300)
[2024-04-05 11:09] LABS: D-Dimer 1.15 ug/mlFEU (0.00-0.50)
[2024-04-05 11:20] LABS: Troponin I 0.023 ng/ml
--- NOTE | 2024-04-05 11:23 | CON.CAR ---
Addendum entered and electronically signed by Colby Garcia MD 04/05/24 15:18:
I saw and examined the patient.
The Pin Inserter Regulator's note was reviewed and I agree with the note.
Comment:
GEN: No distress, awake, Ox3
HEENT: supple, anicteric, mmm
LUNGS: CTA, no wheezes/rales
CV: Reg, S1/S2, 1/6 syst LSB, no gallop
ABD: soft, BS+, NT/ND
EXT: No edema
NEURO: Gross non-focal
SKIN: No rash
Plan:
88-year-old female with past medical history of recent UTI, hyponatremia, and bladder cancer presents with nausea, vomiting, and atypical chest discomfort. She was hospitalized for 2 weeks in March and was at [facility] for 2 days when she had
nausea, vomiting, and an epigastric and chest ache. Cardiac troponins are flat and indeterminant. At her previous hospitalization CT scan of the chest was negative for pulmonary embolism. She did have a cardiovascular evaluation in October 2023
with Lexiscan nuclear stress test and echocardiogram. Stress test revealed no significant ischemia and echo revealed a preserved ejection fraction with no significant valve disease.
EKG reveals normal sinus rhythm with nonspecific T wave abnormalities. Cardiac troponin is 0.01-0.02.
Her chest pains remain very atypical. Recent cardiac evaluation in the spring 2023 was unremarkable with no significant ischemia by stress test.
She does have persistently elevated white blood cell count with marked anemia.
Urinalysis is abnormal with leukocyte esterases. Continue antibiotics.
At this point I do not think her chest pain is of a cardiac source.
Continue risk factor modification. Will continue losartan and simvastatin.
Original Note:
Consultation
Consultation Request
Date/Time Consultation Requested: 04/05/24 1018
Date/Time Consultation Performed: 04/05/24 1130
Requesting Provider: Temo Cao
Performing Provider: KATHRINE Piña for Dr Garcia
Reason for Consultation: chest pain and SOB
Medical History
-
Chief Complaint: Chest heaviness
History of Present Illness:
Heather Urbano is an 88-year-old female who presents to the ED 04/05/2024 with chest heaviness and shortness of breath associated with nausea and vomiting. She resides at [facility]. History was obtained from her son Almas, who is at the bedside, as pt
is asleep. He reports pt was up in the middle of the night with nausea and vomiting. She told him she felt a heaviness across her chest and felt short of breath. He had been with her at an appointment earlier in the day and noticed LE edema, which
was new for 2-3 days. She had not complained of chest pain or shortness of breath earlier in the day.
She had a previous admission 03/14/2024 to 04/01/2024 for sepsis due to UTI. She was placed on broad-spectrum antibiotics and seen by urology. She had extensive ID workup for fever including hematologic and oncologic workups. She was COVID-negative.
Blood cultures were negative. CTA of the chest was negative for PE. Procalcitonin was undetectable. She was seen by nephrology for hyponatremia. There were no cardiovascular concerns during the admission and cardiology was not consulted.
She called our office 03/14/2024 reporting a fall after having a syncopal episode and also complained of 'rib cage' pain, that radiates from the front to the back, and shortness of breath. She was advised to go to the ED and was admitted as above.
She is a patient of Dr. Alegre and was last seen in October 2023 at which time she reported intermittent chest pain and dyspnea on exertion. At that time she underwent a nuclear stress test and echocardiogram. There were no concerning findings.
See results below:
Echo 11/13/2023: LV small in size, EF 60 to 65%, mild cLVH
Lexiscan stress test 11/06/2023: No significant ischemia, normal EF, bowel attenuation.
Past medical history:
Hypertension
Hyperlipidemia
LVH
Bladder cancer status post TURBT 03/08/2024
Falls, 03/14/2024
Syncope 03/14/2024
Dizziness, imbalance, status post vestibular therapy
asthma
UTI
Sepsis status post admission 03/14/24 - 04/01/24
Gastric bleeding ulcer
GERD hiatal hernia
Past Medical History
Past Medical History: Other (As above)
Past Surgical History: (X 4), Orthopedic (Left knee replacement), Tonsilectomy and Urological (Cystoscopy, ureteral stent, TURBT 03/08/2024)
Family History
Family History: Reviewed & Not Pertinent
Allergies / Home Medications
Allergy/AdvReac Type Severity Reaction Status Date / Time
erythromycin base Allergy INTOLERANCE Verified 04/05/24 04:31
�Medication �Instructions �Recorded �Confirmed �Type
acetaminophen 500 mg capsule 500 mg PO Q6H Pain 01/25/24 04/05/24 History
losartan 100 mg tablet 100 mg PO DAILY Blood Pressure 01/25/24 04/05/24 History
melatonin 1 mg tablet 1 mg PO HSPRN PRN insomnia 01/25/24 04/05/24 History
methenam 118 mg-m.blue 10 1 tab PO BID Supplement 01/30/24 04/05/24 History
mg-s.phos 40.8 mg-p.salic 36
mg-hyos capsule (Uribel)
simvastatin 20 mg tablet 20 mg PO QPM High Cholesterol 01/30/24 04/05/24 History
vibegron 75 mg tablet (Gemtesa) 75 mg PO QPM OVERACTIVE BLADDER 03/04/24 04/05/24 History
pantoprazole 40 mg tablet,delayed 40 mg PO DAILY #30 tabs 04/01/24 04/05/24 Rx
release
polyethylene glycol 3350 17 gram 17 g PO DAILYPRN PRN constipation 04/01/24 04/05/24 Rx
oral powder packet (HealthyLax) #30 ea
sennosides 8.6 mg-docusate sodium 1 tab PO BIDPRN PRN constipation 04/01/24 04/05/24 Rx
50 mg tablet #30 tabs
Review of Systems
-
History Source: Family (son Almas)
All other systems: Negative unless noted
Physical Exam
Vital Signs
Temp Pulse Resp BP Pulse Ox
97.4 F 75 22 115/53 95
04/05/24 04:32 04/05/24 09:15 04/05/24 09:15 04/05/24 09:00 04/05/24 09:15
Lab Results
04/05/24 05:01
04/05/24 05:01
Troponin I 0.023 ng/ml D 04/05/24 10:30
GEN: sleeping, lying flat
HEENT: supple, anicteric, mmm
LUNGS: CTA anteriorly
CV: Reg, S1/S2, 1/6 syst LSB, apex
ABD: soft, BS+, NT/ND
EXT: trace LE edema B/L
NEURO: Gross non-focal
SKIN: bruising distal to L eye
Impression / Plan
-
PCP:
Primary Engine Watchman: Dr Ford (last seen 09/27)
Impression:
chest pain
LE edema
Hypertension
Hyperlipidemia
LVH
Bladder cancer status post TURBT 03/08/2024
Falls
asthma
UTI
Sepsis status post admission 03/14/24 - 04/01/24
Gastric bleeding ulcer
GERD hiatal hernia
Cardiac Diagnostic studies:
EKG 04/05/24:NSR, LAD/LAFB, can't r/o septal WI
Echo 11/13/23: LV sm size, mild cLVH, EF 60-65%, no significant valvular heart disease
Lexiscan CL stress test 11/06/23: no significant ischemia, bowel attenuation
Plan:
-troponins and EKG negative x 2.
-add on BNP
-gentle diuretic
-d-dimer 1.15 w/ negative LE U/S negative for DVT
-t/c repeat echo - would this change therapy?
Data Reviewed
-
EKG: Tracing Personally Visualized and interpreted
Radiology: Report Reviewed by me
Ultrasound: Report Reviewed by me
Medical Tests (Nuc Med, Echo etc): Report Reviewed by me
Labs: Labs Reviewed by me
[2024-04-05 14:42] LABS: Osmolality Urine 241 mOsm/kg (300-900)
[2024-04-05 14:43] LABS: NT-proBNP 1000 pg/ml
[2024-04-05 15:04] LABS: Urine Sodium 10 mmol/L (30-90)
--- NOTE | 2024-04-05 15:54 | PTCARENOTE ---
pt transferred from ED to . pt is a x1 assist, VSS and has b/l hearing aids.
--- NOTE | 2024-04-05 16:15 | PTOTSP ---
Speech Language Pathology
DIRECTOR MEDICAL WRITING orders received. Pt known from recent admission and will be seen tomorrow for evaluation. Admitted with N/V, CP, and SOB. Cardiology does not think related to cardiac source. Pt with GI hx of hiatal hernia, Schatzki's ring, and chronic
gastritis with recommendations for soft solids indefinitely. Pt reported to DIRECTOR MEDICAL WRITING on recent admission that she has food stick in mid-chest with regurgitation at times. Had discussed OP GI with family on recent admission. However, given current
presentation, consider inpatient GI consult. DIRECTOR MEDICAL WRITING to follow up 04/06.
--- NOTE | 2024-04-05 17:21 | PTCARENOTE ---
Addendum entered by Kaylee Vasquez RN 04/05/24 19:50:
this nurse spoke with daughter at bedside, patient takes gemtesa at home, will bring in a container of medication tomorrow to be used and verified by pharmacy. No-no placed on IV site in L AC.
Addendum entered by Kaylee Vasquez RN 04/05/24 18:03:
per MD low maintenance fluid at least maybe 1 bag. dose to be adjusted from 100 to 75ml/hr
Original Note:
pt with round distended abd, pt bladder scanned for 674ml, pt voided and was still retaining. straight cath complete at bedside for a total of 725ml, urine blue from home medications. family at bedside. pt placed on previous admission MD lanie okay
with order.
[2024-04-05] MEDS: LOVENOX 40 MG SC (18:33)
[2024-04-05] MEDS: NSS 1000 IV (18:33)
[2024-04-05] MEDS: PROTONIX 40 MG PO (20:04)
[2024-04-05] MEDS: ZOLOFT 25 MG PO (20:07)
[2024-04-05] MEDS: COZAAR PO (20:07)
[2024-04-06] VITALS (9 sets, daily range): BP systolic 126–157; BP diastolic 50–68; BMI 25.3
--- NOTE | 2024-04-06 06:41 | CON.GI ---
Addendum entered and electronically signed by Ankita Charles MD 04/06/24 09:23:
I saw and examined the patient.
The [employer] CONSULTANT's note was reviewed and I agree with the note.
Comment: This is a 88yo female with h/o asthma, fibromyalgia, HTN, hypercholesterolemia, anxiety, gastric ulcer, HH, hyponatremia, ? cirrhosis on CT not seen on follow up MRI, and recent bladder/urothelial CA with recent TURBT/stent 01/30/2024 and
03/07/24. She also recently was admitted for urosepsis from 03/14 to 04/01 and was treated with antibiotics and also had a stent exchange on 03/23. She also was seen by oncology for anemia and the bladder cancer and she had declined a bone marrow
biopsy. She presented to the emergency room with nausea, vomiting and chest pain and cardiology was also consulted and she denies any abdominal pain currently and has not had any further symptoms of nausea or vomiting. She has been started on
antibiotics for possible sepsis and CT abdomen showed the stent in place and no evidence of bowel obstruction was noted. She also had a CTA of the chest which was negative for PE and no dissection or aneurysm noted. She does have mildly elevated
LFTs. We were consulted for dysphagia but she currently denies any symptoms of dysphagia she says that she could not sleep last night and is tired denies any abdominal pain.
Assessment and plan 1. Dysphagia although patient denies dysphagia speech eval is pending and would advance diet as recommended by them. She does have a prior history of hiatal hernia but no obvious ring or stricture noted at that time. Continue
PPI. She did have nausea vomiting which seems to have resolved and may be related to ileus versus urosepsis. Patient not interested in pursuing endoscopy or any invasive procedures for now
2 mildly elevated LFTs multifactorial from recent sepsis and antibiotics and possible mild Dili or from low flow state. Continue to monitor. Liver was normal on repeat CT other than fatty liver
GI will sign off and will be available as needed
Original Note:
Consultation
-
Date/Time Consultation Requested: 04/05/24 1620
Date/Time Consultation Performed: 04/06/24 0645
Requesting Provider: Temo Cao MD
Performing Provider: KATHRINE Blum, Ankita Jacques MD
Reason for Consultation: nausea/vomiting/dysphagia
Medical History
Chief Complaint / HPI
Chief Complaint: chest pain, dsyphagia
History of Present Illness:
Pt is an 88yo with hx dysphagia, asthma, fibromyalgia, HTN, hypercholesterolemia, anxiety, gastric ulcer, HH, hyponatremia, ? cirrhosis on CT not seen on follow up MRI, and recent bladder/urothelial CA with recent TURBT/stent 01/30/2024 and 03/07/24.
She had recent prolonged admission 03/14-04/01 with fever/persistent leukocytosis elevated CRP, with extensive work up with ID, UTI, stent exchange 03/23, anemia and was offered bone marrow biopsy but declined. She now returns with nausea and vomiting
with associated chest pain and shortness of breath. Per nursing staff also noted with urinar retention. There was also reported fall prior to admission. On admission noted with persistent hyponatremia, elevated LFT's with bili 0.7, AST 65, ALT
91, alk phos 234. CT without contrast on admission with stent on adequate position, renal cyst s/p aspiration with resolution and small pericardial effusion. CT chest neg PE, atelectasis and small pericardial effusion. She was seen by cardiology
and etiology of chest pain not thought to be cardiac related.
In reviewing with patient she admits feeling of fatigue and up all night with 'catheter issues.' She current states from GI no dysphagia, odynophagia, nausea/vomiting now resolved. she denies abdominal pain, diarrhea, constipation or rectal
bleeding.
08/2019 [facility] EGD - mild schatzki's ring, small HH, gastritis, normal duodenal bulb
04/2012- [facility] colonoscopy diverticulosis
Past Medical History
Past Medical History: Asthma, Cancer (bladder CA s/p cystescopy, uteroscopy with stent exchange), Fibromyalgia, HTN, Hypercholesterolemia, Psychiatric (anxiety) and Other (schatzki's ring, diverticulosis, GI bleed ulcer HH, LVH, osteopenia, anemia
, renal cyst with drainage 03/22, hyponatremia 03/16 CT with changes of cirrhosis not seen on follow up MRI)
Past Surgical History: Gynecological ( breast bx), Orthopedic (TKR), Tonsilectomy, Urological (TURBT 01/2024) and Other (cataracts)
Social History
Tobacco: Non-Smoker
Alcohol: Occasional (hx social ETOH)
Drug: None
Personal:
Living: Long Term (recent SNF after admission)
Employment: Retired
Family History
Family History: Other (no family hx GI malignancies )
Allergies / Home Medications
Allergy/AdvReac Type Severity Reaction Status Date / Time
erythromycin base Allergy INTOLERANCE Verified 04/05/24 04:31
�Medication �Instructions �Recorded
acetaminophen 500 mg capsule 500 mg PO Q6H Pain 01/25/24
losartan 100 mg tablet 100 mg PO DAILY Blood Pressure 01/25/24
melatonin 1 mg tablet 1 mg PO HSPRN PRN insomnia 01/25/24
methenam 118 mg-m.blue 10 1 tab PO BID Supplement 01/30/24
mg-s.phos 40.8 mg-p.salic 36
mg-hyos capsule (Uribel)
simvastatin 20 mg tablet 20 mg PO HS High Cholesterol 01/30/24
vibegron 75 mg tablet (Gemtesa) 75 mg PO HS OVERACTIVE BLADDER 03/04/24
pantoprazole 40 mg tablet,delayed 40 mg PO DAILY #30 tabs 04/01/24
release
polyethylene glycol 3350 17 gram 17 g PO DAILYPRN PRN constipation 04/01/24
oral powder packet (HealthyLax) #30 ea
sennosides 8.6 mg-docusate sodium 1 tab PO BIDPRN PRN constipation 04/01/24
50 mg tablet #30 tabs
bisacodyl 10 mg rectal suppository 10 mg AL DAILYPRN PRN if mom is 04/05/24
(Dulcolax (bisacodyl)) ineffective
magnesium hydroxide 400 mg/5 mL 30 ml PO DAILYPRN PRN if no bm on 04/05/24
oral suspension (Milk of Magnesia) day 4
sertraline 25 mg tablet 25 mg PO DAILY Depression 04/05/24
sodium phosphates 19 gram-7 118 ml AL DAILYPRN PRN if dulcolax 04/05/24
gram/118 mL enema (Fleet Enema) is ineffective
Review of Systems
-
History Source: Patient
Constitutional: Reports Fever (during prior admission)
EENT: Reports No Symptoms
Respiratory: Reports Trouble Breathing (on admission now improved )
Cardiac: Reports Chest Pain (on admission now improved )
Abdomen/GI: Reports Nausea (currently denies ) and Vomiting (currently denies )
: Reports Difficulty Voiding (per staff retention with several st cath overnight )
Musculoskeletal: Reports No Symptoms
Skin: Reports No Symptoms
Neurological: Reports Weakness
Endocrine: Reports No Symptoms
Hematologic/Lymphatic: Reports No Symptoms
Vital Signs
Temp Pulse Resp BP Pulse Ox
98.0 F 96 16 137/56 94
04/06/24 03:14 04/06/24 03:14 04/06/24 03:14 04/06/24 03:14 04/06/24 03:14
Physical Exam
Exam
General: Other (elderly female with eyes closed states 'tired as up all night ')
HEENT: Normocephalic and Anicteric
Respiratory: Clear
Cardiac: Regular Rhythm
GI: Soft, Non Tender and Non Distended
Musculoskeletal: No Clubbing and No Cyanosis
Skin: Warm and Dry
Neuro: Awake, Alert and AO x 3
Psych: Calm
Results
WBC 24.5 10^3/uL (4.8-10.8) H 04/05/24 05:01
Hgb 7.3 g/dL (12.0-16.0) L 04/05/24 05:01
Hct 21.4 % (37.0-47.0) L 04/05/24 05:01
MCV 88.8 fL (81.0-99.0) 04/05/24 05:01
Plt Count 481 10^3/uL (130-400) H D 04/05/24 05:01
Absolute Neuts (auto) 22.0 10^3/uL (1.4-6.5) H 04/05/24 05:01
Sodium 129 mmol/L (135-145) L 04/05/24 05:01
Potassium 3.9 mmol/L (3.5-5.1) 04/05/24 05:01
Chloride 97 mmol/L (98-107) L 04/05/24 05:01
Carbon Dioxide 19 mmol/L (22-30) L 04/05/24 05:01
BUN 22 mg/dl (7-17) H 04/05/24 05:01
Creatinine 0.7 mg/dL (0.6-1.0) 04/05/24 05:01
Calcium 8.2 mg/dl (8.4-10.2) L 04/05/24 05:01
Total Bilirubin 0.7 mg/dl (0.2-1.3) 04/05/24 05:01
AST 65 U/L (14-36) H 04/05/24 05:01
ALT 91 U/L (0-35) H 04/05/24 05:01
Alkaline Phosphatase 234 U/L (38-126) H 04/05/24 05:01
Lipase 85 U/L (23-300) 04/05/24 05:01
Diagnostic Image Results:
04/05/24 CT Abd/pel Without Iv Or Oral
1. Left ureteral JJ stent is in appropriate position. No definite hydronephrosis.
2. Left renal cyst has been previously aspirated, and is nearly completely resolved on the current CT.
3. Small pericardial effusion, new compared to prior study.
04/05/24 CT chest
1. No evidence of pulmonary embolism or thoracic aortic dissection.
2. Mild bibasilar subsegmental atelectasis, otherwise clear lungs.
3. Small pericardial effusion.
04/05/24 LE US
No evidence of DVT from the common femoral through the upper calf veins on either side. No change compared to prior ultrasound.
03/28/24 MR Abdomen W/o & W Contrast
IMPRESSION: No significant fatty infiltration of the liver.
No evidence for a focal hepatic mass lesion. No findings to suggest hepatocellular carcinoma.
No evidence for biliary ductal dilation.
Comparing to CT examination of March 20, 2024, interval resolution of previously seen left renal cyst. On March 22, 2024, there was a left renal cyst aspiration with drainage catheter placement.
Mild to moderate bilateral lateral subcutaneous edema.
03/28/24 CT Abd/pel W Iv And Oral Contr
Stable trace pericardial effusion. Trace right pleural effusion has developed.
Stable internal double-J nephroureteral stent on the left. No evidence of significant obstruction. Stable left renal cyst.
No acute inflammatory changes in the abdomen or pelvis.
Sigmoid diverticulosis without acute diverticulitis. No evidence of bowel obstruction.
Persistent and reproducible soft tissue attenuation at the inferior margin of the cecum. Suspicious for asymmetric wall thickening rather than underfilling of the lumen. Advise further evaluation with colonoscopy.
Suggestion of very subtle asymmetric wall thickening along the left posterior lateral margin, which may be related to edema from the presence of an internal double-J nephroureteral stent, versus the patient's known bladder carcinoma.
03/16/24 CT A/p with and without contrast
Left ureteral stent is present. On postcontrast delayed images, there is excretion of contrast into the left-sided calyces without significant dilation. Findings would suggest that there is no significant left ureteral obstruction with the left
ureteral stent present.
Thickening of the bladder wall, which could be postsurgical, but could also be from infection.
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
Subtle nodular external contour of the liver, suggestive of cirrhosis.
Subtle low-density region within the medial segment of the left lobe of the liver, not definitely present on previous examinations. When clinically feasible, further evaluation is advised with MRI of the abdomen without and with contrast, utilizing
Eovist contrast agent.
Prior GI Procedures:
08/2019 [facility] EGD - mild schatzki's ring, small HH, gastritis, normal duodenal bulb
04/2012- [facility] colonoscopy diverticulosis
Assessment / Plan
-
Pt is an 88yo with hx dysphagia, asthma, fibromyalgia, HTN, hypercholesterolemia, anxiety, gastric ulcer, HH, hyponatremia, ? cirrhosis on CT not seen on follow up MRI, and recent bladder/urothelial CA with recent TURBT/stent 01/30/2024 and 03/07/24.
She had recent prolonged admission 03/14-04/01 with fever/persistent leukocytosis elevated CRP, with extensive work up with ID, UTI, stent exchange 03/23, anemia and was offered bone marrow biopsy but declined. She now returns with nausea and vomiting
with associated chest pain and shortness of breath. There was also reported fall prior to admission. On admission noted with persistent hyponatremia, elevated LFT's with bili 0.7, AST 65, ALT 91, alk phos 234. CT without contrast on admission
with stent on adequate position, renal cyst s/p aspiration with resolution and smll pericardial effusion. CT chest neg PE, atelectasis and small pericardial effusion. She was seen by cardiology and etiology of chest pain not thought to be cardiac
related.
-concern for sepsis on admission with continued leukocytosis
-nausea/vomiting- resolved
-chest pain-s/p cards eval
-urinary retention
-elevated LFT's
-bladder CA s/p TURBT/stent 01/29 and 03/07 with further stent change 03/23
-recent admission with sepsis with prolonged course 03/14-04/01
-known HH
-03/16 possible cirrhosis not seen on follow up MRI
PLAN:
Etiology of nausea/vomiting related to urinary retention issues with several st cath required overnight vs other
pt now reports improved symptoms
she also currently denies dysphagia but await speech eval
discussed with patient and nursing staff to continue regular diet as tolerated and contact GI for further issues
cont PPI
no antiemetic needed overnight
for speech eval
stable from GI if tolerating diet pt declines any further work up for symptoms
pt noted with elevated LFT's -- normal for year then rise since March--- may be related to fever/sepsis ongoing issues vs other cont to trend --recent MRI completed with no fatty liver no cirrhosis, normal GB, no duct dilation
cont management of urinary retention per hospitalist team
-
-
Thank you for consultation and allowing me to participate in the patient's care. Please call the contract serviceman GI physician during the after hours with any questions or concerns.
[2024-04-06] MEDS: PROTONIX 40 MG PO (08:31)
[2024-04-06] MEDS: COZAAR 100 MG PO (08:31)
[2024-04-06] MEDS: ZOLOFT 25 MG PO (08:32)
[2024-04-06] MEDS: ROCEPHIN 1000 MG IV (08:32)
[2024-04-06] MEDS: STERILE WATER FOR INJECTION 10 ML IV (08:32)
[2024-04-06 08:45] LABS: % Basophils 0.2 % (0-2); % Eosinophils 1.9 % (0-6); % Immature Granulocytes 1.8 % (0-0.5); % Monocytes 7.2 % (1.7-9.3); % Neutrophils 81.9 % (42.2-75.2); Absolute Eosinophils 0.3 10^3/uL (0-0.7); Absolute Immature Granulocytes 0.3 10^3/uL (0-0.05); Absolute Lymphocytes 1.2 10^3/uL (1.2-3.4); Absolute Monocytes 1.3 10^3/uL (0.1-0.6); Absolute Neutrophils 14.5 10^3/uL (1.4-6.5); Hematocrit 18.9 % (37.0-47.0); Hemoglobin 6.4 g/dL (12.0-16.0); Mean Corp Hgb Conc. 33.9 g/dL (33.0-37.0); Mean Corpuscular Hgb 29.6 pg (27.0-31.0); Mean Corpuscular Volume 87.5 fL (81.0-99.0); Mean Platelet Volume 10.5 fL (7.4-10.4); Nucleated Red Blood Cells % 0 %; Platelet Count 434 10^3/uL (130-400); Red Blood Cell Count 2.16 10^6/uL (4.20-5.40); White Blood Cell Count 17.7 10^3/uL (4.8-10.8)
--- NOTE | 2024-04-06 08:53 | W.PN.HOSP.TC ---
Today's Communication/Plan
-
IV antibiotics. Blood transfusion.
Assessment / Plan
Assessment / Plan
Physical exam:
General: Acute on chronically ill.
HEENT: Normocephalic, Atraumatic and Moist Mucous Membranes
Respiratory: Clear to Auscultation; Negative Wheezes, Rales or Rhonchi
Cardiac: Regular Rhythm and S1/S2
GI: Soft, Nontender and Nondistended
Musculoskeletal: No Clubbing, No Cyanosis and No Edema
Neuro: Awake, Alert and Oriented, generalized weakness.
Psych: Calm
A/P:
Concerns for sepsis, unclear source, ?UTI:
Not entirely convincing that she has an active infection but if she does might be the source so will continue with empiric antibiotics for now until blood and urine cultures back.
If cultures are negative will discontinue antibiotics tomorrow.
Continue IV antibiotic, IV Rocephin
CT scan of the abdomen shows JJ stent in appropriate position and no hydronephrosis
CT of the chest no PE no pneumonia
Doppler lower extremities no evidence of DVT
Will get urology on board due to issues with concerns for UTI and urinary retention.
Blood cultures and urine cultures pending
PT OT eval
Updated son over the phone today
Anemia:
Unclear etiology but no signs of active bleeding
Repeated hemoglobin and still low at 6.4
Blood transfusion today
Hematology consult
Persistent leukocytosis, although trending down:
Unsure of infectious or hematological issue
WBC 24.5--> 17.7
Last admission she was seen by ID and had full workup without revealing any active infection and she even had a labeled white cell scan with no abnormal focus of accumulation identified.
This time it is prudent to wait for blood cultures and urine culture to finalize meanwhile rest of the workup unrevealing as well.
Will request hematology eval
Urinary retention:
Requiring straight cath
Urology consulted today-discussed with urology via [place] text
Chest pain and shortness of breath:
Noncardiac
Appreciated cardiology consult
CTA negative for PE
Dysphagia/nausea and vomiting:
Symptoms improving.
GI consult appreciated
Speech therapy eval appreciated--> recommended continue regular diet.
Elevated LFTs:
GI feels probably acute process contributing
Trending down
Continue to monitor
Hold statin and will reevaluate when to restart
Hyponatremia:
129--> 134
Obtain serum osmolarity, urine osmolarity, urine sodium, TSH, cortisol level.
Stop IV fluid today
Monitor trend of sodium
Hypertension:
Resume antihypertensive, losartan 100 mg p.o. daily
Monitor blood pressure closely
Hyperlipidemia:
Hold off on statins and follow-up trend LFTs
Bladder cancer:
Continue to monitor as outpatient
Oncology and urology on board
DVT prophylaxis:
SCDs
Hold Lovenox due to anemia
CODE STATUS:
DNR
Time spent 55 minutes
Anticipated Discharge: > 48 hours
Subjective/Interval History
-
Date of Service: April 06, 2024
Patient feels very weak overall with fatigue. No abdominal pain nausea or vomiting today. Afebrile
Objective Data
-
Labs:
Laboratory Results
04/06/24 04/06/24
07:44 08:49
WBC 17.7 H
Hgb 6.4 L* Pending
Hct 18.9 L* Pending
Plt Count 434 H
Sodium Pending
Potassium Pending
Chloride Pending
Carbon Dioxide Pending
BUN Pending
Creatinine Pending
Glucose Pending
Calcium Pending
Total Bilirubin Pending
AST Pending
ALT Pending
Alkaline Phosphatase Pending
Vital Signs:
Vital Signs
Temp Pulse Resp BP Pulse Ox
98.0 F 90 16 144/59 94
04/06/24 03:14 04/06/24 08:31 04/06/24 03:14 04/06/24 08:31 04/06/24 03:14
I&O
04/05/24 04/06/24 04/07/24
06:59 06:59 06:59
Intake Total 1380 / 1380
Output Total 1840 / 1840
Balance -460 / -460
[2024-04-06 09:03] LABS: ALT (SGPT) 58 U/L (0-35); AST (SGOT) 35 U/L (14-36); Albumin 2.4 g/dl (3.5-5.0); Alkaline Phosphatase 190 U/L (38-126); Blood Urea Nitrogen 13 mg/dl (7-17); Calcium 7.9 mg/dl (8.4-10.2); Carbon Dioxide 20 mmol/L (22-30); Chloride 102 mmol/L (98-107); Direct Bilirubin 0.3 mg/dl (0.0-0.4); Estimated Creatinine Clearance 51 ml/min; Glucose 110 mg/dl (70-99); Potassium 4.1 mmol/L (3.5-5.1); Sodium 134 mmol/L (135-145); Total Bilirubin 0.5 mg/dl (0.2-1.3); Total Protein 5.4 g/dl (6.3-8.2); eGFR > 60.00
[2024-04-06] MEDS: NSS IV (09:14)
[2024-04-06 09:27] LABS: Cortisol, Random 20.2 ug/dl; TSH Reflex To Free T4 2.31 uIU/ml (0.47-4.68)
[2024-04-06 10:21] LABS: Hematocrit 18.9 % (37.0-47.0); Hemoglobin 6.4 g/dL (12.0-16.0)
--- NOTE | 2024-04-06 10:34 | CON.MD ---
Consultation - Medical
-
see dictated note
see previous notes for recent complicated hx
pt admitted with nausea/chest and abd pain and fall
wbc remains elevated (although stable)- no fevers since admit- hgb down despite no active source of bleeding
ct scan fine from gu standpoint
has developed urinary retention
plan
hold gemtesa
insert hart if retention persists (spoke to nursing)
await cx results
--- NOTE | 2024-04-06 12:35 | PTOTSP ---
Speech Pathology
Clinical Swallow Evaluation
88F with admission for nausea & vomiting, chest pain, and shortness of breath p/w clinical s/s of grossly functional oropharyngeal swallow. Suspect intermittent dysphagia symptoms are related to GI hx of hiatal hernia, Schatzki's ring, and chronic
gastritis. Patient tends to opt for soft solids at baseline, however does occasionally self select a regular solid (hard/crunchy texture). Patient denies dysphagia symptoms this date. No overt s/s of aspiration or penetration observed. Recommend
maintaining current diet level.
Recommend:
1. Regular textures (IDDSI 7), opt for soft give GI hx/ thin liquids (IDDSI 0)
2. Meds as tolerated
3. Aspiration and reflux precautions
4. ELEMENTARY READING SPECIALIST service to sign off, please reconsult as needed
--- NOTE | 2024-04-06 13:07 | CM ---
Reviewed the chart notes and spoke with the patient and her daughter at the bedside. The patient was recently hospitalized here (03/14-04/01) and discharged to [facility]. The patient prior to last hospitalization resided alone in a two story home with
three steps to enter. The patient reports having a rolling walker, stair glide, shower bench, shower rails, and a cane. The patient confirmed her pharmacy of choice is the [facility] [place]. continues to be available to
patient/family and is monitoring medical plan for needs at discharge.
Plan: Discharge plans will depend on the patient's progress.
[2024-04-06 16:26] LABS: Iron < 20 ug/dl (37-170)
[2024-04-06 16:32] LABS: Total Iron Binding Capacity 147 ug/dl (265-497)
--- NOTE | 2024-04-06 18:55 | PHA.VAN.IN ---
Assessment
- Assessment
Renal Function: Appears similar to baseline
Concomitant Antimicrobials: CEFTRIAXONE
AUC Dosing Plan
- Dosing Variables
Dosing Weight (kg): 86
Dosing CrCl (ml/min): 50
Vd coefficient (L/kg): 0.7
- Empiric Dosing
Initial / Loading Dose: VANCO 1250 MG X1
Maintenance Regimen: VANCO 1000MG Q24H
Estimated AUC (mcg*h/mL): 531
Estimated Peak (mcg*h/mL): 35.7
Estimated Trough (mcg/ml): 12.4
Estimated Half Life (H): 15.1
- Monitoring
No levels ordered at this time: CONSIDER LEVEL PRIOR TO 4TH MAINTENANCE DOSE
Pharmacokinetics Vancomycin I
- -
Patient Age: 88
Patient Sex: Female
Vancomycin Day #: 1
Indication: Genito-Urinary Tract
Requesting Provider: DR. ESCAMILLA
Pertinent Antimicrobial Allergies:
ERYTHROMYCIN (UNKNOWN)
Height / Weight:
Height 5 ft 1 in
Actual Weight 60.781 kg
Pertinent Past Medical History: BLADDER CANCER s/p cystoscopy, diagnostic L ureteroscopy with stent
- Vital Signs / Lab Results
Temp Pulse Resp BP Pulse Ox
97.7 F 86 16 144/68 98
04/06/24 16:22 04/06/24 16:22 04/06/24 16:22 04/06/24 16:22 04/06/24 16:22
Lab Results - Hematology
04/05/24 04/06/24
05:01 07:44
WBC 24.5 H 17.7 H
Lab Results - Chemistry
04/05/24 04/06/24
05:01 07:44
BUN 22 H 13
Creatinine 0.7 0.5 L
Estimated Creat Clear 51
Albumin 2.7 L 2.4 L
04/05/24
10:30
Lactic Acid 0.9
Lab Results - Urine
04/05/24
06:42
Urine Nitrite (Reflex) Negative
Leukocyte Esterase Rfl 2+ A
Urine WBC (Reflex) 0-2
Ur Squamous Epith Cells 0-2
Microbiology Results
04/05/24 06:42 Urine Culture - Preliminary
Urine Staphylococcus species
04/05/24 10:30 Blood Culture - Preliminary
Blood/Venous No Growth in 24 hours- Final report to follow
04/05/24 10:30 Blood Culture - Preliminary
Blood/Venous No Growth in 24 hours- Final report to follow
[2024-04-06] MEDS: VANCOCIN 275 MG IV (19:20)
[2024-04-06 20:15] LABS: Vitamin B12 962 pg/ml (239-931)
[2024-04-07] VITALS (8 sets, daily range): BP systolic 136–154; BP diastolic 48–73; PULSE 83; O2SAT 94; BMI 25.4
[2024-04-07] MEDS: VANCOCIN 200 IV (06:04)
[2024-04-07 08:03] LABS: % Basophils 0.3 % (0-2); % Eosinophils 2.1 % (0-6); % Immature Granulocytes 1.8 % (0-0.5); % Lymphocytes 6.3 % (20.5-51.1); % Monocytes 5.8 % (1.7-9.3); % Neutrophils 83.7 % (42.2-75.2); Absolute Basophils 0.1 10^3/uL (0-0.2); Absolute Eosinophils 0.4 10^3/uL (0-0.7); Absolute Immature Granulocytes 0.4 10^3/uL (0-0.05); Absolute Lymphocytes 1.2 10^3/uL (1.2-3.4); Absolute Monocytes 1.1 10^3/uL (0.1-0.6); Absolute Neutrophils 16.4 10^3/uL (1.4-6.5); Hematocrit 23.8 % (37.0-47.0); Hemoglobin 8.1 g/dL (12.0-16.0); Mean Corpuscular Volume 85.3 fL (81.0-99.0); Mean Platelet Volume 10.4 fL (7.4-10.4); Nucleated Red Blood Cells % 0 %; Platelet Count 481 10^3/uL (130-400); Red Blood Cell Count 2.79 10^6/uL (4.20-5.40); Red Cell Dist. Width 14.6 % (11.5-14.5); Reticulocyte Count 1.4 % (0.4-2.8); White Blood Cell Count 19.6 10^3/uL (4.8-10.8)
[2024-04-07 08:17] LABS: ALT (SGPT) 51 U/L (0-35); AST (SGOT) 47 U/L (14-36); Albumin 2.5 g/dl (3.5-5.0); Alkaline Phosphatase 188 U/L (38-126); Blood Urea Nitrogen 9 mg/dl (7-17); Carbon Dioxide 19 mmol/L (22-30); Chloride 102 mmol/L (98-107); Estimated Creatinine Clearance 51 ml/min; Glucose 126 mg/dl (70-99); Iron 24 ug/dl (37-170); LDH 221 U/L (120-246); Sodium 133 mmol/L (135-145); Total Bilirubin 0.6 mg/dl (0.2-1.3); Total Protein 5.5 g/dl (6.3-8.2); eGFR > 60.00
[2024-04-07 08:26] LABS: Percent Saturation 15 % (20-50); Total Iron Binding Capacity 155 ug/dl (265-497)
--- NOTE | 2024-04-07 08:36 | W.PN.HOSP.TC ---
Addendum entered and electronically signed by Temo Cao MD 04/07/24 12:58:
Patient had some diarrhea and C. difficile stools came back positive--> she will be started on oral vancomycin 125 mg p.o. every 6 hours.
Original Note:
Today's Communication/Plan
-
CT of the head. Fluconazole x 1. Monitor off antibiotics
Assessment / Plan
Assessment / Plan
Physical exam:
General: Acute on chronically ill.
HEENT: Normocephalic, Atraumatic and Moist Mucous Membranes
Respiratory: Clear to Auscultation; Negative Wheezes, Rales or Rhonchi
Cardiac: Regular Rhythm and S1/S2
GI: Soft, Nontender and Nondistended
Musculoskeletal: No Clubbing, No Cyanosis and No Edema
Neuro: Awake, Alert and Oriented, generalized weakness.
Psych: Calm
A/P:
Persistent leukocytosis:
Unsure of infectious or hematological issue but appears to be the latter
WBC 24.5--> 17.7-->19.6
Last recent admission she was seen by ID and had full workup without revealing any active infection and she even had a labeled white cell scan with no abnormal focus of accumulation identified.
This time all workup also appears to be unremarkable.
Stop all antibiotics today. Monitor off antibiotics.
Hematology consulted yesterday--> awaiting for upload consult for input.
Discussed with attending RN today.
Updated son over the phone yesterday.
Initially concerns for sepsis but it does not seem to be the case at this juncture:
All cultures unremarkable and urine culture growing yeast which most likely is not real pathogen.
I will give just 1 dose of fluconazole for now but I will not continue given clinical concerns is very low for active infection. I think yeast is a contaminant/colonizer but will follow-up results.
I also discussed with urology today (Dr. Collins Rosario) about findings of UA and he agrees low suspicion for active infection.
Anemia:
Unclear etiology but no signs of active bleeding
Hemoglobin 6.4--> 8.1 after blood transfusion
Hematology consulted
Urinary retention:
Requiring straight cath
Urology consulted today-discussed with urology via [facility] text
Generalized weakness and recent fall:
CT of the head today
PT OT eval
Chest pain and shortness of breath:
Noncardiac
Appreciated cardiology consult
CTA negative for PE
Dysphagia/nausea and vomiting:
Symptoms improving.
GI consult appreciated
Speech therapy eval appreciated--> recommended continue regular diet.
Elevated LFTs:
GI feels probably acute process contributing
Continue to monitor
Hold statin and will reevaluate when to restart
Hyponatremia:
129--> 133
He had evidence of ADH issues before but this time more hypovolemia.
Obtained serum osmolarity, urine osmolarity, urine sodium, TSH, cortisol level.
Monitor trend of sodium
Hypertension:
Continue antihypertensive, losartan 100 mg p.o. daily
Monitor blood pressure closely
Hyperlipidemia:
Hold off on statins and follow-up trend LFTs
Bladder cancer:
Oncology and urology on board
DVT prophylaxis:
SCDs
Hold Lovenox due to anemia but can restart tomorrow if hemoglobin remained stable
CODE STATUS:
DNR
Time spent 55 minutes
Anticipated Discharge: > 48 hours
Subjective/Interval History
-
Date of Service: April 07, 2024
Patient with generalized weakness. Denies abdominal pain or nausea or vomiting today. Afebrile
Objective Data
-
Labs:
Laboratory Results
04/07/24
06:48
WBC 19.6 H
Hgb 8.1 L D
Hct 23.8 L
Plt Count 481 H
Sodium 133 L
Potassium 4.0
Chloride 102
Carbon Dioxide 19 L
BUN 9
Creatinine 0.5 L
Glucose 126 H
Calcium 8.0 L
Total Bilirubin 0.6
AST 47 H
ALT 51 H
Alkaline Phosphatase 188 H
Vital Signs:
Vital Signs
Temp Pulse Resp BP Pulse Ox
98.4 F 95 18 153/73 96
04/07/24 03:51 04/07/24 03:51 04/07/24 03:51 04/07/24 03:51 04/07/24 03:51
I&O
04/06/24 04/07/24 04/08/24
06:59 06:59 06:59
Intake Total 1380 / 1380 1900 / 1900
Output Total 1840 / 1840 800 / 800
Balance -460 / -460 1100 / 1100
[2024-04-07] MEDS: ZOLOFT 25 MG PO (08:39)
[2024-04-07] MEDS: COZAAR 100 MG PO (08:39)
[2024-04-07] MEDS: PROTONIX 40 MG PO (08:39)
[2024-04-07] MEDS: ROCEPHIN 1000 MG IV (08:40)
[2024-04-07] MEDS: STERILE WATER FOR INJECTION 10 ML IV (08:40)
[2024-04-07 09:11] LABS: Folate 6.3 ng/ml (2.76-20); Vitamin B12 928 pg/ml (239-931)
[2024-04-07] MEDS: DIFLUCAN 200 MG PO (10:32)
--- NOTE | 2024-04-07 11:08 | W.PN.URO.CBU ---
Today's Communication / Plan
-
continue hart
Assessment / Plan
-
s/p turbt for bladder ca- localized with negative f/u bx
left ureteral stent- recently exchanged- no hydro on recent ct
yeast in urine- not concerning at this time
still no obvious gu dx for leukocystosis
hart in place- would leave and discharge pt with catheter
ultimate plan would be for removal of cath and stent in about 7-10 days
will follow
Diagnosis
-
Date of Service: April 07, 2024
-
Patient Diagnosis:
bladder ca s/p resection adn stent
urinary retention
fever and leukocytosis
Subjective
-
pt awake
no specific complaints- just feels weak
hart replaced yesterday- urine clear with some sediment- cx growing out light growth of yeast
did receive 1 unit of PRBC's
Objective
-
Vital Signs
Temp Pulse Resp BP Pulse Ox
97.7 F 96 18 138/67 93
04/07/24 07:35 04/07/24 08:39 04/07/24 07:35 04/07/24 08:39 04/07/24 07:35
Intake and Output
04/06/24 04/07/24 04/08/24
06:59 06:59 06:59
Intake Total 1380 / 1380 1900 / 1900
Output Total 1840 / 1840 800 / 800
Balance -460 / -460 1100 / 1100
Intake:
Oral fluids 480 / 480 1200 / 1200
IV fluids (Total) 900 / 900 200 / 200
Blood products 250 / 250
Blood Product Amount Infused ( 250 / 250
mL)
Packed Rbc Leukoreduced Unit 250 / 250
[id number]
Output:
Urine, Hart 800 / 800
Urine, Voided 725 / 725
Straight cath output 1115 / 1115
Other:
Number of approximated MODERATE 1
amounts of urine
How many times incontinent 1
MODERATE amount urine
How many times incontinent 2
SATURATED amount urine
Laboratory Results
04/07/24 06:48
04/07/24 06:48
Review of Systems
-
Constitutional: Fatigue
Respiratory: No Symptoms
Cardiac: No Symptoms
Abdomen/GI: No Symptoms
: Other (hart)
Physical Exam
-
General - no acute distress
Abdomen - soft, non-tender
Genitalia - hart in place
--- NOTE | 2024-04-07 11:32 | CON.ONC ---
Impression
Impression
Cytopenias, acute on chronic
Failure to thrive
Bladder cancer status post recent TURBT, intravesical therapy planned
Plan
Plan
Anemia workup sent.
May have CMML or myelofibrosis, these diagnoses would be best made by bone marrow biopsy, although liquid biopsy could be done in the outpatient setting.
Transfuse as needed hemoglobin of less than 7.
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
Will need outpatient follow-up.
Patient History
History of Present Illness
88-year-old woman with history of recent diagnosis of bladder cancer, hospitalized for 2 weeks earlier this month with persistent fevers and syncope. We were consulted during that admission for neutrophilia with monocytosis. The monocytosis was
noted to have been present for several months prior to the bladder cancer diagnosis. Imaging was without evidence of fever source. Her workup last admission included flow cytometry notable only for left shifted white blood cell population. She
was discharged from the hospital on April 01 but returned from [facility] on April 05 with nausea and vomiting, chest pain and shortness of breath, lethargy and concern for sepsis. Her blood counts were similar to previous including
hemoglobin of 6.4, white blood cell count 17.7, platelets of 434. Patient lethargic and unable to give history, but patient's daughter is present. Patient declined bone marrow biopsy during previous visit, still not amenable to this procedure.
Past-Medical/Surgical History
Medical History:
Asthma, Cancer (bladder CA s/p cystescopy, uteroscopy with stent exchange), Fibromyalgia, HTN, Hypercholesterolemia, Psychiatric (anxiety) and Other (schatzki's ring, diverticulosis, GI bleed ulcer HH, LVH, osteopenia, anemia , renal cyst with
drainage 03/22, hyponatremia 03/16 CT with changes of cirrhosis not seen on follow up MRI)
Past Surgical History:
Gynecological (, breast bx), Orthopedic (TKR), Tonsilectomy, Urological (TURBT 01/2024) and Other (cataracts)
Social History:
Tobacco: Non-Smoker
Alcohol: Occasional (hx social ETOH)
Drug: None
Personal:
Living: Alf (recent SNF after admission)
Employment: Retired
Family History:
Denies family history of cancer or blood disorders
Patient Medication
�Medication �Instructions �Recorded �Confirmed �Last Taken �Type
acetaminophen 500 mg capsule 500 mg PO Q6H Pain 01/25/24 04/05/24 03/06/24 19:30 History
losartan 100 mg tablet 100 mg PO DAILY Blood Pressure 01/25/24 04/05/24 03/06/24 08:00 History
melatonin 1 mg tablet 1 mg PO HSPRN PRN insomnia 01/25/24 04/05/24 Unknown History
methenam 118 mg-m.blue 10 1 tab PO BID Supplement 01/30/24 04/05/24 03/06/24 19:30 History
mg-s.phos 40.8 mg-p.salic 36
mg-hyos capsule (Uribel)
simvastatin 20 mg tablet 20 mg PO HS High Cholesterol 01/30/24 04/05/24 03/05/24 History
vibegron 75 mg tablet (Gemtesa) 75 mg PO HS OVERACTIVE BLADDER 03/04/24 04/05/24 03/06/24 19:30 History
pantoprazole 40 mg tablet,delayed 40 mg PO DAILY #30 tabs 04/01/24 04/05/24 Unknown Rx
release
polyethylene glycol 3350 17 gram 17 g PO DAILYPRN PRN constipation 04/01/24 04/05/24 Unknown Rx
oral powder packet (HealthyLax) #30 ea
sennosides 8.6 mg-docusate sodium 1 tab PO BIDPRN PRN constipation 04/01/24 04/05/24 Unknown Rx
50 mg tablet #30 tabs
bisacodyl 10 mg rectal suppository 10 mg FL DAILYPRN PRN if mom is 04/05/24 04/05/24 Unknown History
(Dulcolax (bisacodyl)) ineffective
magnesium hydroxide 400 mg/5 mL 30 ml PO DAILYPRN PRN if no bm on 04/05/24 04/05/24 Unknown History
oral suspension (Milk of Magnesia) day 4
sertraline 25 mg tablet 25 mg PO DAILY Depression 04/05/24 04/05/24 Unknown History
sodium phosphates 19 gram-7 118 ml FL DAILYPRN PRN if dulcolax 04/05/24 04/05/24 Unknown History
gram/118 mL enema (Fleet Enema) is ineffective
Active Medications
Generic Name Dose Route Start Last Admin
Trade Name Freq PRN Reason Stop Dose Admin
Albuterol/Ipratropium 3 ml 04/05/24 18:38
Ipratropium 0.5/Albuterol 3 Mg (3 Ml Ampul) INH
R Q4HPRN PRN
sob or wheezing
Protocol
Alprazolam 0.25 mg 04/05/24 20:39
Alprazolam 0.25 Mg Tablet PO 05/03/24 20:38
DAILYPRN PRN
anxiety
Bisacodyl 10 mg 04/05/24 15:58
Bisacodyl 10 Mg Rectal Suppository RECTAL 05/03/24 15:57
[id number] PRN
constipation
Bisacodyl 10 mg 04/05/24 18:43
Bisacodyl 10 Mg Rectal Suppository RECTAL 05/03/24 18:42
DAILYPRN PRN
if mom is ineffective
Enoxaparin Sodium 40 mg 04/05/24 18:00 04/05/24 18:33
Enoxaparin Sodium 40 Mg/0.4 Ml Syringe SC 05/03/24 17:59 40 mg
QPM SHARLA Administration
Losartan Potassium 100 mg 04/05/24 18:42 04/07/24 08:39
Losartan 100 Mg Tablet PO 05/03/24 18:41 100 mg
DAILY SHARLA Administration
Magnesium Hydroxide 30 ml 04/05/24 18:43
Milk Of Magnesia 30 Ml Cup PO 05/03/24 18:42
DAILYPRN PRN
if no bm on day 4
Melatonin 1.5 mg 04/05/24 20:40
Melatonin 3 Mg Tablet PO 05/03/24 19:28
HSPRN PRN
insomnia
Ondansetron HCl 4 mg 04/05/24 15:58
Ondansetron 4 Mg/2 Ml Vial IV 05/03/24 15:57
Q6HPRN PRN
nausea and vomiting
Pantoprazole Sodium 40 mg 04/05/24 18:39 04/07/24 08:39
Pantoprazole 40 Mg Delayed Release Tablet PO 05/03/24 18:38 40 mg
DAILY SHARLA Administration
Polyethylene Glycol 17 grams 04/05/24 15:58
Polyethylene Glycol Powder 17 Grams Packet PO 05/03/24 15:57
DAILYPRN PRN
constipation
Senna/Docusate Sodium 1 tablet 04/05/24 18:43
Docusate W/Senna (Ml-Colace) Tablet PO 05/03/24 18:42
BIDPRN PRN
constipation
Sertraline HCl 25 mg 04/05/24 18:39 04/07/24 08:39
Sertraline 25 Mg Tablet PO 05/03/24 18:38 25 mg
DAILY SHARLA Administration
Sodium Chloride 0 flush 04/05/24 17:00
Sodium Chloride 0.9% (Flush) Syringe IV 05/03/24 16:59
PER PROTOCOL SHARLA
Review of Systems
-
Unable to obtain full review of systems at this time due to: Other (Lethargy)
Physical Exam
Labs
Lab Results
WBC 19.6 10^3/uL (4.8-10.8) H 04/07/24 06:48
RBC 2.79 10^6/uL (4.20-5.40) L 04/07/24 06:48
Hgb 8.1 g/dL (12.0-16.0) L D 04/07/24 06:48
Hct 23.8 % (37.0-47.0) L 04/07/24 06:48
MCV 85.3 fL (81.0-99.0) 04/07/24 06:48
MCH 29.0 pg (27.0-31.0) 04/07/24 06:48
MCHC 34.0 g/dL (33.0-37.0) 04/07/24 06:48
RDW 14.6 % (11.5-14.5) H 04/07/24 06:48
Plt Count 481 10^3/uL (130-400) H 04/07/24 06:48
MPV 10.4 fL (7.4-10.4) 04/07/24 06:48
Abs Immat Gran (auto) 0.4 10^3/uL (0-0.05) H 04/07/24 06:48
Absolute Neuts (auto) 16.4 10^3/uL (1.4-6.5) H 04/07/24 06:48
Absolute Lymphs (auto) 1.2 10^3/uL (1.2-3.4) 04/07/24 06:48
Absolute Monos (auto) 1.1 10^3/uL (0.1-0.6) H 04/07/24 06:48
Absolute Eos (auto) 0.4 10^3/uL (0-0.7) 04/07/24 06:48
Absolute Basos (auto) 0.1 10^3/uL (0-0.2) 04/07/24 06:48
Immature Gran % 1.8 % (0-0.5) H 04/07/24 06:48
Neutrophils % 83.7 % (42.2-75.2) H 04/07/24 06:48
Lymphocytes % 6.3 % (20.5-51.1) L 04/07/24 06:48
Monocytes % 5.8 % (1.7-9.3) 04/07/24 06:48
Eosinophils % 2.1 % (0-6) 04/07/24 06:48
Basophils % 0.3 % (0-2) 04/07/24 06:48
Creatinine 0.5 mg/dL (0.6-1.0) L 04/07/24 06:48
Vital Signs
Vital Signs
Temp Pulse Resp BP Pulse Ox
97.7 F 96 18 138/67 93
04/07/24 07:35 04/07/24 08:39 04/07/24 07:35 04/07/24 08:39 04/07/24 07:35
--- NOTE | 2024-04-07 12:51 | PTCARENOTE ---
assisted pt to the bathroom this am, she had a hard time with coordination and very sleepy, tired lethargic, had a previous fall at [facility] MD jose made aware and a head CT was ordered. PT also had episode of sudden loose stool, colected sample, sent
to the lab and it was Cdiff positive.
[2024-04-07] MEDS: FIRVANQ 125 MG PO ×2 (13:31→17:18)
[2024-04-07] MEDS: XANAX 0.25 MG PO (20:36)
[2024-04-07] MEDS: MELATONIN 1.5 MG PO (20:38)
[2024-04-08] VITALS (8 sets, daily range): BP systolic 126–152; BP diastolic 54–67; PULSE 78; O2SAT 98
[2024-04-08] MEDS: FIRVANQ 125 MG PO ×4 (00:24→17:40)
[2024-04-08] MEDS: TYLENOL PO (00:24)
[2024-04-08] MEDS: TYLENOL 650 MG PO (05:22)
[2024-04-08 06:42] LABS: % Basophils 0.3 % (0-2); % Immature Granulocytes 1.8 % (0-0.5); % Lymphocytes 7.6 % (20.5-51.1); % Neutrophils 79.3 % (42.2-75.2); Absolute Eosinophils 0.5 10^3/uL (0-0.7); Absolute Immature Granulocytes 0.3 10^3/uL (0-0.05); Absolute Lymphocytes 1.2 10^3/uL (1.2-3.4); Absolute Monocytes 1.2 10^3/uL (0.1-0.6); Absolute Neutrophils 12.2 10^3/uL (1.4-6.5); Hematocrit 23.2 % (37.0-47.0); Hemoglobin 7.8 g/dL (12.0-16.0); Mean Corp Hgb Conc. 33.6 g/dL (33.0-37.0); Mean Corpuscular Hgb 29.3 pg (27.0-31.0); Mean Corpuscular Volume 87.2 fL (81.0-99.0); Mean Platelet Volume 10.2 fL (7.4-10.4); Nucleated Red Blood Cells % 0 %; Platelet Count 467 10^3/uL (130-400); Red Blood Cell Count 2.66 10^6/uL (4.20-5.40); Red Cell Dist. Width 14.6 % (11.5-14.5); White Blood Cell Count 15.3 10^3/uL (4.8-10.8)
[2024-04-08 07:11] LABS: ALT (SGPT) 45 U/L (0-35); AST (SGOT) 45 U/L (14-36); Albumin 2.4 g/dl (3.5-5.0); Alkaline Phosphatase 161 U/L (38-126); Blood Urea Nitrogen 7 mg/dl (7-17); Carbon Dioxide 21 mmol/L (22-30); Chloride 100 mmol/L (98-107); Direct Bilirubin 0.2 mg/dl (0.0-0.4); Estimated Creatinine Clearance 51 ml/min; Glucose 113 mg/dl (70-99); Sodium 132 mmol/L (135-145); Total Bilirubin 0.5 mg/dl (0.2-1.3); Total Protein 5.6 g/dl (6.3-8.2); eGFR > 60.00
[2024-04-08] MEDS: COZAAR 100 MG PO (08:03)
[2024-04-08] MEDS: PROTONIX 40 MG PO (08:03)
[2024-04-08] MEDS: ZOLOFT 25 MG PO (08:04)
--- NOTE | 2024-04-08 11:14 | PTCARENOTE ---
Upon reading through orders for this pt, this RN found that there was no order for hart catheter placed on 04/06/24 for acute urinary retention. This RN reached out to MD to get correct order placed, order now in. Hart remains in place draining
clear yellow.
--- NOTE | 2024-04-08 13:22 | W.PN.HOSP.TC ---
Today's Communication/Plan
-
Address goals of care
Assessment / Plan
Assessment / Plan
Gen-AAOx3, NAD
HEENT-NC, AT, anicteric, clear oral mm
Neck-supple
CV-reg, no M, +S1/S2
Lungs-clear B/L
Abd-soft, NT, ND
Ext-no edema
Musculoskeletal-no cyanosis, clubbing
Skin-warm and dry
Neuro-grossly non-focal
Psych-calm, cooperative
Persistent leukocytosis -no diagnosis so far. Await hematology input today.
CDAD -continue oral vancomycin. No diarrhea today per nursing.
Acute on chronic anemia -normocytic. Unclear etiology but no signs of active bleeding. Transfused 1 unit of blood so far, hemoglobin 7.8 today. Monitor for now.
Acute urinary retention -Castañeda catheter in place, continue on discharge and follow-up with urology.
Generalized weakness and recent fall -suspect due to multifactorial etiology including deconditioning, anemia, etc.
Chest pain and shortness of breath:
Noncardiac
Appreciated cardiology consult
CTA negative for PE
Elevated LFTs -check GGT.
GI feels probably acute process contributing
Continue to monitor
Hold statin and will reevaluate when to restart
Hypovolemic hyponatremia - 129--> 132
He had evidence of ADH issues before but this time more hypovolemia.
Serum osmolarity 273. TSH 2.3, random cortisol 20.2. Urine osmolality 241, urine sodium 10. Suspect GI losses induced hyponatremia.
Essential hypertension:
Continue antihypertensive, losartan 100 mg p.o. daily
Monitor blood pressure closely
Hyperlipidemia:
Hold off on statins and follow-up trend LFTs
Bladder cancer -underwent cystoscopy and transurethral resection of bladder tumor 01/30/2024. Follow-up with urology after discharge. Urology recommends removal of Castañeda catheter and stent in 7 to 10 days.
CODE STATUS:
DNR
I updated patient's son Almas on the phone. Answered all questions. Informed Almas that his mother does not want to go to SNF but would rather go home with home care. However, I do not feel that this would be realistic or safe for her as I feel
that she needs 24-hour care. Await hematology input today. Need to come up with a plan of care moving forward regarding any further diagnostic testing prior to discharge versus outpatient follow-up. Also need to assess patient's input regarding
her goals of care as to how aggressive to be with further workup for her leukocytosis. She was offered bone marrow biopsy a few weeks ago but she declined.
Anticipated Discharge: Within 24 hours
Subjective/Interval History
-
Date of Service: April 08, 2024
Patient seen and examined. No complaints.
Objective Data
-
Labs:
Laboratory Results
04/08/24
06:07
WBC 15.3 H
Hgb 7.8 L
Hct 23.2 L
Plt Count 467 H
Sodium 132 L
Potassium 4.0
Chloride 100
Carbon Dioxide 21 L
BUN 7
Creatinine 0.5 L
Glucose 113 H
Calcium 8.0 L
Total Bilirubin 0.5
AST 45 H
ALT 45 H
Alkaline Phosphatase 161 H
Vital Signs:
Vital Signs
Temp Pulse Resp BP Pulse Ox
96.2 F L 68 16 135/59 94
04/08/24 11:45 04/08/24 11:45 04/08/24 11:45 04/08/24 11:45 04/08/24 11:45
I&O
04/07/24 04/08/24 04/09/24
06:59 06:59 06:59
Intake Total 1900 / 1900 860 / 860
Output Total 800 / 800 825 / 825
Balance 1100 / 1100 35 / 35
Review of Systems
-
History Source: Patient
All other systems: Reviewed and negative
[2024-04-08 15:13] LABS: GGTP 119 U/L (12-43)
--- NOTE | 2024-04-08 16:31 | CM ---
Chart reviewed and telephonic case manager met with patient and daughter along with physical therapy at bedside, discharge plan reviewed and plan is for patient to return to [facility] and then home with [facility] private duty nursing, per
daughter, family need to make arrangements for private duty nursing in home.
Plan; Skilled placement at [facility] referral sent through [facility] [employer].
[2024-04-08 19:37] LABS: Erythropoietin (EPO) 36 mU/mL (4-27)
[2024-04-08] MEDS: MELATONIN 1.5 MG PO (20:13)
[2024-04-08] MEDS: XANAX 0.25 MG PO (20:13)
[2024-04-09] MEDS: FIRVANQ 125 MG PO ×5 (00:06→23:25)
[2024-04-09 03:00] VITALS: BP 147/63
[2024-04-09 06:48] LABS: % Basophils 0.2 % (0-2); % Eosinophils 4.8 % (0-6); % Lymphocytes 10.8 % (20.5-51.1); % Monocytes 10.5 % (1.7-9.3); % Neutrophils 71.7 % (42.2-75.2); Absolute Eosinophils 0.6 10^3/uL (0-0.7); Absolute Immature Granulocytes 0.3 10^3/uL (0-0.05); Absolute Lymphocytes 1.4 10^3/uL (1.2-3.4); Absolute Monocytes 1.4 10^3/uL (0.1-0.6); Absolute Neutrophils 9.5 10^3/uL (1.4-6.5); Hematocrit 23.8 % (37.0-47.0); Mean Corp Hgb Conc. 33.6 g/dL (33.0-37.0); Mean Corpuscular Hgb 28.9 pg (27.0-31.0); Mean Corpuscular Volume 85.9 fL (81.0-99.0); Mean Platelet Volume 10.3 fL (7.4-10.4); Nucleated Red Blood Cells % 0 %; Platelet Count 460 10^3/uL (130-400); Red Blood Cell Count 2.77 10^6/uL (4.20-5.40); Red Cell Dist. Width 14.3 % (11.5-14.5); White Blood Cell Count 13.3 10^3/uL (4.8-10.8)
[2024-04-09 07:05] LABS: ALT (SGPT) 60 U/L (0-35); AST (SGOT) 78 U/L (14-36); Albumin 2.5 g/dl (3.5-5.0); Alkaline Phosphatase 174 U/L (38-126); Blood Urea Nitrogen 8 mg/dl (7-17); Calcium 8.2 mg/dl (8.4-10.2); Carbon Dioxide 21 mmol/L (22-30); Chloride 99 mmol/L (98-107); Estimated Creatinine Clearance 51 ml/min; Glucose 111 mg/dl (70-99); Potassium 4.1 mmol/L (3.5-5.1); Sodium 131 mmol/L (135-145); Total Bilirubin 0.5 mg/dl (0.2-1.3); Total Protein 5.6 g/dl (6.3-8.2); eGFR > 60.00
[2024-04-09 07:51] VITALS: BP 152/67
[2024-04-09] MEDS: PROTONIX 40 MG PO (09:32)
[2024-04-09] MEDS: COZAAR 100 MG PO (09:32)
[2024-04-09] MEDS: ZOLOFT 25 MG PO (09:32)
--- NOTE | 2024-04-09 09:47 | W.PN.ONC ---
Addendum entered and electronically signed by Ramandeep Rosenbaum MD 04/09/24 12:19:
Inpatient BM biopsy has been approved by Dr. Silva, will order to be done in IR
Original Note:
Today's Communication / Plan
-
Plan for outpatient BM biopsy
Transfusion support in the meantime
Impression
Impression
Cytopenias, acute on chronic
Failure to thrive
Bladder cancer status post recent TURBT, intravesical therapy planned
Cdiff
Plan
Plan
Evaluation for anemia has been non-diagnostic thus far
Patient was previously reluctant to undergo bone marrow biopsy, but is not agreeable
Will arrange to be done as outpatient once discharge plans confirmed
Transfuse as needed hemoglobin of less than 7.
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
Subjective/Objective
Subjective/Objective
Limited evaluation as patient didn't have her hearing aides in and needed to urgently use commode. Daughter at bedside, states they now would like to pursue BM biopsy.
Vital Signs:
Vital Signs
Temp Pulse Resp BP Pulse Ox
98.3 F 90 16 152/67 94
04/09/24 07:51 04/09/24 09:32 04/09/24 07:51 04/09/24 09:32 04/09/24 07:51
Lab Results:
Laboratory Data
WBC 13.3 10^3/uL (4.8-10.8) H 04/09/24 06:04
Hgb 8.0 g/dL (12.0-16.0) L 04/09/24 06:04
Plt Count 460 10^3/uL (130-400) H 04/09/24 06:04
eGFR > 60.00 04/09/24 06:04
--- NOTE | 2024-04-09 11:50 | W.PN.HOSP.TC ---
Today's Communication/Plan
-
Discharge planning
Assessment / Plan
Assessment / Plan
Gen-AAOx3, NAD
HEENT-NC, AT, anicteric, clear oral mm
Neck-supple
CV-reg, no M, +S1/S2
Lungs-clear B/L
Abd-soft, NT, ND
Ext-no edema
Musculoskeletal-no cyanosis, clubbing
Skin-warm and dry
Neuro-grossly non-focal
Psych-calm, cooperative
Persistent leukocytosis -no diagnosis so far. Hematology plans on outpatient bone marrow biopsy. Patient now agreeable.
CDAD -continue oral vancomycin. Diarrhea improving.
Acute on chronic anemia -normocytic. Unclear etiology but no signs of active bleeding. Transfused 1 unit of blood so far, hemoglobin stable at 8.0 today. Monitor for now.
Acute urinary retention -Castañeda catheter in place, continue on discharge and follow-up with urology.
Generalized weakness and recent fall -suspect due to multifactorial etiology including deconditioning, anemia, etc.
Chest pain and shortness of breath:
Noncardiac
Appreciated cardiology consult
CTA negative for PE
Elevated LFTs -unclear etiology. GGT elevated.
GI feels probably acute process contributing
Continue to monitor
Hold statin and will reevaluate when to restart
Hypovolemic hyponatremia -sodium 131.
He had evidence of ADH issues before but this time more hypovolemia.
Serum osmolarity 273. TSH 2.3, random cortisol 20.2. Urine osmolality 241, urine sodium 10. Suspect GI losses induced hyponatremia.
Essential hypertension:
Continue antihypertensive, losartan 100 mg p.o. daily
Monitor blood pressure closely
Hyperlipidemia:
Hold off on statins and follow-up trend LFTs
Bladder cancer -underwent cystoscopy and transurethral resection of bladder tumor 01/30/2024. Follow-up with urology after discharge. Urology recommends removal of Castañeda catheter and stent in 7 to 10 days.
CODE STATUS:
DNR
Dispo -medically stable for discharge to SNF. Case management aware.
Anticipated Discharge: Within 24 hours
Subjective/Interval History
-
Date of Service: April 09, 2024
Patient seen and examined. No new complaints.
Objective Data
-
Labs:
Laboratory Results
04/09/24
06:04
WBC 13.3 H
Hgb 8.0 L
Hct 23.8 L
Plt Count 460 H
Sodium 131 L
Potassium 4.1
Chloride 99
Carbon Dioxide 21 L
BUN 8
Creatinine 0.5 L
Glucose 111 H
Calcium 8.2 L
Total Bilirubin 0.5
AST 78 H
ALT 60 H
Alkaline Phosphatase 174 H
Vital Signs:
Vital Signs
Temp Pulse Resp BP Pulse Ox
98.3 F 90 16 152/67 94
04/09/24 07:51 04/09/24 09:32 04/09/24 07:51 04/09/24 09:32 04/09/24 07:51
I&O
04/08/24 04/09/24 04/10/24
06:59 06:59 06:59
Intake Total 860 / 860 540 / 540
Output Total 825 / 825 650 / 650
Balance 35 / 35 -110 / -110
Review of Systems
-
History Source: Patient
All other systems: Reviewed and negative
[2024-04-09 15:20] VITALS: BP 132/57
--- NOTE | 2024-04-09 16:05 | CM ---
Reviewed the chart notes and spoke with patient and her daughter at the bedside. IMM reviewed. The patient anticipates going to IR for bone marrow biopsy today. CM continues to be available to patient/family and is monitoring medical plan for
needs at discharge.
Plan: Discharge to SNF/rehab once medically stable. Referral sent to [facility].
--- NOTE | 2024-04-09 16:08 | W.PN.URO.CBU ---
Today's Communication / Plan
-
continue hart and stent
Assessment / Plan
-
s/p turbt for bladder ca- localized with negative f/u bx
left ureteral stent- recently exchanged- no hydro on recent ct
yeast in urine- not concerning at this time
still no obvious gu dx for leukocystosis
hart in place- would leave and discharge pt with catheter
ultimate plan would be for removal of cath and stent in about 7-10 days
wbc actually decling and no high temps
for bone marrow bx and outpt f/u
reviewed urologic plan with daughter
Diagnosis
-
Date of Service: April 09, 2024
-
Patient Diagnosis:
bladder ca s/p resection and stent
urinary retention
fever and leukocytosis
Subjective
-
pt resting
daughter at bedside
no fevers- wbc actually lowest level in 3-4 weeks
reported some nausea and just weak
on treatment for cdiff
is going for marrow bx today by report
Objective
-
Vital Signs
Temp Pulse Resp BP Pulse Ox
98.3 F 90 16 152/67 94
04/09/24 07:51 04/09/24 09:32 04/09/24 07:51 04/09/24 09:32 04/09/24 12:09
Intake and Output
04/08/24 04/09/24 04/10/24
06:59 06:59 06:59
Intake Total 860 / 860 540 / 540
Output Total 825 / 825 650 / 650 450 / 450
Balance 35 / 35 -110 / -110 -450 / -450
Intake:
Oral fluids 860 / 860 540 / 540
Output:
Urine, Hart 825 / 825 650 / 650 450 / 450
Other:
Number of unmeasured liquid
stools
Rectum 1 1
Laboratory Results
04/09/24 06:04
04/09/24 06:04
Physical Exam
-
General - no acute distress
Genital- hart in place- urine clear
--- NOTE | 2024-04-09 17:30 | PTCARENOTE ---
This RN communicated with urology regarding patient's hart order; verbal order placed by this RN per urology to maintain hart per urology determination.
[2024-04-09] MEDS: XANAX 0.25 MG PO (23:24)
[2024-04-09] MEDS: MELATONIN 1.5 MG PO (23:24)
[2024-04-09 23:44] VITALS: BP 155/68
[2024-04-10] VITALS (7 sets, daily range): BP systolic 67–155; BP diastolic 49–70
[2024-04-10] MEDS: FIRVANQ 125 MG PO ×3 (06:03→23:47)
[2024-04-10] MEDS: PROTONIX 40 MG PO (08:39)
[2024-04-10] MEDS: COZAAR 100 MG PO (08:39)
[2024-04-10] MEDS: ZOLOFT 25 MG PO (08:40)
[2024-04-10] MEDS: TYLENOL 650 MG PO ×2 (08:41→21:53)
--- NOTE | 2024-04-10 10:36 | PTCARENOTE ---
pt wakes to name. [place]. states pain in both hands from arthritis. tylenol given as ordered. pt daughter at bedside reviewed plan of care.
--- NOTE | 2024-04-10 11:06 | W.PN.HOSP.TC ---
Today's Communication/Plan
-
Bone marrow biopsy
Discharge planning
Assessment / Plan
Assessment / Plan
Gen-sleepy but arousable
HEENT-NC, AT, anicteric, clear oral mm
Neck-supple
CV-reg, no M, +S1/S2
Lungs-clear B/L
Abd-soft, NT, ND
Ext-no edema
Musculoskeletal-no cyanosis, clubbing
Skin-warm and dry
Neuro-grossly non-focal
Psych-calm, cooperative
Persistent leukocytosis -no diagnosis so far. Pulmonary biopsy to be done today. Outpatient follow-up with hematology.
Nursing requesting additional dose of Xanax now as reportedly patient very anxious about bone marrow biopsy today. However on my assessment, she is somnolent and sleeping. Xanax ordered but discussed with nurse that if she remains somnolent would
probably hold the dose.
CDAD -continue oral vancomycin. Diarrhea improving.
Acute on chronic anemia -normocytic. Unclear etiology but no signs of active bleeding. Transfused 1 unit of blood so far, hemoglobin stable at 8.0 today. Monitor for now. Iron panel not entirely consistent with iron deficiency. MCV normal.
Acute urinary retention -Castañeda catheter in place, continue on discharge and follow-up with urology.
Generalized weakness and recent fall -suspect due to multifactorial etiology including deconditioning, anemia, etc.
Chest pain and shortness of breath:
Noncardiac
Appreciated cardiology consult
CTA negative for PE
Elevated LFTs -unclear etiology. GGT elevated.
GI feels probably acute process contributing
Continue to monitor
Hold statin and will reevaluate when to restart
Hypovolemic hyponatremia -sodium 131.
He had evidence of ADH issues before but this time more hypovolemia.
Serum osmolarity 273. TSH 2.3, random cortisol 20.2. Urine osmolality 241, urine sodium 10. Suspect GI losses induced hyponatremia.
Essential hypertension:
Continue antihypertensive, losartan 100 mg p.o. daily
Monitor blood pressure closely
Hyperlipidemia:
Hold off on statins and follow-up trend LFTs
Bladder cancer -underwent cystoscopy and transurethral resection of bladder tumor 01/30/2024. Follow-up with urology after discharge. Urology recommends removal of Castañeda catheter and stent in 7 to 10 days.
CODE STATUS:
DNR
Dispo -medically stable for discharge to SNF. Case management aware. Updated family at the bedside.
Anticipated Discharge: Within 24 hours
Subjective/Interval History
-
Date of Service: April 10, 2024
Patient seen and examined. Sleepy this morning but arousable. No complaints.
Objective Data
-
Vital Signs:
Vital Signs
Temp Pulse Resp BP Pulse Ox
98.2 F 80 18 137/59 94
04/10/24 07:44 04/10/24 08:39 04/10/24 07:44 04/10/24 08:39 04/10/24 07:44
I&O
04/09/24 04/10/24 04/11/24
06:59 06:59 06:59
Intake Total 540 / 540 1080 / 1080
Output Total 650 / 650 1200 / 1200
Balance -110 / -110 -120 / -120
Review of Systems
-
Unable to obtain full review of systems at this time due to: Acuity
History Source: Patient
All other systems: Reviewed and negative
[2024-04-10] MEDS: XANAX 0.25 MG PO (11:08)
[2024-04-10] MEDS: NSS (PRESERVATIVE FREE) 0.125 ML IV (12:08)
[2024-04-10] MEDS: ATIVAN 0.25 MG IV (12:09)
--- NOTE | 2024-04-10 14:07 | CM ---
Addendum entered by Jackelin Mitchell RN 04/10/24 14:10:
Family has signed a contract with [facility] for care in the home.
Original Note:
Reviewed the chart notes and spoke with the patient's daughter at the bedside. Patient is s/p CT-guided bone marrow aspiration and core biopsy. CM continues to be available to patient/family and is monitoring medical plan for needs at discharge.
Plan: Discharge to SNF/rehab. Referral sent to [facility]. PT has attempted to see patient last two days, but patient was sleeping soundly each time. PT last saw patient on 04/08.
[2024-04-10] MEDS: FIRVANQ PO (14:51)
--- NOTE | 2024-04-10 14:53 | PTCARENOTE ---
pt sent to IR for biopsy. prior pt expressed being very anxious about test. both pt and daughter expressed need for medication for anxiety. Dr. Peters at bedside ordered one time Xanax dose. pt returned from IR drowsy wakes to touch then falls
back to sleep. right hip with band aid noted. spoke with both daughters at bedside. they are concerned with pt going home. would prefer a rehab but patient has expressed she wants to go home. reviewed with case management.
[2024-04-10] MEDS: MELATONIN 1.5 MG PO (21:52)
[2024-04-10 22:43] LABS: Albumin 1.72 g/dL (3.75-5.01); Alpha 1 Globulin 0.73 g/dL (0.19-0.46); Alpha 2 Globulin 1.13 g/dL (0.48-1.05); IgA 207 mg/dL (68-408); IgG 1316 mg/dL (768-1632); IgM 73 mg/dL (35-263); SPEP IFE Reflex IFE Done; Total Protein-Electrophoresis 5.4 g/dL (6.3-8.2)
[2024-04-11] MEDS: FIRVANQ 125 MG PO ×4 (06:07→23:20)
[2024-04-11 06:52] LABS: % Basophils 0.2 % (0-2); % Eosinophils 4.2 % (0-6); % Immature Granulocytes 1.5 % (0-0.5); % Lymphocytes 11.3 % (20.5-51.1); % Monocytes 8.4 % (1.7-9.3); % Neutrophils 74.4 % (42.2-75.2); Absolute Eosinophils 0.5 10^3/uL (0-0.7); Absolute Immature Granulocytes 0.2 10^3/uL (0-0.05); Absolute Lymphocytes 1.4 10^3/uL (1.2-3.4); Absolute Monocytes 1.1 10^3/uL (0.1-0.6); Absolute Neutrophils 9.4 10^3/uL (1.4-6.5); Hematocrit 25.4 % (37.0-47.0); Hemoglobin 8.5 g/dL (12.0-16.0); Mean Corp Hgb Conc. 33.5 g/dL (33.0-37.0); Mean Corpuscular Hgb 29.3 pg (27.0-31.0); Mean Corpuscular Volume 87.6 fL (81.0-99.0); Mean Platelet Volume 10.5 fL (7.4-10.4); Nucleated Red Blood Cells % 0 %; Platelet Count 465 10^3/uL (130-400); Red Cell Dist. Width 14.1 % (11.5-14.5); White Blood Cell Count 12.7 10^3/uL (4.8-10.8)
[2024-04-11 07:12] LABS: ALT (SGPT) 53 U/L (0-35); AST (SGOT) 73 U/L (14-36); Albumin 2.5 g/dl (3.5-5.0); Alkaline Phosphatase 175 U/L (38-126); Blood Urea Nitrogen 10 mg/dl (7-17); Calcium 8.2 mg/dl (8.4-10.2); Carbon Dioxide 25 mmol/L (22-30); Chloride 99 mmol/L (98-107); Estimated Creatinine Clearance 51 ml/min; Glucose 109 mg/dl (70-99); Potassium 4.2 mmol/L (3.5-5.1); Sodium 131 mmol/L (135-145); Total Bilirubin 0.5 mg/dl (0.2-1.3); Total Protein 5.6 g/dl (6.3-8.2); eGFR > 60.00
[2024-04-11 07:14] VITALS: BP 115/54
[2024-04-11] MEDS: COZAAR 100 MG PO (08:11)
[2024-04-11] MEDS: ZOLOFT 25 MG PO (08:11)
[2024-04-11] MEDS: PROTONIX 40 MG PO (08:11)
--- NOTE | 2024-04-11 08:31 | W.PN.ONC2 ---
Today's Communication / Plan
-
Follow CBC
follow for Bone marrow biopsy pathology
Impression
Impression
Cytopenias, acute on chronic
Failure to thrive
Bladder cancer status post recent TURBT, intravesical therapy planned
Cdiff
Plan
Plan
Evaluation for anemia has been non-diagnostic thus far
Patient was previously reluctant to undergo bone marrow biopsy, but is now agreeable. S/P BMBx 04/10, follow for pathology
Will arrange to be done as outpatient once discharge plans confirmed
Transfuse as needed hemoglobin of less than 7.
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
Subjective/Objective
Chief Complaint
no new complaints
Subjective
afebrile, no hypoxia or hypotension
daughter Carmen at bedside during visit, questions answered
Vital Signs:
Vital Signs
Temp Pulse Resp BP Pulse Ox
97.6 F 76 18 115/54 95
04/11/24 07:14 04/11/24 08:11 04/11/24 07:14 04/11/24 08:11 04/11/24 07:14
Lab Results:
Laboratory Data
WBC 12.7 10^3/uL (4.8-10.8) H 04/11/24 06:30
Hgb 8.5 g/dL (12.0-16.0) L 04/11/24 06:30
Plt Count 465 10^3/uL (130-400) H 04/11/24 06:30
eGFR > 60.00 04/11/24 06:30
Physical Exam
HEENT: Moist Mucous Membranes; No Jaundice
Cardiology: S1 and S2
Pulmonary: Clear
GI: Soft
Extremities: Pulses Present; No Edema
Neuro: Non Focal
Review of Systems
Review of Systems
Review of systems notable for subjective, otherwise negative
--- NOTE | 2024-04-11 09:50 | W.PN.URO.CBU ---
Today's Communication / Plan
-
Cleared for discharge home from standpoint
Assessment / Plan
-
s/p turbt for bladder ca- localized with negative f/u bx
left ureteral stent- recently exchanged- no hydro on recent ct
yeast in urine- not concerning at this time
still no obvious gu dx for leukocystosis
hart in place- would leave and discharge pt with catheter
ultimate plan would be for removal of cath and stent in about 7-10 days
Diagnosis
-
Date of Service: April 11, 2024
-
:
Patient Diagnosis:
bladder ca s/p resection and stent
urinary retention
leukocytosis: improving
Subjective
-
Patient fatigued and weary
Objective
-
Vital Signs
Temp Pulse Resp BP Pulse Ox
97.6 F 76 18 115/54 95
04/11/24 07:14 04/11/24 08:11 04/11/24 07:14 04/11/24 08:11 04/11/24 07:14
Intake and Output
04/10/24 04/11/24 04/12/24
06:59 06:59 06:59
Intake Total 1080 / 1080 480 / 480
Output Total 1200 / 1200 600 / 600
Balance -120 / -120 -120 / -120
Intake:
Oral fluids 1080 / 1080 480 / 480
Output:
Urine, Hart 1200 / 1200 600 / 600
Laboratory Results
04/11/24 06:30
04/11/24 06:30
Review of Systems
-
Constitutional: Fatigue
Respiratory: No Symptoms
Cardiac: No Symptoms
Abdomen/GI: No Symptoms
Physical Exam
-
General - no acute distress
Abdomen - soft, non-tender
Counseling
-
Urologically stable
Leukocytosis continues to improve
--- NOTE | 2024-04-11 11:54 | W.PN.HOSP.TC ---
Today's Communication/Plan
-
Await family decision regarding discharge
Assessment / Plan
Assessment / Plan
Gen-sleepy but arousable
HEENT-NC, AT, anicteric, clear oral mm
Neck-supple
CV-reg, no M, +S1/S2
Lungs-clear B/L
Abd-soft, NT, ND
Ext-no edema
Musculoskeletal-no cyanosis, clubbing
Skin-warm and dry
Neuro-grossly non-focal
Psych-calm, cooperative
Persistent leukocytosis -no diagnosis so far. Bone marrow biopsy completed 04/10, report pending. Outpatient follow-up with hematology.
CDAD -continue oral vancomycin. Diarrhea improving.
Acute on chronic anemia -normocytic. Unclear etiology but no signs of active bleeding. Transfused 1 unit of blood so far, hemoglobin stable at 8.5 today. Monitor for now. Iron panel not entirely consistent with iron deficiency. MCV normal.
Acute urinary retention -Castañeda catheter in place, continue on discharge and follow-up with urology.
Generalized weakness and recent fall -suspect due to multifactorial etiology including deconditioning, anemia, etc.
Chest pain and shortness of breath:
Noncardiac
Appreciated cardiology consult
CTA negative for PE
Elevated LFTs -unclear etiology. GGT elevated.
GI feels probably acute process contributing
Continue to monitor
Hold statin and will reevaluate when to restart
Hypovolemic hyponatremia -sodium 131.
He had evidence of ADH issues before but this time more hypovolemia.
Serum osmolarity 273. TSH 2.3, random cortisol 20.2. Urine osmolality 241, urine sodium 10. Suspect GI losses induced hyponatremia.
Essential hypertension:
Continue antihypertensive, losartan 100 mg p.o. daily
Monitor blood pressure closely
Hyperlipidemia:
Hold off on statins and follow-up trend LFTs
Bladder cancer -underwent cystoscopy and transurethral resection of bladder tumor 01/30/2024. Follow-up with urology after discharge. Urology recommends removal of Castañeda catheter and stent in 7 to 10 days.
CODE STATUS:
DNR
Dispo -medically stable for discharge. Case management aware. Updated family at the bedside. Patient strongly prefers to go home with home care. I did recommend SNF but patient not interested and believes that from a psychological standpoint she
would do better at home. Family aware and awaiting their decision today.
Anticipated Discharge: Within 24 hours
Subjective/Interval History
-
Date of Service: April 11, 2024
Patient seen and examined. No complaints. Eager to go home.
Objective Data
-
Labs:
Laboratory Results
04/11/24
06:30
WBC 12.7 H
Hgb 8.5 L
Hct 25.4 L
Plt Count 465 H
Sodium 131 L
Potassium 4.2
Chloride 99
Carbon Dioxide 25
BUN 10
Creatinine 0.5 L
Glucose 109 H
Calcium 8.2 L
Total Bilirubin 0.5
AST 73 H
ALT 53 H
Alkaline Phosphatase 175 H
Vital Signs:
Vital Signs
Temp Pulse Resp BP Pulse Ox
97.6 F 76 18 115/54 95
04/11/24 07:14 04/11/24 08:11 04/11/24 07:14 04/11/24 08:11 04/11/24 07:14
I&O
04/10/24 04/11/24 04/12/24
06:59 06:59 06:59
Intake Total 1080 / 1080 480 / 480
Output Total 1200 / 1200 600 / 600
Balance -120 / -120 -120 / -120
Review of Systems
-
History Source: Patient
All other systems: Reviewed and negative
--- NOTE | 2024-04-11 13:38 | CM ---
Addendum entered by Jackelin Mitchell RN 04/11/24 16:13:
IMM reviewed.
Addendum entered by Jackelin Mitchell RN 04/11/24 13:58:
Hospital bed ordered through [facility].
Original Note:
Reviewed the chart notes and spoke with the patient and her two daughters at the bedside. Discussed discharge options. One is SNF/rehab, which the patient does not want. The other option is home with services. Patient and daughters in agreement
with home with VN and Palliative Care. Family informed that Palliative Care team will reach out to make appointment in future to place on their schedule. Hospital bed ordered and the daughters are in agreement with private pay as patient would
not qualify for insurance coverage. continues to be available to patient/family and is monitoring medical plan for needs at discharge.
Plan: Discharge to home with [facility] and Palliative Care. Consults place in [facility].
[2024-04-11 13:40] VITALS: BP 120/68; BP 85/48; PULSE 106
[2024-04-11 15:40] VITALS: BP 120/60
[2024-04-11 15:46] VITALS: BP 138/59
[2024-04-11] MEDS: XANAX 0.25 MG PO (21:19)
[2024-04-11] MEDS: TYLENOL 650 MG PO (21:19)
[2024-04-11] MEDS: MELATONIN 1.5 MG PO (21:19)
[2024-04-11 23:15] VITALS: BP 128/59
[2024-04-12] MEDS: FIRVANQ 125 MG PO ×4 (06:14→23:15)
[2024-04-12 07:00] VITALS: BP 132/57
[2024-04-12] MEDS: PROTONIX 40 MG PO (08:39)
[2024-04-12] MEDS: COZAAR 100 MG PO (08:39)
[2024-04-12] MEDS: ZOLOFT 25 MG PO (08:39)
--- NOTE | 2024-04-12 10:32 | W.PN.ONC2 ---
Today's Communication / Plan
-
discharge planning in progress
OP follow up with Dr. Rosenbaum scheduled 05/01/2024 1030am
Impression
Impression
Cytopenias, acute on chronic
Failure to thrive
Bladder cancer status post recent TURBT, intravesical therapy planned
Cdiff
Plan
Plan
Evaluation for anemia has been non-diagnostic thus far
S/P BMBx 04/10, follow for pathology. Anticipate flow available next week.
Transfuse as needed hemoglobin of less than 7.
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
Subjective/Objective
Chief Complaint
no new complaints
Subjective
denies pain or sob
leukocytosis continue to improve
Vital Signs:
Vital Signs
Temp Pulse Resp BP Pulse Ox
97.4 F 76 18 137/57 94
04/12/24 07:00 04/12/24 08:39 04/12/24 07:00 04/12/24 08:39 04/12/24 07:00
Lab Results:
Laboratory Data
WBC 12.7 10^3/uL (4.8-10.8) H 04/11/24 06:30
Hgb 8.5 g/dL (12.0-16.0) L 04/11/24 06:30
Plt Count 465 10^3/uL (130-400) H 04/11/24 06:30
eGFR > 60.00 04/11/24 06:30
Physical Exam
HEENT: Moist Mucous Membranes; No Jaundice
Cardiology: S1 and S2
Pulmonary: Clear
GI: Soft
Extremities: Pulses Present; No Edema
Neuro: Non Focal
Review of Systems
Review of Systems
ROS notable for subjective, otherwise negative
--- NOTE | 2024-04-12 11:28 | W.PN.HOSP.TC ---
Today's Communication/Plan
-
Discharge
Assessment / Plan
Assessment / Plan
Gen-sleepy but arousable
HEENT-NC, AT, anicteric, clear oral mm
Neck-supple
CV-reg, no M, +S1/S2
Lungs-clear B/L
Abd-soft, NT, ND
Ext-no edema
Musculoskeletal-no cyanosis, clubbing
Skin-warm and dry
Neuro-grossly non-focal
Psych-calm, cooperative
Persistent leukocytosis -no diagnosis so far. Bone marrow biopsy completed 04/10, report pending. Outpatient follow-up with hematology.
CDAD -continue oral vancomycin. Diarrhea improving.
Acute on chronic anemia -normocytic. Unclear etiology but no signs of active bleeding. Transfused 1 unit of blood so far, hemoglobin stable at 8.5 today. Monitor for now. Iron panel not entirely consistent with iron deficiency. MCV normal.
Acute urinary retention -Castañeda catheter in place, continue on discharge and follow-up with urology.
Generalized weakness and recent fall -suspect due to multifactorial etiology including deconditioning, anemia, etc.
Chest pain and shortness of breath:
Noncardiac
Appreciated cardiology consult
CTA negative for PE
Elevated LFTs -unclear etiology. GGT elevated.
GI feels probably acute process contributing
Continue to monitor
Hold statin and will reevaluate when to restart
Hypovolemic hyponatremia -sodium 131.
He had evidence of ADH issues before but this time more hypovolemia.
Serum osmolarity 273. TSH 2.3, random cortisol 20.2. Urine osmolality 241, urine sodium 10. Suspect GI losses induced hyponatremia.
Essential hypertension:
Continue antihypertensive, losartan 100 mg p.o. daily
Monitor blood pressure closely
Hyperlipidemia:
Hold off on statins and follow-up trend LFTs
Bladder cancer -underwent cystoscopy and transurethral resection of bladder tumor 01/30/2024. Follow-up with urology after discharge. Urology recommends removal of Castañeda catheter and stent in 7 to 10 days.
CODE STATUS:
DNR
Dispo -medically stable for discharge. Case management aware. Updated family at the bedside. I also spoke with daughter Jaci on the phone and recommend discharge home ideally this afternoon. She is awaiting delivery of a hospital bed.
Jason will call me back within the hour.
35 minutes spent in discharge process.
Anticipated Discharge: Today
Subjective/Interval History
-
Date of Service: April 12, 2024
Patient seen and examined. No complaints.
Objective Data
-
Vital Signs:
Vital Signs
Temp Pulse Resp BP Pulse Ox
97.4 F 76 18 137/57 94
04/12/24 07:00 04/12/24 08:39 04/12/24 07:00 04/12/24 08:39 04/12/24 07:00
I&O
04/11/24 04/12/24 04/13/24
06:59 06:59 06:59
Intake Total 480 / 480 780 / 780
Output Total 600 / 600 575 / 575
Balance -120 / -120 205 / 205
Review of Systems
-
History Source: Patient
All other systems: Reviewed and negative
--- NOTE | 2024-04-12 13:37 | VNURNOTE ---
Called contact Dana, no answer. Met with patient at bedside. She was sound asleep. Son in Law at bedside. Spoke to him regarding [facility] services, frequency, purpose of visits. He confirmed that hospital bed delivered. Address confirmed for
[facility]N. Referral accepted in [facility]. PCP Dr Burgos.
[2024-04-12 15:48] VITALS: BP 124/55
--- NOTE | 2024-04-12 17:01 | CM ---
met with patient and daughter maritza at bedside.also spoke with daughter sully who called to tell me she is okay with patient dc today to home with [facility].she also wanted a visit the next day.[facility] was able to arrange.then daughter called me back to
tell me she was having difficulty with siblings and wanted patient to stay another day.i asked her why she needed another day and she had no answer.i did tell her i am not the one to allow her to stay another day it is the attending.anyway
administration called the attending and said patient will be dc tomorrow.family had also asked attending if patient could stay until monday.
i arranged transport home for patient via [facility] care [facility] for 1pm.[facility] is aware of new dc date.. family will be available at home to meet transport. imm has already been signed.Plan:home with [facility] tomorrow at 1pm.
[2024-04-12] MEDS: XANAX 0.25 MG PO (21:20)
[2024-04-12] MEDS: MELATONIN 1.5 MG PO (21:21)
[2024-04-12 23:18] VITALS: BP 121/55
[2024-04-13] MEDS: FIRVANQ 125 MG PO ×2 (05:40→11:39)
[2024-04-13 07:35] VITALS: BP 125/58
[2024-04-13 07:55] VITALS: BP 125/58
--- NOTE | 2024-04-13 08:34 | W.PN.HOSP.TC ---
Today's Communication/Plan
-
Discharge
Assessment / Plan
Assessment / Plan
Gen-sleepy but arousable
HEENT-NC, AT, anicteric, clear oral mm
Neck-supple
CV-reg, no M, +S1/S2
Lungs-clear B/L
Abd-soft, NT, ND
Ext-no edema
Musculoskeletal-no cyanosis, clubbing
Skin-warm and dry
Neuro-grossly non-focal
Psych-calm, cooperative
Persistent leukocytosis -no diagnosis so far. Bone marrow biopsy completed 04/10, report pending. Outpatient follow-up with hematology.
CDAD -continue oral vancomycin. Diarrhea improving.
Acute on chronic anemia -normocytic. Unclear etiology but no signs of active bleeding. Transfused 1 unit of blood so far, hemoglobin stable at 8.5 today. Monitor for now. Iron panel not entirely consistent with iron deficiency. MCV normal.
Acute urinary retention -Castañeda catheter in place, continue on discharge and follow-up with urology.
Generalized weakness and recent fall -suspect due to multifactorial etiology including deconditioning, anemia, etc.
Chest pain and shortness of breath:
Noncardiac
Appreciated cardiology consult
CTA negative for PE
Elevated LFTs -unclear etiology. GGT elevated.
GI feels probably acute process contributing
Continue to monitor
Hold statin and will reevaluate when to restart
Hypovolemic hyponatremia -sodium 131.
He had evidence of ADH issues before but this time more hypovolemia.
Serum osmolarity 273. TSH 2.3, random cortisol 20.2. Urine osmolality 241, urine sodium 10. Suspect GI losses induced hyponatremia.
Essential hypertension:
Continue antihypertensive, losartan 100 mg p.o. daily
Monitor blood pressure closely
Hyperlipidemia:
Hold off on statins and follow-up trend LFTs
Bladder cancer -underwent cystoscopy and transurethral resection of bladder tumor 01/30/2024. Follow-up with urology after discharge. Urology recommends removal of Castañeda catheter and stent in 7 to 10 days.
CODE STATUS:
DNR
Dispo -medically stable for discharge home with [facility]N. Outpatient follow-up.
Anticipated Discharge: Today
Subjective/Interval History
-
Date of Service: April 13, 2024
Patient seen and examined. Sleeping. No complaints.
Objective Data
-
Vital Signs:
Vital Signs
Temp Pulse Resp BP Pulse Ox
97.9 F 82 20 125/58 94
04/13/24 07:35 04/13/24 07:35 04/13/24 07:35 04/13/24 07:35 04/13/24 07:35
I&O
04/12/24 04/13/24 04/14/24
06:59 06:59 06:59
Intake Total 780 / 780 520 / 520
Output Total 575 / 575 775 / 775
Balance 205 / 205 -255 / -255
Review of Systems
-
History Source: Patient
All other systems: Reviewed and negative
--- NOTE | 2024-04-13 08:36 | W.DS.TRANS ---
DC Summary - Physician Assistant Psychiatry
-
Discharge Instructions:
Discharge Diagnosis/Procedures Acute on chronic anemia, C. difficile colitis,
hyponatremia, ambulatory dysfunction
Diet Regular
Activity As tolerated,With assistance
Driving Restrictions No driving
Bathing Restrictions None
Blood Work CBC, BMP in 1 week
Other Services [facility]
Instructions:
Stand-Alone Forms:
Changes to Home Medications: No
Discharge Medications:
DC Medications w/original date entered in [employer]
acetaminophen 500 mg capsule 500 mg PO Q6H Pain 01/25/24
losartan 100 mg tablet 100 mg PO DAILY Blood Pressure 01/25/24
melatonin 1 mg tablet 1 mg PO HSPRN PRN insomnia 01/25/24
methenam 118 mg-m.blue 10 mg-s.phos 40.8 mg-p.salic 36 mg-hyos capsule (Uribel) 1 tab PO BID Supplement 01/30/24
vibegron 75 mg tablet (Gemtesa) 75 mg PO HS OVERACTIVE BLADDER 03/04/24
pantoprazole 40 mg tablet,delayed release 40 mg PO DAILY #30 tabs 04/01/24
polyethylene glycol 3350 17 gram oral powder packet (HealthyLax) 17 g PO DAILYPRN PRN constipation #30 ea 04/01/24
sennosides 8.6 mg-docusate sodium 50 mg tablet 1 tab PO BIDPRN PRN constipation #30 tabs 04/01/24
bisacodyl 10 mg rectal suppository (Dulcolax (bisacodyl)) 10 mg WA DAILYPRN PRN if mom is ineffective 04/05/24
magnesium hydroxide 400 mg/5 mL oral suspension (Milk of Magnesia) 30 ml PO DAILYPRN PRN if no bm on day 4 04/05/24
sertraline 25 mg tablet 25 mg PO DAILY Depression 04/05/24
sodium phosphates 19 gram-7 gram/118 mL enema (Fleet Enema) 118 ml WA DAILYPRN PRN if dulcolax is ineffective 04/05/24
vancomycin 125 mg capsule 125 mg PO QID #24 caps 04/12/24
Home Medication Changes
Pending Results: No
[2024-04-13] MEDS: COZAAR 100 MG PO (10:34)
[2024-04-13] MEDS: PROTONIX 40 MG PO (10:34)
[2024-04-13] MEDS: ZOLOFT 25 MG PO (10:34)
--- NOTE | 2024-04-13 11:14 | CM ---
Pt for discharge today
Transport arranged for 1PM
Spoke with daughter Jaci - aware of d/c and transport time
[facility] to follow for home care needs
Plan - home with [facility]
== END 2024-04-13 13:13 | disposition home health service (06) | DRG 815 ==
LOC: 2 NORTH 09:00
PROVIDERS: Nurse Practitioner Adult Health; Radiology Vascular & Interventional Radiology; Student in an Organized Health Care Education/Training Program; ADMITTING PHYSICIAN Hospitalist; ATTENDING PHYSICIAN Hospitalist; CONSULT PHYSICIAN Internal Medicine Cardiovascular Disease; CONSULT PHYSICIAN Internal Medicine Gastroenterology; CONSULT PHYSICIAN Internal Medicine Hematology & Oncology; CONSULT PHYSICIAN Specialist; EMERGENCY PHYSICIAN Emergency Medicine; FAMILY PHYSICIAN Family Medicine
PROC: 30233N1 Transfusion of Nonautologous Red Blood Cells into Peripheral Vein, Percutaneous Approach (ICD-10-PCS; 2024-04-06)
PROC: 079T3ZX Drainage of Bone Marrow, Percutaneous Approach, Diagnostic (ICD-10-PCS; 2024-04-10)
PROC: 07DR3ZX Extraction of Iliac Bone Marrow, Percutaneous Approach, Diagnostic (ICD-10-PCS; 2024-04-10)
DX: D72.829 Elevated white blood cell count, unspecified (principal); A04.72 Enterocolitis due to Clostridium difficile, not specified as recurrent; D62 Acute posthemorrhagic anemia; E87.1 Hypo-osmolality and hyponatremia; I31.39 Other pericardial effusion (noninflammatory); J98.11 Atelectasis; F41.9 Anxiety disorder, unspecified; I10 Essential (primary) hypertension; K21.9 Gastro-esophageal reflux disease without esophagitis; K22.2 Esophageal obstruction; E11.9 Type 2 diabetes mellitus without complications; H40.9 Unspecified glaucoma; E78.00 Pure hypercholesterolemia, unspecified; R79.89 Other specified abnormal findings of blood chemistry; R33.9 Retention of urine, unspecified; R32 Unspecified urinary incontinence; R31.9 Hematuria, unspecified; M19.90 Unspecified osteoarthritis, unspecified site; M79.7 Fibromyalgia; E86.1 Hypovolemia; C67.9 Malignant neoplasm of bladder, unspecified; J45.909 Unspecified asthma, uncomplicated; K44.9 Diaphragmatic hernia without obstruction or gangrene; R62.7 Adult failure to thrive; S00.83XA Contusion of other part of head, initial encounter; W19.XXXA Unspecified fall, initial encounter; Y93.9 Activity, unspecified; Y92.9 Unspecified place or not applicable; Z66 Do not resuscitate; Z96.652 Presence of left artificial knee joint; Z88.1 Allergy status to other antibiotic agents; Z86.73 Personal history of transient ischemic attack (TIA), and cerebral infarction without residual deficits; Z83.3 Family history of diabetes mellitus; Z82.49 Family history of ischemic heart disease and other diseases of the circulatory system; Z82.3 Family history of stroke; Z84.89 Family history of other specified conditions; Z87.440 Personal history of urinary (tract) infections
CPT/HCPCS: 88305; 88311; 88312; 38222; 51701; 70450; 71045; 71275; 74176; 77012; 80053; 81003; 81015; 82248; 82533; 82607; 82668; 82728; 82746; 82784; 82977; 83540; 83550; 83605; 83615; 83690; 83880; 83930; 83935; 84155; 84165; 84300; 84443; 84484; 85014; 85018; 85025; 85045; 85379; 86334; 86850; 86900; 86901; 86920; 87040; 87086; 87147; 87324; 87449; 88313; 92610; 93005; 93970; 96374; 97116; 97162; 97166; 97530; 99285; P9016; Q9967

== ENCOUNTER → 2024-04-23 11:20 | Outpatient (REF) | payer MEDICARE, SELFPAY ==
[2024-04-23 18:57] LABS: % Basophils 0.4 % (0-2); % Eosinophils 5.6 % (0-6); % Immature Granulocytes 1.5 % (0-0.5); % Lymphocytes 14.3 % (20.5-51.1); % Monocytes 9.8 % (1.7-9.3); % Neutrophils 68.4 % (42.2-75.2); Absolute Basophils 0.1 10^3/uL (0-0.2); Absolute Eosinophils 0.7 10^3/uL (0-0.7); Absolute Immature Granulocytes 0.2 10^3/uL (0-0.05); Absolute Lymphocytes 1.7 10^3/uL (1.2-3.4); Absolute Monocytes 1.1 10^3/uL (0.1-0.6); Hematocrit 27.9 % (37.0-47.0); Hemoglobin 8.9 g/dL (12.0-16.0); Mean Corp Hgb Conc. 31.9 g/dL (33.0-37.0); Mean Corpuscular Hgb 28.7 pg (27.0-31.0); Mean Platelet Volume 10.4 fL (7.4-10.4); Nucleated Red Blood Cells % 0 %; Platelet Count 549 10^3/uL (130-400); Red Cell Dist. Width 14.8 % (11.5-14.5); White Blood Cell Count 11.6 10^3/uL (4.8-10.8)
[2024-04-23 19:04] LABS: Blood Urea Nitrogen 12 mg/dl (7-17); Calcium 8.8 mg/dl (8.4-10.2); Carbon Dioxide 23 mmol/L (22-30); Chloride 97 mmol/L (98-107); Glucose 102 mg/dl (70-99); Potassium 4.2 mmol/L (3.5-5.1); Sodium 133 mmol/L (135-145); eGFR > 60.00
== END ==
LOC: CLAB 11:20
PROVIDERS: ATTENDING PHYSICIAN Family Medicine
DX: E87.0 Hyperosmolality and hypernatremia (principal); A41.9 Sepsis, unspecified organism; D63.0 Anemia in neoplastic disease
CPT/HCPCS: 36415; 80048; 85025

== ENCOUNTER → 2024-05-01 14:21 | Outpatient (REF) | payer MEDICARE, SELFPAY ==
[2024-05-01 11:54] LABS: % Basophils 0.2 % (0-2); % Eosinophils 1.4 % (0-6); % Immature Granulocytes 1.1 % (0-0.5); % Lymphocytes 9.7 % (20.5-51.1); % Monocytes 10.1 % (1.7-9.3); % Neutrophils 77.5 % (42.2-75.2); Absolute Eosinophils 0.2 10^3/uL (0-0.7); Absolute Immature Granulocytes 0.1 10^3/uL (0-0.05); Absolute Lymphocytes 1.3 10^3/uL (1.2-3.4); Absolute Monocytes 1.3 10^3/uL (0.1-0.6); Absolute Neutrophils 10.3 10^3/uL (1.4-6.5); Hematocrit 24.8 % (37.0-47.0); Mean Corp Hgb Conc. 32.3 g/dL (33.0-37.0); Mean Corpuscular Hgb 27.7 pg (27.0-31.0); Mean Corpuscular Volume 85.8 fL (81.0-99.0); Mean Platelet Volume 9.7 fL (7.4-10.4); Platelet Count 530 10^3/uL (130-400); Red Blood Cell Count 2.89 10^6/uL (4.20-5.40); Red Cell Dist. Width 14.8 % (11.5-14.5); White Blood Cell Count 13.2 10^3/uL (4.8-10.8)
== END ==
LOC: OIDL 14:21
PROVIDERS: ATTENDING PHYSICIAN Internal Medicine Hematology & Oncology
DX: D64.9 Anemia, unspecified (principal); C93.10 Chronic myelomonocytic leukemia not having achieved remission
CPT/HCPCS: 85025

== ENCOUNTER 2024-05-09 10:57 | Emergency (ER) | payer MEDICARE, SELFPAY ==
[2024-05-09 11:02] VITALS: BP 118/54
[2024-05-09 11:18] VITALS: BMI 23.3
[2024-05-09 11:49] LABS: Urine Albumin 2+ (Neg - Trace); Urine Bilirubin Negative (Negative); Urine Character Slightly Cloudy (Clear); Urine Glucose Negative (Negative); Urine Ketone Negative (Negative); Urine Leukocyte 2+ (Negative); Urine Nitrite Negative (Negative); Urine Occult Blood 3+ (Negative); Urine Specific Gravity 1.015 (<1.030); Urine Urobilinogen Negative (Neg - 1+)
[2024-05-09 12:12] LABS: Urine Mucus Few
[2024-05-09 12:14] LABS: Urine Amorphous Seen; Urine White Cell >100 /HPF (0-5)
[2024-05-09 12:15] LABS: Urine Bacteria Few (Negative)
[2024-05-09 12:59] LABS: % Basophils 0.5 % (0-2); % Eosinophils 4.6 % (0-6); % Immature Granulocytes 1.6 % (0-0.5); % Lymphocytes 12.4 % (20.5-51.1); % Monocytes 9.6 % (1.7-9.3); % Neutrophils 71.3 % (42.2-75.2); Absolute Basophils 0.1 10^3/uL (0-0.2); Absolute Eosinophils 0.5 10^3/uL (0-0.7); Absolute Immature Granulocytes 0.2 10^3/uL (0-0.05); Absolute Lymphocytes 1.3 10^3/uL (1.2-3.4); Absolute Neutrophils 7.6 10^3/uL (1.4-6.5); Hematocrit 25.7 % (37.0-47.0); Hemoglobin 8.3 g/dL (12.0-16.0); Mean Corp Hgb Conc. 32.3 g/dL (33.0-37.0); Mean Corpuscular Hgb 26.6 pg (27.0-31.0); Mean Corpuscular Volume 82.4 fL (81.0-99.0); Mean Platelet Volume 9.5 fL (7.4-10.4); Nucleated Red Blood Cells % 0.2 %; Platelet Count 566 10^3/uL (130-400); Red Blood Cell Count 3.12 10^6/uL (4.20-5.40); Red Cell Dist. Width 15.7 % (11.5-14.5); White Blood Cell Count 10.7 10^3/uL (4.8-10.8)
--- NOTE | 2024-05-09 13:13 | ED.GENMED ---
History of Present Illness
General
Chief Complaint: Urinary Symptoms
Source: patient
Exam Limitations: none
Time Seen by Provider: 05/09/24 11:07
Nursing documentation reviewed up to this point in time: agreed with
History of Present Illness
History of Present Illness:
88-year-old female with past medical history of hypertension hyperlipidemia, bladder stent and history of cancer of the bladder presenting to the emergency department today with concerns of fever last night and confusion of the patient. She has had
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 Has been getting infusions. Feels somewhat confused and off of her baseline. Denies any specific chest pain shortness of breath or any specific abdominal pain, nausea or
vomiting.
Past History
Past History
ED Past Medical History: HTN, Psychiatric (Anxiety) and Other (GERD, frequent UTIs, history of dysphagia)
ED Past Surgical History: Gynecological and Orthopedic
Social History
Tobacco: Non-smoker
Alcohol: Occasional
Family History
Family History: Other (Diabetes, coronary disease, stroke, glaucoma)
Review of Systems
Review of Systems
Allergies reviewed?: Yes
All Other Systems: ROS reviewed and negative except as documented in HPI and ROS
Phy Exam
Physical Exam
Physical Exam:
GENERAL: Alert , in no apparent distress
EYE: pupils equal and reactive
NECK: Supple, no significant adenopathy.
ENT: o/p clr, mmm.
CARDIAC: Regular rate and rhythm .
LUNGS: Clear breath sounds bilaterally, no acute respiratory distress, no wheezes/rales/rhonchi
ABDOMEN: Castañeda bag in place green blue-colored urine, soft, without focal tenderness, no r/g, no cvat
NEUROLOGICAL: Alert and oriented, no focal neuro deficits
SKIN: Warm and dry, skin intact.
MUSCULOSKELETAL: No edema, well perfused.
PSYCH: Normal and appropriate interaction.
Course
Orders/Labs/Results
Orders:
Orders
05/09/24 11:27
Urinalysis Reflex To Culture Urgent
Date Specimen was Collected: 05/09/24
Time Specimen was Collected: 11:25
Urine Microscopic Reflex Cult Urgent
Urine Culture Urgent
VON Source: U
Specimen Description:
Date Specimen was Collected: 05/09/24
Time Specimen was Collected: 11:25
05/09/24 12:38
EKG [Electrocardiogram (*1)] Urgent
Reason for Study: Fatigue / Weakness
EKG- Treatment ONCE
05/09/24 12:45
Complete Blood Count/With Diff Urgent
Comprehensive Metabolic Panel Urgent
TSH Reflex To Free T4 Urgent
05/09/24 15:42
Acetaminophen [Tylenol] 1,000 mg PO NOW STA
Cephalexin Monohydrate [Keflex] 500 mg PO NOW STA
Abnormal Lab Results
05/09/24 05/09/24
11:27 12:45
RBC 3.12 L 10^6/uL
(4.20-5.40)
Hgb 8.3 L g/dL
(12.0-16.0)
Hct 25.7 L %
(37.0-47.0)
MCH 26.6 L pg
(27.0-31.0)
MCHC 32.3 L g/dL
(33.0-37.0)
RDW 15.7 H %
(11.5-14.5)
Plt Count 566 H 10^3/uL
(130-400)
Abs Immat Gran (auto) 0.2 H 10^3/uL
(0-0.05)
Absolute Neuts (auto) 7.6 H 10^3/uL
(1.4-6.5)
Absolute Monos (auto) 1.0 H 10^3/uL
(0.1-0.6)
Immature Gran % 1.6 H %
(0-0.5)
Lymphocytes % 12.4 L %
(20.5-51.1)
Monocytes % 9.6 H %
(1.7-9.3)
Sodium 134 L mmol/L
(135-145)
Glucose 107 H mg/dl
(70-99)
Albumin 3.0 L g/dl
(3.5-5.0)
Ur Occult Blood Reflex 3+ A
(Negative)
Leukocyte Esterase Rfl 2+ A
(Negative)
Urine RBC 7-10 A /HPF
(0-2)
Urine WBC (Reflex) >100 A /HPF
(0-5)
Urine Bacteria (Reflex) Few A
(Negative)
Urine Albumin (Reflex) 2+ A
(Neg - Trace)
05/09/24 12:45
05/09/24 12:45
Vital Signs
Initial and Last Documented VS:
Initial Vital Signs
Temp Pulse Resp BP Pulse Ox
97.8 F 79 18 118/54 95
05/09/24 11:02 05/09/24 11:02 05/09/24 11:02 05/09/24 11:02 05/09/24 11:02
Last Documented Vital Signs
Temp Pulse Resp BP Pulse Ox
97.8 F 72 18 133/61 95
05/09/24 11:02 05/09/24 13:54 05/09/24 13:54 05/09/24 13:54 05/09/24 11:02
MDM/Problems Addressed
MDM/Problems Addressed:
88-year-old female presenting to the emergency department today with concerns of slight confusion and an episode of fever yesterday. On arrival here afebrile vital signs are normal. Labs obtained and appear to be at patient's baseline is
chronically anemic but slightly better than her previous level 1 week ago. Urinalysis does appear to be consistent with potential UTI. The case was discussed with urology considering she has a stent in place and has been on Keflex chronically.
They recommend increasing to twice daily replacing the catheter sending a new urinalysis new catheter and close outpatient follow-up. This was discussed with the patient and family who are in agreement with the plan.
*Critical Care Note
Total Time (30-74mins, 75-104mins- exclusive of procedures): Not Applicable
ED Attending Note
-
Portions of this chart may have been created with voice recognition software.� Occasional wrong word or��sound alike� substitutions may have occurred due to the inherent limitations of voice recognition software.
Discharge Plan
Departure
Patient Disposition: Home (Routine Discharge)
Date of Disposition: 05/09/24
Time of Disposition: 16:29
Patient with high blood pressure during this ER visit?: No
Condition: Good
Covid-19: Not Applicable
Discharge Problem:
Acute UTI
Instructions: Urinary Tract Infection, Adult (DC)
Prescriptions:
New
ondansetron 4 mg tablet,disintegrating
4 mg PO Q6H PRN (Reason: nausea and vomiting) Qty: 7 0RF
cephalexin 500 mg capsule
500 mg PO BID 7 Days Qty: 14 0RF
No Action
losartan 100 mg Tablet
100 mg PO DAILY
acetaminophen 500 mg Capsule
500 mg PO Q6H
melatonin 1 mg Tablet
1 mg PO HSPRN PRN (Reason: insomnia)
Uribel 118-10-40.8-36 mg Capsule
1 tab PO BID
Gemtesa 75 mg Tablet
75 mg PO HS
polyethylene glycol 3350 [HealthyLax] 17 gram Powder In Packet
17 g PO DAILYPRN PRN (Reason: constipation) Qty: 30 0RF
sennosides-docusate sodium 8.6-50 mg Tablet
1 tab PO BIDPRN PRN (Reason: constipation) Qty: 30 0RF
pantoprazole 40 mg Tablet,Delayed Release (Dr/Ec)
40 mg PO DAILY Qty: 30 0RF
magnesium hydroxide [Milk of Magnesia] 400 mg/5 mL Suspension
30 ml PO DAILYPRN PRN (Reason: if no bm on day 4)
bisacodyl [Dulcolax (bisacodyl)] 10 mg Suppository
10 mg [place] DAILYPRN PRN (Reason: if mom is ineffective)
Fleet Enema 19-7 gram/118 mL Enema
118 ml [place] DAILYPRN PRN (Reason: if dulcolax is ineffective)
sertraline 25 mg tablet
25 mg PO DAILY
vancomycin 125 mg capsule
125 mg PO QID Qty: 24 0RF
Referrals:
Valentín Burgos MD [Family Provider] -
Activity Restrictions/Additional Instructions:
You came to the emergency department today and were found to have potential urinary tract infection. You had a new Castañeda placed. Please take Keflex twice daily until urology follow-up for further recommendation and reassessment. You can also take
Zofran 1 tab as needed every 8 hours for nausea. Return to the emergency department for any worsening, new or concerning symptoms.
Interventions
Interventions:
*Risk Screen - Suicide Last Done: 05/09/24 11:20
*General Assessment Last Done: 05/09/24 11:19
*Neglect/Abuse Screening Last Done: 05/09/24 11:20
*ED COVID-19 Vaccine History Last Done: 05/09/24 11:19
ED-Female Genitourinary Assessment Last Done: 05/09/24 11:26
Discharge Date and Time
Print Language: BELGIAN
[2024-05-09 13:19] LABS: ALT (SGPT) 17 U/L (0-35); AST (SGOT) 22 U/L (14-36); Alkaline Phosphatase 108 U/L (38-126); Blood Urea Nitrogen 11 mg/dl (7-17); Calcium 8.9 mg/dl (8.4-10.2); Carbon Dioxide 24 mmol/L (22-30); Chloride 99 mmol/L (98-107); Estimated Creatinine Clearance 51 ml/min; Glucose 107 mg/dl (70-99); Sodium 134 mmol/L (135-145); Total Bilirubin 0.2 mg/dl (0.2-1.3); Total Protein 6.3 g/dl (6.3-8.2); eGFR > 60.00
[2024-05-09 13:49] LABS: TSH Reflex To Free T4 1.72 uIU/ml (0.47-4.68)
[2024-05-09 13:54] VITALS: BP 133/61
[2024-05-09] MEDS: KEFLEX 500 MG PO (15:46)
[2024-05-09] MEDS: TYLENOL 1000 MG PO (15:46)
[2024-05-09 17:10] VITALS: BP 132/57
[2024-05-09 17:19] LABS: Urine Albumin 1+ (Neg - Trace); Urine Bilirubin Negative (Negative); Urine Glucose Negative (Negative); Urine Ketone Negative (Negative); Urine Leukocyte 2+ (Negative); Urine Nitrite Negative (Negative); Urine Occult Blood 3+ (Negative); Urine Specific Gravity 1.015 (<1.030); Urine Urobilinogen Negative (Neg - 1+)
[2024-05-09 17:20] LABS: Urine Character Slightly Cloudy (Clear)
[2024-05-09 17:44] LABS: Urine Bacteria Many (Negative); Urine White Cell 50-60 /HPF (0-5)
== END 2024-05-09 17:10 | disposition home or self-care (01) ==
LOC: EMR 10:57
PROVIDERS: Physician Assistant; EMERGENCY PHYSICIAN Emergency Medicine; FAMILY PHYSICIAN Family Medicine
DX: N39.0 Urinary tract infection, site not specified (principal); I10 Essential (primary) hypertension; E78.00 Pure hypercholesterolemia, unspecified; F41.9 Anxiety disorder, unspecified; K21.9 Gastro-esophageal reflux disease without esophagitis; Z82.3 Family history of stroke; Z82.49 Family history of ischemic heart disease and other diseases of the circulatory system; Z83.3 Family history of diabetes mellitus; Z85.51 Personal history of malignant neoplasm of bladder; Z87.440 Personal history of urinary (tract) infections
CPT/HCPCS: 99283; 80053; 81003; 81015; 84443; 85025; 87086; 93005